=== PATIENT | male | born 1980 | race Caucasian/White ===

== ENCOUNTER → 2017-07-19 14:29 | Outpatient (POV) | payer BC, SELFPAY ==
[2017-07-19 15:43] LABS: Basophils # 0.1 K/mm3 (0-0.2); Basophils % 0.5 % (0.1-2.0); Eosinophils # 0.2 K/mm3 (0.0-0.4); Eosinophils % 1.7 % (0.1-12.0); Hematocrit 44.1 % (42.0-52.0); Lymphocytes # 2.8 K/mm3 (0.7-4.5); Lymphocytes % 25.6 K/mm3 (10-50); Mean Corpuscular Hemoglobin 28.8 pg (27.0-31.2); Mean Corpuscular Volume 84.7 fl (80-94); Mean Platelet Volume 7.7 fl (7.4-10.4); Monocytes # 0.6 K/mm3 (0.1-1.0); Monocytes % 5.1 % (1.7-9.3); Neutrophils # 7.4 K/mm3 (1.8-7.8); Platelet Count 301 K/mm3 (142-424); Red Blood Count 5.21 M/mm3 (4.60-6.20); Red Cell Distribution Width 13.1 % (11.5-17.5)
[2017-07-19 16:40] LABS: Alanine Aminotransferase 45 U/L (12-78); Albumin Level 4.2 gm/dL (3.4-5.0); Albumin/Globulin Ratio 1.2 (1.1-1.8); Alkaline Phosphatase 76 U/L (46-116); Amylase 44 U/L (25-125); Anion Gap 15.4 mEq/L (5-15); Bilirubin,Total 0.4 mg/dL (0.2-1.0); Blood Urea Nitrogen 11 mg/dL (7-18); Calcium 9.2 mg/dL (8.5-10.1); Carbon Dioxide 24 mmol/L (21.0-32.0); Chloride 96 mmol/L (98-107); Creatinine,Serum 1.06 mg/dL (0.70-1.30); Estimated Glomerular Filt Rate 78 ml/min (>60); GFR (African American) 95 ML/MIN (>60); Globulin 3.4 gm/dl (1.3-3.2); Glucose 380 mg/dL (74-106); Lipase 180 u/L (73-393); Sodium 131 mmol/L (136-145); Total Protein,Serum 7.6 gm/dL (6.4-8.2)
[2017-07-19 16:43] LABS: Aspartate Amino Transferase 21 U/L (15-37)
[2017-07-19 16:44] LABS: Potassium 4.4 mmoL/L (3.5-5.1)
== END ==
PROVIDERS: Family Provider Physician Assistant; Visit Provider Nurse Practitioner Acute Care
DX: K85.90 Acute pancreatitis without necrosis or infection, unspecified (principal)
CPT/HCPCS: 36415; 80053; 82150; 83690; 85025

== ENCOUNTER → 2017-07-29 09:49 | Outpatient (CLI) | payer BC, SELFPAY ==
--- NOTE | 2017-07-29 10:04 | NVE_ITS ---
Venous Exam Indications: 729.5 Pain in limb. 729.81 Swelling of limb. 451.82 Phlebitis and thrombophlebotis of superficial veins of upper extremities. IMPRESSIONS 1. No evidence of deep vein thrombosis ofthe veins of the left upper extremity 2. Superficial vein thrombosis involving the left basilic vein from the mid upper arm to the wrist. Left upper extremity venous duplex. Doppler flow study including spectral analysis, color and saenz scale imaging. Location: Vascular laboratory. Patient status: Outpatient. CRITICAL FINDINGS - Reported to: Dr. Berger - Read back and verified. - 07/29/17 - 10:45 AM - Yes Tables: Venous flow and imaging: + + + Location Flow properties + + + Left internal jugular Normal phasicity; spontaneous; compressible + + + Left subclavian Normal phasicity; spontaneous; normal augmentation; compressible + + + Left axillary Normal phasicity; spontaneous; normal augmentation; compressible + + + Left brachial Normal phasicity; spontaneous; normal augmentation; compressible + + + Left cephalic Normal phasicity; spontaneous; normal augmentation; compressible + + + Left basilic Diminished phasicity ; not spontaneous; no augmentation; noncompressible + + + Left radial Compressible + + + Left ulnar Compressible + + + Right subclavian Normal phasicity; spontaneous; normal augmentation; compressible + + + (Report amended ) Electronically signed by: Dony Peña [id number]
== END ==
PROVIDERS: Family Provider Physician Assistant; PCP Physician Assistant; Visit Provider Physician Assistant
DX: I80.8 Phlebitis and thrombophlebitis of other sites (principal)
CPT/HCPCS: 93971

== ENCOUNTER 2017-09-06 10:01 | Inpatient (IN) | payer BC, SELFPAY ==
[2017-09-06 10:02] VITALS: BP 124/80; PULSE 89; RESP 20; TEMP 37.4; O2SAT 98; BMI 33.9
[2017-09-06 10:23] LABS: Microscopic, Urine URINE MICROSCOPIC (MICROSCOPIC)
[2017-09-06 10:34] LABS: Basophils # 0.1 K/mm3 (0-0.2); Basophils % 0.3 % (0.1-2.0); Eosinophils # 0.3 K/mm3 (0.0-0.4); Eosinophils % 1.6 % (0.1-12.0); Lymphocytes # 1.5 K/mm3 (0.7-4.5); Lymphocytes % 8.2 K/mm3 (10-50); Mean Corpuscular HGB Conc 38.2 g/dL (31.8-35.4); Mean Corpuscular Volume 83.9 fl (80-94); Mean Platelet Volume 7.7 fl (7.4-10.4); Monocytes # 0.6 K/mm3 (0.1-1.0); Monocytes % 3.2 % (1.7-9.3); Neutrophils # 16.1 K/mm3 (1.8-7.8); Neutrophils % 86.7 % (37.0-80.0); Platelet Count 279 K/mm3 (142-424); Red Cell Distribution Width 13.5 % (11.5-17.5); White Blood Count 18.5 K/mm3 (4.8-10.8)
[2017-09-06 10:36] LABS: Appearance,Urine CLEAR (Clear); Bilirubin,Urine Negative (Negative); Blood, Urine TRACE-L (Negative); Color,Urine YELLOW (Yellow); Glucose,Urine (UA) 3+ (Negative); Ketones,Urine 2+ (Negative); Leukocyte Esterase,Urine Negative (Negative); Nitrate,Urine Negative (Negative); Protein,Urine Negative (Negative); Urobilinogen,Urine 0.2 EU/dl (0.2)
[2017-09-06 10:37] LABS: MANUAL DIFFERENTIAL MANUAL DIFFERENTIAL (MANUAL DIFF)
--- NOTE | 2017-09-06 10:52 | CT_ITS ---
CT abdomen pelvis wo con Ordering Physician: Jonathan Johnson MD Patient Age: 37 years: Male HISTORY: ITS.REASON: RT SIDE PAIN. Upper abdominal pain TECHNIQUE: Helical CT scanning abdomen pelvis with sagittal and coronal and axial reformatting on CT workstation. No oral nor IV contrast utilized COMPARISON : 03/08/2017: 01/17/2017 FINDINGS: Lung bases show no acute finding. Nonspecific less than 4 mm nodular opacity is present within the lingula.Overlying left cardiac apex. Axial image 6. Stable. Heart normal size. Only scant pericardial fluid WNL & less than previous CT study . LIVER. Hepatic steatosis. The mildly enlarged right lobe liver measures up to 24 cm height. Spleen . Upper normal size measures 12 cm actually appears intimately smaller than 2017 Adrenals unremarkable. Kidneys with no obstruction or calculi. Gallbladder. Layering appearance within GB may reflect layering bile or sludge Acute pancreatitis evident. There is prominent stranding and hazy fat about the pancreas particularly anterior to the body and head of pancreas. There is minimal fluid tracking from the tail outlining the throat is rasher on left extending towards the left gutter. There is also stranding on the right with some wispy fluid extending towards the right gutter. Edema and stranding is seen extending to the root of the mesentery and fat behind the stomach. Thin collection of fluid is seen just posterior to the head and by the pancreas and duodenum. I see no abscess collection. No calculi or biliary duct oral or pancreatic ductal dilatation. Diffuse thickening of the second and third portion of duodenum secondary to the pancreatitis noted. In 2017 appendicitis is most pronounced about the tail the pancreas. Today it seems to be most evident about the head and body. Stranding & inflammation into the mesentery beneath the stomach is also a feature seen today was not evident previously. Pelvis. Minimal fluid at the pelvis basin secondary to the pancreatitis. Pelvis Urinary bladder appears satisfactory. Modest size prostate Appendix normal.. . Moderate stool is seen the left large bowel. There is slight increased fluid throughout the small bowel which may reflect a mild ileus but no small bowel dilatation. No free air abdomen or pelvis. A question some mild sclerotic changes along the iliac margin of SI joints. Nonspecific but noted. Also incidental note is made of bilateral pars defects at L5 with no listhesis as of yet. No acute bony anomalies. IMPRESSION:------ 1. Acute pancreatitis.: Diffuse peripancreatic inflammatory change. Slightly more evident about the body and head pancreas today versus previous. Stranding inflammation extending towards into the mesentery into the right on today's study. No discrete absces nor pseudocyst . No hemorrhage. No complicating features 2. Diffuse Hepatic steatosis. No ductal dilatation evident 3. Other minor acute observations in text.
[2017-09-06 10:56] LABS: RBC,Urine Occasional #/hpf (0-3); Squamous Epithelial Cell,Urine Occasional #/hpf (0-5)
[2017-09-06 11:01] LABS: Lymphocytes % 8 % (10-50); Monocytes % 4 % (2-9); Neutrophils % 87 % (42-76); Platelet Estimate Normal; RBC Morphology Normal; Total Cells Counted 100
[2017-09-06 11:23] LABS: Albumin/Globulin Ratio 0.8 (1.1-1.8); Amylase 194 U/L (25-125); Blood Urea Nitrogen 8 mg/dL (7-18); Calcium 7.1 mg/dL (8.5-10.1); Chloride 93 mmol/L (98-107); Globulin 3.8 gm/dl (1.3-3.2); Glucose 396 mg/dL (74-106); Lipase 1866 u/L (73-393); Sodium 126 mmol/L (136-145); Total Protein,Serum 6.8 gm/dL (6.4-8.2)
--- NOTE | 2017-09-06 11:44 | HMH.EDNVD ---
ED Disposition Clinical Impression: Acute pancreatitis Qualifiers: Pancreatitis type: unspecified pancreatitis type Acute pancreatitis complication: unspecified Qualified Code(s): K85.90 - Acute pancreatitis without necrosis or infection, unspecified DKA (diabetic ketoacidoses) Qualifiers: Diabetes mellitus type: type 2 Diabetes mellitus complication detail: without coma Qualified Code(s): E11.10 - Type 2 diabetes mellitus with ketoacidosis without coma Disposition: Admitted As Inpatient Condition on Discharge: Serious Time of Disposition: 12:05 - Critical Care Critical Care Time: Yes Attestation: On 09/06/17, the high probability of a clinically significant, sudden or life threatening deterioration of the following system(s) required my full and direct attention, intervention and personal management. The time I documented below is in addition to time spent performing reported procedures but includes the following listed in this critical care notation. Total Critical Care Time: 45 Vital system(s) involved:: Metabolic Failure My critical care processes included: Assessment & monitoring of V/S, Initial and Re-exams, Data Review/Interpretation, Coordinating Care, Medication Orders and management, Documentation Medical Decision Making - Medical Records Medical records reviewed: Yes: I reviewed the patient's medical records. Vital Signs: 09/06/17 10:02 09/06/17 13:32 09/06/17 14:00 Temperature 99.4 F 99.0 F Temperature Source Oral Oral Pulse Rate Pulse Rate [Right Brachial] 89 88 Respiratory Rate 20 18 Blood Pressure Blood Pressure [Right Arm] 124/80 129/70 Blood Pressure Mean [Right Arm] 94 89 Blood Pressure Source [Right Arm] Automatic Cuff Automatic Cuff Blood Pressure Position [Right Arm] Sitting Sitting 02 Sat by Pulse Oximetry 98 99 Oxygen Delivery Method Room Air Room Air Room Air 09/06/17 14:24 Temperature 99.0 F Temperature Source Pulse Rate 88 Pulse Rate [Right Brachial] Respiratory Rate 18 Blood Pressure 129/70 Blood Pressure [Right Arm] Blood Pressure Mean [Right Arm] Blood Pressure Source [Right Arm] Blood Pressure Position [Right Arm] 02 Sat by Pulse Oximetry Oxygen Delivery Method Room Air - Lab Data Lab results reviewed: Yes: I reviewed the patient's lab results. Lab Results 09/06/17 10:18: Urine Color Yellow, Urine Appearance Clear, Urine pH 6.0, Ur Specific [place] 1.010, Urine Protein Negative, Urine Glucose (UA) 3+, Urine Ketones 2+, Urine Blood Trace-l, Urine Nitrate Negative, Urine Bilirubin Negative, Urine Urobilinogen 0.2, Ur Leukocyte Esterase Negative, Urine RBC Occasional, Urine WBC None, Ur Squamous Epith Cells Occasional, Urine Bacteria None 09/06/17 10:20: WBC 18.5 H, RBC 5.00, Hgb 16.0, Hct 42.0, MCV 83.9, MCH 32.0 H, MCHC 38.2 H, RDW 13.5, Plt Count 279, MPV 7.7, Neut % (Auto) 86.7 H, Lymph % (Auto) 8.2 L, [place] % (Auto) 3.2, Eos % (Auto) 1.6, Baso % (Auto) 0.3, Neut # (Auto) 16.1 H, Lymph # (Auto) 1.5, [place] # (Auto) 0.6, Eos # (Auto) 0.3, Baso # (Auto) 0.1, Total Counted 100, Neutrophils % (Manual) 87 H, Band Neutrophils % 1.0, Lymphocytes % (Manual) 8 L, Monocytes % (Manual) 4, Platelet Estimate Normal, RBC Morphology Normal 09/06/17 10:20: Sodium 126 L, Potassium 4.1, Chloride 93 L, Carbon Dioxide 7 L*, Anion Gap 30.1 H, BUN 8, Creatinine 0.82, Estimated Creat Clear 196, Estimated GFR 105, Est GFR ( Amer) 127, Glucose 396 H, Calcium 7.1 L, Total Bilirubin 2.0 H, AST 28, ALT 31.2, Alkaline Phosphatase 66, Total Protein 6.8, Albumin 3.0 L, Globulin 3.8 H, Albumin/Globulin Ratio 0.8 L, Amylase 194 H, Lipase 1866 H 09/06/17 10:20: Plasma/Serum Alcohol 0 09/06/17 10:20: Acetone Level None detected 09/06/17 12:06: Lactic Acid 0.3 L 09/06/17 12:45: Specimen Source R. radial, O2 % Room air, ABG pH 7.38, ABG pCO2 31.6 L, ABG pO2 73.4 L, ABG HCO3 18.2 L, ABG Total CO2 19.2 L, ABG O2 Saturation 95, ABG Base Excess -6.9 L, Dony Test Acceptable Result diagrams: 0
--- NOTE | 2017-09-06 11:55 | US_ITS ---
US gallbladder Ordering Physician: Yo Sr MD Patient Age: 37 years: Male HISTORY: ITS.REASON: RUQ abdomen vomiting right upper quadrant pain TECHNIQUE: Ultrasound right upper quadrant COMPARISON :CT abdomen pelvis from earlier today FINDINGS Pancreas. Difficult of the visualized evaluate this area of inflammation. Likely edematous pancreas with some inflammatory fluid noted adjacent head of the body of pancreas. Liver. Hepatic steatosis Diffuse fatty changes difficult to penetrate liver. No biliary ductal dilatation. No focal lesions identified. Gallbladder. Slightly difficult to visualize but no definite gallstones. No evident shadowing gallstones. There is some sludge and debris within the gallbladder. The gallbladder wall appears upper normal thickness. Common duct appears normal diameter Right kidney generous thickness cortex.. Generous size of kidneys right kidney measuring 13.5 cm in length. Left kidney not imaged by ultrasound it was noted on today's CT 2 also measured nearly 12.5 cm in length IMPRESSION: . Difficult scan.. 1. Gallbladder. No discrete gallstones evident. Only scant debris and sludge. 2. Common duct normal diameter. 3. Hepatic steatosis difficult to penetrate liver. 4. Suggestion of edematous pancreas with vague adjacent inflammatory fluid. Findings Reflect known pancreatitis which was better demonstrated on today's CT
[2017-09-06 12:16] LABS: Alanine Aminotransferase 31.2 U/L (12-78); Potassium 4.1 mmoL/L (3.5-5.1)
[2017-09-06 12:21] LABS: Aspartate Amino Transferase 28 U/L (15-37); Creatinine Clearance Estimated 196 mL/min (0-300); Creatinine,Serum 0.82 mg/dL (0.70-1.30); Estimated Glomerular Filt Rate 105 ml/min (>60); GFR (African American) 127 ML/MIN (>60)
[2017-09-06 12:32] LABS: Alkaline Phosphatase 66 U/L (46-116)
--- NOTE | 2017-09-06 12:43 | PC.NURSE ---
YOGESH ESTRADA spoke with at this time
--- NOTE | 2017-09-06 12:48 | PC.NURSE ---
YOGESH ESTRADA speaking with DR. Sr.
[2017-09-06 13:02] LABS: ABG Base Excess -6.9 mmol/L (-2.4-2.3); ABG HCO3 18.2 mmhg (22.0-26.0); ABG Oxygen Saturation 95 % (90-100); ABG PCO2 31.6 mmhg (35.0-45.0); ABG PH 7.38 mmol/L (7.35-7.45); ABG PO2 73.4 mmhg (80-100); ABG TCO2 19.2 mmhg (23-27)
[2017-09-06 13:03] LABS: Oxygen ROOM AIR %
[2017-09-06 13:04] LABS: Allen's Test ACCEPTABLE; Source R. RADIAL
[2017-09-06 13:23] LABS: Acetone, Serum (Rapid) None Detected (None Detect)
[2017-09-06 13:32] VITALS: BP 129/70; PULSE 88; RESP 18; TEMP 37.2; O2SAT 99
[2017-09-06 13:38] LABS: Anion Gap 30.1 mEq/L (5-15)
[2017-09-06 13:40] LABS: Carbon Dioxide 7 mmol/L (21.0-32.0)
[2017-09-06 13:43] LABS: Ethyl Alcohol 0 mg/dL (0-99)
--- NOTE | 2017-09-06 13:55 | PC.NURSE ---
ADVISED DR GUERRERO THAT WE ARE OUT OF DILUADID IN THE BUILDING. ORDERS 8MG OF MORPHINE INSTEAD.
--- NOTE | 2017-09-06 14:15 | PC.NURSE ---
REPORT CALLED TO SIA PALOMINO
[2017-09-06 14:24] VITALS: BP 129/70; PULSE 88; RESP 18; TEMP 37.2; O2SAT 99
[2017-09-06 14:30] VITALS: BP 119/70; PULSE 88; RESP 18; TEMP 37.2; O2SAT 92; BMI 35.4
[2017-09-06 15:45] LABS: ABG Base Excess -7.8 mmol/L (-2.4-2.3); ABG HCO3 17.6 mmhg (22.0-26.0); ABG Oxygen Saturation 94 % (90-100); ABG PCO2 31.3 mmhg (35.0-45.0); ABG PH 7.37 mmol/L (7.35-7.45); ABG TCO2 18.5 mmhg (23-27)
[2017-09-06 15:46] LABS: Allen's Test Acceptable; Source Right Radial
[2017-09-06 15:59] LABS: Lactic Acid 0.3 mmol/L (0.4-2.0)
--- NOTE | 2017-09-06 17:24 | PC.NURSE ---
SPOKE WITH ER NURSE ARACELI RN, CONFIRM AWARE OF CONSULT.
[2017-09-06 20:00] VITALS: BP 131/69; PULSE 95; RESP 18; TEMP 37.1; O2SAT 92
--- NOTE | 2017-09-07 02:57 | PC.NURSE ---
AT 0130 PATIENT WAS STANDING AT BED SIDE WHEN ENTERED ROOM. STATED WAS HAVING PAIN IN RIGHT SIDE DESPITE HAVING PAIN MEDICATION LESS THAN 2 HOURS PRIOR. PAIN 01/18. NOTIFIED DR CALI, OXYACETYLENE WELDER. ONE TIME DOSE OF MORPHINE 2MG IV ORDERED. LUNGS ARE CLEAR, RESP EVEN AND NONLABORED. HAS BEEN UP TO RESTROOM INDEPENDENTLY. HAS BEEN NPO SINCE MIDNIGHT. FOR SAHA CONSULT. PAIN MEDICATION GIVEN, WAS EFFECTIVE AGAINST PAIN. HAS NO NEEDS AT THIS TIME. IV IS PATENT, BED LOCKED IN LOW POSITION, SIDE RAILS UP X 2. WILL CONTINUE TO MONITOR. ENCOURAGED TO NOTIFY RN OF PAIN OR NEEDS.
[2017-09-07 04:00] VITALS: BP 141/83; PULSE 100; RESP 20; TEMP 36.9; O2SAT 94
--- NOTE | 2017-09-07 07:33 | PC.NURSE ---
REPORT GIVEN TO Rebecca REYES W/C
--- NOTE | 2017-09-07 07:45 | HMH.PHAVTE ---
[facility] Pharmacy VTE Monitoring - Patient Demographics Admission date: 09/06/17 Report Date: 09/07/17 Time: 07:45 Allergies/Adverse Reactions: Patient Allergies Penicillins [PENICILLINS] Allergy (Unknown, Verified 09/06/17 10:20) Height: 1.83 m Weight: 118.558 kg Patient Problems: Current Active Problems Acute pancreatitis (Acute) DKA (diabetic ketoacidoses) (Acute) - VTE Risk Labs: VTE Related Lab Results Hgb 16.0 g/dL (14.1-18.0) 09/06/17 10:20 Hct 42.0 % (42.0-52.0) 09/06/17 10:20 Plt Count 279 K/mm3 (142-424) 09/06/17 10:20 BUN 8 mg/dL (7-18) 09/06/17 10:20 Creatinine 0.82 mg/dL (0.70-1.30) 09/06/17 10:20 Estimated Creat Clear 196 mL/min (0-300) 09/06/17 10:20 Was VTE Risk Assessment Performed: Yes VTE Score: 1 VTE Risk Level: Very Low Risk Clinical Trial Participant: No - Prophylaxis VTE Prophylaxis Ordered?: Yes Types of VTE Prophylaxis: TEDS Knee High, Pharmacological Pharmacologic Type: Other (XARELTO)
[2017-09-07 08:00] VITALS: BP 129/73; PULSE 91; RESP 18; TEMP 36.9; O2SAT 94
[2017-09-07 08:24] LABS: Basophils # 0.1 K/mm3 (0-0.2); Basophils % 0.3 % (0.1-2.0); Eosinophils # 0.3 K/mm3 (0.0-0.4); Eosinophils % 1.9 % (0.1-12.0); Hematocrit 38.7 % (42.0-52.0); Lymphocytes # 1.5 K/mm3 (0.7-4.5); Lymphocytes % 9.6 K/mm3 (10-50); Mean Corpuscular HGB Conc 34.3 g/dL (31.8-35.4); Mean Corpuscular Hemoglobin 29.1 pg (27.0-31.2); Mean Corpuscular Volume 84.9 fl (80-94); Mean Platelet Volume 7.4 fl (7.4-10.4); Monocytes # 0.5 K/mm3 (0.1-1.0); Monocytes % 3.4 % (1.7-9.3); Neutrophils # 12.9 K/mm3 (1.8-7.8); Neutrophils % 84.8 % (37.0-80.0); Red Blood Count 4.56 M/mm3 (4.60-6.20); Red Cell Distribution Width 13.5 % (11.5-17.5); White Blood Count 15.2 K/mm3 (4.8-10.8)
[2017-09-07 08:32] LABS: Blood Urea Nitrogen 6 mg/dL (7-18); Carbon Dioxide 23 mmol/L (21.0-32.0); Chloride 100 mmol/L (98-107); Creatinine Clearance Estimated 177 mL/min (0-300); Creatinine,Serum 0.95 mg/dL (0.70-1.30); Estimated Glomerular Filt Rate 89 ml/min (>60); GFR (African American) 107 ML/MIN (>60); Sodium 133 mmol/L (136-145)
[2017-09-07 08:36] LABS: Glucose 236 mg/dL (74-106)
[2017-09-07 08:43] LABS: Lipase 772 u/L (73-393)
[2017-09-07 08:56] LABS: Acetone, Serum (Rapid) None Detected (None Detect)
[2017-09-07 09:03] LABS: Hemoglobin 13.5 g/dL (14.1-18.0); Platelet Count 201 K/mm3 (142-424)
[2017-09-07 09:04] LABS: MANUAL DIFFERENTIAL MANUAL DIFFERENTIAL (MANUAL DIFF)
[2017-09-07 12:48] LABS: Eosinophils % 3 % (0-3); Lymphocytes % 8 % (10-50); Monocytes % 2 % (2-9); Neutrophils % 87 % (42-76); Platelet Estimate Normal; RBC Morphology Normal; Total Cells Counted 100
--- NOTE | 2017-09-07 12:56 | HMH.HP ---
*Admission Date: 09/06/17 *Chief complaint: abd pain *History of present illness: this wm presented to ed with abd pain with vomiting over the last few days- he has sphinter of abdulkadir issues in past and is diabetic and unable to keep fluids down- pt was seen in the ed-s is a 37-year-old male patient presenting to the emergency room with gradual onset of upper abdominal pain wrapping around his flanks to the upper back, since yesterday, around 1 PM. Patient has had multiple episodes of nausea and vomiting, unable to hold on any solid food or liquids. He has a history of sphincter of Oddi stenosis, for which he has seen Dr. Roman Erickson, at [facility], and also underwent an ERCP, with dilatation and stenting of the Oddi sphincter (Feb 2017). Today patient describes chills, subjective fever, but denies any recent travel or exposure to sick contacts. He has a history of diabetes, being poorly compliant on diet and medications as well. Despite the GI specialist's advised the patient is continued to drink alcohol once in a while. [facility] History I have reviewed the patient's past medical history: Yes Medical History: Denies:: Cancer, Diabetes Mellitus Type 1, Diabetes Mellitus Type 2, MRSA Laterality Cases: Right: Arthroscopy Knee Other Surgeries: Yes: Colostomy Amputation: No Fractures: No - *Social History Educational Level: Attended College Smoking Status: Never smoker Alcohol Intake: current (occasionally) Occupational Status: employed Housing: house Household Members: spouse, children - Psychiatric History Expresses thoughts of harming self/others: None Suicide Plan Description: No Plan *Family Hx:: Coronary Artery Disease, Diabetes, Heart Attack, Hyperlipidemia, Hypertension, Kidney Disease, Stroke Review of Systems - Review of Systems Review of systems:: pertinent systems reviewed and negative unless documented below - Constitutional Reports malaise, Denies fever(s) - Eyes Denies change in vision - ENT Denies change in voice - *Cardiovascular Denies chest pain at rest - *Respiratory Denies cough - *Gastrointestinal Reports abdominal pain, Reports nausea, Reports vomiting - *Genitourinary Denies blood in urine - *Musculoskeletal Denies joint pain, Denies joint swelling - Integumentary/Breasts Denies rash - *Neurologic Denies dizziness - Psychiatric Denies depression Meds Home Medications Medication Instructions Recorded Confirmed Type Atorvastatin Calcium [Atorvastatin 20 mg PO DAILY 09/06/17 09/06/17 History 20mg Tab] Fenofibrate Nanocrystallized 145 mg PO DAILY 09/06/17 09/06/17 History [Tricor] Insulin Aspart [Novolog Flexpen] 15 unit SQ TID 09/06/17 09/06/17 History Insulin Glargine,Hum.rec.anlog 80 unit SQ HS 09/06/17 09/07/17 History [Basaglar Kwikpen U-100] Lisinopril [Lisinopril 40mg Tablet] 40 mg PO DAILY 09/06/17 09/06/17 History Metformin HCl [Metformin 500mg 1,000 mg PO BID 09/06/17 09/06/17 History Tablet] [place]-3 Acid Ethyl Esters [Lovaza] 2 gm PO BID 09/06/17 09/06/17 History Rivaroxaban [Xarelto 15mg tablet] 20 mg PO DAILY 09/06/17 09/06/17 History Allergies Allergy/AdvReac Type Severity Reaction Status Date / Time Penicillins [PENICILLINS] Allergy Unknown Verified 09/06/17 10:20 Exam Vital signs and Labs for Last 24 Hours: Temp Pulse Resp BP Pulse Ox 98.4 F 91 H 18 129/73 94 L 09/07/17 08:00 09/07/17 08:00 09/07/17 08:00 09/07/17 08:00 09/07/17 08:00 Laboratory Results - last 24 hr 09/06/17 13:12: Specimen Source Right radial, O2 % 21%ra, ABG pH 7.37, ABG pCO2 31.3 L, ABG pO2 68.0 L, ABG HCO3 17.6 L, ABG Total CO2 18.5 L, ABG O2 Saturation 94, ABG Base Excess -7.8 L, Dony Test Acceptable 09/07/17 08:15: WBC 15.2 H, RBC 4.56 L, Hgb 13.5 L D, Hct 38.7 L, MCV 84.9, MCH 29.1, MCHC 34.3, RDW 13.5, Plt Count 201 D, MPV 7.4, Neut % (Auto) 84.8 H, Lymph % (Auto) 9.6 L, [place] % (Auto) 3.4, Eos % (Auto) 1.9, Baso % (Auto) 0.3, Neut # (Au
--- NOTE | 2017-09-07 13:04 | P.HP_ITS ---
*Admission Date: 09/06/17 *Chief complaint: abd pain *History of present illness: this wm presented to ed with abd pain with vomiting over the last few days- he has sphinter of abdulkadir issues in past and is diabetic and unable to keep fluids down- pt was seen in the ed-s is a 37-year-old male patient presenting to the emergency room with gradual onset of upper abdominal pain wrapping around his flanks to the upper back, since yesterday, around 1 PM. Patient has had multiple episodes of nausea and vomiting, unable to hold on any solid food or liquids. He has a history of sphincter of Oddi stenosis, for which he has seen Dr. Roman Erickson, at [facility], and also underwent an ERCP, with dilatation and stenting of the Oddi sphincter (Feb 2017). Today patient describes chills, subjective fever, but denies any recent travel or exposure to sick contacts. He has a history of diabetes, being poorly compliant on diet and medications as well. Despite the GI specialist's advised the patient is continued to drink alcohol once in a while. [facility] History I have reviewed the patient's past medical history: Yes Medical History: Denies:: Cancer, Diabetes Mellitus Type 1, Diabetes Mellitus Type 2, MRSA Laterality Cases: Right: Arthroscopy Knee Other Surgeries: Yes: Colostomy Amputation: No Fractures: No - *Social History Educational Level: Attended College Smoking Status: Never smoker Alcohol Intake: current (occasionally) Occupational Status: employed Housing: house Household Members: spouse, children - Psychiatric History Expresses thoughts of harming self/others: None Suicide Plan Description: No Plan *Family Hx:: Coronary Artery Disease, Diabetes, Heart Attack, Hyperlipidemia, Hypertension, Kidney Disease, Stroke Review of Systems - Review of Systems Review of systems:: pertinent systems reviewed and negative unless documented below - Constitutional Reports malaise, Denies fever(s) - Eyes Denies change in vision - ENT Denies change in voice - *Cardiovascular Denies chest pain at rest - *Respiratory Denies cough - *Gastrointestinal Reports abdominal pain, Reports nausea, Reports vomiting - *Genitourinary Denies blood in urine - *Musculoskeletal Denies joint pain, Denies joint swelling - Integumentary/Breasts Denies rash - *Neurologic Denies dizziness - Psychiatric Denies depression Meds Home Medications Medication Instructions Recorded Confirmed Type Atorvastatin Calcium [Atorvastatin 20 mg PO DAILY 09/06/17 09/06/17 History 20mg Tab] Fenofibrate Nanocrystallized 145 mg PO DAILY 09/06/17 09/06/17 History [Tricor] Insulin Aspart [Novolog Flexpen] 15 unit SQ TID 09/06/17 09/06/17 History Insulin Glargine,Hum.rec.anlog 80 unit SQ HS 09/06/17 09/07/17 History [Basaglar Kwikpen U-100] Lisinopril [Lisinopril 40mg Tablet] 40 mg PO DAILY 09/06/17 09/06/17 History Metformin HCl [Metformin 500mg 1,000 mg PO BID 09/06/17 09/06/17 History Tablet] [place]-3 Acid Ethyl Esters [Lovaza] 2 gm PO BID 09/06/17 09/06/17 History Rivaroxaban [Xarelto 15mg tablet] 20 mg PO DAILY 09/06/17 09/06/17 History Allergies Allergy/AdvReac Type Severity Reaction Status Date / Time Penicillins [PENICILLINS] Allergy Unknown Verified 09/06/17 10:20 Exam Vital signs and Labs for Last 24 Hours: Temp Pulse Resp BP Pulse Ox 98.4 F 91 H 18
--- NOTE | 2017-09-07 15:48 | PC.NURSE ---
PT STABLE. REPORTED PAIN AND BRIEF EPISODE OF NAUSEA ONCE THIS MORNING. SLEEPING IN BED SINCE THEN. ABD STILL MODERATELY DISTENDED AND TENDER TO THE TOUCH. PT REPORTS WANTING TO DRINK FLUIDS AGAIN. SWABS AT BEDSIDE FOR ORAL CARE.
[2017-09-07 16:00] VITALS: BP 132/68; PULSE 98; RESP 18; TEMP 38.4; O2SAT 95
[2017-09-07 19:58] VITALS: BP 138/79; PULSE 91; RESP 18; TEMP 37.2; O2SAT 95
--- NOTE | 2017-09-07 21:32 | PC.NURSE ---
Late entry : @ 2024 Dr Sr visited. New orders received.
[2017-09-08 04:00] VITALS: BP 112/57; PULSE 73; RESP 17; TEMP 36.7; O2SAT 97
--- NOTE | 2017-09-08 06:18 | XR_ITS ---
XR chest portable HISTORY: ITS.REASON: cough ORDERING PHYSICIAN: Yo Sr MD PATIENT AGE: 37 years COMPARISON: None available FINDINGS: The cardiomediastinal silhouette and pulmonary vascularity are within normal limits. There are low lung volumes with slightly elevated right hemidiaphragm. There are increased markings in the right lung base medially which may be due to atelectasis or infiltrate versus vascular crowding. The remaining lungs are clear. IMPRESSION: Elevated right hemidiaphragm with right basilar atelectasis or infiltrate
--- NOTE | 2017-09-08 07:23 | PC.NURSE ---
REPORT GIVEN TO Jesus DONATO W/C
[2017-09-08 07:45] VITALS: BP 133/76; PULSE 89; RESP 18; TEMP 36.5; O2SAT 95
[2017-09-08 09:00] VITALS: O2SAT 96
--- NOTE | 2017-09-08 12:15 | P.PN_ITS ---
Internal Medicine - PN: Subj *Date: 09/08/17 *Time: 12:13 Interval history: pt with fever and cough and rt sided abd pain Exam Vital signs and Labs for Last 24 Hours: Temp Pulse Resp BP Pulse Ox 97.7 F 89 18 133/76 96 09/08/17 07:45 09/08/17 07:45 09/08/17 07:45 09/08/17 07:45 09/08/17 09:00 Laboratory Results - last 24 hr 09/07/17 08:15: Total Counted 100, Neutrophils % (Manual) 87 H, Lymphocytes % ( Manual) 8 L, Monocytes % (Manual) 2, Eosinophils % (Manual) 3, Platelet Estimate Normal, RBC Morphology Normal I & O for Last 24 hours: Intake & Output 09/06/17 09/07/17 09/08/17 09/09/17 11:59 11:59 11:59 11:59 Intake Total 383 / 383 7075 / 7075 Balance 383 / 383 7075 / 7075 Weight 261 lb 6 oz - Constitutional no acute distress - *Routine HEENT Exam Head: Present: normocephalic Eye: Present: EOMI, PERRL ENT: Present: mucous membranes dry - *Routine Neck Exam Present: full ROM - *Routine Respiratory Exam Present: decreased breath sounds. Absent: respiratory distress - *Routine Cardiovascular Exam Present: RRR. Absent: murmur - *Routine Abdominal Exam Present: soft. 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
[2017-09-08 15:32] VITALS: BP 138/83; PULSE 86; RESP 18; TEMP 36.7; O2SAT 96
[2017-09-08 20:00] VITALS: BP 135/71; PULSE 83; RESP 18; TEMP 37.3; O2SAT 96
[2017-09-08 20:20] VITALS: O2SAT 96
--- NOTE | 2017-09-08 21:15 | PC.NURSE ---
PT C/O HEARTBURN. NOTIFIED AT 2114, RESPONDED AT 2116. TO/RB PEPCID 20MG PO BID AND MAALOX 30ML Q4HR PO PRN HEART BURN.
[2017-09-09 04:00] VITALS: BP 112/67; PULSE 77; RESP 18; TEMP 36.3; O2SAT 97
--- NOTE | 2017-09-09 04:08 | PC.NURSE ---
PT HAS RESTED WELL THIS SHIFT. NO C/O PAIN. PT C/O HEART BURN, NOTIFIED 2114 AND PEPCID 20MG PO BID AND MAALOX 30ML Q4HR PO PRN ORDERED. PT Q4HR FSBS, NO INSULIN ADMIN; NPO STATUS. LUNG SOUNDS CLEAR ON AUSCULTATION. MEDS ADMIN PER SEP. VSS. NO OTHER CONCERNS AT THIS TIME. WILL CONT. TO MONITOR.
--- NOTE | 2017-09-09 07:27 | PC.NURSE ---
REPORT GIVEN TO Kim QUIROZ RN
[2017-09-09 07:36] VITALS: BP 125/67; PULSE 74; RESP 18; TEMP 36.9; O2SAT 97
[2017-09-09 07:39] LABS: Basophils % 0.2 % (0.1-2.0); Eosinophils # 0.6 K/mm3 (0.0-0.4); Eosinophils % 5.9 % (0.1-12.0); Hemoglobin 11.6 g/dL (14.1-18.0); Lymphocytes # 1.2 K/mm3 (0.7-4.5); Lymphocytes % 11.6 K/mm3 (10-50); Mean Corpuscular Volume 85.5 fl (80-94); Mean Platelet Volume 7.3 fl (7.4-10.4); Monocytes # 0.6 K/mm3 (0.1-1.0); Monocytes % 5.5 % (1.7-9.3); Neutrophils # 8.1 K/mm3 (1.8-7.8); Neutrophils % 76.9 % (37.0-80.0); Platelet Count 250 K/mm3 (142-424); Red Blood Count 3.98 M/mm3 (4.60-6.20); Red Cell Distribution Width 13.5 % (11.5-17.5); White Blood Count 10.6 K/mm3 (4.8-10.8)
[2017-09-09 07:53] LABS: Alanine Aminotransferase 17 U/L (12-78); Albumin Level 2.1 gm/dL (3.4-5.0); Albumin/Globulin Ratio 0.5 (1.1-1.8); Alkaline Phosphatase 72 U/L (46-116); Anion Gap 15.4 mEq/L (5-15); Aspartate Amino Transferase 11 U/L (15-37); Bilirubin,Total 0.7 mg/dL (0.2-1.0); Blood Urea Nitrogen 5 mg/dL (7-18); Carbon Dioxide 20 mmol/L (21.0-32.0); Chloride 100 mmol/L (98-107); Creatinine Clearance Estimated 240 mL/min (0-300); Estimated Glomerular Filt Rate 126 ml/min (>60); GFR (African American) 153 ML/MIN (>60); Globulin 4.3 gm/dl (1.3-3.2); Glucose 191 mg/dL (74-106); Lipase 267 u/L (73-393); Potassium 3.4 mmoL/L (3.5-5.1); Sodium 132 mmol/L (136-145); Total Protein,Serum 6.4 gm/dL (6.4-8.2)
[2017-09-09 09:00] VITALS: O2SAT 96
--- NOTE | 2017-09-09 12:34 | HMH.DCSUM ---
General - General Admission date: 09/06/17 Discharge date: 09/09/17 HPI HPI: this wm presented to ed with abd pain with vomiting over the last few days- he has sphinter of abdulkadir issues in past and is diabetic and unable to keep fluids down- pt was seen in the ed-s is a 37-year-old male patient presenting to the emergency room with gradual onset of upper abdominal pain wrapping around his flanks to the upper back, since yesterday, around 1 PM. Patient has had multiple episodes of nausea and vomiting, unable to hold on any solid food or liquids. He has a history of sphincter of Oddi stenosis, for which he has seen Dr. Roman Erickson, at [facility], and also underwent an ERCP, with dilatation and stenting of the Oddi sphincter (Feb 2017). Today patient describes chills, subjective fever, but denies any recent travel or exposure to sick contacts. He has a history of diabetes, being poorly compliant on diet and medications as well. Despite the GI specialist's advised the patient is continued to drink alcohol once in a while. Hospital Course Hospital Course: ct scan abd pelvis:IMPRESSION:------ 1. Acute pancreatitis.: Diffuse peripancreatic inflammatory change. Slightly more evident about the body and head pancreas today versus previous. Stranding inflammation extending towards into the mesentery into the right on today's study. No discrete absces nor pseudocyst . No hemorrhage. No complicating features 2. Diffuse Hepatic steatosis. No ductal dilatation evident 3. Other minor acute observations in text. ultra sound IMPRESSION: . Difficult scan.. 1. Gallbladder. No discrete gallstones evident. Only scant debris and sludge. 2. Common duct normal diameter. 3. Hepatic steatosis difficult to penetrate liver. 4. Suggestion of edematous pancreas with vague adjacent inflammatory fluid. Findings Reflect known pancreatitis which was better demonstrated on today's CT pt has breakfast and tolerated well. will dc home to follow up with rosanne ulloa. Objective Vital signs: Temp Pulse Resp BP Pulse Ox 98.4 F 74 18 125/67 96 09/09/17 07:36 09/09/17 07:36 09/09/17 07:36 09/09/17 07:36 09/09/17 09:00 no acute distress - *Routine HEENT Exam Head: Present: normocephalic Eye: Present: PERRL ENT: Present: mucous membranes moist - *Routine Neck Exam Present: supple, full ROM - *Routine Respiratory Exam Present: CTA bilaterally - *Routine Cardiovascular Exam Present: RRR - *Routine Abdominal Exam Present: soft, normoactive bowel sounds - *Routine Extremities Exam Present: full ROM - Routine Back/Spine/Pelvis Exam Back/Spine: Present: full ROM - *Routine Neurological Exam Present: alert, oriented X3, CN II-XII intact - Routine Psychiatric Exam Present: normal affect, normal thought process Results Labs on day of discharge: Labs from last 24 hours 09/09/17 09/09/17 07:30 07:30 WBC 10.6 D RBC 3.98 L Hgb 11.6 L Hct 34.0 L MCV 85.5 MCH 29.0 MCHC 34.0 RDW 13.5 Plt Count 250 MPV 7.3 L Neut % (Auto) 76.9 Lymph % (Auto) 11.6 Gates % (Auto) 5.5 Eos % (Auto) 5.9 Baso % (Auto) 0.2 Neut # (Auto) 8.1 H Lymph # (Auto) 1.2 Gates # (Auto) 0.6 Eos # (Auto) 0.6 H Baso # (Auto) 0.0 Sodium 132 L Potassium 3.4 L Chloride 100 Carbon Dioxide 20 L Anion Gap 15.4 H BUN 5 L Creatinine 0.70 D Estimated Creat Clear 240 Estimated GFR 126 Est GFR ( Amer) 153 D Glucose 191 H Calcium 8.0 L D Total Bilirubin 0.7 AST 11 L D ALT 17 D Alkaline Phosphatase 72 Total Protein 6.4 Albumin 2.1 L Globulin 4.3 H Albumin/Globulin Ratio 0.5 L Lipase 267 Discharge Plan - Patient Discharge Instructions ACTIVITY: Continue current activity DIET: continue same diet Patient Instructions: Acute Pancreatitis, DI for Pancreatitis - Follow up Plan Follow up with: Roman Erickson MD [Staff P
[2017-09-09 15:07] LABS: POC Glucose,Bedside 261 mg/dL (70-110)
[2017-09-09 15:08] LABS: POC Glucose,Bedside 245 mg/dL (70-110)
[2017-09-09 15:08] LABS: POC Glucose,Bedside 210 mg/dL (70-110)
[2017-09-09 15:10] LABS: POC Glucose,Bedside 220 mg/dL (70-110)
[2017-09-09 15:10] LABS: POC Glucose,Bedside 213 mg/dL (70-110)
[2017-09-09 15:11] LABS: POC Glucose,Bedside 177 mg/dL (70-110)
[2017-09-09 15:11] LABS: POC Glucose,Bedside 185 mg/dL (70-110)
[2017-09-09 15:12] LABS: POC Glucose,Bedside 185 mg/dL (70-110)
[2017-09-09 15:12] LABS: POC Glucose,Bedside 202 mg/dL (70-110)
[2017-09-09 15:12] LABS: POC Glucose,Bedside 181 mg/dL (70-110)
[2017-09-09 15:13] LABS: POC Glucose,Bedside 170 mg/dL (70-110)
[2017-09-09 15:13] LABS: POC Glucose,Bedside 151 mg/dL (70-110)
[2017-09-09 15:14] LABS: POC Glucose,Bedside 176 mg/dL (70-110)
[2017-09-09 15:14] LABS: POC Glucose,Bedside 189 mg/dL (70-110)
== END 2017-09-09 13:32 | disposition home or self-care (01) | DRG 637 ==
LOC: ER 12:05 → 2ND 13:10
PROVIDERS: Admitting Provider Emergency Medicine; Emergency Provider Emergency Medicine; Family Provider Physician Assistant; PCP Physician Assistant; Visit Provider Emergency Medicine
DX: E11.10 Type 2 diabetes mellitus with ketoacidosis without coma (principal); K85.90 Acute pancreatitis without necrosis or infection, unspecified
CPT/HCPCS: 36415; 71045; 74176; 76705; 80048; 80053; 81001; 82009; 82150; 82803; 82962; 83605; 83690; 85007; 85025; 87040; 96365; 96366; 96374; 96375; 96376; 99284; J0456; J2270; J2405

== ENCOUNTER → 2017-09-20 15:15 | Outpatient (POV) | payer BC, SELFPAY ==
[2017-09-20 16:04] LABS: Basophils # 0.1 K/mm3 (0-0.2); Basophils % 0.7 % (0.1-2.0); Eosinophils # 0.3 K/mm3 (0.0-0.4); Eosinophils % 2.8 % (0.1-12.0); Lymphocytes # 2.8 K/mm3 (0.7-4.5); Lymphocytes % 27.6 K/mm3 (10-50); Mean Corpuscular HGB Conc 33.4 g/dL (31.8-35.4); Mean Corpuscular Hemoglobin 29.1 pg (27.0-31.2); Mean Corpuscular Volume 87.3 fl (80-94); Mean Platelet Volume 7.7 fl (7.4-10.4); Monocytes # 0.4 K/mm3 (0.1-1.0); Neutrophils # 6.5 K/mm3 (1.8-7.8); Platelet Count 399 K/mm3 (142-424); Red Blood Count 4.81 M/mm3 (4.60-6.20)
[2017-09-20 16:49] LABS: Alanine Aminotransferase 43 U/L (12-78); Albumin Level 3.5 gm/dL (3.4-5.0); Albumin/Globulin Ratio 0.9 (1.1-1.8); Alkaline Phosphatase 79 U/L (46-116); Amylase 88 U/L (25-125); Anion Gap 14.1 mEq/L (5-15); Aspartate Amino Transferase 13 U/L (15-37); Bilirubin,Total 0.2 mg/dL (0.2-1.0); Blood Urea Nitrogen 11 mg/dL (7-18); Calcium 9.1 mg/dL (8.5-10.1); Carbon Dioxide 27 mmol/L (21.0-32.0); Chloride 100 mmol/L (98-107); Creatinine,Serum 0.96 mg/dL (0.70-1.30); Estimated Glomerular Filt Rate 88 ml/min (>60); GFR (African American) 106 ML/MIN (>60); Globulin 4.1 gm/dl (1.3-3.2); Glucose 362 mg/dL (74-106); Potassium 4.1 mmoL/L (3.5-5.1); Sodium 137 mmol/L (136-145); Total Protein,Serum 7.6 gm/dL (6.4-8.2)
[2017-09-20 17:47] LABS: Lipase 724 u/L (73-393)
--- NOTE | 2017-09-20 18:24 | PC.NURSE ---
LAB UNABLE TO GET IN CONTACT WITH DR. SAHA. SHELBY, LAB, CALLED RESULTS TO VETERINARY SURGEON IN ED. ED CONTACTED ME TO RELAY THE MESSAGE. I CALLED THE [facility] AND SPOKE WITH CAMRON WHO SAID NEERAJ WAS ALREADY GONE FOR THE DAY. HE GAVE ME DR. AVENDAÑO'S [place] OFFICE NUMBER. I CALLED AND LEFT A MESSAGE ON THEIR MESSAGING SERVICE REGARDING THE NOTIFICATION RESULT OF LIPASE: 724. SHELBY ATTEMPTED TO CALL [phone] AND UNABLE TO GET THROUGH.
== END ==
PROVIDERS: Visit Provider Nurse Practitioner Acute Care
DX: K85.90 Acute pancreatitis without necrosis or infection, unspecified (principal)
CPT/HCPCS: 36415; 80053; 82150; 83690; 85025

== ENCOUNTER → 2017-09-22 07:52 | Outpatient (CLI) | payer BC, SELFPAY ==
[2017-09-22 09:38] LABS: Cholesterol 115 mg/dL (140-200); HDL Cholesterol 29 mg/dL (27-67)
[2017-09-22 09:44] LABS: Triglycerides 453 mg/dL (30-200)
[2017-09-24 14:16] LABS: IgG, Subclass 1 502 mg/dL (248-810); IgG, Subclass 2 283 mg/dL (130-555); IgG, Subclass 3 52 mg/dL (15-102); Immunoglobulin G, Qn 839 mg/dL (700-1600)
[2017-09-24 15:15] LABS: Calcium, Ionized 5.3 mg/dL (4.5-5.6)
[2017-09-24 15:33] LABS: IgG, Subclass 4 46 mg/dL (2-96)
== END ==
PROVIDERS: Visit Provider Internal Medicine Gastroenterology
DX: K85.00 Idiopathic acute pancreatitis without necrosis or infection (principal)
CPT/HCPCS: 36415; 80061; 82330; 82784; 82787

== ENCOUNTER → 2018-02-21 13:07 | Outpatient (POV) | payer BC, SELFPAY | PROVIDERS: Family Provider Physician Assistant; Visit Provider Nurse Practitioner Acute Care | DX: Z00.00 Encounter for general adult medical examination without abnormal findings (principal) ==

== ENCOUNTER 2019-06-12 15:30 | Outpatient (RCR) | payer BC, SELFPAY | END 2019-07-03 11:07 | disposition home or self-care (01) | LOC: PT.CARL 15:30 | PROVIDERS: PCP Physician Assistant; Visit Provider Orthopaedic Surgery | DX: M54.5 Low back pain (principal); R60.0 Localized edema | CPT/HCPCS: 97010; 97012; 97014; 97110; 97140; 97163; G0283 ==

== ENCOUNTER 2021-12-08 11:45 | Inpatient (IN) | payer BC, OTHER, SELFPAY ==
[2021-12-08] VITALS (12 sets, daily range): BP systolic 103–141; BP diastolic 49–79; PULSE 100–118; RESP 21–40; TEMP 36.6–36.8; O2SAT 92–98; BMI 35.9; BMI 33.6
--- NOTE | 2021-12-08 12:06 | XR_ITS ---
PROCEDURE INFORMATION: Exam: XR Chest Exam date and time: 12/08/2021 12:10 PM Age: 41 years old Clinical indication: Pain; Angina pectoris; Additional info: Pain- chest pain TECHNIQUE: Imaging protocol: XR of the chest. Views: 1 view. COMPARISON: CR [id number] XR chest portable 09/08/2017 6:38 AM FINDINGS: Lungs: Hypoinflation, without significant airspace disease. Pleural spaces: Mild blunting of the left costophrenic angle. Heart/Mediastinum: Cardiac silhouette accentuated by epicardial fat and portable positioning. Bones/joints: Mild degenerative change. IMPRESSION: Hypoinflation, without significant airspace disease.
[2021-12-08 12:11] LABS: POC Glucose,Bedside 432 (70-110)
[2021-12-08 12:15] LABS: Chloride 98 mmol/L (98-107)
[2021-12-08 12:16] LABS: Potassium 5.3 mmoL/L (3.5-5.1)
[2021-12-08 12:18] LABS: Albumin Level 3.7 g/dl (3.5-5.0); Alkaline Phosphatase 112 U/L (38-126)
[2021-12-08 12:27] LABS: Hematocrit 51.1 % (42.0-52.0); Mean Corpuscular Volume 89.5 fl (80-94); Red Blood Count 5.71 M/mm3 (4.60-6.20); White Blood Count 26.6 K/mm3 (4.8-10.8)
[2021-12-08 12:28] LABS: Acetone, Serum (Rapid) Moderate (None Detect); Basophils # 0.1 K/mm3 (0-0.2); Basophils % 0.5 % (0.1-2.0); Eosinophils # 0.1 K/mm3 (0.0-0.4); Eosinophils % 0.3 % (0.1-12.0); Lymphocytes % 3.9 % (10-50); Mean Corpuscular HGB Conc 38.3 g/dL (31.8-35.4); Mean Corpuscular Hemoglobin 34.3 pg (27.0-31.2); Monocytes # 1.2 K/mm3 (0.1-1.0); Monocytes % 4.3 % (1.7-9.3); Neutrophils % 90.3 % (37.0-80.0); Platelet Count 464 K/mm3 (142-424); Red Cell Distribution Width 14.9 % (11.5-17.5)
--- NOTE | 2021-12-08 12:32 | PC.NURSE ---
per clifton in lab, pt blood specimens are extremely lipemic , reports they are trying to dilute specimens and rerurn them, states results will be delayed. Notified YOGESH ESTRADA
[2021-12-08 12:33] LABS: MANUAL DIFFERENTIAL MANUAL DIFFERENTIAL (MANUAL DIFF)
--- NOTE | 2021-12-08 12:34 | HMH.EDGENADL ---
ED Disposition Clinical Impression: Pancreatitis Qualifiers: Chronicity: acute Pancreatitis type: unspecified pancreatitis type Acute pancreatitis complication: unspecified Qualified Code(s): K85.90 - Acute pancreatitis without necrosis or infection, unspecified DKA (diabetic ketoacidosis) Qualifiers: Diabetes mellitus type: type 2 Diabetes mellitus complication detail: without coma Qualified Code(s): E11.10 - Type 2 diabetes mellitus with ketoacidosis without coma Disposition: Admitted As Inpatient Condition on Discharge: Undetermined Referrals: Hallie Watts [Primary Care Provider] - - Critical Care Critical Care Time: No Attestation: On 12/08/21, the high probability of a clinically significant, sudden or life threatening deterioration of the following system(s) required my full and direct attention, intervention and personal management. The time I documented below is in addition to time spent performing reported procedures but includes the following listed in this critical care notation. Medical Decision Making - Medical Records Medical records reviewed: Yes: I reviewed the patient's medical records. - Juanito Inquiry Pt receiving controlled substance: No Vital Signs: 12/08/21 12:05 12/08/21 13:38 12/08/21 14:00 Temperature 98.2 F Temperature Source Oral Pulse Rate 102 H 100 H Pulse Rate [Radial] 103 H Respiratory Rate 40 H 25 H 25 H Blood Pressure 141/79 H 123/66 Blood Pressure [Right Arm] 136/66 Blood Pressure Mean 92 85 Blood Pressure Mean [Right Arm] 89 Blood Pressure Position [Right Arm] Sitting 02 Sat by Pulse Oximetry 98 97 96 Oxygen Delivery Method Room Air 12/08/21 14:32 Temperature Temperature Source Pulse Rate 109 H Pulse Rate [Radial] Respiratory Rate 24 Blood Pressure 103/49 L Blood Pressure [Right Arm] Blood Pressure Mean Blood Pressure Mean [Right Arm] Blood Pressure Position [Right Arm] 02 Sat by Pulse Oximetry 96 Oxygen Delivery Method - Lab Data Lab results reviewed: Yes: I reviewed the patient's lab results. Lab Results 12/08/21 12:00: POC Glucose 432 H* 12/08/21 12:02: WBC 26.6 H*, RBC 5.71, Hgb 19.5 H, Hct 51.1, MCV 89.5, MCH 34.3 H, MCHC 38.3 H, RDW 14.9, Plt Count 464 H, MPV 9.0, Neut % (Auto) 90.3 H, Lymph % (Auto) 3.9 L, [place] % (Auto) 4.3, Eos % (Auto) 0.3, Baso % (Auto) 0.5, Neut # (Auto) 24.0 H, Lymph # (Auto) 1.0, [place] # (Auto) 1.2 H, Eos # (Auto) 0.1, Baso # (Auto) 0.1, Total Counted 100, Neutrophils % (Manual) 82 H, Band Neutrophils % 7.0, Lymphocytes % (Manual) 8 L, Monocytes % (Manual) 3, Platelet Estimate Slight increase, RBC Morphology Normal 12/08/21 12:02: Sodium 128 L, Potassium 5.3 H, Chloride 98, Anion Gap 30.3 H, BUN 7 L, Creatinine 0.80, Estimated Creat Clear 205, Estimated GFR 106, Est GFR ( Amer) 128, Glucose 444 H*, Calcium 6.9 L, Total Bilirubin 0.6, AST 31, ALT 24, Alkaline Phosphatase 112, Total Protein 8.1, Albumin 3.7, Globulin 4.4 H, Albumin/Globulin Ratio 0.8 L, Lipase 5030 H 12/08/21 12:02: Lactate 1.5 12/08/21 12:02: Acetone Level Moderate 12/08/21 12:05: VBG pH 7.10 L, VBG pCO2 27.8 L, VBG pO2 64.2 H, VBG HCO3 8.4 L, VBG Total CO2 9.3 L, VBG O2 Saturation 88.9 H, VBG Base Excess -21.2 L 12/08/21 13:15: Urine Color Yellow, Urine Appearance Clear, Urine pH 5.5, Ur Specific [place] >= 1.030, Urine Protein 1+, Urine Glucose (UA) 3+, Urine Ketones 3+, Urine Blood 2+, Urine Nitrate Negative, Urine Bilirubin 2+ A, Urine Urobilinogen 0.2, Ur Leukocyte Esterase Negative, Urine RBC Occasional, Urine WBC None, Ur Squamous Epith Cells Occasional, Urine Bacteria Trace 12/08/21 13:44: SARS-CoV-2 (PCR) Not detected, Influenza A Untype (PCR) Not detected, Influenza Type B (PCR) Not detected Result diagrams: 12/08/21 12:02 12/08/21 12:02 Orders (Tests/Meds): ED MEDICATIONS Generic Name Dose Route Start Last Admin Trade Name Freq PRN Reason Stop Dose Admin Dextrose 50 ml 12/08/21 14:29 Dextrose 50% 50ml 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
[2021-12-08 12:39] LABS: Lactic Acid 1.5 mmol/L (0.7-2.1)
[2021-12-08 12:41] LABS: Lymphocytes % 8 % (10-50); Monocytes % 3 % (2-9); Neutrophils % 82 % (42-76); Platelet Estimate Slight Increase; RBC Morphology Normal; Total Cells Counted 100
--- NOTE | 2021-12-08 12:57 | ECG_ITS ---
APPROVED REPORT Exam: Resting ECG HR:105 bpm ECG Measurements Heart Rate 105 AXES VA 136 P 31 QRSd 101 QRS -48 QT 318 T 55 QTc 379 Conclusion SINUS TACHYCARDIA LEFT ANTERIOR FASCICULAR BLOCK [QRS AXIS <= -45, QR IN I, RS IN II] POSSIBLE ANTERIOR MYOCARDIAL INFARCTION , OF INDETERMINATE AGE [30 ms Q WAVE IN V3/V4, OR R < 0.2 mV IN V4] ABNORMAL ECG UNCONFIRMED REPORT Electronically signed by : Vaibhav Quigley MD 12/08/2021 21:31:54
--- NOTE | 2021-12-08 13:11 | CT_ITS ---
PROCEDURE INFORMATION: Exam: CT Abdomen And Pelvis Without Contrast Exam date and time: 12/08/2021 1:18 PM Age: 41 years old Clinical indication: Abdominal pain; Epigastric; Additional info: Severe epigastric pain, L flank pain TECHNIQUE: Imaging protocol: Computed tomography of the abdomen and pelvis without contrast. Radiation optimization: All CT scans at this facility use at least one of these dose optimization techniques: automated exposure control; mA and/or kV adjustment per patient size (includes targeted exams where dose is matched to clinical indication); or iterative reconstruction. COMPARISON: [facility] CT abdomen pelvis wo con 09/06/2017 10:49 AM FINDINGS: Detailed evaluation of the abdominal and pelvic viscera is somewhat limited in the absence of intravenous contrast. Lungs: Interstitial prominence with lingular airspace disease. Liver: Fatty infiltration of the liver. Gallbladder and bile ducts: High attenuation bile in the gallbladder. Pancreas: Extensive peripancreatic inflammation and fluid, consistent with acute pancreatitis. Gastric wall thickening with infiltration of perigastric fat and fluid in the lesser sac, in association with pancreatitis. Spleen: Splenic granuloma. Adrenal glands: Unremarkable adrenals. Kidneys and ureters: Normal renal morphology. No hydronephrosis. Stomach and bowel: Colonic dilatation and prominent stool. Appendix: Hyperdense appendix, without acute appendicitis. Intraperitoneal space: No dependent free fluid in the pelvis. Vasculature: Normal caliber of the abdominal aorta. Lymph nodes: Subcentimeter lymph nodes. Urinary bladder: Mild anterior bladder wall thickening. Reproductive: Unremarkable as visualized. Bones/joints: L5 spondylolysis. Chronic compression deformities in the thoracic spine, along with Schmorl's nodes and degenerative change. Soft tissues: Unremarkable. IMPRESSION: 1. Extensive peripancreatic inflammation and fluid, consistent with acute pancreatitis. 2. Gastric wall thickening with infiltration of perigastric fat and fluid in the lesser sac, in association with pancreatitis. 3. Additional findings as described above.
[2021-12-08 13:23] LABS: Albumin/Globulin Ratio 0.8 (1.1-1.8); Creatinine Clearance Estimated 205 mL/min (50-200); Estimated Glomerular Filt Rate 106 ml/min (>60); GFR (African American) 128 ML/MIN (>60); Globulin 4.4 g/dL (1.3-3.2)
[2021-12-08 13:24] LABS: Microscopic, Urine URINE MICROSCOPIC (MICROSCOPIC)
[2021-12-08 13:27] LABS: Appearance,Urine CLEAR (Clear); Blood, Urine 2+ (Negative); Color,Urine YELLOW (Yellow); Glucose,Urine (UA) 3+ (Negative); Ketones,Urine 3+ (Negative); Leukocyte Esterase,Urine Negative (Negative); Nitrate,Urine Negative (Negative); PH,Urine 5.5 (5.0-8.5); Protein,Urine 1+ (Negative); Specific Gravity, Urine >= 1.030 (1.005-1.030); Urobilinogen,Urine 0.2 EU/dl (0.2)
[2021-12-08 13:28] LABS: Blood Urea Nitrogen 7 mg/dl (9-20); Glucose 444 mg/dl (74-100); Sodium 128 mmol/L (136-145)
[2021-12-08 13:29] LABS: Alanine Aminotransferase 24 U/L (12-78); Aspartate Amino Transferase 31 U/L (17-59); Bilirubin,Total 0.6 mg/dl (0.2-1.3); Calcium 6.9 mg/dl (8.4-10.2); Total Protein,Serum 8.1 g/dl (6.3-8.2)
--- NOTE | 2021-12-08 13:31 | PC.NURSE ---
clifton in lab called stating she is still working on pt labs results, statesi specifically still working CO2 and lipase
--- NOTE | 2021-12-08 13:38 | PC.NURSE ---
RT advised they could not get vbg until lab released green tube, lab is having to take a little longer due to blood drawn being lipemic.
[2021-12-08 13:46] LABS: Bacteria,Urine Trace /lpf; Bilirubin,Urine 2+ (Negative); RBC,Urine Occasional #/hpf (0-3); Squamous Epithelial Cell,Urine Occasional #/hpf (0-5)
[2021-12-08 13:49] LABS: Coronavirus 19, PCR Not Detected (NotDetected); Influenza A, PCR Not Detected (NotDetected); Influenza B, PCR Not Detected (NotDetected)
--- NOTE | 2021-12-08 13:50 | PC.NURSE ---
additional green tube obtained from pt for vbg, notified royer in RT. additional blood drawn r/t lab is unable to release blood at this time r/t they are still using it. notified ER of delay in results.
[2021-12-08 13:54] LABS: Hemoglobin 19.5 g/dL (14.1-18.0)
[2021-12-08 13:57] LABS: VBG Base Excess -21.2 mmol/L (-2.4-2.3); VBG HCO3 8.4 mmol/L (23-30); VBG Oxygen Saturation 88.9 % (50-70); VBG PCO2 27.8 mmol/L (35-51); VBG PO2 64.2 mmol/L (28-40); VBG Total CO2 9.3 mmol/L (23-27)
--- NOTE | 2021-12-08 14:01 | PC.NURSE ---
RT called with critical pH and base excess results from vbg, relayed results to YOGESH ESTRADA
[2021-12-08 14:03] LABS: Lipase 5030 U/L (23-300)
--- NOTE | 2021-12-08 14:34 | PC.NURSE ---
clifton in lab called, states still working on pt specimens, states should have a CO2 result soon, states is unsure if she will be able to get a troponin result. I suggested a capillary stick for troponin if the specimen that we have does not work, states that may be possible states she will let us know if we need to try that route. notified YOGESH ESTRADA of the above
--- NOTE | 2021-12-08 14:36 | PC.NURSE ---
controls operator molded goods paging service MD aoc operations intelligence chief per ER request
[2021-12-08 14:44] LABS: Anion Gap 30.3 mEq/L (5-15); Carbon Dioxide < 5 mmol/L (22.0-30.0)
--- NOTE | 2021-12-08 15:26 | PC.NURSE ---
REPORT CALLED TO DEBI STOVALL
[2021-12-08 15:43] LABS: Chloride 100 mmol/L (98-107); Potassium 5.6 mmoL/L (3.5-5.1); Sodium 127 mmol/L (136-145)
[2021-12-08 15:46] LABS: Blood Urea Nitrogen 10 mg/dl (9-20); Creatinine Clearance Estimated 182 mL/min (50-200); Estimated Glomerular Filt Rate 93 ml/min (>60); GFR (African American) 112 ML/MIN (>60)
[2021-12-08 15:59] LABS: Anion Gap 27.6 mEq/L (5-15)
[2021-12-08 16:00] LABS: Carbon Dioxide < 5 mmol/L (22.0-30.0); Glucose 419 mg/dl (74-100)
[2021-12-08 16:08] LABS: POC Glucose,Bedside 358 (70-110)
--- NOTE | 2021-12-08 16:15 | PC.NURSE ---
FSBS 358 in ED at 1600. Insulin gtt was currently @ 12units/hr and was not increased per protocol. Upon arrival to room 218 @ 1615, insulin gtt increased to 18units/hr per insulin gtt protocol.
[2021-12-08 16:30] LABS: Troponin I < 0.01 ng/ml (0.00-0.034)
--- NOTE | 2021-12-08 17:00 | PC.NURSE ---
FSBS 342. Insulin gtt increased to 25units/hr based on insulin gtt protocol
[2021-12-08 19:07] LABS: Troponin I < 0.01 ng/ml (0.00-0.034)
[2021-12-08 20:20] LABS: Chloride 104 mmol/L (98-107); Potassium 4.3 mmoL/L (3.5-5.1); Sodium 132 mmol/L (136-145)
[2021-12-08 20:23] LABS: Anion Gap 23.3 mEq/L (5-15); Blood Urea Nitrogen 11 mg/dl (9-20); Calcium 7.2 mg/dl (8.4-10.2); Creatinine Clearance Estimated 170 mL/min (50-200); Estimated Glomerular Filt Rate 93 ml/min (>60); GFR (African American) 112 ML/MIN (>60); Glucose 265 mg/dl (74-100)
[2021-12-08 20:26] LABS: Acetone, Serum (Rapid) Large (None Detect)
[2021-12-08 20:32] LABS: Carbon Dioxide 9 mmol/L (22.0-30.0)
--- NOTE | 2021-12-08 22:15 | PC.NURSE ---
fsbs 199, decreased insulin drip to 20units/hr (from 25 units/hr)
[2021-12-09] VITALS (13 sets, daily range): BP systolic 117–142; BP diastolic 68–84; PULSE 100–124; RESP 17–32; TEMP 36.6–37.6; O2SAT 90–94; BMI 33.5
[2021-12-09 00:39] LABS: Chloride 102 mmol/L (98-107); Sodium 132 mmol/L (136-145)
[2021-12-09 00:40] LABS: Potassium 4.4 mmoL/L (3.5-5.1)
[2021-12-09 00:42] LABS: Blood Urea Nitrogen 14 mg/dl (9-20); Creatinine Clearance Estimated 153 mL/min (50-200); Estimated Glomerular Filt Rate 82 ml/min (>60); GFR (African American) 99 ML/MIN (>60)
[2021-12-09 00:43] LABS: Anion Gap 16.4 mEq/L (5-15); Calcium 7.2 mg/dl (8.4-10.2); Carbon Dioxide 18 mmol/L (22.0-30.0); Glucose 182 mg/dl (74-100)
--- NOTE | 2021-12-09 01:52 | PC.NURSE ---
fsbs 144, decreased insulin drip to 10units/hr (from 20units/hr)
--- NOTE | 2021-12-09 04:58 | PC.NURSE ---
04-fsbs 213, increased insulin drip to 15 units/hr
[2021-12-09 06:51] LABS: Basophils # 0.1 K/mm3 (0-0.2); Basophils % 0.6 % (0.1-2.0); Eosinophils % 0.1 % (0.1-12.0); Hematocrit 43.6 % (42.0-52.0); Lymphocytes % 5.3 % (10-50); Mean Corpuscular HGB Conc 36.7 g/dL (31.8-35.4); Mean Corpuscular Hemoglobin 31.8 pg (27.0-31.2); Mean Corpuscular Volume 86.7 fl (80-94); Mean Platelet Volume 8.8 fl (7.4-10.4); Monocytes # 0.8 K/mm3 (0.1-1.0); Monocytes % 4.6 % (1.7-9.3); Neutrophils # 16.3 K/mm3 (1.8-7.8); Neutrophils % 89.4 % (37.0-80.0); Platelet Count 394 K/mm3 (142-424); Red Blood Count 5.03 M/mm3 (4.60-6.20); Red Cell Distribution Width 15.4 % (11.5-17.5); White Blood Count 18.2 K/mm3 (4.8-10.8)
[2021-12-09 06:55] LABS: MANUAL DIFFERENTIAL MANUAL DIFFERENTIAL (MANUAL DIFF)
[2021-12-09 06:56] LABS: Anion Gap 18.4 mEq/L (5-15); Blood Urea Nitrogen 16 mg/dl (9-20); Calcium 7.1 mg/dl (8.4-10.2); Carbon Dioxide 15 mmol/L (22.0-30.0); Chloride 103 mmol/L (98-107); Creatinine Clearance Estimated 153 mL/min (50-200); Estimated Glomerular Filt Rate 82 ml/min (>60); GFR (African American) 99 ML/MIN (>60); Glucose 170 mg/dl (74-100); Potassium 4.4 mmoL/L (3.5-5.1); Sodium 132 mmol/L (136-145)
[2021-12-09 07:22] LABS: Lymphocytes % 4 % (10-50); Monocytes % 3 % (2-9); Neutrophils % 84 % (42-76); Total Cells Counted 100
[2021-12-09 07:23] LABS: Anisocytosis 1+; Platelet Estimate Slight Increase; Poikilocytosis 1+
--- NOTE | 2021-12-09 07:25 | HMH.PHAVTE ---
[facility] Pharmacy VTE Monitoring - Patient Demographics Admission date: 12/09/21 Report Date: 12/09/21 Time: 07:25 Allergies/Adverse Reactions: Patient Allergies Penicillins [PENICILLINS] Allergy (Unknown, Verified 09/06/17 10:20) Height: 1.83 m Weight: 112.49 kg Patient Problems: Current Active Problems DKA (diabetic ketoacidoses) (Acute) Pancreatitis (Acute) - VTE Risk Labs: VTE Related Lab Results Hgb 16.0 g/dL (14.1-18.0) D 12/09/21 05:34 Hct 43.6 % (42.0-52.0) 12/09/21 05:34 Plt Count 394 K/mm3 (142-424) 12/09/21 05:34 BUN 16 mg/dl (9-20) 12/09/21 05:34 Creatinine 1.00 mg/dl (0.66-1.25) 12/09/21 05:34 Estimated Creat Clear 153 mL/min (50-200) 12/09/21 05:34 Was VTE Risk Assessment Performed: Yes VTE Score: 4 VTE Risk Level: Low Risk Clinical Trial Participant: No - Prophylaxis VTE Prophylaxis Ordered?: Yes Types of VTE Prophylaxis: TEDS Knee High
--- NOTE | 2021-12-09 07:28 | HMH.PHAINT ---
HOME MEDICATION LIST VERIFIED USING LIST FROM [facility]
[2021-12-09 07:38] LABS: Acetone, Serum (Rapid) Small (None Detect)
--- NOTE | 2021-12-09 08:49 | HMH.HP ---
*Admission Date: 12/09/21 *Chief complaint: Abdominal pain *History of present illness: 41-year-old male patient presented to the [facility] emergency department with reports of epigastric pain radiating to back starting 1 day prior. He reports he been feeling ill and nauseated for 3 days also states he is noncompliant diabetic and he was unable to tolerate p.o. intake at home. He denies fever/chills/body aches, has been nauseated with no vomiting/diarrhea. She denies any chest pain/shortness of breath or cough. She does report having pancreatitis in the past and stated he was told it was sphincter of Oddi, he still has his gallbladder intact. Lipase over 5000 and DKA with blood glucose 358, lactate 7.2, and large amount of acetone. In the emergency department he did receive IV fluids, Zofran, and Dilaudid Abdominal CT reveals IMPRESSION: 1. Extensive peripancreatic inflammation and fluid, consistent with acute pancreatitis. 2. Gastric wall thickening with infiltration of perigastric fat and fluid in the lesser sac, in association with pancreatitis. [facility] History I have reviewed the patient's past medical history: Yes Medical History: Reports:: Diabetes Mellitus Type 2, Hypertension Denies:: Cancer, Diabetes Mellitus Type 1, MRSA *Have you ever received a pneumonia vaccine?: No *Have you received a flu vaccine this season?: No Laterality Cases: Right: Arthroscopy Knee Other Surgeries: Yes: Colonoscopy, Colostomy Amputation: No Fractures: No - *Social History Smoking Status: Never smoker Alcohol Intake: never *Occupational Status:: employed Housing: house Household Members: spouse, children *Travel in the last 8 weeks: None Family Hx:: Coronary Artery Disease, Diabetes, Heart Attack, Hyperlipidemia, Hypertension, Kidney Disease, Stroke Review of Systems - Review of Systems Review of systems:: pertinent systems reviewed and negative unless documented below - Constitutional Reports fatigue, Reports lack of energy - Eyes Denies blurry vision, Denies double vision - ENT Denies difficulty swallowing, Denies dizziness - *Cardiovascular Denies chest pain, Denies chest pain at rest - *Respiratory Denies chest congestion, Denies cough - *Gastrointestinal Reports abdominal pain, Reports belching - Integumentary/Breasts Denies new lesions, Denies skin ulcer - *Neurologic Denies confusion, Denies localized weakness, Denies headache(s), Denies tingling/numbness/burning sensations, Denies fainting - Psychiatric Reports change in appetite, Denies confusion - Endocrine Denies cold intolerance, Denies excessive sweating - Hematologic/Lymphatic Denies easy bleeding, Denies easy bruising - Allergic/Immunologic Denies GI upset with certain foods, Denies itchy eyes Meds Home Medications Medication Instructions Recorded Confirmed Type Atorvastatin Calcium [Lipitor 20mg 20 mg PO DAILY 09/06/17 12/08/21 History Tab] Fenofibrate Nanocrystallized 145 mg PO DAILY 09/06/17 12/08/21 History [Tricor] Insulin Aspart [Novolog Flexpen] 20 - 30 unit SQ TID 09/06/17 12/09/21 History Metformin HCl [Glucophage 500mg 1,000 mg PO BID 09/06/17 12/08/21 History Tablet] [place]-3 Acid Ethyl Esters [Lovaza] 2 gm PO BID 09/06/17 12/08/21 History lisinopriL [Lisinopril 40mg Tablet] 40 mg PO DAILY 09/06/17 12/08/21 History Aspirin [Aspirin 81mg EC Tab] 81 mg PO DAILY 12/09/21 12/09/21 History Insulin Degludec [Tresiba 120 units SQ DAILY 12/09/21 12/09/21 History Flextouch U-200] Allergies Allergy/AdvReac Type Severity Reaction Status Date / Time Penicillins [PENICILLINS] Allergy Unknown Verified 09/06/17 10:20 Exam Vital signs and Labs for Last 24 Hours: Temp Pulse Resp BP Pulse Ox 98.0 F 113 H 26 H 128/78 94 L 12/08/21 20:00 12/09/21 06:00 12/09/21 06:00 12/09/21 06:00 12/09/21 06:00 Laboratory Results - last 24 hr 12/08/21 12:00: POC Glucose
[2021-12-09 12:46] LABS: Chloride 104 mmol/L (98-107); Potassium 3.6 mmoL/L (3.5-5.1); Sodium 132 mmol/L (136-145)
[2021-12-09 12:49] LABS: Anion Gap 13.6 mEq/L (5-15); Blood Urea Nitrogen 15 mg/dl (9-20); Carbon Dioxide 18 mmol/L (22.0-30.0); Creatinine Clearance Estimated 170 mL/min (50-200); Estimated Glomerular Filt Rate 93 ml/min (>60); GFR (African American) 112 ML/MIN (>60)
[2021-12-09 12:50] LABS: Glucose 155 mg/dl (74-100)
[2021-12-09 16:45] LABS: Chloride 103 mmol/L (98-107); Potassium 3.7 mmoL/L (3.5-5.1); Sodium 133 mmol/L (136-145)
[2021-12-09 16:48] LABS: Anion Gap 11.7 mEq/L (5-15); Blood Urea Nitrogen 14 mg/dl (9-20); Calcium 7.2 mg/dl (8.4-10.2); Carbon Dioxide 22 mmol/L (22.0-30.0); Creatinine Clearance Estimated 170 mL/min (50-200); Estimated Glomerular Filt Rate 93 ml/min (>60); GFR (African American) 112 ML/MIN (>60); Glucose 154 mg/dl (74-100)
[2021-12-09 16:55] LABS: POC Glucose,Bedside 144 (70-110)
[2021-12-09 16:55] LABS: POC Glucose,Bedside 134 (70-110)
[2021-12-09 16:55] LABS: POC Glucose,Bedside 149 (70-110)
[2021-12-09 16:55] LABS: POC Glucose,Bedside 138 (70-110)
[2021-12-09 16:55] LABS: POC Glucose,Bedside 157 (70-110)
[2021-12-09 16:55] LABS: POC Glucose,Bedside 138 (70-110)
[2021-12-09 16:55] LABS: POC Glucose,Bedside 137 (70-110)
[2021-12-09 16:59] LABS: Acetone, Serum (Rapid) None Detected (None Detect)
--- NOTE | 2021-12-09 17:12 | PC.NURSE ---
Pt is not out of DKA. Calculated gap is 8 and no acetone is dectected. Insulin gtt currently @ 10 units/hr. Contacted Dr. Sr to transition to subq phase.
--- NOTE | 2021-12-09 17:13 | PC.NURSE ---
Dr. Sr ordered to transition to subq insulin phase. Pt has received 65units total for the last 6hrs. He ordered to give Lantus 10 units NOW.
--- NOTE | 2021-12-09 18:19 | PC.NURSE ---
insulin gtt turned OFF
[2021-12-09 18:28] LABS: POC Glucose,Bedside 128 (70-110)
[2021-12-09 19:58] LABS: POC Glucose,Bedside 169 (70-110)
[2021-12-09 20:19] LABS: POC Glucose,Bedside 144 (70-110)
[2021-12-09 20:19] LABS: POC Glucose,Bedside 167 (70-110)
[2021-12-09 20:19] LABS: POC Glucose,Bedside 243 (70-110)
[2021-12-09 20:19] LABS: POC Glucose,Bedside 275 (70-110)
[2021-12-09 20:19] LABS: POC Glucose,Bedside 170 (70-110)
[2021-12-09 20:19] LABS: POC Glucose,Bedside 167 (70-110)
[2021-12-09 20:19] LABS: POC Glucose,Bedside 213 (70-110)
[2021-12-09 20:19] LABS: POC Glucose,Bedside 176 (70-110)
[2021-12-09 20:19] LABS: POC Glucose,Bedside 342 (70-110)
[2021-12-09 20:19] LABS: POC Glucose,Bedside 180 (70-110)
[2021-12-09 20:19] LABS: POC Glucose,Bedside 326 (70-110)
[2021-12-09 20:19] LABS: POC Glucose,Bedside 187 (70-110)
[2021-12-09 20:19] LABS: POC Glucose,Bedside 199 (70-110)
[2021-12-09 20:19] LABS: POC Glucose,Bedside 172 (70-110)
[2021-12-10] VITALS (9 sets, daily range): BP systolic 128–149; BP diastolic 77–86; PULSE 68–111; RESP 16–24; TEMP 36.4–37.1; O2SAT 90–98; BMI 34.9
[2021-12-10 05:29] LABS: POC Glucose,Bedside 240 (70-110)
--- NOTE | 2021-12-10 05:34 | PC.NURSE ---
fsbs 240, no sliding scale insulin ordered, left message with ER staff to notify MD Remberto manzo to order sliding scale insulin
[2021-12-10 06:21] LABS: Basophils # 0.1 K/mm3 (0-0.2); Basophils % 0.4 % (0.1-2.0); Eosinophils # 0.1 K/mm3 (0.0-0.4); Eosinophils % 1.1 % (0.1-12.0); Hematocrit 35.7 % (42.0-52.0); Lymphocytes % 7.8 % (10-50); Mean Corpuscular HGB Conc 33.1 g/dL (31.8-35.4); Mean Corpuscular Hemoglobin 29.5 pg (27.0-31.2); Mean Corpuscular Volume 89.2 fl (80-94); Mean Platelet Volume 8.2 fl (7.4-10.4); Monocytes # 0.5 K/mm3 (0.1-1.0); Monocytes % 3.6 % (1.7-9.3); Neutrophils # 11.2 K/mm3 (1.8-7.8); Neutrophils % 87.1 % (37.0-80.0); Platelet Count 253 K/mm3 (142-424); Red Blood Count 4.01 M/mm3 (4.60-6.20); Red Cell Distribution Width 15.8 % (11.5-17.5); White Blood Count 12.8 K/mm3 (4.8-10.8)
[2021-12-10 06:24] LABS: Chloride 103 mmol/L (98-107); Potassium 3.8 mmoL/L (3.5-5.1); Sodium 129 mmol/L (136-145)
[2021-12-10 06:27] LABS: Anion Gap 12.8 mEq/L (5-15); Blood Urea Nitrogen 10 mg/dl (9-20); Calcium 7.3 mg/dl (8.4-10.2); Carbon Dioxide 17 mmol/L (22.0-30.0); Creatinine Clearance Estimated 228 mL/min (50-200); Estimated Glomerular Filt Rate 124 ml/min (>60); GFR (African American) 150 ML/MIN (>60); Glucose 249 mg/dl (74-100)
[2021-12-10 06:33] LABS: Hemoglobin 11.9 g/dL (14.1-18.0); MANUAL DIFFERENTIAL MANUAL DIFFERENTIAL (MANUAL DIFF)
[2021-12-10 07:10] LABS: Acetone, Serum (Rapid) Small (None Detect)
[2021-12-10 07:17] LABS: Eosinophils % 2 % (0-3); Lymphocytes % 5 % (10-50); Monocytes % 1 % (2-9); Neutrophils % 92 % (42-76); Platelet Estimate Normal; Total Cells Counted 100
[2021-12-10 07:18] LABS: Anisocytosis 1+; Poikilocytosis 1+
--- NOTE | 2021-12-10 09:32 | US_ITS ---
FINAL REPORT CLINICAL HISTORY: abd pain FINDINGS: Sonographic images of the right upper quadrant were obtained. The pancreas is partially obscured. There is peripancreatic fluid consistent with pancreatitis. The liver is fatty infiltrated. The portal vein is dilated at 1.5 cm. There is nonspecific gallbladder wall thickening at 6 mm. There is sludge in the gallbladder. There is no evidence of biliary ductal dilatation.The common duct measures 3 mm. Limited images of the right kidney are unremarkable. IMPRESSION: Pancreatitis. Fatty liver with a dilated portal vein. Sludge in a wall thickened gallbladder. Reviewed, Interpreted and Dictated by Rico García III, MD Transcribed by Jorge Milian Authenticated and [facility]
--- NOTE | 2021-12-10 09:37 | HMH.ACPN2 ---
Internal Medicine - PN: Subj *Date: 12/10/21 *Time: 08:40 Interval history: pt laying in bed states upper abd pain and nausea. Exam Vital signs and Labs for Last 24 Hours: Temp Pulse Resp BP Pulse Ox 98.7 F 98 H 18 136/84 98 12/10/21 07:42 12/10/21 08:00 12/10/21 08:00 12/10/21 08:00 12/10/21 08:00 Laboratory Results - last 24 hr 12/08/21 17:14: POC Glucose 342 H* 12/08/21 18:27: POC Glucose 326 H* 12/08/21 20:17: POC Glucose 275 H 12/08/21 21:02: POC Glucose 243 H 12/08/21 22:24: POC Glucose 199 H 12/08/21 23:07: POC Glucose 180 H 12/08/21 23:47: POC Glucose 170 H 12/09/21 01:16: POC Glucose 167 H 12/09/21 01:48: POC Glucose 144 H 12/09/21 02:51: POC Glucose 187 H 12/09/21 04:26: POC Glucose 213 H 12/09/21 05:14: POC Glucose 172 H 12/09/21 05:57: POC Glucose 176 H 12/09/21 06:43: POC Glucose 167 H 12/09/21 09:03: POC Glucose 157 H 12/09/21 10:09: POC Glucose 149 H 12/09/21 11:17: POC Glucose 144 H 12/09/21 12:03: POC Glucose 137 H 12/09/21 12:23: Sodium 132 L, Potassium 3.6, Chloride 104, Carbon Dioxide 18 L, Anion Gap 13.6, BUN 15, Creatinine 0.90, Estimated Creat Clear 170, Estimated GFR 93, Est GFR ( Amer) 112, Glucose 155 H, Calcium 7.0 L 12/09/21 13:21: POC Glucose 138 H 12/09/21 14:08: POC Glucose 138 H 12/09/21 15:04: POC Glucose 134 H 12/09/21 16:30: Sodium 133 L, Potassium 3.7, Chloride 103, Carbon Dioxide 22, Anion Gap 11.7, BUN 14, Creatinine 0.90, Estimated Creat Clear 170, Estimated GFR 93, Est GFR ( Amer) 112, Glucose 154 H, Calcium 7.2 L, Acetone Level None detected 12/09/21 18:21: POC Glucose 128 H 12/09/21 19:51: POC Glucose 169 H 12/10/21 05:20: POC Glucose 240 H 12/10/21 05:30: WBC 12.8 H D, RBC 4.01 L, Hgb 11.9 L D, Hct 35.7 L, MCV 89.2, MCH 29.5, MCHC 33.1, RDW 15.8, Plt Count 253 D, MPV 8.2, Neut % (Auto) 87.1 H, Lymph % (Auto) 7.8 L, [place] % (Auto) 3.6, Eos % (Auto) 1.1, Baso % (Auto) 0.4, Neut # (Auto) 11.2 H, Lymph # (Auto) 1.0, [place] # (Auto) 0.5, Eos # (Auto) 0.1, Baso # (Auto) 0.1, Total Counted 100, Neutrophils % (Manual) 92 H, Lymphocytes % (Manual) 5 L, Monocytes % (Manual) 1 L, Eosinophils % (Manual) 2, Platelet Estimate Normal, RBC Morphology Not Reportable, Poikilocytosis 1+, Anisocytosis 1+ 12/10/21 05:30: Sodium 129 L, Potassium 3.8, Chloride 103, Carbon Dioxide 17 L, Anion Gap 12.8, BUN 10 D, Creatinine 0.70 D, Estimated Creat Clear 228, Estimated GFR 124, Est GFR ( Amer) 150 D, Glucose 249 H D, Calcium 7.3 L, Acetone Level Small I & O for Last 24 hours: Intake & Output 12/07/21 12/08/21 12/09/21 12/10/21 11:59 11:59 11:59 11:59 Intake Total 2464 / 2464 3688 / 3688 Balance 2464 / 2464 3688 / 3688 Weight 265 lb 247 lb 15.968 oz 258 lb - Constitutional no acute distress - *Routine HEENT Exam Head: Present: normocephalic Eye: Present: PERRL ENT: Present: mucous membranes moist - *Routine Neck Exam Present: supple. Absent: lymphadenopathy - *Routine Respiratory Exam Present: CTA bilaterally - *Routine Cardiovascular Exam Present: RRR - *Routine Abdominal Exam Present: soft, normoactive bowel sounds, tenderness - *Routine Extremities Exam Absent: cyanosis, clubbing, edema - *Routine Skin Exam Present: warm. Absent: rash - *Routine Neurological Exam Present: alert, oriented X3 Assessment and Plan (1) Acute pancreatitis Status: Acute Qualifiers: Pancreatitis type: unspecified pancreatitis type Acute pancreatitis complication: unspecified Qualified Code(s): K85.90 - Acute pancreatitis without necrosis or infection, unspecified Category: Medical Code(s): K85.90 - Acute pancreatitis without necrosis or infection, unspecified (2) DKA (diabetic ketoacidoses) Status: Acute Qualifiers: Diabetes mellitus type: type 2 Diabetes mellitus complication detail: without coma Qualified Code(s): E11.10 - Type 2 diabetes mellitus with ketoacidosis without coma Category: Medical Code(s): E13.10 - Oth
[2021-12-10 11:18] LABS: POC Glucose,Bedside 223 (70-110)
--- NOTE | 2021-12-10 12:30 | HMH.GSCON ---
*Admission Date: 12/09/21 *Reason for consult:: Pancreatitis; history of gallbladder sludge *History of present illness: This is a 41-year-old gentleman seen in consultation from Dr. Fischer for evaluation regarding pancreatitis. He presented to emergency department with increasing epigastric pain with radiation to the back. Evaluation included a CT scan showing changes consistent with acute pancreatitis. Lipase 5030. He has a history of complex/recurrent pancreatitis and has undergone ERCP by Dr. Kirk Erickson quite a few years ago . 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 Prior ultrasound (August 2017) has revealed scant debris and sludge. No discrete stones noted. Review of Systems - Constitutional Denies chills - ENT Denies difficulty swallowing - *Cardiovascular Denies chest pain - *Gastrointestinal Reports abdominal pain, Reports nausea - *Neurologic Denies confusion, Denies localized weakness, Denies headache(s), Denies tingling/numbness/burning sensations, Denies fainting, Denies dizziness [facility] History Medical History: Reports:: Diabetes Mellitus Type 2, Hypertension Denies:: Cancer, Diabetes Mellitus Type 1, MRSA *Have you ever received a pneumonia vaccine?: No *Have you received a flu vaccine this season?: No Laterality Cases: Right: Arthroscopy Knee Other Surgeries: Yes: Colonoscopy, Colostomy Amputation: No Fractures: No - *Social History Smoking Status: Never smoker Alcohol Intake: never *Occupational Status:: employed Housing: house Household Members: spouse, children *Travel in the last 8 weeks: None Family Hx:: Coronary Artery Disease, Diabetes, Heart Attack, Hyperlipidemia, Hypertension, Kidney Disease, Stroke Meds Home Medications Medication Instructions Recorded Confirmed Type Atorvastatin Calcium [Lipitor 20mg 20 mg PO DAILY 09/06/17 12/08/21 History Tab] Fenofibrate Nanocrystallized 145 mg PO DAILY 09/06/17 12/08/21 History [Tricor] Insulin Aspart [Novolog Flexpen] 20 - 30 unit SQ TID 09/06/17 12/09/21 History Metformin HCl [Glucophage 500mg 1,000 mg PO BID 09/06/17 12/08/21 History Tablet] [place]-3 Acid Ethyl Esters [Lovaza] 2 gm PO BID 09/06/17 12/08/21 History lisinopriL [Lisinopril 40mg Tablet] 40 mg PO DAILY 09/06/17 12/08/21 History Aspirin [Aspirin 81mg EC Tab] 81 mg PO DAILY 12/09/21 12/09/21 History Insulin Degludec [Tresiba 120 units SQ DAILY 12/09/21 12/09/21 History Flextouch U-200] Allergies Allergy/AdvReac Type Severity Reaction Status Date / Time Penicillins [PENICILLINS] Allergy Unknown Verified 09/06/17 10:20 Exam Vital signs and Labs for Last 24 Hours: Temp Pulse Resp BP Pulse Ox 98.7 F 98 H 18 136/84 98 12/10/21 07:42 12/10/21 08:00 12/10/21 08:00 12/10/21 08:00 12/10/21 08:00 Laboratory Results - last 24 hr 12/08/21 17:14: POC Glucose 342 H* 12/08/21 18:27: POC Glucose 326 H* 12/08/21 20:17: POC Glucose 275 H 12/08/21 21:02: POC Glucose 243 H 12/08/21 22:24: POC Glucose 199 H 12/08/21 23:07: POC Glucose 180 H 12/08/21 23:47: POC Glucose 170 H 12/09/21 01:16: POC Glucose 167 H 12/09/21 01:48: POC Glucose 144 H 12/09/21 02:51: POC Glucose 187 H 12/09/21 04:26: POC Glucose 213 H 12/09/21 05:14: POC Glucose 172 H 12/09/21 05:57: POC Glucose 176 H 12/09/21 06:43: POC Glucose 167 H 12/09/21 09:03: POC Glucose 157 H 12/09/21 10:09: POC Glucose 149 H 12/09/21 11:17: POC Glucose 144 H 12/09/21 12:03: POC Glucose 137 H 12/09/21 12:23: Sodium 132 L, Potassium 3.6, Chloride 104, Carbon Dioxide 18 L, Anion Gap 13.6, BUN 15, Creatinine 0.90, Estimated Creat Clear 170, Estimated GFR 93, Est GFR ( Amer) 112, Glucose 155 H, Calcium 7.0 L 12/09/21 13:21: POC Glucose 138 H 12/09/21 14:08: POC Glucose 138 H 12/09/21 15:04: POC Glucose 134 H 12/09/21 16:30: Sodium 133 L, Potassium 3.7, Chloride 103, Carbon Dioxide 22, Anion Gap 11.7, BUN 14, Creatinine 0.90, Estimate
[2021-12-10 16:45] LABS: POC Glucose,Bedside 198 (70-110)
--- NOTE | 2021-12-10 18:14 | PC.NURSE ---
No acute changes noted this shift, pt has c/o abdominal pain, treated with pain meds per emar with good results, US galbladder and surgical consult completed this shift, pt is alert and oriented x4, ambulatory, remains on RA, vss, no s/s of distress noted.
[2021-12-10 20:37] LABS: POC Glucose,Bedside 203 (70-110)
[2021-12-11 04:00] VITALS: BP 112/62; PULSE 84; RESP 18; TEMP 36.8; O2SAT 94
--- NOTE | 2021-12-11 04:28 | PC.NURSE ---
Pt has c/o abdominal discomfort this shift. Medicated per mar. He has not slept well tonight. VSS. Pt remains on RA. Lungs are CTA. BS active. Pt has ambulated to BR without difficulty. No other concerns.
[2021-12-11 05:00] VITALS: BMI 34.9
[2021-12-11 05:45] LABS: POC Glucose,Bedside 181 (70-110)
[2021-12-11 06:13] LABS: Basophils # 0.1 K/mm3 (0-0.2); Basophils % 0.7 % (0.1-2.0); Eosinophils # 0.2 K/mm3 (0.0-0.4); Eosinophils % 1.6 % (0.1-12.0); Hematocrit 38.7 % (42.0-52.0); Hemoglobin 12.3 g/dL (14.1-18.0); Lymphocytes % 8.8 % (10-50); Mean Corpuscular HGB Conc 31.7 g/dL (31.8-35.4); Mean Corpuscular Hemoglobin 29.2 pg (27.0-31.2); Mean Corpuscular Volume 92.1 fl (80-94); Mean Platelet Volume 8.3 fl (7.4-10.4); Monocytes # 0.5 K/mm3 (0.1-1.0); Monocytes % 4.6 % (1.7-9.3); Neutrophils # 9.9 K/mm3 (1.8-7.8); Neutrophils % 84.3 % (37.0-80.0); Platelet Count 296 K/mm3 (142-424); Red Cell Distribution Width 15.8 % (11.5-17.5); White Blood Count 11.8 K/mm3 (4.8-10.8)
[2021-12-11 06:19] LABS: Chloride 103 mmol/L (98-107)
[2021-12-11 06:20] LABS: Potassium 3.5 mmoL/L (3.5-5.1); Sodium 134 mmol/L (136-145)
[2021-12-11 06:22] LABS: Blood Urea Nitrogen 7 mg/dl (9-20); Creatinine Clearance Estimated 266 mL/min (50-200); Estimated Glomerular Filt Rate 148 ml/min (>60); GFR (African American) 179 ML/MIN (>60)
[2021-12-11 06:23] LABS: Anion Gap 12.5 mEq/L (5-15); Calcium 8.4 mg/dl (8.4-10.2); Carbon Dioxide 22 mmol/L (22.0-30.0); Glucose 213 mg/dl (74-100)
[2021-12-11 06:34] LABS: Acetone, Serum (Rapid) Small (None Detect)
--- NOTE | 2021-12-11 06:55 | HMH.GSPN ---
Subjective Narrative: The patient is currently resting. Per nursing, he had a rough night with pain . Progress Note: A&P (1) Acute pancreatitis Status: Acute Assessment and plan: Acute pancreatitis as confirmed biochemically and radiographically. Fluid in the peripancreatic region once again noted per yesterday's ultrasound. The patient does have some biliary sludge but no discrete stones and no biliary dilatation. He does have a complicated history of recurrent pancreatitis and has undergone ERCP historically. Although biliary pancreatitis remains a possibility, this is seemingly less likely (given lack of elevated bilirubin, biliary dilatation, or discrete stone). The nonspecific 6 mm wall thickening of the gallbladder noted on ultrasound may represent secondary effect of local inflammatory changes from his pancreatitis. No convincing evidence of acute cholecystitis (remains unlikely); however this cannot be definitively ruled out . No convincing evidence that this represents biliary pancreatitis; however, conversation with regard to elective cholecystectomy once recovered from pancreatitis will be ongoing. Gastroenterology evaluation with regard to history of recurrent pancreatitis of equivocal etiology (in addition to possible ERCP versus MRCP) reasonable. (2) DKA (diabetic ketoacidoses) Status: Acute (3) IDDM (insulin dependent diabetes mellitus) Status: Acute Exam Vital signs and Labs for Last 24 Hours: Temp Pulse Resp BP Pulse Ox 98.2 F 84 18 112/62 94 L 12/11/21 04:00 12/11/21 04:00 12/11/21 04:00 12/11/21 04:00 12/11/21 04:00 Laboratory Results - last 24 hr 12/10/21 05:30: Total Counted 100, Neutrophils % (Manual) 92 H, Lymphocytes % (Manual) 5 L, Monocytes % (Manual) 1 L, Eosinophils % (Manual) 2, Platelet Estimate Normal, RBC Morphology Not Reportable, Poikilocytosis 1+, Anisocytosis 1+ 12/10/21 05:30: Acetone Level Small 12/10/21 11:06: POC Glucose 223 H 12/10/21 16:37: POC Glucose 198 H 12/10/21 20:04: POC Glucose 203 H 12/11/21 05:24: WBC 11.8 H, RBC 4.20 L, Hgb 12.3 L, Hct 38.7 L, MCV 92.1, MCH 29.2, MCHC 31.7 L, RDW 15.8, Plt Count 296, MPV 8.3, Neut % (Auto) 84.3 H, Lymph % (Auto) 8.8 L, [place] % (Auto) 4.6, Eos % (Auto) 1.6, Baso % (Auto) 0.7, Neut # (Auto) 9.9 H, Lymph # (Auto) 1.0, [place] # (Auto) 0.5, Eos # (Auto) 0.2, Baso # (Auto) 0.1 12/11/21 05:24: Sodium 134 L, Potassium 3.5, Chloride 103, Carbon Dioxide 22, Anion Gap 12.5, BUN 7 L D, Creatinine 0.60 L, Estimated Creat Clear 266, Estimated GFR 148, Est GFR ( Amer) 179, Glucose 213 H, Calcium 8.4 12/11/21 05:24: Acetone Level Small 12/11/21 05:29: POC Glucose 181 H I & O for Last 24 hours: Intake & Output 12/08/21 12/09/21 12/10/21 12/11/21 11:59 11:59 11:59 11:59 Intake Total 2464 / 2464 3688 / 3688 3489 / 3489 Balance 2464 / 2464 3688 / 3688 3489 / 3489 Weight 265 lb 247 lb 15.968 oz 258 lb 258 lb 1 oz Microbiology Reports for the Last 24 Hours: Microbiology 12/08/21 12:40 Blood Blood Culture - Preliminary NO GROWTH AFTER 48 HOURS 12/08/21 12:40 Blood Blood Culture - Preliminary NO GROWTH AFTER 48 HOURS Radiology Reports for the Last 24 Hours: Ultrasound reveals no discrete stones. No biliary dilatation. He does have some sludge within the gallbladder and a 6 mm wall. - Constitutional no acute distress Comments: Currently sleeping - *Routine Respiratory Exam Absent: respiratory distress - *Routine Cardiovascular Exam Absent: tachycardia
[2021-12-11 07:25] LABS: Alanine Aminotransferase 16 U/L (12-78); Alkaline Phosphatase 89 U/L (38-126); Aspartate Amino Transferase 22 U/L (17-59); Bilirubin,Direct 0.4 mg/dl (0.0-0.4); Bilirubin,Indirect 0.7 mg/dL (0.0-0.9); Bilirubin,Total 1.1 mg/dl (0.2-1.3); Bilirubin,Unconjugated 0.7 mg/dL (0.0-1.1)
[2021-12-11 07:26] LABS: Albumin Level 3.1 g/dl (3.5-5.0); Amylase 44 U/L (30-110); Lipase 129 U/L (23-300); Total Protein,Serum 6.3 g/dl (6.3-8.2)
[2021-12-11 08:00] VITALS: BP 140/77; PULSE 99; RESP 16; TEMP 37.5; O2SAT 94
--- NOTE | 2021-12-11 10:03 | HMH.ACPN2 ---
Internal Medicine - PN: Subj *Date: 12/11/21 *Time: 12:35 Interval history: -year-old male patient sitting up in bed resting quietly with eyes open, he reports his pain is under control this morning. White blood cell count down to 11.8 and lipase is decreased to 129. He still has some generalized abdominal tenderness but reports pain is better. General surgery has seen and evaluated and their input is much appreciated. Exam Vital signs and Labs for Last 24 Hours: Temp Pulse Resp BP Pulse Ox 99.5 F 99 H 16 140/77 94 L 12/11/21 08:00 12/11/21 08:00 12/11/21 08:00 12/11/21 08:00 12/11/21 08:00 Laboratory Results - last 24 hr 12/10/21 11:06: POC Glucose 223 H 12/10/21 16:37: POC Glucose 198 H 12/10/21 20:04: POC Glucose 203 H 12/11/21 05:24: WBC 11.8 H, RBC 4.20 L, Hgb 12.3 L, Hct 38.7 L, MCV 92.1, MCH 29.2, MCHC 31.7 L, RDW 15.8, Plt Count 296, MPV 8.3, Neut % (Auto) 84.3 H, Lymph % (Auto) 8.8 L, [place] % (Auto) 4.6, Eos % (Auto) 1.6, Baso % (Auto) 0.7, Neut # (Auto) 9.9 H, Lymph # (Auto) 1.0, [place] # (Auto) 0.5, Eos # (Auto) 0.2, Baso # (Auto) 0.1 12/11/21 05:24: Sodium 134 L, Potassium 3.5, Chloride 103, Carbon Dioxide 22, Anion Gap 12.5, BUN 7 L D, Creatinine 0.60 L, Estimated Creat Clear 266, Estimated GFR 148, Est GFR ( Amer) 179, Glucose 213 H, Calcium 8.4 12/11/21 05:24: Acetone Level Small 12/11/21 05:24: Amylase 44, Lipase 129 12/11/21 05:24: Total Bilirubin 1.1, Direct Bilirubin 0.4, Conjugated Bilirubin 0.0, Indirect Bilirubin 0.7, Unconjugated Bilirubin 0.7, AST 22 D, ALT 16 D, Alkaline Phosphatase 89, Total Protein 6.3, Albumin 3.1 L 12/11/21 05:29: POC Glucose 181 H I & O for Last 24 hours: Intake & Output 12/08/21 12/09/21 12/10/21 12/11/21 23:59 23:59 23:59 23:59 Intake Total 2344 / 2344 3808 / 3808 3489 / 3489 Balance 2344 / 2344 3808 / 3808 3489 / 3489 Weight 248 lb 247 lb 15.968 oz 258 lb 258 lb 1 oz Microbiology Reports for the Last 24 Hours: Microbiology 12/08/21 12:40 Blood Blood Culture - Preliminary NO GROWTH AFTER 48 HOURS 12/08/21 12:40 Blood Blood Culture - Preliminary NO GROWTH AFTER 48 HOURS - Constitutional no acute distress - *Routine HEENT Exam Head: Present: normocephalic Eye: Present: EOMI ENT: Present: mucous membranes moist - *Routine Neck Exam Present: trachea midline. Absent: tracheal deviation - *Routine Respiratory Exam Present: CTA bilaterally. Absent: accessory muscle use - *Routine Cardiovascular Exam Present: RRR - *Routine Abdominal Exam Present: soft, normoactive bowel sounds, tenderness. Absent: firm - *Routine Extremities Exam Present: full ROM, pulses intact. Absent: cyanosis, clubbing - *Routine Skin Exam Present: intact, dry. Absent: erythema - *Routine Neurological Exam Present: alert, oriented X3. Absent: motor deficit - Routine Psychiatric Exam Present: normal affect, normal thought process. Absent: visual hallucinations Assessment and Plan (1) Acute pancreatitis Status: Acute Qualifiers: Pancreatitis type: unspecified pancreatitis type Acute pancreatitis complication: unspecified Qualified Code(s): K85.90 - Acute pancreatitis without necrosis or infection, unspecified Category: Medical Code(s): K85.90 - Acute pancreatitis without necrosis or infection, unspecified (2) DKA (diabetic ketoacidoses) Status: Acute Qualifiers: Diabetes mellitus type: type 2 Diabetes mellitus complication detail: without coma Qualified Code(s): E11.10 - Type 2 diabetes mellitus with ketoacidosis without coma Category: Medical Code(s): E13.10 - Other specified diabetes mellitus with ketoacidosis without coma (3) IDDM (insulin dependent diabetes mellitus) Status: Acute Category: Medical Code(s): E11.9 - Type 2 diabetes mellitus without complications; Z79.4 - assisted (current) use of insulin - Assessment and plan all Dx
[2021-12-11 10:05] LABS: Cholesterol 220 mg/dl (140-200); Triglycerides 314 mg/dl (30-150); VLDL Cholesterol 63 mg/dL (0-40)
[2021-12-11 10:06] LABS: Chol/HDL Ratio 8.5 (1-3.5); HDL Cholesterol 26 mg/dl (40-60)
[2021-12-11 10:16] LABS: Direct LDL Cholesterol 94.61 mg/dL (100-129)
--- NOTE | 2021-12-11 10:17 | PC.NURSE ---
All care provided to this patient by Samanta LEE during this shift, was done so under my direct supervision. Jade Baird RN
--- NOTE | 2021-12-11 11:30 | DIET.NUTRFU ---
clear liquids was started today, gallbladder looked at yesterday with just some sludge noted. When patient saw today he still c/o some abdominal pain. Tested lipids elevated but not enough to cause pancreatsis, he is normally on lipitor at home. Reviewed oral diet yesterday with family present and insulin regimen. They declined any further education on diabetic diet. Will monitor diet tolerance
[2021-12-11 11:42] LABS: POC Glucose,Bedside 280 (70-110)
[2021-12-11 16:00] VITALS: BP 131/70; PULSE 101; RESP 16; TEMP 36.6; O2SAT 92
--- NOTE | 2021-12-11 19:42 | PC.NURSE ---
pt has rested in room this shift. he was able to take a shower, but did endorse increased abdominal pain following eating lunch and dinner. pt appeared reluctant to take any pain meds. when offered PO he stated that he would rather tiffany IV pain meds as they relieve the pain quicker. nad noted. pt states that he has not had a bm since wednesday. pt did drink 2 cups of black coffee this shift to attempt to have a BM. lungs are clear, bowel sounds are hypo.
[2021-12-11 20:00] VITALS: BP 140/68; PULSE 68; RESP 16; TEMP 36.6
[2021-12-11 21:46] LABS: POC Glucose,Bedside 201 (70-110)
[2021-12-12] VITALS (13 sets, daily range): BP systolic 107–165; BP diastolic 59–99; PULSE 84–104; RESP 16–23; TEMP 36.6–37.6; O2SAT 90–92; BMI 34.9
--- NOTE | 2021-12-12 04:27 | PC.NURSE ---
Pt has slept well with little discomfort early in shift. Has c/o pain this AM. Medicated per sep. BS hyperactive. Pt on clear diet. Has only had water this shift. Has ambulated to BR with no difficulty. No BM this shift. VSS. No other concerns.
[2021-12-12 06:26] LABS: POC Glucose,Bedside 179 (70-110)
[2021-12-12 06:34] LABS: Basophils # 0.1 K/mm3 (0-0.2); Basophils % 0.6 % (0.1-2.0); Eosinophils # 0.2 K/mm3 (0.0-0.4); Hematocrit 36.6 % (42.0-52.0); Hemoglobin 11.8 g/dL (14.1-18.0); Lymphocytes # 1.2 K/mm3 (0.7-4.5); Lymphocytes % 7.4 % (10-50); Mean Corpuscular HGB Conc 32.4 g/dL (31.8-35.4); Mean Corpuscular Hemoglobin 29.6 pg (27.0-31.2); Mean Corpuscular Volume 91.2 fl (80-94); Mean Platelet Volume 8.6 fl (7.4-10.4); Monocytes # 0.9 K/mm3 (0.1-1.0); Monocytes % 5.9 % (1.7-9.3); Neutrophils # 13.5 K/mm3 (1.8-7.8); Neutrophils % 85.2 % (37.0-80.0); Platelet Count 318 K/mm3 (142-424); Red Blood Count 4.01 M/mm3 (4.60-6.20); Red Cell Distribution Width 15.8 % (11.5-17.5); White Blood Count 15.8 K/mm3 (4.8-10.8)
[2021-12-12 06:38] LABS: MANUAL DIFFERENTIAL MANUAL DIFFERENTIAL (MANUAL DIFF)
[2021-12-12 06:40] LABS: Chloride 102 mmol/L (98-107); Potassium 3.6 mmoL/L (3.5-5.1); Sodium 133 mmol/L (136-145)
[2021-12-12 06:43] LABS: Blood Urea Nitrogen 4 mg/dl (9-20); Creatinine Clearance Estimated 266 mL/min (50-200); Estimated Glomerular Filt Rate 148 ml/min (>60); GFR (African American) 179 ML/MIN (>60)
[2021-12-12 06:44] LABS: Anion Gap 10.6 mEq/L (5-15); Calcium 8.5 mg/dl (8.4-10.2); Carbon Dioxide 24 mmol/L (22.0-30.0); Glucose 207 mg/dl (74-100)
[2021-12-12 06:49] LABS: Acetone, Serum (Rapid) Small (None Detect)
[2021-12-12 07:05] LABS: Eosinophils % 4 % (0-3); Lymphocytes % 11 % (10-50); Monocytes % 7 % (2-9); Neutrophils % 75 % (42-76); Platelet Estimate Normal; RBC Morphology Normal; Total Cells Counted 100
--- NOTE | 2021-12-12 09:06 | HMH.GSPN ---
Subjective Narrative: Continues to slowly improve in terms of abdominal pain. Progress Note: A&P (1) Acute pancreatitis Status: Acute Assessment and plan: Overall clinical picture not consistent with definitive biliary etiology. However, some abnormal wall thickening and biliary sludge confirmed radiographically. Discussion with regard to outpatient laparoscopic cholecystectomy will be ongoing. (2) DKA (diabetic ketoacidoses) Status: Acute (3) IDDM (insulin dependent diabetes mellitus) Status: Acute Exam Vital signs and Labs for Last 24 Hours: Temp Pulse Resp BP Pulse Ox 99.0 F 96 H 20 137/84 90 L 12/12/21 08:00 12/12/21 08:00 12/12/21 08:00 12/12/21 08:00 12/12/21 08:00 Laboratory Results - last 24 hr 12/11/21 09:22: Triglycerides 314 H, Cholesterol 220 H, LDL Cholesterol Direct 94.61 L, VLDL Cholesterol 63 H, HDL Cholesterol 26 L, Cholesterol/HDL Ratio 8.5 H 12/11/21 11:34: POC Glucose 280 H 12/11/21 21:01: POC Glucose 201 H 12/12/21 05:29: WBC 15.8 H D, RBC 4.01 L, Hgb 11.8 L, Hct 36.6 L, MCV 91.2, MCH 29.6, MCHC 32.4, RDW 15.8, Plt Count 318, MPV 8.6, Neut % (Auto) 85.2 H, Lymph % (Auto) 7.4 L, [place] % (Auto) 5.9, Eos % (Auto) 1.0, Baso % (Auto) 0.6, Neut # (Auto) 13.5 H, Lymph # (Auto) 1.2, [place] # (Auto) 0.9, Eos # (Auto) 0.2, Baso # (Auto) 0.1, Total Counted 100, Neutrophils % (Manual) 75, Band Neutrophils % 3.0, Lymphocytes % (Manual) 11, Monocytes % (Manual) 7, Eosinophils % (Manual) 4 H, Platelet Estimate Normal, RBC Morphology Normal 12/12/21 05:29: Sodium 133 L, Potassium 3.6, Chloride 102, Carbon Dioxide 24, Anion Gap 10.6, BUN 4 L D, Creatinine 0.60 L, Estimated Creat Clear 266, Estimated GFR 148, Est GFR ( Amer) 179, Glucose 207 H, Calcium 8.5 12/12/21 05:29: Acetone Level Small 12/12/21 05:55: POC Glucose 179 H I & O for Last 24 hours: Intake & Output 12/09/21 12/10/21 12/11/21 12/12/21 11:59 11:59 11:59 11:59 Intake Total 2464 / 2464 3688 / 3688 3489 / 3489 4700 / 4700 Balance 2464 / 2464 3688 / 3688 3489 / 3489 4700 / 4700 Weight 247 lb 15.968 oz 258 lb 258 lb 1 oz 258 lb - Constitutional no acute distress - *Routine Respiratory Exam Absent: respiratory distress - *Routine Cardiovascular Exam Absent: tachycardia
--- NOTE | 2021-12-12 09:15 | HMH.ACPN2 ---
Internal Medicine - PN: Subj *Date: 12/12/21 *Time: 08:30 Interval history: pt states he is feeling better, hungry Exam Vital signs and Labs for Last 24 Hours: Temp Pulse Resp BP Pulse Ox 99.0 F 96 H 20 137/84 90 L 12/12/21 08:00 12/12/21 08:00 12/12/21 08:00 12/12/21 08:00 12/12/21 08:00 Laboratory Results - last 24 hr 12/11/21 09:22: Triglycerides 314 H, Cholesterol 220 H, LDL Cholesterol Direct 94.61 L, VLDL Cholesterol 63 H, HDL Cholesterol 26 L, Cholesterol/HDL Ratio 8.5 H 12/11/21 11:34: POC Glucose 280 H 12/11/21 21:01: POC Glucose 201 H 12/12/21 05:29: WBC 15.8 H D, RBC 4.01 L, Hgb 11.8 L, Hct 36.6 L, MCV 91.2, MCH 29.6, MCHC 32.4, RDW 15.8, Plt Count 318, MPV 8.6, Neut % (Auto) 85.2 H, Lymph % (Auto) 7.4 L, [place] % (Auto) 5.9, Eos % (Auto) 1.0, Baso % (Auto) 0.6, Neut # (Auto) 13.5 H, Lymph # (Auto) 1.2, [place] # (Auto) 0.9, Eos # (Auto) 0.2, Baso # (Auto) 0.1, Total Counted 100, Neutrophils % (Manual) 75, Band Neutrophils % 3.0, Lymphocytes % (Manual) 11, Monocytes % (Manual) 7, Eosinophils % (Manual) 4 H, Platelet Estimate Normal, RBC Morphology Normal 12/12/21 05:29: Sodium 133 L, Potassium 3.6, Chloride 102, Carbon Dioxide 24, Anion Gap 10.6, BUN 4 L D, Creatinine 0.60 L, Estimated Creat Clear 266, Estimated GFR 148, Est GFR ( Amer) 179, Glucose 207 H, Calcium 8.5 12/12/21 05:29: Acetone Level Small 12/12/21 05:55: POC Glucose 179 H I & O for Last 24 hours: Intake & Output 12/09/21 12/10/21 12/11/21 12/12/21 11:59 11:59 11:59 11:59 Intake Total 2464 / 2464 3688 / 3688 3489 / 3489 4700 / 4700 Balance 2464 / 2464 3688 / 3688 3489 / 3489 4700 / 4700 Weight 247 lb 15.968 oz 258 lb 258 lb 1 oz 258 lb - Constitutional no acute distress - *Routine HEENT Exam Head: Present: normocephalic Eye: Present: PERRL ENT: Present: mucous membranes moist - *Routine Neck Exam Present: supple. Absent: lymphadenopathy - *Routine Respiratory Exam Present: CTA bilaterally - *Routine Cardiovascular Exam Present: RRR - *Routine Abdominal Exam Present: soft, normoactive bowel sounds, tenderness - *Routine Extremities Exam Absent: cyanosis, clubbing, edema - *Routine Skin Exam Present: warm. Absent: rash - *Routine Neurological Exam Present: alert, oriented X3 Assessment and Plan (1) Acute pancreatitis Status: Acute Qualifiers: Pancreatitis type: unspecified pancreatitis type Acute pancreatitis complication: unspecified Qualified Code(s): K85.90 - Acute pancreatitis without necrosis or infection, unspecified Category: Medical Code(s): K85.90 - Acute pancreatitis without necrosis or infection, unspecified (2) DKA (diabetic ketoacidoses) Status: Acute Qualifiers: Diabetes mellitus type: type 2 Diabetes mellitus complication detail: without coma Qualified Code(s): E11.10 - Type 2 diabetes mellitus with ketoacidosis without coma Category: Medical Code(s): E13.10 - Other specified diabetes mellitus with ketoacidosis without coma (3) IDDM (insulin dependent diabetes mellitus) Status: Acute Category: Medical Code(s): E11.9 - Type 2 diabetes mellitus without complications; Z79.4 - terminal superintendent (current) use of insulin - Assessment and plan all Dx Assessment and Plan for all problems:: Rounded with dr bhatt all orders per dr bhatt stop metformin restart insulin drip- due to serum acetone small low fat diet poss dc in am
--- NOTE | 2021-12-12 10:33 | PC.NURSE ---
offered bath to patient. he is being start on insulin drip at this time. stated he did take one last night but would like to have one later today dependent on how long he has to remain on drip. did offer bath basin and he stated he would wait to see if family brought him some of his own clothes.
[2021-12-12 11:21] LABS: Chloride 101 mmol/L (98-107); Sodium 133 mmol/L (136-145)
[2021-12-12 11:24] LABS: Anion Gap 8.9 mEq/L (5-15); Blood Urea Nitrogen 4 mg/dl (9-20); Carbon Dioxide 26 mmol/L (22.0-30.0); Creatinine Clearance Estimated 319 mL/min (50-200); Estimated Glomerular Filt Rate 182 ml/min (>60); GFR (African American) 221 ML/MIN (>60)
[2021-12-12 11:25] LABS: Calcium 8.7 mg/dl (8.4-10.2); Glucose 194 mg/dl (74-100)
[2021-12-12 11:28] LABS: Potassium 2.9 mmoL/L (3.5-5.1)
--- NOTE | 2021-12-12 11:32 | PC.NURSE ---
Called and spoke with Zulma Paulson APRN to make her aware pt's K was 2.9, will start NS w/ K per protocol.
[2021-12-12 13:22] LABS: POC Glucose,Bedside 207 (70-110)
--- NOTE | 2021-12-12 14:07 | DIET.NUTRFU ---
Patient tolerated low fat diet today with fair meal intake. This RD provided and reviewed handout of low fat diet to continue upon discharge. Also included a diabetic handout, even though patient feels he watches his diabetes closely.
[2021-12-12 16:01] LABS: Anion Gap 12.9 mEq/L (5-15); Blood Urea Nitrogen 4 mg/dl (9-20); Calcium 8.6 mg/dl (8.4-10.2); Carbon Dioxide 18 mmol/L (22.0-30.0); Chloride 107 mmol/L (98-107); Creatinine Clearance Estimated 319 mL/min (50-200); Estimated Glomerular Filt Rate 182 ml/min (>60); GFR (African American) 221 ML/MIN (>60); Glucose 145 mg/dl (74-100); Potassium 3.9 mmoL/L (3.5-5.1); Sodium 134 mmol/L (136-145)
--- NOTE | 2021-12-12 17:53 | PC.NURSE ---
Have checked pt's blood glucose since insulin gtt started per sep @ 09. 1400 gtt titrated to 5.9 ml, 1500 2.95 ml/hr, 1555 1.4 ml/hr, 1651, 1 ml/hr. Pt's last check @ this time was 200, insulin gtt currently infusing @ 1 ml/hr. Pt has had episode of nausea and temp of 99.6. Prn zofran and tylenol were given as well as pain med and pt has responded those well. CB in reach and currently @ bedside. VSS.
--- NOTE | 2021-12-12 19:03 | PC.NURSE ---
Blood glucose 198 at this time. Insulin gtt currently @ 1 ML/HR.
[2021-12-12 19:28] LABS: Acetone, Serum (Rapid) Small (None Detect)
[2021-12-12 19:30] LABS: Chloride 100 mmol/L (98-107)
[2021-12-12 19:31] LABS: Potassium 3.3 mmoL/L (3.5-5.1); Sodium 133 mmol/L (136-145)
[2021-12-12 19:34] LABS: Anion Gap 13.3 mEq/L (5-15); Blood Urea Nitrogen 3 mg/dl (9-20); Calcium 8.6 mg/dl (8.4-10.2); Carbon Dioxide 23 mmol/L (22.0-30.0); Creatinine Clearance Estimated 265 mL/min (50-200); Estimated Glomerular Filt Rate 148 ml/min (>60); GFR (African American) 179 ML/MIN (>60); Glucose 217 mg/dl (74-100)
--- NOTE | 2021-12-12 20:04 | PC.NURSE ---
fsbs 262, increased insulin drip to 2units/hr (from 1 unit/hr) and changed ivf to ns +40mEq K+ @125mL/hr (from D5NS+40K+ @75mL/hr) per protocol
--- NOTE | 2021-12-12 22:19 | PC.NURSE ---
2100-fsbs 257, increased insulin drip to 4units/hr per protocol 2200-fsbs 227, continued insulin drip at 4units/hr per protocol
--- NOTE | 2021-12-12 22:45 | PC.NURSE ---
Na 133-Cl 101-CO2 25=7= gap closed as of 2244 but small acetone still present at 1911, next acetone check is with labs and will see if acetone still present
[2021-12-12 23:01] LABS: Chloride 101 mmol/L (98-107)
[2021-12-12 23:02] LABS: Potassium 3.4 mmoL/L (3.5-5.1); Sodium 133 mmol/L (136-145)
[2021-12-12 23:04] LABS: Blood Urea Nitrogen 3 mg/dl (9-20); Creatinine Clearance Estimated 265 mL/min (50-200); Estimated Glomerular Filt Rate 148 ml/min (>60); GFR (African American) 179 ML/MIN (>60)
[2021-12-12 23:05] LABS: Anion Gap 10.4 mEq/L (5-15); Calcium 8.7 mg/dl (8.4-10.2); Carbon Dioxide 25 mmol/L (22.0-30.0); Glucose 250 mg/dl (74-100)
[2021-12-13] VITALS (15 sets, daily range): BP systolic 117–168; BP diastolic 54–108; PULSE 75–109; RESP 15–23; TEMP 36.5–37.7; O2SAT 91–96; BMI 35.0
--- NOTE | 2021-12-13 06:33 | PC.NURSE ---
pt rested fairly well overnight, pt requested pain medicine intermittently and zofran once, VSS except has tachycardia intermittently, last fsbs at 0600-156 insulin drip continued at 4units/hr, awaiting lab to draw am labs to see if acetone still present and if need to replace potassium, will continue to monitor
[2021-12-13 07:25] LABS: Basophils # 0.2 K/mm3 (0-0.2); Basophils % 0.9 % (0.1-2.0); Eosinophils # 0.3 K/mm3 (0.0-0.4); Eosinophils % 1.8 % (0.1-12.0); Hematocrit 38.7 % (42.0-52.0); Hemoglobin 12.9 g/dL (14.1-18.0); Lymphocytes # 1.8 K/mm3 (0.7-4.5); Lymphocytes % 10.8 % (10-50); Mean Corpuscular HGB Conc 33.4 g/dL (31.8-35.4); Mean Corpuscular Hemoglobin 29.7 pg (27.0-31.2); Mean Platelet Volume 9.6 fl (7.4-10.4); Monocytes # 1.3 K/mm3 (0.1-1.0); Monocytes % 7.4 % (1.7-9.3); Neutrophils # 13.5 K/mm3 (1.8-7.8); Neutrophils % 79.1 % (37.0-80.0); Platelet Count 389 K/mm3 (142-424); Red Blood Count 4.35 M/mm3 (4.60-6.20); Red Cell Distribution Width 15.7 % (11.5-17.5)
[2021-12-13 07:33] LABS: MANUAL DIFFERENTIAL MANUAL DIFFERENTIAL (MANUAL DIFF)
[2021-12-13 07:46] LABS: Acetone, Serum (Rapid) None Detected (None Detect)
--- NOTE | 2021-12-13 08:35 | PC.NURSE ---
pt out of DKA. Dr. Sr rounding and ordered to transition to subq phase. Lantus 24units subq given @ 0835. Will turn Insulin gtt off @ 0935 per insulin gtt protocol.
--- NOTE | 2021-12-13 09:25 | HMH.ACPN2 ---
Internal Medicine - PN: Subj *Date: 12/13/21 *Time: 19:42 Interval history: improved this am - oob and still with dec po and labs improved Exam Vital signs and Labs for Last 24 Hours: Temp Pulse Resp BP Pulse Ox 99.8 F H 98 H 18 132/82 94 L 12/13/21 08:00 12/13/21 08:00 12/13/21 08:00 12/13/21 08:00 12/13/21 08:00 Laboratory Results - last 24 hr 12/11/21 16:36: POC Glucose 207 H 12/12/21 11:05: Sodium 133 L, Potassium 2.9 L*, Chloride 101, Carbon Dioxide 26, Anion Gap 8.9, BUN 4 L, Creatinine 0.50 L, Estimated Creat Clear 319 H, Estimated GFR 182, Est GFR ( Amer) 221 D, Glucose 194 H, Calcium 8.7 12/12/21 14:45: Sodium 134 L, Potassium 3.9 D, Chloride 107, Carbon Dioxide 18 L, Anion Gap 12.9, BUN 4 L, Creatinine 0.50 L, Estimated Creat Clear 319 H, Estimated GFR 182, Est GFR ( Amer) 221, Glucose 145 H D, Calcium 8.6 12/12/21 19:12: Sodium 133 L, Potassium 3.3 L, Chloride 100, Carbon Dioxide 23, Anion Gap 13.3, BUN 3 L, Creatinine 0.60 L, Estimated Creat Clear 265, Estimated GFR 148, Est GFR ( Amer) 179, Glucose 217 H D, Calcium 8.6 12/12/21 19:12: Acetone Level Small 12/12/21 22:45: Sodium 133 L, Potassium 3.4 L, Chloride 101, Carbon Dioxide 25, Anion Gap 10.4, BUN 3 L, Creatinine 0.60 L, Estimated Creat Clear 265, Estimated GFR 148, Est GFR ( Amer) 179, Glucose 250 H, Calcium 8.7 12/13/21 06:42: WBC 17.0 H, RBC 4.35 L, Hgb 12.9 L, Hct 38.7 L, MCV 89.0, MCH 29.7, MCHC 33.4, RDW 15.7, Plt Count 389, MPV 9.6, Neut % (Auto) 79.1, Lymph % (Auto) 10.8, [place] % (Auto) 7.4, Eos % (Auto) 1.8, Baso % (Auto) 0.9, Neut # (Auto) 13.5 H, Lymph # (Auto) 1.8, [place] # (Auto) 1.3 H, Eos # (Auto) 0.3, Baso # (Auto) 0.2 12/13/21 06:42: Sodium 135 L, Potassium 3.3 L, Chloride 102, Carbon Dioxide 25, Anion Gap 11.3, BUN 3 L, Creatinine 0.60 L, Estimated Creat Clear 266, Estimated GFR 148, Est GFR ( Amer) 179, Glucose 158 H D, Calcium 9.1 12/13/21 06:42: Acetone Level None detected I & O for Last 24 hours: Intake & Output 12/10/21 12/11/21 12/12/21 12/13/21 11:59 11:59 11:59 11:59 Intake Total 3688 / 3688 3489 / 3489 4700 / 4700 720 / 720 Balance 3688 / 3688 3489 / 3489 4700 / 4700 720 / 720 Weight 258 lb 258 lb 1 oz 258 lb 258 lb 9.6 oz - Constitutional no acute distress, obese - *Routine HEENT Exam Head: Present: normocephalic Eye: Present: EOMI, PERRL ENT: Present: mucous membranes dry - *Routine Neck Exam Absent: JVD - *Routine Respiratory Exam Present: CTA bilaterally - *Routine Cardiovascular Exam Present: RRR - *Routine Abdominal Exam Present: soft - *Routine Extremities Exam Absent: calf tenderness - *Routine Skin Exam Present: intact - *Routine Neurological Exam Present: alert, CN II-XII intact - Routine Psychiatric Exam Present: normal affect Assessment and Plan (1) Acute pancreatitis Status: Acute Qualifiers: Pancreatitis type: unspecified pancreatitis type Acute pancreatitis complication: unspecified Qualified Code(s): K85.90 - Acute pancreatitis without necrosis or infection, unspecified Category: Medical Code(s): K85.90 - Acute pancreatitis without necrosis or infection, unspecified (2) DKA (diabetic ketoacidoses) Status: Acute Qualifiers: Diabetes mellitus type: type 2 Diabetes mellitus complication detail: without coma Qualified Code(s): E11.10 - Type 2 diabetes mellitus with ketoacidosis without coma Category: Medical Code(s): E13.10 - Other specified diabetes mellitus with ketoacidosis without coma (3) IDDM (insulin dependent diabetes mellitus) Status: Acute Category: Medical Code(s): E11.9 - Type 2 diabetes mellitus without complications; Z79.4 - USP (current) use of insulin (4) Obesity (BMI 30-39.9) Status: Acute Category: Medical Code(s): E66.9 - Obesity, unspecified (5) Gallbladder disease Status: Acute Category: Medical Code(s): K82.9 - Disease of gallbladder, unspecified
--- NOTE | 2021-12-13 09:35 | PC.NURSE ---
insulin gtt turned OFF
--- NOTE | 2021-12-13 09:57 | P.PN_ITS ---
Subjective Narrative: Patient states that his abdominal pain is improving. He tolerated diet of eggs, toast, and banana this morning. He still does have some minor discomfort. Progress Note: A&P (1) Acute pancreatitis Status: Acute (2) DKA (diabetic ketoacidoses) Status: Acute (3) IDDM (insulin dependent diabetes mellitus) Status: Acute Assessment and Plan for All Diagnoses:: Continue progressive medical management for apparent not biliary pancreatitis. He has shown some increase in white blood cell count. Etiology unclear. May need cholecystectomy as outpatient although this seems to be nonbiliary etiology for his pancreatitis. Exam Vital signs and Labs for Last 24 Hours: Temp Pulse Resp BP Pulse Ox 99.8 F H 98 H 18 132/82 94 L 12/13/21 08:00 12/13/21 08:00 12/13/21 08:00 12/13/21 08:00 12/13/21 08:00 Laboratory Results - last 24 hr 12/11/21 16:36: POC Glucose 207 H 12/12/21 11:05: Sodium 133 L, Potassium 2.9 L*, Chloride 101, Carbon Dioxide 26, Anion Gap 8.9, BUN 4 L, Creatinine 0.50 L, Estimated Creat Clear 319 H, Estimated GFR 182, Est GFR ( Amer) 221 D, Glucose 194 H, Calcium 8.7 12/12/21 14:45: Sodium 134 L, Potassium 3.9 D, Chloride 107, Carbon Dioxide 18 L, Anion Gap 12.9, BUN 4 L, Creatinine 0.50 L, Estimated Creat Clear 319 H, Estimated GFR 182, Est GFR ( Amer) 221, Glucose 145 H D, Calcium 8.6 12/12/21 19:12: Sodium 133 L, Potassium 3.3 L, Chloride 100, Carbon Dioxide 23, Anion Gap 13.3, BUN 3 L, Creatinine 0.60 L, Estimated Creat Clear 265, Estimated GFR 148, Est GFR ( Amer) 179, Glucose 217 H D, Calcium 8.6 12/12/21 19:12: Acetone Level Small 12/12/21 22:45: Sodium 133 L, Potassium 3.4 L, Chloride 101, Carbon Dioxide 25, Anion Gap 10.4, BUN 3 L, Creatinine 0.60 L, Estimated Creat Clear 265, Estimated GFR 148, Est GFR ( Amer) 179, Glucose 250 H, Calcium 8.7 12/13/21 06:42: WBC 17.0 H, RBC 4.35 L, Hgb 12.9 L, Hct 38.7 L, MCV 89.0, MCH 29.7, MCHC 33.4, RDW 15.7, Plt Count 389, MPV 9.6, Neut % (Auto) 79.1, Lymph % (Auto) 10.8, [place] % (Auto) 7.4, Eos % (Auto) 1.8, Baso % (Auto) 0.9, Neut # (Auto) 13.5 H, Lymph # (Auto) 1.8, [place] # (Auto) 1.3 H, Eos # (Auto) 0.3, Baso # (Auto) 0.2 12/13/21 06:42: Sodium 135 L, Potassium 3.3 L, Chloride 102, Carbon Dioxide 25, Anion Gap 11.3, BUN 3 L, Creatinine 0.60 L, Estimated Creat Clear 266, Estimated GFR 148, Est GFR ( Amer) 179, Glucose 158 H D, Calcium 9.1 12/13/21 06:42: Acetone Level None detected I & O for Last 24 hours: Intake & Output 12/10/21 12/11/21 12/12/21 12/13/21 11:59 11:59 11:59 11:59 Intake Total 3688 / 3688 3489 / 3489 4700 / 4700 720 / 720 Balance 3688 / 3688 3489 / 3489 4700 / 4700 720 / 720 Weight 258 lb 258 lb 1 oz 258 lb 258 lb 9.6 oz - *Routine Abdominal Exam Comments: Abdomen is slightly distended. No appreciable tenderness.
[2021-12-13 10:09] LABS: POC Glucose,Bedside 136 (70-110)
[2021-12-13 10:09] LABS: POC Glucose,Bedside 262 (70-110)
[2021-12-13 10:09] LABS: POC Glucose,Bedside 213 (70-110)
[2021-12-13 10:09] LABS: POC Glucose,Bedside 139 (70-110)
[2021-12-13 10:09] LABS: POC Glucose,Bedside 179 (70-110)
[2021-12-13 10:09] LABS: POC Glucose,Bedside 171 (70-110)
[2021-12-13 10:09] LABS: POC Glucose,Bedside 196 (70-110)
[2021-12-13 10:09] LABS: POC Glucose,Bedside 220 (70-110)
[2021-12-13 10:09] LABS: POC Glucose,Bedside 201 (70-110)
[2021-12-13 10:09] LABS: POC Glucose,Bedside 198 (70-110)
[2021-12-13 10:09] LABS: POC Glucose,Bedside 152 (70-110)
[2021-12-13 10:09] LABS: POC Glucose,Bedside 200 (70-110)
[2021-12-13 10:09] LABS: POC Glucose,Bedside 227 (70-110)
[2021-12-13 10:09] LABS: POC Glucose,Bedside 186 (70-110)
[2021-12-13 10:09] LABS: POC Glucose,Bedside 257 (70-110)
[2021-12-13 10:09] LABS: POC Glucose,Bedside 146 (70-110)
[2021-12-13 10:09] LABS: POC Glucose,Bedside 156 (70-110)
[2021-12-13 10:09] LABS: POC Glucose,Bedside 163 (70-110)
[2021-12-13 10:09] LABS: POC Glucose,Bedside 125 (70-110)
[2021-12-13 10:56] LABS: Lymphocytes % 29 % (10-50); Monocytes % 3 % (2-9); Neutrophils % 66 % (42-76); Total Cells Counted 100
[2021-12-13 11:01] LABS: Platelet Estimate Normal
[2021-12-13 11:02] LABS: RBC Morphology Normal
[2021-12-13 11:41] LABS: POC Glucose,Bedside 196 (70-110)
[2021-12-13 13:49] LABS: Chloride 101 mmol/L (98-107); Potassium 3.6 mmoL/L (3.5-5.1); Sodium 134 mmol/L (136-145)
[2021-12-13 13:52] LABS: Anion Gap 13.6 mEq/L (5-15); Blood Urea Nitrogen 4 mg/dl (9-20); Carbon Dioxide 23 mmol/L (22.0-30.0); Creatinine Clearance Estimated 266 mL/min (50-200); Estimated Glomerular Filt Rate 148 ml/min (>60); GFR (African American) 179 ML/MIN (>60)
[2021-12-13 13:53] LABS: Calcium 8.8 mg/dl (8.4-10.2); Glucose 302 mg/dl (74-100)
[2021-12-13 14:16] LABS: Acetone, Serum (Rapid) None Detected (None Detect)
[2021-12-13 16:53] LABS: POC Glucose,Bedside 227 (70-110)
[2021-12-14] VITALS (7 sets, daily range): BP systolic 137–185; BP diastolic 82–110; PULSE 75–100; RESP 14–21; TEMP 36.9–37.4; O2SAT 91–97; BMI 35.9
[2021-12-14 07:41] LABS: Basophils # 0.1 K/mm3 (0-0.2); Eosinophils # 0.3 K/mm3 (0.0-0.4); Eosinophils % 2.2 % (0.1-12.0); Hematocrit 37.8 % (42.0-52.0); Hemoglobin 12.3 g/dL (14.1-18.0); Lymphocytes # 1.2 K/mm3 (0.7-4.5); Lymphocytes % 10.1 % (10-50); Mean Corpuscular HGB Conc 32.6 g/dL (31.8-35.4); Mean Corpuscular Hemoglobin 29.2 pg (27.0-31.2); Mean Corpuscular Volume 89.6 fl (80-94); Mean Platelet Volume 8.9 fl (7.4-10.4); Monocytes # 0.8 K/mm3 (0.1-1.0); Monocytes % 6.7 % (1.7-9.3); Neutrophils # 9.3 K/mm3 (1.8-7.8); Platelet Count 358 K/mm3 (142-424); Red Blood Count 4.22 M/mm3 (4.60-6.20); Red Cell Distribution Width 15.8 % (11.5-17.5); White Blood Count 11.6 K/mm3 (4.8-10.8)
[2021-12-14 08:23] LABS: Acetone, Serum (Rapid) None Detected (None Detect)
[2021-12-14 08:30] LABS: Chloride 103 mmol/L (98-107); Potassium 3.9 mmoL/L (3.5-5.1); Sodium 134 mmol/L (136-145)
[2021-12-14 08:33] LABS: Anion Gap 10.9 mEq/L (5-15); Blood Urea Nitrogen 3 mg/dl (9-20); Calcium 9.1 mg/dl (8.4-10.2); Carbon Dioxide 24 mmol/L (22.0-30.0); Creatinine Clearance Estimated 273 mL/min (50-200); Estimated Glomerular Filt Rate 148 ml/min (>60); GFR (African American) 179 ML/MIN (>60); Glucose 215 mg/dl (74-100)
--- NOTE | 2021-12-14 09:39 | PC.NURSE ---
Pt out of step down 3590.
--- NOTE | 2021-12-14 09:40 | HMH.GSPN ---
Subjective Narrative: Patient states that he is doing well. He did tolerate diet. Progress Note: A&P (1) Acute pancreatitis Status: Acute (2) DKA (diabetic ketoacidoses) Status: Acute (3) IDDM (insulin dependent diabetes mellitus) Status: Acute (4) Obesity (BMI 30-39.9) Status: Acute (5) Gallbladder disease Status: Acute Assessment and Plan for All Diagnoses:: Patient being discharged today. Outpatient follow-up with gastroenterology and surgery. Exam Vital signs and Labs for Last 24 Hours: Temp Pulse Resp BP Pulse Ox 98.4 F 90 18 137/82 95 12/14/21 08:00 12/14/21 08:00 12/14/21 08:00 12/14/21 08:00 12/14/21 08:00 Laboratory Results - last 24 hr 12/12/21 09:43: POC Glucose 220 H 12/12/21 11:01: POC Glucose 186 H 12/12/21 12:02: POC Glucose 163 H 12/12/21 12:47: POC Glucose 179 H 12/12/21 13:51: POC Glucose 139 H 12/12/21 14:59: POC Glucose 125 H 12/12/21 15:50: POC Glucose 136 H 12/12/21 16:43: POC Glucose 146 H 12/12/21 17:53: POC Glucose 200 H 12/12/21 18:56: POC Glucose 198 H 12/12/21 19:58: POC Glucose 262 H 12/12/21 21:14: POC Glucose 257 H 12/12/21 22:09: POC Glucose 227 H 12/12/21 23:24: POC Glucose 201 H 12/13/21 00:00: POC Glucose 196 H 12/13/21 02:18: POC Glucose 171 H 12/13/21 04:00: POC Glucose 152 H 12/13/21 06:21: POC Glucose 156 H 12/13/21 06:42: Total Counted 100, Neutrophils % (Manual) 66, Band Neutrophils % 2.0, Lymphocytes % (Manual) 29, Monocytes % (Manual) 3, Platelet Estimate Normal, RBC Morphology Normal 12/13/21 06:42: Sodium Cancelled, Potassium Cancelled, Chloride Cancelled, Carbon Dioxide Cancelled, Anion Gap Cancelled, BUN Cancelled, Creatinine Cancelled, Estimated Creat Clear Cancelled, Estimated GFR Cancelled, Est GFR ( Amer) Cancelled, Glucose Cancelled, Calcium Cancelled 12/13/21 10:02: POC Glucose 213 H 12/13/21 11:30: POC Glucose 196 H 12/13/21 13:15: Sodium 134 L, Potassium 3.6, Chloride 101, Carbon Dioxide 23, Anion Gap 13.6, BUN 4 L D, Creatinine 0.60 L, Estimated Creat Clear 266, Estimated GFR 148, Est GFR ( Amer) 179, Glucose 302 H D, Calcium 8.8, Acetone Level None detected 12/13/21 16:46: POC Glucose 227 H 12/14/21 07:11: WBC 11.6 H D, RBC 4.22 L, Hgb 12.3 L, Hct 37.8 L, MCV 89.6, MCH 29.2, MCHC 32.6, RDW 15.8, Plt Count 358, MPV 8.9, Neut % (Auto) 80.0, Lymph % (Auto) 10.1, [place] % (Auto) 6.7, Eos % (Auto) 2.2, Baso % (Auto) 1.0, Neut # (Auto) 9.3 H, Lymph # (Auto) 1.2, [place] # (Auto) 0.8, Eos # (Auto) 0.3, Baso # (Auto) 0.1 12/14/21 07:11: Sodium 134 L, Potassium 3.9, Chloride 103, Carbon Dioxide 24, Anion Gap 10.9, BUN 3 L, Creatinine 0.60 L, Estimated Creat Clear 273, Estimated GFR 148, Est GFR ( Amer) 179, Glucose 215 H D, Calcium 9.1 12/14/21 07:11: Acetone Level None detected I & O for Last 24 hours: Intake & Output 12/11/21 12/12/21 12/13/21 12/14/21 11:59 11:59 11:59 11:59 Intake Total 3489 / 3489 4700 / 4700 720 / 720 6620 / 6620 Balance 3489 / 3489 4700 / 4700 720 / 720 6620 / 6620 Weight 258 lb 1 oz 258 lb 258 lb 9.6 oz 265 lb 11.2 oz Microbiology Reports for the Last 24 Hours: Microbiology 12/08/21 12:40 Blood Blood Culture - Final NO GROWTH AFTER 5 DAYS 12/08/21 12:40 Blood Blood Culture - Final NO GROWTH AFTER 5 DAYS - Constitutional no acute distress - *Routine Abdominal Exam Present: soft
--- NOTE | 2021-12-14 12:13 | HMH.DCSUM ---
General - General Admission date:: 12/08/21 Discharge date: 12/14/21 HPI HPI: 41-year-old male patient presented to the [facility] emergency department with reports of epigastric pain radiating to back starting 1 day prior. He reports he been feeling ill and nauseated for 3 days also states he is noncompliant diabetic and he was unable to tolerate p.o. intake at home. He denies fever/chills/body aches, has been nauseated with no vomiting/diarrhea. She denies any chest pain/shortness of breath or cough. She does report having pancreatitis in the past and stated he was told it was sphincter of Oddi, he still has his gallbladder intact. Lipase over 5000 and DKA with blood glucose 358, lactate 7.2, and large amount of acetone. In the emergency department he did receive IV fluids, Zofran, and Dilaudid Abdominal CT reveals IMPRESSION: 1. Extensive peripancreatic inflammation and fluid, consistent with acute pancreatitis. 2. Gastric wall thickening with infiltration of perigastric fat and fluid in the lesser sac, in association with pancreatitis. Hospital Course Hospital Course: pt was admitted with dka and pancreatitis and placed on ivf/insulin -with dka protocol - pt with slow improvement and had progressive abd pain with vomiting -pt had gb u/s which was abn and was seen by surg - a 41-year-old gentleman seen in consultation from Dr. Fischer for evaluation regarding pancreatitis. He presented to emergency department with increasing epigastric pain with radiation to the back. Evaluation included a CT scan showing changes consistent with acute pancreatitis. Lipase 5030. He has a history of complex/recurrent pancreatitis and has undergone ERCP by Dr. Kirk Erickson quite a few years ago . 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 Prior ultrasound (August 2017) has revealed scant debris and sludge. No discrete stones noted. Pancreatitis type: unspecified pancreatitis type Acute pancreatitis complication: unspecified Qualified Code(s): K85.90 - Acute pancreatitis without necrosis or infection, unspecified Category: Medical Code(s): K85.90 - Acute pancreatitis without necrosis or infection, unspecified Complex history of recurrent pancreatitis. 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 Although biliary pancreatitis (gallstone pancreatitis) remains a possibility, the patient has never been diagnosed with discrete stones. In addition, no obvious biliary dilatation noted radiographically. Further suggesting alternative etiology is the fact that his bilirubin, transaminases, and alk phos have all been normal. Follow-up pending ultrasound May benefit from repeat ERCP MRCP may also be beneficial; however, will defer to gastroenterology If discrete stones are seen on ultrasound, the patient may benefit from elective cholecystectomy once pancreatitis has resolved (despite limited evidence that the stones would be the true causative factor) pt continued to have diff with diabetes and dka and abd pain with dec po intake - per nursing, he had a rough night with pain . Progress Note: A&P (1) Acute pancreatitis Status: Acute Assessment and plan: Acute pancreatitis as confirmed biochemically and radiographically. Fluid in the peripancreatic region once again noted per yesterday's ultrasound. The patient does have some biliary sludge but no discrete stones and no biliary dilatation. He does have a complicated history of recurrent pancreatitis and has undergone ERCP historically. Although biliary pancreatitis remains a possibility, this is seemingly less likely (given lack of elevated bilirubin, biliary dilatation, or discrete stone). The nonspecific 6 mm wall thickening of the gallbladder noted on ultrasound may represent secondary effect of local inflammatory changes from his pancreatitis. No convinc
[2021-12-15 00:34] LABS: POC Glucose,Bedside 231 (70-110)
[2021-12-15 00:34] LABS: POC Glucose,Bedside 194 (70-110)
[2021-12-15 00:34] LABS: POC Glucose,Bedside 184 (70-110)
--- NOTE | 2021-12-15 15:19 | CARE MANAGER ---
Spoke with patient regarding post-discharge phone interview, Mr. Kelly states that he is doing ok and has no needs at this time.
== END 2021-12-14 13:30 | disposition home or self-care (01) | DRG 438 ==
LOC: ER 14:48 → 2ND 19:22
PROVIDERS: Emergency Medicine; Nurse Practitioner Family; Surgery; Admitting Provider Family Medicine; Emergency Provider Emergency Medicine; PCP Nurse Practitioner Family; Visit Provider Family Medicine
DX: K85.90 Acute pancreatitis without necrosis or infection, unspecified (principal); E11.10 Type 2 diabetes mellitus with ketoacidosis without coma; Z79.4 Long term (current) use of insulin; I10 Essential (primary) hypertension; E66.9 Obesity, unspecified; Z68.36 Body mass index [BMI] 36.0-36.9, adult
CPT/HCPCS: 36415; 71045; 74176; 76705; 80048; 80053; 80061; 80076; 81001; 82009; 82150; 82803; 82962; 83605; 83690; 84484; 85007; 85025; 87040; 93005; 96375; 96376; 99285; C9803; J2405; U0003; U0005

== ENCOUNTER → 2022-02-12 15:19 | Outpatient (CLI) | payer BC, SELFPAY | PROVIDERS: PCP Nurse Practitioner Family; Visit Provider Nurse Practitioner Family | DX: K85.90 Acute pancreatitis without necrosis or infection, unspecified (principal) | CPT/HCPCS: 36415 ==

== ENCOUNTER → 2022-02-24 09:07 | Outpatient (CLI) | payer BC, SELFPAY ==
[2022-02-24 09:58] LABS: Basophils # 0.1 K/mm3 (0-0.2); Basophils % 1.1 % (0.1-2.0); Eosinophils # 0.3 K/mm3 (0.0-0.4); Eosinophils % 2.8 % (0.1-12.0); Hematocrit 48.9 % (42.0-52.0); Hemoglobin 15.1 g/dL (14.1-18.0); Lymphocytes # 2.6 K/mm3 (0.7-4.5); Lymphocytes % 27.8 % (10-50); Mean Corpuscular HGB Conc 30.9 g/dL (31.8-35.4); Mean Corpuscular Hemoglobin 28.6 pg (27.0-31.2); Mean Corpuscular Volume 92.6 fl (80-94); Mean Platelet Volume 7.8 fl (7.4-10.4); Monocytes # 0.5 K/mm3 (0.1-1.0); Monocytes % 5.7 % (1.7-9.3); Neutrophils # 5.8 K/mm3 (1.8-7.8); Neutrophils % 62.5 % (37.0-80.0); Platelet Count 313 K/mm3 (142-424); Red Blood Count 5.29 M/mm3 (4.60-6.20); Red Cell Distribution Width 14.8 % (11.5-17.5); White Blood Count 9.2 K/mm3 (4.8-10.8)
[2022-02-24 10:15] LABS: Chloride 103 mmol/L (98-107); Sodium 137 mmol/L (136-145)
[2022-02-24 10:16] LABS: Potassium 4.2 mmoL/L (3.5-5.1)
[2022-02-24 10:18] LABS: Alanine Aminotransferase 36 U/L (12-78); Albumin Level 4.3 g/dl (3.5-5.0); Alkaline Phosphatase 78 U/L (38-126); Aspartate Amino Transferase 39 U/L (17-59); Bilirubin,Total 0.5 mg/dl (0.2-1.3); Blood Urea Nitrogen 16 mg/dl (9-20); Estimated Glomerular Filt Rate 106 ml/min (>60); GFR (African American) 128 ML/MIN (>60)
[2022-02-24 10:19] LABS: Albumin/Globulin Ratio 1.7 (1.1-1.8); Anion Gap 13.2 mEq/L (5-15); Calcium 9.6 mg/dl (8.4-10.2); Carbon Dioxide 25 mmol/L (22.0-30.0); Globulin 2.5 g/dL (1.3-3.2); Glucose 163 mg/dl (74-100); Total Protein,Serum 6.8 g/dl (6.3-8.2)
== END ==
PROVIDERS: PCP Nurse Practitioner Family; Visit Provider Surgery
DX: Z01.812 Encounter for preprocedural laboratory examination (principal); Z20.822 Contact with and (suspected) exposure to COVID-19; K82.9 Disease of gallbladder, unspecified
CPT/HCPCS: 36415; 80053; 85025; C9803; U0003; U0005

== ENCOUNTER 2022-02-26 07:28 | Day surgery (SDC) | payer BC, SELFPAY ==
[2022-02-23 10:29] VITALS: BMI 35.5
[2022-02-26] VITALS (14 sets, daily range): BP systolic 100–130; BP diastolic 60–76; PULSE 61–80; RESP 16–22; TEMP 36.2–43; O2SAT 94–98
[2022-02-26 07:59] LABS: POC Glucose,Bedside 159 (70-110)
--- NOTE | 2022-02-26 08:52 | HMH.ANESCL ---
[facility] Anesthesia Checklist - Patient Identification Patient Identification: Arm Band - Structural Data Admitted From: Home Planned Operative Procedure/s: Laparoscopic Cholecystectomy Consent for Planned Operative Procedure(s) Verified: Yes Verified Documents: Surgical Consent, History and Physical - NPO Status Verified Time NPO: 00:00 - Additional verifications Anesthesia Reactions: No Hx Blood Transfusions: No Blood Transfusion Reaction: No - Airway Assessment C-Spine Mobility Assessed: Yes (mp3) TMJ Mobility Assessed: Yes Dentition: Good Dentition - Neurological Assessment Level of Consciousness: Awake, Alert - Anesthesia Plan Anesthesia Risk discussed: Yes Anesthesia Plan: Verified ASA Class: III Anesthesia Type: General [facility] History I have reviewed the patient's past medical history: Yes Medical History: Reports:: Diabetes Mellitus Type 2, Hyperlipidemia, Hypertension, Lung Disease (JENNIFER) Denies:: Cancer, Diabetes Mellitus Type 1, Internal Pacemaker, MRSA, Seizures *Have you ever received a pneumonia vaccine?: No *Have you received a flu vaccine this season?: No Other Medical History: Denies: Blood Transfusion Reaction Anesthesia experience/problems:: nac Laterality Cases: Right: Arthroscopy Knee Other Surgeries: Yes: Colonoscopy, Colostomy. No: Pacemaker Amputation: No Fractures: No - *Social History Last grade of school completed: Advanced degree Smoking Status: Never smoker Alcohol Intake: never Substance Use Type: denies use *Occupational Status:: employed Housing: house Household Members: spouse, children *Travel in the last 8 weeks: None Family Hx:: Coronary Artery Disease, Diabetes, Heart Attack, Hyperlipidemia, Hypertension, Kidney Disease, Stroke
--- NOTE | 2022-02-26 10:20 | HMH.ANESI ---
[facility] Anesthesia Record Part I Intake, IV Amount: 1,600 Estimated blood loss (mL): 5 Urine output (mL): 0 Blood Products used (#): none Blood Pressure: 107/67 SaO2: 94 Pulse Rate: 75 Respiratory Rate: 18 Temperature: 97.1 F Patient is:: Drowsy
--- NOTE | 2022-02-26 10:30 | HMH.OPNOTE ---
Date of procedure: 02/26/22 Pre-op Diagnosis:: Biliary sludge Right upper quadrant pain Post-op Diagnosis:: Same as preoperative diagnoses with the addition of the following: Chronic cholecystitis Procedure performed:: Laparoscopic cholecystectomy Surgeon:: Lux Bruner MD Anesthesia: GETNadia Estimated blood loss (mL): 15 Operative findings:: Fairly severe infundibular thickening Dome down approach utilized secondary to above findings Operative note:: After informed consent was obtained, the patient was taken to the operating room and placed in the supine position. General anesthesia was induced and the abdomen was prepped and draped in a sterile fashion. After infiltration with local anesthetic an infraumbilical incision was made. A Veress needle was placed in position. The abdomen was insufflated. A 5 mm optical trocar was placed in position. Under direct visualization, a 12 mm trocar was placed in the subxiphoid position and 2 additional 5 mm trocars were placed in the right upper quadrant. The gallbladder was elevated up and over the liver margin. The tissue around the cystic duct was carefully dissected. The entire infundibular region was very thickened and identification of the cystic duct at the level of dissection was very difficult. The decision was made to proceed with a dome down approach with Endoloops utilized to control the infundibulum. Harmonic tony were then utilized to dissect the gallbladder away from the liver margin. As stated above, Endoloops (x2) were then used to control the thickened infundibulum. Transection above the site was then completed with harmonic tony. The gallbladder was placed in a retrieval bag and removed through the subxiphoid trocar site. The right upper quadrant was thoroughly irrigated. No active bleeding or bile leak was noted. Fascia at the subxiphoid trocar site was reapproximated utilizing the NeoClose device. The remaining trocars were removed. All wounds were irrigated and skin was closed with 4-0 Monocryl in a subcuticular fashion. Steri-Strips were applied. The patient's anesthetic agents were reversed and extubation was completed prior to transfer to recovery in stable condition. Condition: stable Disposition: PACU Specimens:: Gallbladder and contents Complications:: No immediate
[2022-02-26 10:52] LABS: POC Glucose,Bedside 156 (70-110)
--- NOTE | 2022-02-26 11:18 | SUR.PHASEI ---
[id number] detailed report to Margaux Avila RN post op
--- NOTE | 2022-02-26 11:19 | SUR.PHASEI ---
1046-FSBS checked 156 notified [employer] no further orders
--- NOTE | 2022-02-26 16:39 | HMH.ANESII ---
[facility] Anesthesia Record Part II Discharge Time: 11:05 Destination: Surgical Day Care (OP Surgery) PACU nurse assessment reviewed?: Yes Patient Condition:: Good Anesthesia Complications:: None Swallowing reflex intact?: Yes Cyanosis?: No Blood Pressure: 112/60 Pulse Rate: 80 Temperature: 97.1 F Mental Status: Alert & Oriented Pain level:: 0 Nausea and/or vomitting:: None Intake, IV Amount: 0
== END 2022-02-26 12:05 | disposition home or self-care (01) ==
LOC: OR 07:29
PROVIDERS: PCP Nurse Practitioner Family; Visit Provider Surgery
PROC: 0FT44ZZ Resection of Gallbladder, Percutaneous Endoscopic Approach (ICD-10-PCS; CPT 47562; principal; 2022-02-26 09:00)
DX: K81.1 Chronic cholecystitis (principal); E11.9 Type 2 diabetes mellitus without complications; I10 Essential (primary) hypertension; E78.5 Hyperlipidemia, unspecified; Z79.4 Long term (current) use of insulin; Z79.899 Other long term (current) drug therapy
CPT/HCPCS: 47562; 82962; 96374; J2405

== ENCOUNTER → 2022-03-24 10:27 | Outpatient (CLI) | payer BC, SELFPAY ==
[2022-03-27 13:10] LABS: Pancreatic Elastase, Fecal 161 (>200)
== END ==
PROVIDERS: Nurse Practitioner Family; PCP Nurse Practitioner Family; Visit Provider Internal Medicine Gastroenterology
DX: K85.90 Acute pancreatitis without necrosis or infection, unspecified (principal)
CPT/HCPCS: 82656

== ENCOUNTER 2022-04-30 16:24 | Inpatient (IN) | payer BC, SELFPAY ==
[2022-04-30 16:25] VITALS: BP 123/68; PULSE 82; RESP 22; TEMP 36.7; O2SAT 97; BMI 35.2
[2022-04-30 17:00] VITALS: BMI 35.2
--- NOTE | 2022-04-30 17:01 | PC.NURSE ---
fsbs 208
--- NOTE | 2022-04-30 17:01 | PC.NURSE ---
pt attempting to use urinal
--- NOTE | 2022-04-30 17:02 | CT_ITS ---
PROCEDURE INFORMATION: Exam: CT Abdomen And Pelvis With Contrast Exam date and time: 04/30/2022 5:13 PM Age: 41 years old Clinical indication: Abdominal pain; Additional info: Umbilical area pain, vomiting TECHNIQUE: Imaging protocol: Computed tomography of the abdomen and pelvis with contrast. Radiation optimization: All CT scans at this facility use at least one of these dose optimization techniques: automated exposure control; mA and/or kV adjustment per patient size (includes targeted exams where dose is matched to clinical indication); or iterative reconstruction. Contrast material: ISOVUE; Contrast volume: 75 ml; Contrast route: IV; COMPARISON: CT ABDOMEN PELVIS WO CON 12/08/2021 1:18 PM FINDINGS: Liver: Hepatic steatosis. Gallbladder and bile ducts: Contracted gallbladder. Pancreas: Peripancreatic edema most likely represents acute pancreatitis. Spleen: Normal. No splenomegaly. Adrenal glands: Normal. No mass. Kidneys and ureters: Normal. No hydronephrosis. Stomach and bowel: Unremarkable. No obstruction. No mucosal thickening. Appendix: The appendix measures 12 mm in diameter near its base. The tip of the appendix is unremarkable. This appearance of the appendix is similar to prior studies and likely represents baseline appearance for this patient. There is no periappendiceal inflammation. Intraperitoneal space: Unremarkable. No free air. No significant fluid collection. Vasculature: Unremarkable. No abdominal aortic aneurysm. Lymph nodes: Unremarkable. No enlarged lymph nodes. Urinary bladder: Unremarkable as visualized. Reproductive: Unremarkable as visualized. Bones/joints: Chronic pars defects of L5. Soft tissues: Tiny fat containing umbilical hernia. Other findings: Stigmata of old granulomatous disease. IMPRESSION: 1. Peripancreatic edema most likely represents acute pancreatitis. There is no peripancreatic fluid collection. The portal vein is patent. The splenic vein appears diminished posterior to the body and tail of the pancreas suggesting possible partial thrombosis or extrinsic compression. 2. Hepatic steatosis.
[2022-04-30 17:05] LABS: POC Glucose,Bedside 208 (70-110)
--- NOTE | 2022-04-30 17:10 | PC.NURSE ---
notified rad of CT order
--- NOTE | 2022-04-30 17:21 | PC.NURSE ---
pt in CT
[2022-04-30 17:31] LABS: Chloride 101 mmol/L (98-107); Potassium 4.4 mmoL/L (3.5-5.1); Sodium 132 mmol/L (136-145)
[2022-04-30 17:33] LABS: Blood Urea Nitrogen 11 mg/dl (9-20); Creatinine Clearance Estimated 229 mL/min (50-200); Estimated Glomerular Filt Rate 124 ml/min (>60); GFR (African American) 150 ML/MIN (>60)
[2022-04-30 17:34] LABS: Alanine Aminotransferase 41 U/L (12-78); Albumin Level 3.4 g/dl (3.5-5.0); Albumin/Globulin Ratio 0.8 (1.1-1.8); Alkaline Phosphatase 133 U/L (38-126); Anion Gap 23.4 mEq/L (5-15); Aspartate Amino Transferase 35 U/L (17-59); Bilirubin,Total 1.1 mg/dl (0.2-1.3); Calcium 7.9 mg/dl (8.4-10.2); Carbon Dioxide 12 mmol/L (22.0-30.0); Globulin 4.2 g/dL (1.3-3.2); Glucose 202 mg/dl (74-100); Lipase 1032 U/L (23-300); Total Protein,Serum 7.6 g/dl (6.3-8.2)
--- NOTE | 2022-04-30 18:11 | PC.NURSE ---
lab called down reporting pt had several abnormal results on pts CBC, states she has ran is several times and QC'd her machine and still results are very abnormal. Notified Samantha I would pull a fresh purple top and send it to her to run another CBC. blood sent to lab at this time.
[2022-04-30 18:17] LABS: Basophils # 0.1 K/mm3 (0-0.2); Basophils % 0.8 % (0.1-2.0); Eosinophils # 0.1 K/mm3 (0.0-0.4); Eosinophils % 0.7 % (0.1-12.0); Hematocrit 44.6 % (42.0-52.0); Lymphocytes # 1.4 K/mm3 (0.7-4.5); Lymphocytes % 8.4 % (10-50); Mean Platelet Volume 7.3 fl (7.4-10.4); Monocytes # 0.4 K/mm3 (0.1-1.0); Monocytes % 2.7 % (1.7-9.3); Neutrophils # 14.1 K/mm3 (1.8-7.8); Neutrophils % 87.4 % (37.0-80.0); Platelet Count 340 K/mm3 (142-424); Red Blood Count 5.19 M/mm3 (4.60-6.20); Red Cell Distribution Width 13.9 % (11.5-17.5); White Blood Count 16.1 K/mm3 (4.8-10.8)
[2022-04-30 18:18] LABS: Mean Corpuscular HGB Conc 47.2 g/dL (31.8-35.4); Mean Corpuscular Hemoglobin 40.6 pg (27.0-31.2)
[2022-04-30 18:22] VITALS: BP 128/73; PULSE 82; RESP 20; TEMP 37.4; O2SAT 94
--- NOTE | 2022-04-30 18:22 | PC.NURSE ---
LAB CALLED WITH CRITICALS HGB 21.0 AWARE
[2022-04-30 18:23] LABS: MANUAL DIFFERENTIAL MANUAL DIFFERENTIAL (MANUAL DIFF)
[2022-04-30 18:24] LABS: Hemoglobin 21.1 g/dL (14.1-18.0)
--- NOTE | 2022-04-30 18:31 | PC.NURSE ---
report given to kvng velez at this time
--- NOTE | 2022-04-30 18:43 | XR_ITS ---
PROCEDURE INFORMATION: Exam: XR Chest Exam date and time: 04/30/2022 7:09 PM Age: 41 years old Clinical indication: Chest wall pain; Additional info: Abdo pain TECHNIQUE: Imaging protocol: Radiologic exam of the chest. Views: 1 view. COMPARISON: CR XR CHEST PORTABLE 12/08/2021 12:10 PM FINDINGS: Lungs: Low lung volumes with associated vascular crowding and bibasilar atelectasis. Pleural spaces: Unremarkable. No pleural effusion. No pneumothorax. Heart/Mediastinum: Unremarkable. No cardiomegaly. Bones/joints: Unremarkable. IMPRESSION: Low lung volumes with associated vascular crowding and bibasilar atelectasis.
--- NOTE | 2022-04-30 18:49 | HMH.EDGENADL ---
Discharge Plan Disposition Patient Disposition: Admitted As Inpatient Condition: Fair Clinical Impressions Clinical Impression: Acute pancreatitis Discharge ED Provider: Enrique Walker General Adult HPI General Chief complaint: Abdominal Pain Stated complaint: adm pain Time Seen by Provider: 04/30/22 18:38 Mode of Arrival: Ambulatory Source of Information: Patient Limitations: No Limitations Description of Symptoms (Recalled from ER Triage Doc. by RN): Pt reports umbilical area abd pain down to around waist line and vomiting. Pt reports has been having pain since early this morning, has vomited multiple times. Pt states temp 100.0 earlier today. Pt reports is an insulin dependent diabetic, reports fsbs was high earlier today, he took insulin but reports has not eaten today. Pt pale in color, mouth dry. History of Present Illness HPI narrative: Patient states that he has abdominal pain that began at 9 AM today. He locates the pain is being in the periumbilical area and lower abdomen radiating into his left flank and back. Multiple episodes of vomiting. He had a low-grade temperature the evening prior to the pain starting. The pain is worsened by movement and coughing. Improved by laying in certain directions. He has a prior history of pancreatitis but says this feels different in location than his usual pancreatitis. He has had prior cholecystectomy earlier this year in February. He has had a previous stent placed in his sphincter of Oddi. He is a nondrinker. Related Data Home Medications Medication Instructions Recorded Confirmed insulin aspart U-100 100 unit/mL 20 - 30 unit SQ AC Diabetes 09/06/17 03/06/22 (3 mL) subcutaneous pen lisinopril 40 mg tablet 40 mg PO DAILY High blood pressure 09/06/17 03/06/22 omega-3 acid ethyl esters 1 gram 2 gm PO BID Cholesterol 09/06/17 03/06/22 capsule aspirin 81 mg tablet,delayed 81 mg PO DAILY HISTORY OF DVT 12/09/21 03/06/22 release insulin degludec 200 unit/mL (3 120 units SQ HS Diabetes 12/09/21 03/06/22 mL) subcutaneous pen atorvastatin 20 mg tablet 20 mg PO HS Cholesterol 12/14/21 03/06/22 fenofibrate nanocrystallized 145 145 mg PO HS Cholesterol 12/14/21 03/06/22 mg tablet Previous Rx's Medication Instructions Recorded hydrocodone 5 mg-acetaminophen 325 1 - 2 tab PO Q6HP PRN post-op pain 02/26/22 mg tablet #17 tabs Allergies Allergy/AdvReac Type Severity Reaction Status Date / Time Penicillins [PENICILLINS] Allergy Unknown Verified 03/06/22 09:31 [facility] Medical History (Updated 04/30/22 @ 18:55 by Enrique Walker MD) Diabetes Gallbladder disease Surgical History (Updated 03/06/22 @ 09:32 by CATALINA Alaniz) Hx laparoscopic cholecystectomy Social History (Updated 03/06/22 @ 09:32 by CATALINA Alaniz) Smoking Status: Never smoker second hand exposure: No alcohol intake: never substance use type: denies use current occupational status: employed Travel in the last 8 weeks: None household members: spouse and children housing: house current occupation: [employer] FOR [employer] current occupational exposures/hazards: No caffeine: Yes ROS Obtained: Yes Systems reviewed as appropriate & no additional complaints except as documented Constitutional Constitutional: Reports fever(s), Denies headache(s) and Denies weakness ENT Ears, Nose, Mouth, and Throat: Denies headache(s), Denies nasal discharge and Denies sore throat Cardiovascular Cardiovascular: Denies chest pain Respiratory Respiratory: Denies shortness of breath Gastrointestinal Gastrointestingal: Reports abdominal pain, nausea and vomiting Genitourinary Male Genitourinary: Denies difficulty urinating and Denies flank pain Musculoskeletal Musculoskeletal: Denies numbness Neurologic Neurologic: Denies headache(s), Denies numbness and Denies weakness Physical Exam General General appearance: alert and other (In
[2022-04-30 18:51] LABS: Acetone, Serum (Rapid) None Detected (None Detect)
[2022-04-30 18:57] LABS: Coronavirus 19, PCR Not Detected (NotDetected); Influenza A, PCR Not Detected (NotDetected); Influenza B, PCR Not Detected (NotDetected)
[2022-04-30 18:57] LABS: Ethyl Alcohol < 10 mg/dl (0-10)
--- NOTE | 2022-04-30 19:18 | PC.NURSE ---
SR WILLS SPEAKING TO HOSPITALIST
[2022-04-30 19:19] LABS: Lymphocytes % 13 % (10-50); Monocytes % 1 % (2-9); Neutrophils % 86 % (42-76); Platelet Estimate Normal; RBC Morphology Normal; Total Cells Counted 100
[2022-04-30 19:59] VITALS: BMI 36.1
[2022-04-30 20:06] LABS: VBG Base Excess -8.5 mmol/L (-2.4-2.3); VBG HCO3 16.9 mmol/L (23-30); VBG Oxygen Saturation 97.6 % (50-70); VBG PCO2 30.3 mmol/L (35-51); VBG PH 7.36 mmol/L (7.31-7.41); VBG PO2 98.1 mmol/L (28-40); VBG Total CO2 17.8 mmol/L (23-27)
[2022-04-30 20:47] LABS: Lactic Acid 0.8 mmol/L (0.7-2.1)
--- NOTE | 2022-04-30 20:50 | EXP.HP ---
History of Present Illness *Admission Date: 04/30/22 *Reason for visit:: Abdominal Pain, Nausea, Vomiting, Fevers and Chills *History of present illness: Mr. David Kelly is a 41-year-old male with a past medical history of Diabetes Mellitus and history of chronic pancreatitis s/p spincter of steffanie stent placement and recent cholecystectomy. He presents to [facility] due to acute onset of abdominal pain associated with nausea, vomiting and fevers that he reports started today. The patient was seen in the ER on admission. He reports that the pain is in the periumbilical region and radiates out. He reports he follows with [employer] Dr. Erickson and he is unsure why he continues to have chronic pancreatitis. He denies a history of alcohol use. In the ER, the patient underwent a CT of the abdomen and pelvis that showed peripancreatic edema without fluid collection. Lipase was elevated at 1032. The patient is also noted to be very dehydrated with hemoglobin of 21.1 and glucose is 202 with anion gap of 23.4 with ketones in the urine. The patient will be admitted with initial impression: Pancreatitis and DKA. The patient have cultures drawn, made NPO, given fluids via iv and pain control. He will have follow-up arranged with his [facility] [employer]ator at discharge. The plan of care was discussed with the patient at bedside. The patient verbalized understanding and agreement with the plan of care. 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 [employer] current occupational exposures/hazards: No caffeine: Yes Review of Systems Review of Systems Review of systems:: pertinent systems reviewed and negative unless documented below Constitutional Constitutional: Reports body ache(s), Reports chills and Reports fever(s) Eyes Eyes: Reports system reviewed and no additional complaints, except as documented ENT Ears, Nose, Mouth, and Throat: Reports system reviewed and no additional complaints, except as documented *Cardiovascular Cardiovascular: Reports system reviewed and no additional complaints, except as documented *Respiratory Respiratory: Reports system reviewed and no additional complaints, except as documented *Gastrointestinal Gastrointestinal: Reports abdominal pain, Reports nausea and Reports vomiting *Genitourinary Genitourinary: Reports system reviewed and no additional complaints, except as documented *Musculoskeletal Musculoskeletal: Reports system reviewed and no additional complaints, except as documented and Denies numbness Integumentary/Breasts Skin/Breast: Reports system reviewed and no additional complaints, except as documented *Neurologic Neurologic: Reports system reviewed and no additional complaints, except as documented and Denies numbness Psychiatric Psychiatric: Reports system reviewed and no additional complaints, except as documented Endocrine Endocrine: Reports polydipsia Hematologic/Lymphatic Hematologic/Lymphatic: Reports system reviewed and no additional complaints, except as documented Allergic/Immunologic Allergic/Immunologic: Reports system reviewed and no additional complaints, except as documented Meds Home Medications and Allergies Home Medications Medication Instructions Recorded Confirmed Type insulin aspart U-100 100 unit/mL 20 - 30 unit SQ AC Diabetes 09/06/17 05/01/22 History (3 mL) subcutaneous pen lisinopril 40 mg tablet 40 mg PO DAILY Hy
[2022-04-30 21:09] VITALS: BP 106/56; PULSE 90; RESP 16; TEMP 36.7; O2SAT 93
[2022-04-30 21:21] VITALS: BP 117/54; PULSE 89; RESP 22; TEMP 36.9; O2SAT 92
[2022-04-30 22:30] VITALS: O2SAT 94
[2022-04-30 22:50] LABS: Microscopic, Urine URINE MICROSCOPIC (MICROSCOPIC)
[2022-04-30 23:16] LABS: Appearance,Urine CLEAR (Clear); Blood, Urine Negative (Negative); Color,Urine YELLOW (Yellow); Glucose,Urine (UA) 1+ (Negative); Ketones,Urine TRACE (Negative); Leukocyte Esterase,Urine Negative (Negative); Nitrate,Urine Negative (Negative); PH,Urine 5.5 (5.0-8.5); Protein,Urine 1+ (Negative); Urobilinogen,Urine 0.2 EU/dl (0.2)
[2022-04-30 23:19] LABS: Bilirubin,Urine Negative (Negative)
[2022-04-30 23:30] LABS: Bacteria,Urine Trace /lpf
[2022-05-01] VITALS (8 sets, daily range): BP systolic 125–154; BP diastolic 64–86; PULSE 92–119; RESP 18–29; TEMP 36.4–37.6; O2SAT 90–95; BMI 36.1
[2022-05-01 01:24] LABS: POC Glucose,Bedside 290 (70-110)
[2022-05-01 03:43] LABS: POC Glucose,Bedside 359 (70-110)
--- NOTE | 2022-05-01 04:25 | PC.NURSE ---
pt has rested in intervals throughout shift. pt has received pain and nausea meds prn SEP. pt has ambulated to bathroom independently. VSS call light within reach.
--- NOTE | 2022-05-01 05:52 | PC.NURSE ---
0600 Courtesy Round Trash emptied
[2022-05-01 06:52] LABS: Chloride 104 mmol/L (98-107); Potassium 5.6 mmoL/L (3.5-5.1); Sodium 133 mmol/L (136-145)
[2022-05-01 06:55] LABS: Alanine Aminotransferase 31 U/L (12-78); Albumin Level 3.3 g/dl (3.5-5.0); Albumin/Globulin Ratio 0.8 (1.1-1.8); Alkaline Phosphatase 64 U/L (38-126); Anion Gap 21.6 mEq/L (5-15); Aspartate Amino Transferase 46 U/L (17-59); Bilirubin,Total 1.6 mg/dl (0.2-1.3); Blood Urea Nitrogen 19 mg/dl (9-20); Calcium 6.8 mg/dl (8.4-10.2); Carbon Dioxide 13 mmol/L (22.0-30.0); Creatinine Clearance Estimated 137 mL/min (50-200); Estimated Glomerular Filt Rate 66 ml/min (>60); GFR (African American) 80 ML/MIN (>60); Glucose 329 mg/dl (74-100); Total Protein,Serum 7.3 g/dl (6.3-8.2)
[2022-05-01 07:15] LABS: Basophils # 0.1 K/mm3 (0-0.2); Basophils % 0.5 % (0.1-2.0); Eosinophils # 0.1 K/mm3 (0.0-0.4); Eosinophils % 0.3 % (0.1-12.0); Hematocrit 44.6 % (42.0-52.0); Lymphocytes # 1.5 K/mm3 (0.7-4.5); Lymphocytes % 9.3 % (10-50); Mean Corpuscular HGB Conc 39.9 g/dL (31.8-35.4); Mean Corpuscular Hemoglobin 34.5 pg (27.0-31.2); Mean Corpuscular Volume 86.5 fl (80-94); Mean Platelet Volume 8.9 fl (7.4-10.4); Monocytes # 0.8 K/mm3 (0.1-1.0); Neutrophils # 13.8 K/mm3 (1.8-7.8); Neutrophils % 84.9 % (37.0-80.0); Platelet Count 327 K/mm3 (142-424); Red Blood Count 5.16 M/mm3 (4.60-6.20); Red Cell Distribution Width 14.2 % (11.5-17.5); White Blood Count 16.2 K/mm3 (4.8-10.8)
[2022-05-01 07:20] LABS: MANUAL DIFFERENTIAL MANUAL DIFFERENTIAL (MANUAL DIFF)
[2022-05-01 07:48] LABS: HDL Cholesterol 18 mg/dl (40-60)
[2022-05-01 07:53] LABS: Lymphocytes % 17 % (10-50); Monocytes % 5 % (2-9); Neutrophils % 78 % (42-76); Total Cells Counted 100
[2022-05-01 07:54] LABS: Platelet Estimate Normal; RBC Morphology Normal
[2022-05-01 08:03] LABS: Chol/HDL Ratio 32.7 (1-3.5); Cholesterol 589 mg/dl (140-200)
[2022-05-01 08:09] LABS: Hemoglobin 17.7 g/dL (14.1-18.0)
[2022-05-01 09:19] LABS: Lipase 472 U/L (23-300)
[2022-05-01 09:30] LABS: Direct LDL Cholesterol 135.16 mg/dL (100-129)
[2022-05-01 11:01] LABS: Triglycerides 7021 mg/dl (30-150)
[2022-05-01 12:11] LABS: POC Glucose,Bedside 356 (70-110)
--- NOTE | 2022-05-01 13:01 | HMH.PHAINT1 ---
Pharmacy Intervention Comments: MEDICATION RECONCILIATION COMPLETED ON PATIENT USING EXTERNAL FILL HISTORY FROM PHARMACY. -FELIPE GRIMES, MIRID
--- NOTE | 2022-05-01 15:19 | EXP.ACUTE.PN ---
Subjective *Date: 05/01/22 *Time: 15:19 Interval history: Patient in moderate distress on exam this morning. Continuing to complain of abdominal pain. Stable on room air. Has left upper quadrant pain however denies vomiting and is tolerating a full liquid diet at this time. Repeat labs this morning show worsening hyperglycemia. Triglycerides obtained showing severe hypertriglyceridemia with triglycerides in the 7000 range. Patient denies any diarrhea, chest pain, confusion. Not wanting to move very much due to discomfort in his abdomen. Medical Exam Vital signs and Labs for Last 24 Hours: Vital Signs Temp Pulse Pulse Resp BP BP Pulse Ox 05/01/22 08:00 97.8 F 93 H 18 133/68 95 05/01/22 04:00 99.2 F 92 H 22 129/66 93 L 04/30/22 22:30 94 L 04/30/22 21:21 98.4 F 89 22 117/54 L 92 L 04/30/22 21:09 98.1 F 90 16 106/56 L 04/30/22 18:22 99.3 F 82 20 128/73 94 L 04/30/22 16:25 98.0 F 82 22 123/68 97 Intake and Output 04/30/22 05/01/22 05/01/22 23:59 07:59 15:59 Output Total 200 / 200 Balance -200 / -200 Output: Output, Urine Amount 200 / 200 Other: Weight 121 kg 121 kg Patient Weight 05/01/22 23:59 Weight 121 kg Laboratory Results - last 24 hr 04/30/22 16:55: POC Glucose 208 H 04/30/22 16:57: Sodium 132 L, Potassium 4.4, Chloride 101, Carbon Dioxide 12 L, Anion Gap 23.4 H, BUN 11, Creatinine 0.70, Estimated Creat Clear 229, Estimated GFR 124, Est GFR ( Amer) 150, Glucose 202 H, Calcium 7.9 L, Total Bilirubin 1.1, AST 35, ALT 41, Alkaline Phosphatase 133 H, Total Protein 7.6, Albumin 3.4 L, Globulin 4.2 H, Albumin/Globulin Ratio 0.8 L, Lipase 1032 H 04/30/22 16:57: Acetone Level None detected 04/30/22 16:57: Plasma/Serum Alcohol < 10 04/30/22 18:10: WBC 16.1 H, RBC 5.19, Hgb 21.1 H, Hct 44.6, MCV 86.0, MCH 40.6 H*, MCHC 47.2 H*, RDW 13.9, Plt Count 340, MPV 7.3 L, Neut % (Auto) 87.4 H, Lymph % (Auto) 8.4 L, [place] % (Auto) 2.7, Eos % (Auto) 0.7, Baso % (Auto) 0.8, Neut # (Auto) 14.1 H, Lymph # (Auto) 1.4, [place] # (Auto) 0.4, Eos # (Auto) 0.1, Baso # (Auto) 0.1, Total Counted 100, Neutrophils % (Manual) 86 H, Lymphocytes % (Manual) 13, Monocytes % (Manual) 1 L, Platelet Estimate Normal, RBC Morphology Normal 04/30/22 18:41: VBG pH 7.36, VBG pCO2 30.3 L, VBG pO2 98.1 H, VBG HCO3 16.9 L, VBG Total CO2 17.8 L, VBG O2 Saturation 97.6 H, VBG Base Excess -8.5 L 04/30/22 18:45: SARS-CoV-2 (PCR) Not detected, Influenza A Untype (PCR) Not detected, Influenza Type B (PCR) Not detected 04/30/22 20:04: Lactate 0.8 04/30/22 22:29: POC Glucose 290 H 04/30/22 22:46: Urine Color Yellow, Urine Appearance Clear, Urine pH 5.5, Ur Specific [place] 1.010, Urine Protein 1+, Urine Glucose (UA) 1+, Urine Ketones Trace, Urine Blood Negative, Urine Nitrate Negative, Urine Bilirubin Negative, Urine Urobilinogen 0.2, Ur Leukocyte Esterase Negative, Urine Bacteria Trace 05/01/22 03:29: POC Glucose 359 H* 05/01/22 06:14: Lipase 472 H 05/01/22 06:19: WBC 16.2 H, RBC 5.16, Hgb 17.7 D, Hct 44.6, MCV 86.5, MCH 34.5 H, MCHC 39.9 H, RDW 14.2, Plt Count 327, MPV 8.9, Neut % (Auto) 84.9 H, Lymph % (Auto) 9.3 L, [place] % (Auto) 5.0, Eos % (Auto) 0.3, Baso % (Auto) 0.5, Neut # (Auto) 13.8 H, Lymph # (Auto) 1.5, [place] # (Auto) 0.8, Eos # (Auto) 0.1, Baso # (Auto) 0.1, Total Counted 100, Neutrophils % (Manual) 78 H, Lymphocytes % (Manual) 17, Monocytes % (Manual) 5, Platelet Estimate Normal, RBC Morphology Normal 05/01/22 06:19: Sodium 133 L, Potassium 5.6 H D, Chloride 104, Carbon Dioxide 13 L, Anion Gap 21.6 H, BUN 19 D, Creatinine 1.20 D, Estimated Creat Clear 137, Estimated GFR 66, Est GFR ( Amer) 80 D, Glucose 329 H D, Calcium 6.8 L, Total Bilirubin 1.6 H, AST 46 D, ALT 31, Alkaline Phosphatase 64, Total Protein 7.3, Albumin 3.3 L, Globulin 4.0 H, Albumin/Globulin Ratio 0.8 L 05/01/22 06:19: Triglycerides 7021 H, Cholesterol 589 H, LDL Cholesterol Direct 135.16 H, VLDL Cholesterol Not Reportable, HDL Ch
[2022-05-01 15:46] LABS: Chloride 99 mmol/L (98-107); Potassium 4.5 mmoL/L (3.5-5.1); Sodium 128 mmol/L (136-145)
[2022-05-01 15:49] LABS: Anion Gap 16.5 mEq/L (5-15); Blood Urea Nitrogen 16 mg/dl (9-20); Carbon Dioxide 17 mmol/L (22.0-30.0); Creatinine Clearance Estimated 183 mL/min (50-200); Estimated Glomerular Filt Rate 93 ml/min (>60); GFR (African American) 112 ML/MIN (>60); Glucose 352 mg/dl (74-100)
[2022-05-01 16:22] LABS: Hemoglobin A1C 9.7 % (4.0-6.0)
[2022-05-01 16:30] LABS: POC Glucose,Bedside 362 (70-110)
[2022-05-01 16:30] LABS: POC Glucose,Bedside 391 (70-110)
[2022-05-01 16:30] LABS: POC Glucose,Bedside 347 (70-110)
[2022-05-01 19:58] LABS: Chloride 99 mmol/L (98-107); Potassium 4.4 mmoL/L (3.5-5.1); Sodium 129 mmol/L (136-145)
[2022-05-01 20:01] LABS: Anion Gap 16.4 mEq/L (5-15); Blood Urea Nitrogen 13 mg/dl (9-20); Calcium 7.2 mg/dl (8.4-10.2); Carbon Dioxide 18 mmol/L (22.0-30.0); Creatinine Clearance Estimated 206 mL/min (50-200); Estimated Glomerular Filt Rate 106 ml/min (>60); GFR (African American) 128 ML/MIN (>60); Glucose 233 mg/dl (74-100)
--- NOTE | 2022-05-01 20:05 | PC.NURSE ---
Pt is A/O x4. He has slept most of the day. He has a few episodes of pain and nausea. This was addresses with medication per mar. He has tolerated ice water well during this shift. He has not wanted to eat much. He was moved from room 208 to 219 due to insulin drip order. He handled that well. He has ambulated to the bathroom independently well.
[2022-05-02] VITALS (14 sets, daily range): BP systolic 127–152; BP diastolic 73–84; PULSE 91–119; RESP 16–31; TEMP 36.3–37.6; O2SAT 90–95; BMI 38.1
[2022-05-02 02:26] LABS: POC Glucose,Bedside 163 (70-110)
[2022-05-02 02:26] LABS: POC Glucose,Bedside 258 (70-110)
[2022-05-02 02:26] LABS: POC Glucose,Bedside 157 (70-110)
[2022-05-02 02:26] LABS: POC Glucose,Bedside 319 (70-110)
[2022-05-02 02:26] LABS: POC Glucose,Bedside 192 (70-110)
[2022-05-02 02:26] LABS: POC Glucose,Bedside 206 (70-110)
[2022-05-02 02:26] LABS: POC Glucose,Bedside 168 (70-110)
[2022-05-02 02:26] LABS: POC Glucose,Bedside 239 (70-110)
--- NOTE | 2022-05-02 03:52 | PC.NURSE ---
fsbs 133, decreased insulin drip to 4.5units/hr per protocol
[2022-05-02 07:04] LABS: Chloride 101 mmol/L (98-107); Sodium 129 mmol/L (136-145)
[2022-05-02 07:07] LABS: Blood Urea Nitrogen 10 mg/dl (9-20); Calcium 7.3 mg/dl (8.4-10.2); Carbon Dioxide 19 mmol/L (22.0-30.0); Creatinine Clearance Estimated 217 mL/min (50-200); Estimated Glomerular Filt Rate 106 ml/min (>60); GFR (African American) 128 ML/MIN (>60); Glucose 158 mg/dl (74-100)
[2022-05-02 08:05] LABS: Triglycerides 1743 mg/dl (30-150)
[2022-05-02 08:12] LABS: POC Glucose,Bedside 154 (70-110)
[2022-05-02 08:12] LABS: POC Glucose,Bedside 146 (70-110)
[2022-05-02 08:12] LABS: POC Glucose,Bedside 133 (70-110)
[2022-05-02 08:12] LABS: POC Glucose,Bedside 169 (70-110)
[2022-05-02 08:12] LABS: POC Glucose,Bedside 146 (70-110)
[2022-05-02 08:49] LABS: Basophils # 0.1 K/mm3 (0-0.2); Basophils % 0.4 % (0.1-2.0); Eosinophils # 0.2 K/mm3 (0.0-0.4); Eosinophils % 1.3 % (0.1-12.0); Hematocrit 39.2 % (42.0-52.0); Lymphocytes # 1.5 K/mm3 (0.7-4.5); Lymphocytes % 8.3 % (10-50); Mean Corpuscular HGB Conc 35.7 g/dL (31.8-35.4); Mean Corpuscular Hemoglobin 31.2 pg (27.0-31.2); Mean Corpuscular Volume 87.4 fl (80-94); Mean Platelet Volume 9.8 fl (7.4-10.4); Monocytes # 0.6 K/mm3 (0.1-1.0); Monocytes % 3.2 % (1.7-9.3); Neutrophils # 15.8 K/mm3 (1.8-7.8); Neutrophils % 86.7 % (37.0-80.0); Platelet Count 217 K/mm3 (142-424); Red Blood Count 4.48 M/mm3 (4.60-6.20); White Blood Count 18.2 K/mm3 (4.8-10.8)
[2022-05-02 08:58] LABS: MANUAL DIFFERENTIAL MANUAL DIFFERENTIAL (MANUAL DIFF)
[2022-05-02 09:20] LABS: POC Glucose,Bedside 219 (70-110)
[2022-05-02 09:20] LABS: POC Glucose,Bedside 223 (70-110)
[2022-05-02 10:03] LABS: Lymphocytes % 7 % (10-50); Neutrophils % 87 % (42-76); Platelet Estimate Normal; RBC Morphology Normal; Total Cells Counted 100
[2022-05-02 10:31] LABS: POC Glucose,Bedside 190 (70-110)
--- NOTE | 2022-05-02 11:15 | EXP.ACUTE.PN ---
Subjective *Date: 05/02/22 *Time: 15:54 Interval history: Continues to complain of abdominal pain and epigastric/chest pain. No shortness of breath. Stable on room air. Remains afebrile. Labs show persistent leukocytosis. Repeat triglycerides this morning show significant improvement, down to approximately 1700 on morning labs. Tolerating insulin drip with 6 units of insulin every hour. Still feels quite fatigued, diffuse abdominal pain. Responding to morphine. Complaining of nausea, no ene emesis. Having diarrhea. No constipation. No confusion or neurologic symptoms. Medical Exam Vital signs and Labs for Last 24 Hours: Vital Signs Temp Pulse Pulse Resp BP Pulse Ox 05/02/22 08:00 110 H 20 140/75 91 L 05/02/22 08:00 97.8 F 05/02/22 06:00 102 H 27 H 127/79 91 L 05/02/22 04:32 107 H 05/02/22 04:00 107 H 25 H 128/73 90 L 05/02/22 04:00 97.4 F L 05/02/22 02:00 109 H 31 H 127/74 90 L 05/02/22 00:00 119 H 05/01/22 23:42 98.4 F 05/01/22 20:00 113 H 05/01/22 22:00 119 H 25 H 150/84 H 90 L 05/01/22 20:00 112 H 26 H 144/77 H 91 L 05/01/22 19:40 97.6 F 05/01/22 18:00 98.7 F 107 H 20 154/86 H 90 L 05/01/22 16:00 97 H 05/01/22 16:00 107 H 29 H 125/64 92 L 05/01/22 16:00 99.6 F Intake and Output 05/01/22 05/02/22 05/02/22 23:59 07:59 15:59 Intake Total 4093 / 4333 1424 / 1544 120 / 1544 Output Total 0 / 0 0 / 0 0 / 0 Balance 4093 / 4333 1424 / 1544 120 / 1544 Intake: Intake, Oral Amount 1320 / 1560 120 / 120 Intake, Other Amount 2773 / 2773 Intake, Total IV Amount 1424 / 1424 0.9 % Sodium Chloride 1,000 ml 876 / 876 @ 150 mls/hr IV .Q6H40M [facility] Rx# :[id number] Calcium Gluconate 2,000 mg In 0 120 / 120 .9 % Sodium Chloride 100 ml @ 60 mls/hr IV ONCE ONE Rx#: [id number] Insulin Regular, Human 100 unit 78 / 78 In 0.9 % Sodium Chloride 100 ml @ 2 UNITS/HR 2.02 mls/hr IV .Q25H [facility] Rx#:[id number] Levofloxacin/D5w 500 mg In 100 150 / 150 ml @ 100 mls/hr IV Q24H [facility] Rx# :[id number] Metronidaz/Sod Chl 500 mg In 200 / 200 100 ml @ 100 mls/hr IV Q6H [facility] Rx#:[id number] Output: Output, Urine Amount 0 / 0 0 / 0 0 / 0 Other: Number of Voids 1 Number of Unmeasured Voids 1 1 1 Number of Bowel Movements 1 Weight 127.8 kg Patient Weight 05/02/22 23:59 Weight 127.8 kg Laboratory Results - last 24 hr 05/01/22 06:19: Hemoglobin A1c 9.7 H 05/01/22 09:26: POC Glucose 356 H* 05/01/22 12:23: POC Glucose 391 H* 05/01/22 15:25: Sodium 128 L, Potassium 4.5, Chloride 99, Carbon Dioxide 17 L, Anion Gap 16.5 H, BUN 16, Creatinine 0.90 D, Estimated Creat Clear 183, Estimated GFR 93, Est GFR ( Amer) 112 D, Glucose 352 H, Calcium 7.0 L 05/01/22 15:33: POC Glucose 362 H* 05/01/22 16:03: POC Glucose 347 H* 05/01/22 17:01: POC Glucose 319 H* 05/01/22 18:01: POC Glucose 258 H 05/01/22 19:00: POC Glucose 239 H 05/01/22 19:43: Sodium 129 L, Potassium 4.4, Chloride 99, Carbon Dioxide 18 L, Anion Gap 16.4 H, BUN 13, Creatinine 0.80, Estimated Creat Clear 206, Estimated GFR 106, Est GFR ( Amer) 128, Glucose 233 H D, Calcium 7.2 L 05/01/22 20:47: POC Glucose 206 H 05/01/22 21:54: POC Glucose 192 H 05/01/22 23:04: POC Glucose 168 H 05/01/22 23:56: POC Glucose 157 H 05/02/22 00:53: POC Glucose 163 H 05/02/22 02:21: POC Glucose 169 H 05/02/22 03:45: POC Glucose 133 H 05/02/22 05:03: POC Glucose 146 H 05/02/22 05:53: POC Glucose 146 H 05/02/22 06:28: Sodium 129 L, Potassium 5.0, Chloride 101, Carbon Dioxide 19 L, Anion Gap 14.0, BUN 10, Creatinine 0.80, Estimated Creat Clear 217, Estimated GFR 106, Est GFR ( Amer) 128, Glucose 158 H D, Calcium 7.3 L, Triglycerides 1743 H 05/02/22 06:28: WBC 18.2 H, RBC 4.48 L, Hgb 14.0 L, Hct 39.2 L, MCV 87.4, MCH 31.2, MCHC 35.7 H, RDW 14.0, Plt Count 2
[2022-05-02 11:54] LABS: POC Glucose,Bedside 175 (70-110)
--- NOTE | 2022-05-02 12:25 | ECG_ITS ---
APPROVED REPORT Exam: Resting ECG HR:100 bpm ECG Measurements Heart Rate 100 AXES HI 166 P 47 QRSd 97 QRS -31 QT 323 T 60 QTc 380 Conclusion SINUS TACHYCARDIA LEFT AXIS DEVIATION [QRS AXIS < -30] Late r wave progression ABNORMAL ECG UNCONFIRMED REPORT Electronically signed by : Vaibhav Quigley MD 05/03/2022 15:17:30
[2022-05-02 14:15] LABS: POC Glucose,Bedside 164 (70-110)
[2022-05-02 15:42] LABS: Triglycerides 1904 mg/dl (30-150)
[2022-05-02 16:15] LABS: POC Glucose,Bedside 172 (70-110)
[2022-05-02 17:50] LABS: Troponin I < 0.01 ng/ml (0.00-0.034)
[2022-05-02 18:01] LABS: POC Glucose,Bedside 253 (70-110)
--- NOTE | 2022-05-02 20:40 | PC.NURSE ---
fsbs 153, decreased insulin drip to 4units/hr, clarified lantus order with glen rutledge aprn instructed this rn to give full ordered lantus dose and if fsbs drops next hour will start fluids with D5, lantus given per order
[2022-05-02 21:43] LABS: POC Glucose,Bedside 124 (70-110)
[2022-05-03] VITALS (18 sets, daily range): BP systolic 121–168; BP diastolic 60–101; PULSE 90–110; RESP 16–26; TEMP 36.6–36.9; O2SAT 91–97; BMI 37.9
--- NOTE | 2022-05-03 02:10 | PC.NURSE ---
fsbs 106, notified TSERING Quintana, stated to keep insulin at 4units/hr for increased triglycerides and will place order for IVF with dextrose @125mL/hr
[2022-05-03 05:01] LABS: POC Glucose,Bedside 200 (70-110)
[2022-05-03 05:01] LABS: POC Glucose,Bedside 153 (70-110)
[2022-05-03 06:47] LABS: Chloride 103 mmol/L (98-107); Sodium 132 mmol/L (136-145)
[2022-05-03 06:48] LABS: Potassium 3.7 mmoL/L (3.5-5.1)
[2022-05-03 06:50] LABS: Alanine Aminotransferase 18 U/L (12-78); Albumin/Globulin Ratio 0.9 (1.1-1.8); Alkaline Phosphatase 66 U/L (38-126); Anion Gap 10.7 mEq/L (5-15); Aspartate Amino Transferase 30 U/L (17-59); Bilirubin,Total 0.8 mg/dl (0.2-1.3); Blood Urea Nitrogen 6 mg/dl (9-20); Calcium 7.7 mg/dl (8.4-10.2); Carbon Dioxide 22 mmol/L (22.0-30.0); Creatinine Clearance Estimated 288 mL/min (50-200); Estimated Glomerular Filt Rate 148 ml/min (>60); GFR (African American) 179 ML/MIN (>60); Globulin 3.3 g/dL (1.3-3.2); Glucose 144 mg/dl (74-100); Total Protein,Serum 6.3 g/dl (6.3-8.2)
[2022-05-03 06:51] LABS: Magnesium 1.7 mg/dl (1.6-2.3)
[2022-05-03 07:16] LABS: Triglycerides 726 mg/dl (30-150)
[2022-05-03 07:20] LABS: Basophils # 0.1 K/mm3 (0-0.2); Basophils % 0.4 % (0.1-2.0); Eosinophils # 0.3 K/mm3 (0.0-0.4); Eosinophils % 2.5 % (0.1-12.0); Hematocrit 39.5 % (42.0-52.0); Hemoglobin 12.9 g/dL (14.1-18.0); Lymphocytes # 1.5 K/mm3 (0.7-4.5); Lymphocytes % 10.8 % (10-50); Mean Corpuscular HGB Conc 32.5 g/dL (31.8-35.4); Mean Corpuscular Hemoglobin 28.8 pg (27.0-31.2); Mean Corpuscular Volume 88.6 fl (80-94); Mean Platelet Volume 8.9 fl (7.4-10.4); Monocytes # 0.5 K/mm3 (0.1-1.0); Neutrophils # 11.1 K/mm3 (1.8-7.8); Neutrophils % 82.4 % (37.0-80.0); Platelet Count 216 K/mm3 (142-424); Red Blood Count 4.46 M/mm3 (4.60-6.20); Red Cell Distribution Width 14.2 % (11.5-17.5); White Blood Count 13.5 K/mm3 (4.8-10.8)
[2022-05-03 08:14] LABS: POC Glucose,Bedside 126 (70-110)
[2022-05-03 08:14] LABS: POC Glucose,Bedside 221 (70-110)
[2022-05-03 08:14] LABS: POC Glucose,Bedside 122 (70-110)
[2022-05-03 08:14] LABS: POC Glucose,Bedside 122 (70-110)
[2022-05-03 08:14] LABS: POC Glucose,Bedside 123 (70-110)
[2022-05-03 08:14] LABS: POC Glucose,Bedside 113 (70-110)
[2022-05-03 08:14] LABS: POC Glucose,Bedside 106 (70-110)
--- NOTE | 2022-05-03 08:31 | PC.NURSE ---
insulin gtt stopped per Dr. Jiménez
--- NOTE | 2022-05-03 11:06 | EXP.ACUTE.PN ---
Subjective *Date: 05/03/22 *Time: 11:08 Interval history: Pain somewhat better with oxycodone overnight. Patient able to rest. Continues to complain of nausea and diffuse abdominal pain. Responded well to insulin drip overnight with resumption of basal insulin. Triglycerides this morning are 700. Patient having adequate urine output. Multiple loose stools over the past 24 hours. Remains afebrile. Stable on room air. Denies shortness of breath. No significant chest pain this morning. Remainder 14 point review of systems negative. Medical Exam Vital signs and Labs for Last 24 Hours: Vital Signs Temp Pulse Pulse Resp BP Pulse Ox 05/03/22 07:00 92 H 24 136/77 92 L 05/03/22 09:00 95 H 16 124/80 94 L 05/03/22 10:00 93 H 20 126/80 93 L 05/03/22 08:00 101 H 19 137/80 94 L 05/03/22 07:59 90 05/03/22 07:43 98.2 F 05/03/22 06:00 97 H 24 168/101 H 93 L 05/03/22 04:00 91 H 05/03/22 04:00 98.1 F 05/03/22 04:00 93 H 22 128/76 93 L 05/03/22 00:00 96 H 05/03/22 02:00 91 H 22 123/72 92 L 05/03/22 00:00 95 H 20 125/73 91 L 05/02/22 23:53 98.2 F 05/02/22 20:00 91 H 05/02/22 22:00 92 H 24 131/80 95 05/02/22 20:00 95 H 22 143/84 H 93 L 05/02/22 20:00 98.5 F 05/02/22 16:00 100 H 05/02/22 18:00 99.7 F H 106 H 26 H 147/81 H 91 L 05/02/22 12:00 100 H 05/02/22 16:00 99 H 25 H 152/80 H 94 L 05/02/22 16:00 98.2 F 05/02/22 14:00 102 H 16 136/79 91 L 05/02/22 12:00 98 H 24 136/81 92 L 05/02/22 12:00 98.5 F Intake and Output 05/02/22 05/03/22 05/03/22 23:59 07:59 15:59 Intake Total 2006 120 / 2254 2134 / 225 Output Total 0 / 0 Balance 2006 120 / 2254 2133 Intake: Intake, Oral Amount 560 / 1040 120 / 600 480 / 600 Intake, Total IV Amount 1447 / 2871 1654 / 1654 0.9 % Sodium Chloride 1,000 ml 1375 / 2251 1587 / 1587 @ 100 mls/hr IV .Q10H [facility] Rx#: [id number] Insulin Regular, Human 100 unit 72 / 150 67 / 67 In 0.9 % Sodium Chloride 100 ml @ 2 UNITS/HR 2.02 mls/hr IV .Q25H [facility] Rx#:[id number] Output: Output, Urine Amount 0 / 0 Other: Number of Unmeasured Voids 1 Weight 127.1 kg Patient Weight 05/03/22 23:59 Weight 127.1 kg Laboratory Results - last 24 hr 05/02/22 06:28: Triglycerides 1904 H 05/02/22 11:44: POC Glucose 175 H 05/02/22 14:08: POC Glucose 164 H 05/02/22 16:09: POC Glucose 172 H 05/02/22 17:15: Troponin I < 0.01 05/02/22 17:50: POC Glucose 253 H 05/02/22 19:13: POC Glucose 200 H 05/02/22 20:28: POC Glucose 153 H 05/02/22 21:34: POC Glucose 124 H 05/02/22 23:01: POC Glucose 122 H 05/02/22 23:53: POC Glucose 122 H 05/03/22 01:18: POC Glucose 113 H 05/03/22 02:07: POC Glucose 106 05/03/22 04:20: POC Glucose 123 H 05/03/22 06:15: POC Glucose 126 H 05/03/22 06:21: WBC 13.5 H D, RBC 4.46 L, Hgb 12.9 L, Hct 39.5 L, MCV 88.6, MCH 28.8, MCHC 32.5, RDW 14.2, Plt Count 216, MPV 8.9, Neut % (Auto) 82.4 H, Lymph % (Auto) 10.8, [place] % (Auto) 4.0, Eos % (Auto) 2.5, Baso % (Auto) 0.4, Neut # (Auto) 11.1 H, Lymph # (Auto) 1.5, [place] # (Auto) 0.5, Eos # (Auto) 0.3, Baso # (Auto) 0.1 05/03/22 06:21: Sodium 132 L, Potassium 3.7 D, Chloride 103, Carbon Dioxide 22, Anion Gap 10.7, BUN 6 L D, Creatinine 0.60 L D, Estimated Creat Clear 288, Estimated GFR 148, Est GFR ( Amer) 179 D, Glucose 144 H, Calcium 7.7 L, Magnesium 1.7, Total Bilirubin 0.8, AST 30 D, ALT 18 D, Alkaline Phosphatase 66, Total Protein 6.3, Albumin 3.0 L, Globulin 3.3 H, Albumin/Globulin Ratio 0.9 L, Triglycerides 726 H 05/03/22 08:06: POC Glucose 221 H I & O for Labs for Last 24 Hours: Intake & Output 04/30/22 05/01/22 05/02/22 05/03/22 23:59 23:59 23:59 23:59 Intake Total 4333 / 4333 3791 / 3911 2254 / 2254 Output Total 200 / 200 0 / 0 0 / 0 0 / 0 Balance -200 / -200 4333 / 4333 3791 / 3911 22
[2022-05-03 11:30] LABS: POC Glucose,Bedside 208 (70-110)
--- NOTE | 2022-05-03 11:31 | PC.NURSE ---
patient had 1 unmeasure
[2022-05-03 16:20] LABS: POC Glucose,Bedside 184 (70-110)
--- NOTE | 2022-05-03 18:43 | PC.NURSE ---
pt had 1 unmeasured void
[2022-05-04] VITALS: PULSE 91
[2022-05-04 03:50] VITALS: BP 144/89; PULSE 95; RESP 18; TEMP 37.1; O2SAT 94; BMI 37.1
[2022-05-04 04:00] VITALS: PULSE 87
[2022-05-04 06:06] LABS: POC Glucose,Bedside 149 (70-110)
[2022-05-04 06:07] LABS: Basophils # 0.1 K/mm3 (0-0.2); Basophils % 0.5 % (0.1-2.0); Eosinophils # 0.3 K/mm3 (0.0-0.4); Eosinophils % 2.5 % (0.1-12.0); Hematocrit 38.9 % (42.0-52.0); Hemoglobin 12.4 g/dL (14.1-18.0); Lymphocytes # 2.1 K/mm3 (0.7-4.5); Mean Corpuscular HGB Conc 31.9 g/dL (31.8-35.4); Mean Corpuscular Hemoglobin 28.9 pg (27.0-31.2); Mean Corpuscular Volume 90.7 fl (80-94); Mean Platelet Volume 8.2 fl (7.4-10.4); Monocytes # 0.7 K/mm3 (0.1-1.0); Monocytes % 5.4 % (1.7-9.3); Neutrophils # 10.1 K/mm3 (1.8-7.8); Neutrophils % 75.6 % (37.0-80.0); Platelet Count 258 K/mm3 (142-424); Red Blood Count 4.29 M/mm3 (4.60-6.20); Red Cell Distribution Width 14.1 % (11.5-17.5); White Blood Count 13.4 K/mm3 (4.8-10.8)
[2022-05-04 06:12] LABS: Potassium 3.9 mmoL/L (3.5-5.1)
[2022-05-04 06:13] LABS: Chloride 100 mmol/L (98-107); Sodium 134 mmol/L (136-145)
[2022-05-04 06:14] LABS: Alanine Aminotransferase 19 U/L (12-78); Alkaline Phosphatase 73 U/L (38-126); Aspartate Amino Transferase 27 U/L (17-59); Bilirubin,Total 0.7 mg/dl (0.2-1.3); Blood Urea Nitrogen 5 mg/dl (9-20); Creatinine Clearance Estimated 242 mL/min (50-200); Estimated Glomerular Filt Rate 124 ml/min (>60); GFR (African American) 150 ML/MIN (>60)
[2022-05-04 06:15] LABS: Anion Gap 10.9 mEq/L (5-15); Calcium 8.3 mg/dl (8.4-10.2); Carbon Dioxide 27 mmol/L (22.0-30.0); Glucose 147 mg/dl (74-100)
[2022-05-04 06:16] LABS: Albumin Level 3.2 g/dl (3.5-5.0); Globulin 3.1 g/dL (1.3-3.2); Magnesium 1.6 mg/dl (1.6-2.3); Total Protein,Serum 6.3 g/dl (6.3-8.2)
[2022-05-04 06:24] LABS: Triglycerides 548 mg/dl (30-150)
[2022-05-04 07:03] LABS: POC Glucose,Bedside 181 (70-110)
--- NOTE | 2022-05-04 07:50 | EXP.DC.SUM ---
General Admission date:: 04/30/22 HPI HPI HPI: Mr. David Kelly is a 41-year-old male with a past medical history of Diabetes Mellitus and history of chronic pancreatitis s/p spincter of steffanie stent placement and recent cholecystectomy. He presents to [facility] due to acute onset of abdominal pain associated with nausea, vomiting and fevers that he reports started today. The patient was seen in the ER on admission. He reports that the pain is in the periumbilical region and radiates out. He reports he follows with Maintenance Aide Dr. Erickson and he is unsure why he continues to have chronic pancreatitis. He denies a history of alcohol use. In the ER, the patient underwent a CT of the abdomen and pelvis that showed peripancreatic edema without fluid collection. Lipase was elevated at 1032. The patient is also noted to be very dehydrated with hemoglobin of 21.1 and glucose is 202 with anion gap of 23.4 with ketones in the urine. The patient will be admitted with initial impression: Pancreatitis and DKA. The patient have cultures drawn, made NPO, given fluids via iv and pain control. He will have follow-up arranged with his Maintenance Aide at discharge. The plan of care was discussed with the patient at bedside. The patient verbalized understanding and agreement with the plan of care. Hospital Course Hospital Course Hospital Course: 41-year-old male with history of Chronic Pancreatitis and Diabetes Mellitus presented with acute abdominal pain, nausea, vomiting, chills and subjective fevers.? Currently with acute pancreatitis.? DKA has resolved.? Labs obtained showing severely elevated hypertriglyceridemia. Initiated insulin drip because of triglyceridemia. Had gradual improvement in his triglycerides going from approximately 7000 to 500 on day of discharge. Patient tolerating his basal bolus regimen. Tolerating full liquid diet. Pain managed with oxycodone, nausea responds to Zofran. Clinically stable and meeting discharge criteria. Discharged home with instructions to follow-up with his air pollution inspector and his color sprayer. Has remained stable on room air and afebrile since admission. Problems addressed as follows: Acute Pancreatitis (POA) Hypertriglyceridemia Type 2 diabetes with hyperglycemia -Found to have severely elevated triglycerides. Initiated on insulin drip. Responded appropriately with gradual decrease from 7000 down to 500 on day of discharge. Transitioned to basal bolus regimen approximately 36 hours before discharge. Tolerated well with continued improvement in triglycerides. Will discharge home on mealtime insulin and 80 units of his basal insulin degludec. Pain improving but still requiring opiates twice daily. Will send home with a short course of oxycodone for pain control. Zofran for nausea. Needs close follow-up with endocrine and GI. We will resume his statin, Vascepa, and initiate fenofibrate to address lipidemia additionally counseled on need to control diabetes for improved . Triglyceride control. Hypertension. Reduced regimen during admission. Will discharge on half his lisinopril dose. Further evaluation in the outpatient setting. Patient overall did well and responded as expected. At this point he has had his gallbladder removed, work-up for genetic mutations that is reportedly negative per family, and I suspect this episode is related to his triglycerides. Exam Data for Last 24 hours Vital signs and Labs for Last 24 Hours: Temp Pulse Resp BP Pulse Ox 98.8 F 87 18 144/89 H 94 L 05/04/22 03:50 05/04/22 04:00 05/04/22 03:50 05/04/22 03:50 05/04/22 03:50 Laboratory Results - last 24 hr 05/02/22 23:01: POC Glucose 122 H 05/02/22 23:53: POC Glucose 122 H 05/03/22 01:18: POC Glucose 113 H 05/03/22 02:07: POC Glucose 106 05/03/22 04:20: POC Glucose 123 H 05/03/22 06:15: POC Glucose 126 H 05/03/22 08:06: POC Glucose 221 H 05/03/22 11:20: POC
[2022-05-04 08:00] VITALS: BP 127/76; PULSE 90; PULSE 97; RESP 24; TEMP 36.8; O2SAT 94; O2SAT 98
--- NOTE | 2022-05-04 11:15 | PC.NURSE ---
Patient reports he wont have a ride home until after 1729 when his gets off work, awaiting her arrival for discharge
[2022-05-04 12:14] LABS: POC Glucose,Bedside 231 (70-110)
--- NOTE | 2022-05-04 12:45 | DIET.NUTRFU ---
RD provided and reviewed diet information for DM, pancreatitis. Low fat and low carb. He tolerated full liquids for lunch today, reviewed diet advancement and half-way diet and contact information for any follow-up questions.
--- NOTE | 2022-05-05 12:45 | CARE MANAGER ---
Left message for post-discharge follow phone interview.
== END 2022-05-04 12:44 | disposition home or self-care (01) | DRG 438 ==
LOC: ER 18:55 → 2ND 20:19
PROVIDERS: Nurse Practitioner Family; Admitting Provider Internal Medicine Adolescent Medicine; Emergency Provider Emergency Medicine; Visit Provider Internal Medicine Adolescent Medicine
DX: K85.90 Acute pancreatitis without necrosis or infection, unspecified (principal); E11.10 Type 2 diabetes mellitus with ketoacidosis without coma; E78.1 Pure hyperglyceridemia; I10 Essential (primary) hypertension; E78.5 Hyperlipidemia, unspecified; E66.9 Obesity, unspecified; Z68.37 Body mass index [BMI] 37.0-37.9, adult; E86.0 Dehydration; K86.1 Other chronic pancreatitis
CPT/HCPCS: 36415; 71045; 74177; 80048; 80053; 80061; 81001; 82009; 82803; 82962; 83036; 83605; 83690; 83735; 84478; 84484; 85007; 85025; 87040; 93005; 99285; C9803; J1956; J2405; Q9967; U0003; U0005

== ENCOUNTER 2023-05-04 08:00 | Outpatient (RCR) | payer BC, SELFPAY | END 2023-05-10 10:14 | disposition home or self-care (01) | LOC: PT 08:00 | PROVIDERS: Visit Provider Physician Assistant | DX: M46.98 Unspecified inflammatory spondylopathy, sacral and sacrococcygeal region (principal) | CPT/HCPCS: 97010; 97012; 97014; 97110; 97140; 97163; G0283 ==

== ENCOUNTER 2025-06-10 15:21 | Emergency (ER) | payer BC, SELFPAY ==
--- OUTSIDE RECORDS SUMMARY | 2025-05-10 08:00 | XMS_ITS | Encounter Summary ---
Author Organization [facility] Address [address] [place] [address] Care Team Providers Care Nurse Practitioner Name Role Phone Zhane Douglas Primary Care Provider + [phone] Reason for Visit * Reason Comments Diabetes Encounter Details Date Type Department Care Team (Late st Contact Info) Description 05/10/2025 9:00 AM EDT Office Visit [facility] [address] [place] [id number] Aj Breaux MD [address] [place] [address] Type 2 diabetes mellitus with hyperglycemia, with long-term current use of insulin (Primary Dx); Primary hypertension; Mixed hyperlipidemia Social History Tobacco Use Types Packs/Day Years Used Date Smoking Tobacco: Never Passive Smoke Exposure: Never Smokeless Tobacco: Current Chew Alcohol Use Standard Drinks/Week Comments Not Currently 0 (1 standard drink = 0.6 oz pur e alcohol) PHQ-2 Answer Date Recorded Retired PHQ-9: Brief Depression Severity Measure Score 1 11/23/2022 PHQ-2 Answer Date Recorded Retired PHQ-9: Brief Depression Severity Measure Score 1 11/23/2022 Sex and Gender Information Value Date Recorded Sex Assigned at Male 01/12/2025 11:37 AM EDT Legal Sex Male 11:41 AM EST Gender Identity Not on file Sexual Orientation Straight 01/12/2025 11 :37 AM EDT documented as of this encounter Last Filed Vital Signs Vital Sign Reading Time Taken Comments Blood Pressure 122/70 05/10/2025 8:37 AM EDT Pulse 82 05/10/2025 8:37 AM EDT Temperature - - Respiratory Rate - - Oxygen Saturation 97% 05/10/2025 8:37 AM EDT Inhaled Oxygen Concentration - - Weight 124 kg (272 lb 6.4 oz) 05/10/2025 8:37 AM EDT Height 177.8 cm (5' 10 ) 05/10/2025 8:37 AM EDT Body Mass Index 39.09 05/10/2025 8:37 AM EDT documented in this encounter Progress Notes * Aj Breaux MD - 05/10/2025 9:21 AM EDTAssociated Problem(s): Primary hypertension -Controlled, continue lisinopril 40 mg daily * Aj Breaux MD - 05/10/2025 9:21 AM EDTAssociated Problem(s): Mixed hyperlipidemia -Continue atorvastatin 40 mg daily, fenofibrate 145 mg daily and Vascepa 2 g twice daily -Repeat FLP at follow-up * Aj Breaux MD - 05/10/2025 9:20 AM EDTAssociated Problem(s): Type 2 diabetes mellitus with hyperglycemia, with long-term current use of insulin -Diabetes is uncontrolled due to hyperglycemia -He is too young and otherwise too healthy to be having this poorly controlled diabetes -Will screen for Conway syndrome at next visit if he continues to have hyperglycemia and weight gain -Complications include diabetic retinopathy -Patient continues to take Mounjaro, no episodes of pancreatitis with it, he is well aware of the risk he is at for recurrent pancreatitis as we have discussed it at every visit and he continues to want to continue taking it -Recommend substantial dietary changes -Consider tandem t:slim -Continue Tresiba 80 units once daily -Continue NovoLog 20 units with large meals/10 units with small meals, okay to skip NovoLog if he is eating primarily protein or small snack -Continue metformin 1000 mg twice daily with meals -Continue Dexcom CGM -Continue lisinopril; blood pressure today 122/70 DM Health Maintenance: Ophtho: done 08/2023, prior history of retinopathy that was stable Monofilament / Foot exam: Completed today Lipids/Statin: taking a statin with last FLP showing LDL 89 and 08/03/2024 ISABEL: Negative done 08/03/2024 TSH: 1.380 done 08/03/2024 aspirin: taking * Aj Breaux MD - 05/10/2025 9:00 AM EDT Chief complaint/Reason for consult: T2DM HPI: Mr. Kelly is a 44-year-old man with T2DM, hypertension and hyperlipidemia who comes for follow-up. He was last seen 12/07/2024 and reports since that time being busier and eating more fast food. # [id number], uncontrolled due to hyperglycemia with complications # Diabetic retinopathy - Diagnosed: 2008 - Patient has a history of DKA x 2 and multiple episodes of pancreatitis due to gallstones now s/p ccy; has history of markedly elevated triglycerides which are now improved - Labs 04/15/2023 showed serum glucose 78, C-peptide 0.5, negative Insulin Ab, ZnT8, Mihir-65, IA-2 and islet cell ab - Takes pancreatic enzymes rarely, denies any changes in stool - Mounjaro initially prescribed by weight loss clinic, he understands the risk of pancreatitis withthis medication and his history of pancreatitis; prior history of pancreatitis may be due to gallbladder dysfunction and he is now status post cholecystectomy - Current regimen includes: Metformin 1000 mg twice daily, Mounjaro 15mg weekly, Tresiba 80u daily and Novolog 20u with large meals and typically nothing for small meals and low carb meals/snacks - Compliance with medications is fair, late for meal bolus sometimes and missed a few weeks of Mounjaro - HbA1c: 7.1% today, in office glucose 144 mg/dL - Using Dexcom CGM CGM Download -Dates reviewed: 04/27/2025-05/10/2025 -Data: 83% wear time, average glucose 197 mg/dL, GMI 8.0%, coefficient of variation 33.6%, 23% veryhigh, 32% high, 45% time in range, 0% low and 0% very low -Interpretation: Persistent hyperglycemia worse after meals - Patient has symptoms with lows - 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, follows with Orthopedics - Patient denies gastroparesis - Patient reports rotating injection sites - Patient without known ASCVD - taking ACEi/ARB; blood pressure today 122/70 DM Health Maintenance: Ophtho: done 08/2023, prior history of retinopathy that was stable Monofilament / Foot exam: Completed 04/13/2024 Lipids/Statin: taking a statin with last FLP showing LDL 89 and 08/03/2024 ISABEL: Negative done 08/03/2024 TSH: 1.380 done 08/03/2024 aspirin: taking # Mixed hyperlipidemia - Most recent lipid panel 08/03/2024 with total cholesterol 154, HDL 33, LDL 89 and triglycerides 186 - He reports good compliance with atorvastatin, fenofibrate, and vascepa and denies any side effects at this time # Essential hypertension - BP today 122/70 - Reports good compliance with lisinopril 40 mg daily - Denies chest pain or shortness of breath Past medical history, past surgical history, family history and social [facility] Review of Systems Constitutional: Positive for activity change. Negative for unexpected weight change. HENT: Negative for trouble swallowing. Eyes: Negative for visual disturbance. Respiratory: Negative for shortness of breath. Cardiovascular: Negative for chest pain. Gastrointestinal: Negative for abdominal pain. Endocrine: Negative for cold intolerance and heat intolerance. Musculoskeletal: Negative for gait problem. Neurological: Positive for numbness. Psychiatric/Behavioral: Negative for agitation. BP 122/70 (BP Location: Right arm, Patient Position: Sitting, Cuff Size: Adult) Pulse 82 Ht 177.8 cm (70 ) Wt 124 kg (272 lb 6.4 oz) SpO2 97% BMI 39.09 kg/m?? Physical Exam Vitals reviewed. Constitutional: General: He is not in acute distress. Appearance: He is obese. HENT: Head: Normocephalic. Nose: Nose normal. Eyes: Conjunctiva/sclera: Conjunctivae normal. Cardiovascular: Rate and Rhythm: Normal rate. Pulses: Normal pulses. Dorsalis pedis pulses are 2+ on the right side and 2+ on the left side. Pulmonary: Effort: Pulmonary effort is normal. Abdominal: Tenderness: There is no guarding. Musculoskeletal: Right foot: No deformity or bunion. Left foot: Deformity present. No bunion. Feet: Right foot: Protective Sensation: 8 sites tested. 8 sites sensed. Skin integrity: Callus and dry skin present. Toenail Condition: Right toenails are normal. Left foot: Protective Sensation: 8 sites tested. 8 sites sensed. Skin integrity: Callus and dry skin present. Toenail Condition: Left toenails are normal. Comments: Hammertoe and left foot and bilateral callus with normal sensation to monofilament and vibration bilaterally Skin: General: Skin is warm and dry. Neurological: Mental Status: He is alert and oriented to person, place, and time. Psychiatric: Mood and Affect: Mood normal. Labs and images reviewed as noted in the HPI Assessment and plan: Diagnoses and all orders for this visit: 1. Type 2 diabetes mellitus with hyperglycemia, with long-term current use of insulin (Primary) Assessment & Plan: -Diabetes is uncontrolled due to hyperglycemia -He is too young and otherwise too healthy to be having this poorly controlled diabetes -Will screen for Charley syndrome at next visit if he continues to have hyperglycemia and weight gain -Complications include diabetic retinopathy -Patient continues to take Mounjaro, no episodes of pancreatitis with it, he is well aware of the risk he is at for recurrent pancreatitis as we have discussed it at every visit and he continues to want to continue taking it -Recommend substantial dietary changes -Consider tandem t:slim -Continue Tresiba 80 units once daily -Continue NovoLog 20 units with large meals/10 units with small meals, okay to skip NovoLog if he is eating primarily protein or small snack -Continue metformin 1000 mg twice daily with meals -Continue Dexcom CGM -Continue lisinopril; blood pressure today 122/70 DM Health Maintenance: Ophtho: done 08/2023, prior history of retinopathy that was stable Monofilament / Foot exam: Completed today Lipids/Statin: taking a statin with last FLP showing LDL 89 and 08/03/2024 ISABEL: Negative done 08/03/2024 TSH: 1.380 done 08/03/2024 aspirin: taking Orders: - POC Glycosylated Hemoglobin (Hb A1C) - POC Glucose, Blood 2. Primary hypertension Assessment & Plan: -Controlled, continue lisinopril 40 mg daily 3. Mixed hyperlipidemia Assessment & Plan: -Continue atorvastatin 40 mg daily, fenofibrate 145 mg daily and Vascepa 2 g twice daily -Repeat FLP at follow-up Return in about 4 months (around 09/08/2025) for T2DM. Please note that portions of this note may have been completed with a voice recognition program. Efforts were made to edit the dictations, but occasionally words are mistranscribed. documented in this encounter Plan of Treatment Upcoming Encounters Date Type Department Care Team (Late st Contact Info) Description 07/26/2025 9:00 AM EST Office Visit [facility] [address] [phone] Dunia Rojas, NEUROLOGY PHYSICIAN [address] [place] [address] [place] [address] 09/21/2025 10:30 AM EDT Office Visit [facility] [address] [place] [address] Aj Breaux MD [address] [place] [address] documented as of this encounter Procedures Procedure Name Priority Date/Time Associated Diagnosis Comments POCT GLYCOSYLATED HEMOGLOBIN (HGB A1C) Routine 05/10/2025 8:52 AM EDT Type 2 diabetes mellitus with hyperglycemia, with long-term current use of insulin POCT GLUCOSE, BLD (NON STRIP) Routine 05/10/2025 8:51 AM EDT Type 2 diabetes mellitus with hyperglycemia, with long-term current use of insulin documented in this encounter Results * (ABNORMAL) POC Glycosylated Hemoglobin (Hb A1C) (05/10/2025 8:52 AM EDT) Hemoglobin A1C 7.1(A) 4.5 - 5.7 % [facility] Lot Number [id number] [facility] Expiration Date 12/08/26 MERGED WITH [facility] Blood 05/10/2025 8:52 AM EDT us Aj Breaux MD POINT OF CARE TEST ORDERABL ES Final Result [facility]
[address] [place] [address], [place] [phone] * (ABNORMAL) POC Glucose, Blood (05/10/2025 8:51 AM EDT) Glucose 144(A) 70 - 130 mg/dL Lot Number [id number] Expiration Date 09/29/25 Blood 05/10/2025 8:51 AM EDT us Aj Breaux MD POINT OF CARE TEST ORDERABL ES Final Result documented in this encounter Visit Diagnoses Diagnosis Type 2 diabetes mellitus with hyperglycemia, with long-term current use of insulin- Primary Primary hypertension Unspecified essential hypertension Mixed hyperlipidemia documented in this encounter Additional Health Concerns Assessment Noted Time PHQ-2 Depression Total Score: 1 11/24/19 23 9:00 AM EDT documented as of this encounter Care Teams Nurse Practitioner Relationship Specialty Start Date End Date Zhane Douglas [address] [place] [address] PCP - General Nurse Practitioner 04/13/24 documented as of this encounter
[2025-06-10] VITALS (14 sets, daily range): BP systolic 114–151; BP diastolic 48–86; PULSE 52–80; RESP 15–20; TEMP 36.8–37; O2SAT 96–100; BMI 35.2
[2025-06-10 15:41] LABS: Microscopic, Urine URINE MICROSCOPIC (MICROSCOPIC)
--- OUTSIDE RECORDS SUMMARY | 2025-06-10 15:41 | XMS_ITS | Continuity of Care Document ---
Author Organization [facility] Address [address] [place] [phone] Assessment No assessment recorded. Plan of Treatment Reminders Order Date Submit Date Provider Last Modified By Organization Details Last Modified Time Details Appointments None recorded. Lab urinalysis, dipstick 2024 025 [email or web address] [facility], [address] [place] [address], [phone], 16:19:50 Referral None recorded. Procedures None recorded. Surgeries None recorded. Imaging None recorded. Medication Orders ketorolac 60 mg/2 mL intramuscul ar solution 2024 025 [email or web address] Not available 15:35:19 diclofenac sodium 50 mg tablet,kae yed release [address] [facility] [place], [place], [address] [place] [address], [id number], 05:01:01 cyclobenzap rine 10 mg tablet [address] [facility] [place], [place], [address] [place] [address], [id number], 17:34:50 Patient TargetsNo targets recorded. Patient InstructionsNo instructions recorded. Reason for Referral None Reported. Results Created Date Observation Date Name Description Value Unit Range Abnormal Flag Note LastModifiedBy Organization Detail LastModifiedTime 04/06/2004/06/2025 urina lysis , dipst ick Leukocytes Negati ve Not Available [address], [address], 04/06/2025 16:04:45 04/06/2004/06/2025 urina lysis , dipst ick Nitrite negati ve Not Available [address], [address], 04/06/2025 16:04:45 04/06/2004/06/2025 urina lysis , dipst ick Urobilinogen .2 Not Available [address], [address], 04/06/2025 16:04:45 04/06/2004/06/2025 urina lysis , dipst ick Protein Negati ve Not Available [address], [address], 04/06/2025 16:04:45 04/06/2004/06/2025 urina lysis , dipst ick pH 6.0 Not Available [address], [address], 04/06/2025 16:04:45 04/06/2004/06/2025 urina lysis , dipst ick Blood Negati ve Not Available [address], [address], 04/06/2025 16:04:45 04/06/2004/06/2025 urina lysis , dipst ick Specific [place] 1.010 Not Available [address], [address], 04/06/2025 16:04:45 04/06/2004/06/2025 urina lysis , dipst ick Ketone Negati ve Not Available [address], [address], 04/06/2025 16:04:45 04/06/2004/06/2025 urina lysis , dipst ick Bilirubin Negati ve Not Available [address], [address], 04/06/2025 16:04:45 04/06/2004/06/2025 urina lysis , dipst ick Glucose 1000 Not Available [address], [address], 04/06/2025 16:04:45 04/06/2004/06/2025 urina lysis , dipst ick Appearance Clear Not Available [address], [address], 04/06/2025 16:04:45 04/06/2004/06/2025 urina lysis , dipst ick Color Yellow Not Available [address], [address], 04/06/2025 16:04:45 Result Notes None recorded. Problems Name Problem SNOMED Code Status Onset Date Resolution Date Notes Provider Name and Address Organization Details Recorded Time Type 2 diabetes mellitus without complicatio n 133886431 Active 2021 RANDY ford [place] [employer]. 10:33:28 Hyperlipide sherlyn 11502016 Active 2021 RANDY ford [facility] [employer] 10:33:34 Hyperglycem ia due to type 2 diabetes mellitus 1119684920775 09 Active 2024 Venita ford [place] [employer]. 5 15:39:59 Acute low back pain 054535580 Active 2024 Hallie Watts, SENIOR MECHANICAL ENGINEER [address] [place], [address], [employer] 5 16:04:38 Pruritic rash 98354480 Active 2024 Venita ford, [employer] 5 17:08:19 Diabetes mellitus 62118616 Active 2024 Venita ford, [employer]. 5 11:44:58 Problem Notes None recorded. Procedures Surgical History Date Name Laterality Status Provider Name and Address Organization Details Recorded Time amputation of toe completed Venita Johnston [employer]. 07/16/2023 14:24:58 Imaging Results None recorded. Procedure Notes None recorded. Medical Equipment None Reported. Allergies Allergen ID Allergen Name Allergen Category Reaction Reaction Severity Criticality Documentation Date Start Date Code Code System Note Provider Name and Address Organization Details Recorded Time 33390 Product containin g penicilli n (product) medicatio n rash Not available Not available 04/13/2023 06999 8001 SNOMED Zhane Misael, SENIOR MECHANICAL ENGINEER [address] [place], [address], [employer] 3 17:15:32 Medications Name Sig Start Date Stop Date Status Note LastModified by Organization Details LastModified Time glmp (rr) cream active Not Available Not Available Not Available cyclobenz aprine 10 mg tablet TAKE 1 TABLET BY MOUTH EVERY DAY AT BEDTIME as needed FOR muscle SPASMS active Not Available Not Available No t Available atorvasta tin 40 mg tablet TAKE 1 TABLET BY MOUTH EVERY DAY active Not Available Not Available No t Available doxycycli ne hyclate 100 mg capsule TAKE 1 CAPSULE BY MOUTH TWICE DAILY active Not Available Not Available No t Available clindamyc in HCl 300 mg capsule TAKE 1 CAPSULE BY MOUTH 3 TIMES DAILY FOR 14 DAYS 05/18 completed Not Available Not Available Not Available azithromy ezequiel 250 mg tablet TAKE 2 TABLETS BY MOUTH ON DAY 1, AND THEN TAKE 1 TABLET BY MOUTH ONCE A DAY ON DAY 2 THROUGH DAY 5 11/05 completed Not Available Not Available Not Available fluconazo le 150 mg tablet TAKE 1 TABLET BY MOUTH today THEN 1 tablet in 3 DAYS active Not Available Not Available No t Available benzonata te 200 mg capsule TAKE 1 CAPSULE BY MOUTH THREE TIMES DAILY NEEDED 11/05 completed Not Available Not Available Not Available hydrocodo ne 5 mg-acetam inophen 325 mg tablet TAKE 1 TABLET BY MOUTH EVERY 6 HOURS NEEDED FOR PAIN FOR 7 DAYS 07/16 completed Not Available Not Available Not Available lisinopri l 20 mg tablet TAKE 1 TABLET BY MOUTH EVERY DAY active Not Available Not Available No t Available methylpre dnisolone 4 mg tablet TAKE 8 TABLETS BY MOUTH 12 HOURS AND 2 HOURS PRIOR TO RECEIVIN G CONTRAST 04/20 completed Not Available Not Available Not Available Lantus U-100 Insulin 100 unit/mL subcutane ous solution INJECT 50 UNITS UNDER THE SKIN EVERY MORNING & 50 UNITS UNDER THE SKIN EVERY EVENING active Not Available Not Available No t Available sulfameth oxazole 800 mg-trimet hoprim 160 mg tablet TAKE 1 TABLET BY MOUTH EVERY 12 HOURS 04/13 completed Not Available Not Available Not Available omeprazol e 40 mg capsule,d elayed release TAKE 1 CAPSULE BY MOUTH EVERY DAY BEFORE MEAL active Not Available Not Available No t Available lidocaine -prilocai ne 2.5 %-2.5 % topical cream active Not Available Not Available Not Available ceftriaxo ne 1 gram solution for injection Take 1 g by injectio n route. 07/16 completed Not Available Not Available Not Available cephalexi n 500 mg capsule 09/22 completed Not Available Not Available Not Available lisinopri l 10 mg tablet TAKE 1 TABLET BY MOUTH ONCE DAILY 09/10 completed Not Available Not Available Not Available betametha sone, augmented 0.05 % topical ointment APPLY TO THE AFFECTED AREA(S) BY TOPICAL ROUTE ONCE DAILY; DO NOT EXCEED 45 GRAMS PER WEEK. 05/18 completed Not Available Not Available Not Available omeprazol e 20 mg capsule,d elayed release Take 1 capsule every day by oral route. 08/22 completed Not Available Not Available Not Available diclofena c sodium 50 mg tablet,de layed release Take 1 tablet twice a day by oral route with meal(s) for 7 days, for back pain. 04/20 completed Not Available Not Available Not Available ibuprofen 600 mg tablet TAKE 1 TABLET BY MOUTH THREE TIMES DAILY NEEDED FOR PAIN 02/02 completed Not Available Not Available Not Available levofloxa ezequiel 750 mg tablet TAKE 1 TABLET BY MOUTH EVERY DAY 05/01 completed Not Available Not Available Not Available ketorolac 60 mg/2 mL intramusc ular solution Inject 2 mL every day by intramus cular route. 05/01 completed Not Available Not Available Not Available ondansetr on 4 mg disintegr ating tablet Place 2 tablets twice a day by translin gual route as needed. 05/09 completed Not Available Not Available Not Available metformin ER 500 mg tablet,ex tended release 24 hr TAKE 2 TABLETS BY MOUTH TWICE DAILY active Not Available Not Available No t Available Novolog Mix 70-30 FlexPen U-100 Insulin 100 unit/mL subcutane ous pen inject 70 units under the skin in am before breakfas t, then 80 units before evening meal 06/17 completed Not Available Not Available Not Available tadalafil 5 mg tablet active Not Available Not Available Not Available BD Ultra-Fin e Mini Pen Needle 31 gauge x 3/16 USE TWICE DAILY DIRECTED . APPOINTM ENT REQUIRED FOR FUTURE REFILLS active Not Available Not Available No t Available Acidophil us active Not Available Not Available Not Available fenofibra te nanocryst allized 145 mg tablet Take 1 tablet every day by oral route. 04/13 completed Not Available Not Available Not Available Lantus Solostar U-100 Insulin 100 unit/mL (3 mL) subcutane ous pen inject 50 units SQ in am and 50 units SQ in PM 2024 active changed to vial due to cost Not Available Not Available Not Available icosapent ethyl 1 gram capsule Take 1 capsule every day by oral route for 90 days. 2024 active Not Available Not Available Not Avai lable BD Insulin Syringe Ultra-Fin e 1 mL 31 gauge x 5/16 Use as directed twice daily with lantus active Not Available Not Available No t Available Jardiance 25 mg tablet TAKE 1 TABLET BY MOUTH EVERY DAY active Not Available Not Available No t Available Ozempic 0.25 mg or 0.5 mg (2 mg/1.5 mL) subcutane ous pen injector 0.25 mg SC q wk x4 wk, then 0.5 mg SC q wk 04/13 completed Not Available Not Available Not Available Dexcom G6 Icicle Machine Operator Use as directed . active Not Available Not Available No t Available Dexcom G6 Transmitt er device Use as directed and change every 90 days active Not Available Not Available No t Available FreeStyle Stuart 2 Sensor kit USE DIRECTED active Not Available Not Available No t Available FreeStyle Stuart 2 Cooter USE DIRECTED active Not Available Not Available No t Available Ozempic 1 mg/dose (4 mg/3 mL) subcutane ous pen injector Inject 1 mg every week by subcutan eous route for 30 days. 2024 active Not Available Not Available Not Avai lable Ozempic 0.25 mg or 0.5 mg (2 mg/3 mL) subcutane ous pen injector inject 0.25 MG UNDER THE SKIN ONCE WEEKLY FOR FOUR WEEKS THEN increase TO 0.5 MG ONCE WEEKLY 11/17 completed Not Available Not Available Not Available FreeStyle Stuart 3 Plus Sensor device use as directed for checking glucose and change every 14 days active Not Available Not Available No t Available Toña 2nd Gen Pen Needle 32 gauge x Use as directed twice daliy with lantus active Not Available Not Available No t Available Vitals Date Recorded Body height Body mass index (BMI) Body weight Oxygen saturation Heart rate Body temperature Systolic And Diastolic Systolic And Diastolic Provider Name and Address Organization Details Last Updated DateTime 5 167.64 cm 34.9 kg/m2 48949.9 5 g 98 % 92 /min 97.8 [degF] 143/78 mm[Hg] 130/75 mm[Hg] Venita Johnston [employer] 5 15:51:07 Social History Question Answer Notes LastModified by Organizat ion Details LastModified Time Tobacco Smoking Status Never Smoker Jerica ford [employer] 04/20/2022 13:25:37 Do You Have An Advance Directive? No [email or web address] Information n ot available 05/09/2022 Is Your Home Air Conditioned? Yes Information not available 11/05/2022 Do You Wear A Helmet When Biking? No Information not available 11/05/2022 Are You Blind Or Do You Have Difficulty Seeing? No [email or web address] Information n ot available 05/09/2022 What Is Your Level Of Caffeine Consumption? Occasional Information not available 11/05/2022 Are You A Caregiver? No Information not available 11/05/2022 In The 14 Days Before Symptom Onset, Have You Had Close Contact With A Laboratory-confirm ed COVID-19 While That Case Was Ill? No [email or web address] Information n ot available 05/09/2022 In The 14 Days Before Symptom Onset, Have You Had Close Contact With A Person Who Is Under Investigation For COVID-19 While That Person Was Ill? No [email or web address] Information not available 05/09/2022 Have You Been To An Area Known To Be High Risk For COVID-19? No [email or web address] Information not available 05/09/2022 Are You Deaf Or Do You Have Serious Difficulty Hearing? No [email or web address] Information not available 05/09/2022 What Type Of Diet Are You Following? DIABETIC [email or web address] Information n ot available 05/09/2022 Have There Been Any Changes To Your Family Or Social Situation? No Information no t available 11/05/2022 Are There Any Guns Present In Your Home? No Information not available 11/05/2022 Which Of Your Hands Is Dominant? Right Information n ot available 11/05/2022 Do You Have A Medical Power Of Bench Repair Technician? No [email or web address] Information not available 05/09/2022 What Was The Date Of Your Most Recent Tobacco Screening? 05/18/2025 [email or web address] Information not available 05/18/2025 Do You Have Any Pets? No Information not available 11/05/2022 What Is Your Relationship Status? [email or web address] Information not available 05/09/2022 Do You Use Your Seat Belt Or Car Seat Routinely? Yes Information not available 11/05/2022 Do You Have Smoke And Carbon Monoxide Detectors In Your Home? Yes Information not available 11/05/2022 Are You Passively Exposed To Smoke? No Information no t available 11/05/2022 Are There Any Smokers In Your House? No Information not available 11/05/2022 Do You Participate In Social Media? Yes Information not available 11/05/2022 Do You Use Sunscreen Routinely? No Information not available 11/05/2022 Has Tobacco Cessation Counseling Been Provided? No Information not available 11/05/2022 Have You Recently Traveled Abroad? No [email or web address] Information not available 05/09/2022 Do You Have Difficulty Walking Or Climbing Stairs? No [email or web address] Information not available 05/09/2022 Are You Currently In School? No [email or web address] Information not available 05/09/2022 Do You Have Any Dietary Restrictions? No Information not available 11/05/2022 Sex: Unknown Functional Status Question Answer Note LastModified by [email or web address] ion Details LastModified Time Do you use any illicit or recreational drugs? No Information not available 11/05/2022 Do you or have you ever used any other forms of tobacco or nicotine? No Information not available 11/05/2022 What is your level of alcohol consumption? None [email or web address] Information not available 04/20/2022 Are you currently employed? Yes [email or web address] Information not available 05/09/2022 Do you have transportation difficulties? No [email or web address] Information not available 05/09/2022 Are you able to walk independently without assistance or assistive devices? YESWOREST [email or web address] Information not available 05/09/2022 Do you have difficulty doing errands alone? No [email or web address] Information not available 05/09/2022 Are you able to care for yourself independently? Yes [email or web address] Information not available 05/09/2022 Do you have difficulty dressing, bathing, grooming, or toileting? No Information not available 05/09/2022 Mental Status Question Answer Note LastModified by [employer] ion Details LastModified Time Do you feel stressed (tense, restless, nervous, or anxious, or unable to sleep at night)? [id number] Information not available 11/05/2022 Do you have difficulty concentrating, remembering or making decisions? No Information no t available 05/09/2022 Family History Relationship Description Onset Age of this Age Resolved Age Notes LastModified by Organization Details LastModified Time Father Diabetes mellitus [email or web address] Not available 05/09 10:33:56 Medical History Condition Response Emergency room visit since last appointm ent. N High Cholesterol Y Hospitalizations N ADD/ADHD N Diabetes Y Hypertension Y Immunizations Vaccine Type Date Status Note Provider Nam e and Address Organization Details Recorded Time Tdap 01/02/2016 completed NILTON ford, [employer] 12/31/2022 09:31:35 Hep B, adult 01/02/2016 completed NILTONRENE ford, [employer] 12/31/2022 09:31:35 Hep B, adult 02/17/2016 completed NILTONRENE ford, [employer] 12/31/2022 09:31:35 Hep B, adult 05/04/2019 completed NILTONRENE ford, [employer] 12/31/2022 09:31:35 Hep A-Hep B 01/19/2019 completed NILTONRENE ford, [employer] 12/31/2022 09:31:35 Tdap 12/25/2022 completed Not Available [facility] 05/18/2025 11:24:10 Tdap 04/09/2025 completed Not Available [facility] 05/18/2025 11:24:10 Past Encounters Encounter ID Performer Location Encounter Start Date Encounter Closed Date Diagnosis/Indication Diagnosis SNOMED-CT Code Diagnosis ICD10 Code Diagnosis IMO Codes Diagnosis Note [id number] Hallie Watts SENIOR MECHANICAL ENGINEER [address] [address] 04/06/2025 15:43:29 04/09/2025 10:43:03 Acute low back pain 944039367 M54.50 [id number] Augusto Kelly presents with severe lower back pain, primarily on the right side, that started about a week ago and has worsened over the last 3 days, affecting his ability to bend, squat, or put on boots.Acut e lower back painPlan:- Obtain urinalysis to rule out kidney-rel ated issues- If urinalysis is normal, proceed with treatment for musculoske letal spasm/stra in- Patient education on proper body mechanics and the importance of rest periods during prolonged work hours Health Concerns Section Related Observation LastModified by Organization Detai ls LastModified Time None Recorded Concern Status LastModified by Organization Details LastModified Time None Recorded Payers Encounter Date Sequence Insurance Name Policy Number Policy Aguilar Covered Member ID Aguilar Member ID Guarantor Name 04/06/2025 1 [employer] [id number] 1 Augusto Kelly [id number] Augusto Kelly Notes Date Note Type Note Provider Name and Address Organization Details Recorded Time 04/06/2025 text/html ROS as noted in the HPI Chief ComplaintLower back pain, more so on right side, for about a week with worsening over the last 3 days, can't squat down, bend down, put on my boots or nothing, pain radiating to hip areaHistory of Present IllnessAugusto Kelly presents with lower back pain, more prominent on the right side, that started about a week ago and has worsened significantly over the last 3 days.The pain began as soreness about a week ago, coinciding with a weekend of extensive work hours. The pain has progressively worsened over the last 3 days to the point where he describes being locked up and unable to perform basic activities such as squatting down, bending down, or putting on his boots. The pain is severe enough to take his breath away and cause him to yell out.The patient describes pain radiating down into his right hip area, which he has experienced before. He denies numbness, tingling, or loss of sensation in his right leg or buttock. He denies loss of bowel or bladder control, though notes the pain is sometimes so severe he feels like he might lose control. He reports no problems with urination, including no pain or blood.He has had back soreness in the past but states this episode is unlike anything he has experienced before. He has not tried any treatments for this current episode, including no ibuprofen, Tylenol, ice, or heat applications.Regardi ng his diabetes management, he reports he has been taking his medication and his blood sugars have been running low. He acknowledges being a little off his medication regimen during the busy work weekend but returned to proper adherence immediately afterward. Hallie Watts, SENIOR MECHANICAL ENGINEER [address] [place], [address], [facility] [employer] 04/08/2025 17:56:27
--- OUTSIDE RECORDS SUMMARY | 2025-06-10 15:41 | XMS_ITS | Clinical Summary ---
Author Organization [facility] , [facility] Address [address] [place] [address] Phone Care Team Providers Care Instructor [employer] Name Role Phone Lei ESTRADA, Brown Unavailable [phone] JOSE ESTRADA (E), NEGRITO Fernandez Unavailable [phone] Reason for Visit and Chief Complaint facet Problems Includes: Problems addressed during this encounter and other active Problems All Visits Onset Date Resolved Date Provider Condition S tatus Joint Pain Shoulder Right 12/28/2022 Marciano Bai PA-C Active Last Documented On 3 1:24PM ; [facility] Lower Back Pain 05/08/2019 Brown Zuniga ctive Last Documented On 9 12:51PM ; [facility] Soft Tissue Pain Foot Left 08/16/2015 Javier ellis DPM Active Last Documented On 6 11:35AM ; [facility] Plan of Treatment LUMBAR TWO LEVEL FACET BLOCK Diagnosis-facet joint arthropathy Procedure- RIGHT lumbar L4-5, L5-S1 facet joint injection under fluoroscopy Details of the procedure were explained to the patient. The patient was taken to procedure room and placed in the prone position on fluoroscopy table. The area over the lumbar spine was cleansed using chlorhexidine as a cleansing solution. Using fluoroscopy guidance markers were placed at the RIGHT L4-5 and L5-S1 facet joints. The skin and subcutaneous tissue was anesthetized using 1% lidocaine and a 25- gauge needle. Using fluoroscopy guidance a 22-gauge 3 inch spinal needle was used to access the RIGHT L4-5 and L5-S1 facet joint. At this time 1 cc of 1% lidocaine containing 40 mg of KENALOG was injected. Shingleton were removed. Band-Aid applied. Patient tolerated the procedure without difficulty. There were no complications. Patient was reevaluated 10 minutes postprocedure. Patient reports improvement in terms of their lumbar back pain in flexion, extension, left and right rotation. - Last Documented On 11/03/2024 8:35AM ; [facility], [facility] Assessments Includes: Assessments from this encounter No Assessments Recorded Medical Equipment - Implanted Devices Includes: Current Devices No Medical Equipment Recorded Medications Includes: Medications discussed during this encounter and other current Medications Current Medications (continue as prescribed) NovoLOG FlexPen 100 UNIT/ML Subcutaneous Solutio n Pen-injector 12/19/2022 Provider: Diagnosis: Last Documented On 3 1:25PM By Jose Carlos Melendez ; [facility] BD Pen Needle Toña 2nd Gen 32G X 4 MM cellaneous Provider: Diagnosis: Last Documented On 3 1:25PM By Jose Carlos Espinosa [facility] Ondansetron HCl 8 MG Oral Tablet 12/08/2022 Provider : Diagnosis: Last Documented On 3 1:25PM By Jose Carlos Espinosa [facility] Vitamin D (Ergocalciferol) 1.25 MG (79953 UT) Oral Cap lady 11/29/2022 Provider: Diagnosis: Last Documented On 3 1:25PM By Jose Carlos Melendez ; [facility] Dexcom G6 Transmitter Miscellaneous 11/05/2022 Provi eunice: Diagnosis: Last Documented On 3 1:25PM By Jose Carlos Espinosa [facility] ZyrTEC Allergy 10 MG Oral Tablet 10/24/2020 Provider : Diagnosis: Last Documented On 1 8:48AM By Fabi Espinosa [facility] Tricor 145 MG Oral Tablet 10/24/2020 Provider: Diagnosis: Last Documented On 1 8:44AM By Fabi Espinosa [facility] Medications Administered Includes: Administered Medications from this encounter No Administered Medications Recorded Results Includes: Results discussed during this encounter No Results Recorded For Specified Dates History of Present Illness Includes: History of Present Illness from this encounter No History of Present Illness Recorded Social History No Social History Recorded - Smoking Status Unknown Procedures and Surgical History Includes: Procedures from this encounter Procedures Code Diagnosis Performing Provider Service Location Service Date Injection, paravertebral facet, lumbar / sacral (RIGHT) 61551 Spondylosis w/o myelopathy or radiculopathy, lumbar region Osmani Miranda [employer] 11/01/2024 Last Documented On 5 3:49PM ; [facility] Injection, paravertebral facet, lumb/sacr second level (RIGHT) 39423 Spondyls w/o myelopathy or radiculopathy, lumbosacr region Osmani Miranda [facility] [facility] 11/01/2024 Last Documented On 5 3:49PM ; [facility] Triamcinolone/Kenalog, 10mg per cc 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, lumbar region Osmani Miranda [facility] [employer] 11/01/2024 Last Documented On 5 3:49PM ; [facility] Medical History Includes: Medical History addressed during this encounter No Medical History Recorded Family History Includes: Family History addressed during this encounter No Family History Recorded Review of Systems Includes: Review of Systems from this encounter No Review of Systems Recorded Mental Status Includes: Mental Status from this encounter No Mental Status Recorded Functional Status Includes: Functional Status from this encounter No Functional Status Recorded Physical Exam Includes: Physical Exam from this encounter No Physical Exam Recorded Allergies Includes: Active Allergies Substance Type Reaction Onset Date Resolved Date Statu s Penicillins Allergy Skin Rashes / Er uption of skin, Hives / Urticaria 08/16/2015 Active Last Documented On 5 10:53AM ; [facility] Encounters Encounter Provider Location Date Check-In Time Check- Out Time Diagnosis facet Osmani Miranda [facility] 5 10:33AM 11:02AM Insurance Includes: Active Insurance Policies Plan Name Member ID Group # Subscriber Relationship Effect janneth Dates 1 - [facility] [id number] David Kelly Self 07/12/2018 - Unknown Clinical Notes Includes: Clinical Notes from this encounter * Progress note Date Encounter Last Documented by 11/01/2024 facet Last documented on 11/03/2024; 8:35 AM, Osmani Miranda CRNA; [facility] Plan LUMBAR TWO LEVEL FACET BLOCK Diagnosis-facet joint arthropathy Procedure- RIGHT lumbar L4-5, L5-S1 facet joint injection under fluoroscopy Details of the procedure were explained to the patient. The patient was taken to procedure room and placed in the prone position on fluoroscopy table. The area over the lumbar spine was cleansed using chlorhexidine as a cleansing solution. Using fluoroscopy guidance markers were placed at the RIGHT L4-5 and L5-S1 facet joints. The skin and subcutaneous tissue was anesthetized using 1% lidocaine and a 25- gauge needle. Using fluoroscopy guidance a 22-gauge 3 inch spinal needle was used to access the RIGHT L4-5 and L5-S1 facet joint. At this time 1 cc of 1% lidocaine containing 40 mg of KENALOG was injected. Shingleton were removed. Band-Aid applied. Patient tolerated the procedure without difficulty. There were no complications. Patient was reevaluated 10 minutes postprocedure. Patient reports improvement in terms of their lumbar back pain in flexion, extension, left and right rotation. Notes This dictation was done with voice recognition software and may contain errors and omissions.
--- OUTSIDE RECORDS SUMMARY | 2025-06-10 15:41 | XMS_ITS | Clinical Summary ---
Author Organization [facility] , [facility] Address [address] [place] [address] Phone Care Team Providers Care Coal Unloader Name Role Phone Lei ESTRADA, Brown Unavailable [phone] JOSE ESTRADA (E), NEGRITO Fernandez Unavailable [phone] Reason for Visit and Chief Complaint The Chief Complaint is: left shoulder pain Problems Includes: Problems addressed during this encounter and other active Problems Current Visit Onset Date Resolved Date Provider Conditio n Status Lower Back Pain 05/08/2019 Brown Odom MD A ctive Last Documented On 9 12:51PM ; [facility] Past Visits Onset Date Resolved Date Provider Condition Status Joint Pain Shoulder Right 12/28/2022 Marciano Bai PA-C Active Last Documented On 3 1:24PM ; [facility], [facility] Soft Tissue Pain Foot Left 08/16/2015 Javier ellis DPM Active Last Documented On 6 11:35AM ; [facility], [facility] Plan of Treatment I will have him participate with some physical therapy for a few weeks. Anti-inflammatories as needed. We will see him back in 6 weeks if needed for follow-up assessment. - Last Documented On 02/05/2023 10:34AM ; [facility], [facility] Instructions to patient Lose weight Last Documented On 3 10:09AM ; [facility], [facility] Assessments Includes: Assessments from this encounter Findings Patient may have developed some stenosis in the cervical spine referring symptoms into her shoulder. With the shoulder injection and time symptoms have improved but still having residual symptoms. - Last Documented On 02/05/2023 10:34AM ; [facility], [facility] Instructions Includes: Instructions from this encounter Instructions to patient Lose weight Last Documented On 3 10:09AM ; [facility], [facility] Medical Equipment - Implanted Devices Includes: Current Devices No Medical Equipment Recorded Medications Includes: Medications discussed during this encounter and other current Medications Current Medications (continue as prescribed) NovoLOG FlexPen 100 UNIT/ML Subcutaneous Solutio n Pen-injector 12/19/2022 Provider: Diagnosis: Last Documented On 3 1:25PM By Jose Carlos Melendez ; [facility], [facility] BD Pen Needle Toña 2nd Gen 32G X 4 MM Miscellaneous Provider: Diagnosis: Last Documented On 3 1:25PM By Jose Carlos Melendez ; [facility], [facility] Ondansetron HCl 8 MG Oral Tablet 12/08/2022 Provider : Diagnosis: Last Documented On 3 1:25PM By Jose Carlos Melendez ; [facility], [facility] Vitamin D (Ergocalciferol) 1.25 MG (53856 UT) Oral Cap lady 11/29/2022 Provider: Diagnosis: Last Documented On 3 1:25PM By Jose Carlos Melendez ; [facility], [facility] Dexcom G6 Transmitter Miscellaneous 11/05/2022 Provi eunice: Diagnosis: Last Documented On 3 1:25PM By Jose Carlos Melendez ; [facility], [facility] ZyrTEC Allergy 10 MG Oral Tablet 10/24/2020 Provider : Diagnosis: Last Documented On 1 8:48AM By Fabi Morelos ; [facility], [facility] Tricor 145 MG Oral Tablet 10/24/2020 Provider: Diagnosis: Last Documented On 1 8:44AM By Fabi Morelos ; [facility], [facility] Past Medications on file Atorvastatin Calcium 20 MG O ral Tablet 10/24/2020 - 01/22/2021 Provider: VICTORIANO HERNÁNDEZ MD Diagnosis: Last Documented On 1 8:49AM By Fabi Morelos ; [facility], [facility] Lisinopril 40 MG Oral Tablet 10/24/2020 - 01/22/2021 P yanethder: VICTORIANO HERNÁNDEZ MD Diagnosis: Last Documented On 1 8:49AM By Fabi Morelos ; [facility], [facility] metFORMIN HCl ER (OSM) 1000 MG Oral Tablet Extended Release 24 Hour 10/24/2020 - 01/22/2021 Provider: VICTORIANO HERNÁNDEZ MD Diagnosis: Last Documented On 1 8:49AM By Fabi Morelos ; [facility], [facility] Tresiba 100 UNIT/ML Subcutan eous Solution 10/24/2020 - 01/22/2021 Provider: VICTORIANO HERNÁNDEZ MD Diagnosis: Last Documented On 1 8:49AM By Fabi Morelos ; [facility], [facility] Vascepa 1 GM Oral Capsule 10/24/2020 - 01/22/2021 Prov ider: Diagnosis: Last Documented On 8:50AM By Fabi Morelos ; [facility], [facility] NovoLOG 100 UNIT/ML Subcutan eous Solution 10/24/2020 - 01/22/2021 Provider: VICTORIANO HERNÁNDEZ MD Diagnosis: Last Documented On 1 8:48AM By Fabi Morelos ; [facility], [facility] Cyclobenzaprine HCl 10 MG Or al Tablet 05/08/2019 - 05/23/2019 Provider: Brown Odom MD Diagnosis: twice a day-one po bid prn Last Documented On 9 1:39PM By Carolina Smith ; [facility], [facility] Neurontin 300 MG Capsule 08/16/2015 - 09/15/2015 Provi eunice: Javier Giron DPM Diagnosis: 1 every bedtime be Last Documented On 6 12:39PM By Laura lAves ; [facility], [facility] Medications Administered Includes: Administered Medications from this encounter No Administered Medications Recorded Results Includes: Results discussed during this encounter No Results Recorded For Specified Dates History of Present Illness Includes: History of Present Illness from this encounter HPI David Kelly is a 42 year old male. - Allergy list reviewed - Problem list reviewed - Medication list reviewed - Previous history of new onset pain Injury is not work related or an automotive accident - Patient pain level from 1-10: 5 - No previous treatment. Patient presents today upon in-house referral regarding mainly left shoulder pain and weakness. Patient does not recall an injury or event causing his symptoms. But few weeks ago he had considerable pain and discomfort affecting the left shoulder with a lot of weakness. Patient was recently seen in our other office where he was evaluated. He did get an injection into his shoulder but there is no immediate benefit with this. But within a few days he started noticing better improvement. At the present time he is feeling much better. Still having some residual symptoms mainly in the shoulder area with some referred pain down the back of the left upper arm. But he has regained his function. At the present time he is feeling quite a bit better. But still with some residual symptoms. Right arm does not bother him. He does not have any myelopathic symptoms or complaints. Social History Description Last Updated Not a current smoker. 10/23/2024 Last Documented On 3 10:09AM ; [facility], [facility] Caffeine use 1x a day ~ 03/26/2023 Last Documented On 3 10:09AM ; [facility] Tobacco non-user 12/28/2022 Last Documented On 3 10:09AM ; [facility] No recent change in diet 12/28/2022 Last Documented On 3 10:09AM ; [facility], [facility] Not using alcohol 12/28/2022 Last Documented On 3 10:09AM ; [facility], [facility] Not using drugs 12/28/2022 Last Documented On 3 10:09AM ; [facility], [facility] No recent change in diet low carb ~ 11/09 Last Documented On 3 10:09AM ; [facility], [facility] Non-smoker 11/25/2020 Last Documented On 3 10:09AM ; [facility], [facility] Not a current smoker. 11/25/2020 Last Documented On 3 10:09AM ; [facility], [facility] Tobacco use 05/08/2019 Last Documented On 3 10:09AM ; [facility], [facility] Smoking status : Current everyday smoker smokeless/dip 05/08/2019 Last Documented On 3 10:09AM ; [facility], [facility] Current smoker dip ~ 05/08/2019 Last Documented On 3 10:09AM ; [facility], [facility] Not exercising regularly 08/16/2015 Last Documented On 3 10:09AM ; [facility], [facility] Procedures and Surgical History Includes: Procedures from this encounter Procedures Code Diagnosis Performing Provider Service L ocation Service Date use of tobacco assessment performed 1000F Last Documented On 3 10:09AM ; [facility], [facility] Surgical History Last Updated History of total knee arthroplasty 2 kne e sx ~ 03/26/2023 Last Documented On 3 10:09AM ; [facility], [facility] Medical History Includes: Medical History addressed during this encounter Description Last Updated History of Heartburn / Acid Reflux 12/28 Last Documented On 3 10:09AM ; [facility], [facility] History of History of Blood Clots 2022 Last Documented On 3 10:09AM ; [facility], [facility] History of Hypertension 12/28/2022 Last Documented On 3 10:09AM ; [facility], [facility] History of Sleep Apnea 12/28/2022 Last Documented On 3 10:09AM ; [facility], [facility] Use of CPAP 12/28/2022 Last Documented On 3 10:09AM ; [facility], [facility] No recent immunization for flu Last Documented On 3 10:09AM ; [facility], [facility] No recent immunization for pneumococcal pneumonia 11/25/2020 Last Documented On 3 10:09AM ; [facility], [facility] Use of CPAP 11/25/2020 Last Documented On 3 10:09AM ; [facility], [facility] acid reflux ~ 05/08/2019 Last Documented On 3 10:09AM ; [facility], [facility] History of diabetes mellitus 05/08/2019 Last Documented On 3 10:09AM ; [facility], [facility] A recent injection 05/08/2019 Last Documented On 3 10:09AM ; [facility], [facility] Family History Includes: Family History addressed during this encounter Description Last Updated Family history of diabetes mellitus fath er ~grand parents ~ 03/26/2023 Last Documented On 3 10:09AM ; [facility] Family history of heart disease father ~ 03/26/2023 Last Documented On 3 10:09AM ; [facility] Paternal history of diabetes mellitus Last Documented On 3 10:09AM ; [facility] Paternal history of family history of he art disease 12/28/2022 Last Documented On 3 10:09AM ; [facility], [facility] Paternal history of thromboembolic disea se 12/28/2022 Last Documented On 3 10:09AM ; [facility] stroke/seizures -grandparents ~ ~ 2018 Last Documented On 3 10:09AM ; [facility] Family history of hypertension 9 Last Documented On 3 10:09AM ; [facility] Family history of thromboembolic disease 05/08/2019 Last Documented On 3 10:09AM ; [facility], [facility] Review of Systems Includes: Review of Systems from this encounter Systemic: No symptoms, not feeling tired, no recent weight loss, and no recent weight gain. Head: No headache and no sinus pain. Eyes: No vision problems, no Cataracts, no Glasses/Contacts, and no Glaucoma. Otolaryngeal: No hearing loss and no tinnitus. Cardiovascular: No chest pain or discomfort, no palpitations, no Hypertension, and no High Cholesterol. Pulmonary: No daytime asthma symptoms and no chronic cough. No wheezing. Gastrointestinal: Gastrointestinal symptoms Pancreatitis. No heartburn and no abdominal pain. No Indigestion, no Acid Reflux, no Peptic Ulcer, no GI Stomach Bleed, and no Ulcers. Endocrine: No hot flashes and no muscle weakness. Diabetes. No Hypothyroid and no Hyperthyroid. Hematologic: Easy bleeding. No tendency for easy bruising and no Anemia. Musculoskeletal: No Arthritis and no lower back pain. No soft tissue swelling and no localized joint pain. Neurological: No dizziness, no convulsions, and no numbness. Psychological: No anxiety, no emotional lability, no depression, and no insomnia. Not crying for no reason. Skin: No dry skin. No Ulcers, no Scars, and no rash. Allergic and Immunologic: No complaint of seasonal allergic reaction. Mental Status Includes: Mental Status from this encounter Description No anxiety Functional Status Includes: Functional Status from this encounter No Functional Status Recorded Physical Exam Includes: Physical Exam from this encounter Allergies Includes: Active Allergies Substance Type Reaction Onset Date Resolved Date Statu s Penicillins Allergy Skin Rashes / Er uption of skin, Hives / Urticaria 08/16/2015 Active Last Documented On 5 10:53AM ; [facility], [facility] Encounters Encounter Provider Location Date Check-In Time Check- Out Time Diagnosis Follow Up KAMRON CHIN PA-C [facility] 3 10:04AM 10:33AM Insurance Includes: Active Insurance Policies Plan Name Member ID Group # Subscriber Relationship Effect janneth Dates 1 - [facility] [id number] David Kelly Self 07/12/2018 - Unknown Clinical Notes Includes: Clinical Notes from this encounter * Progress note Date Encounter Last Documented by 02/05/2023 Follow Up Last documented on 02/05/2023; 10:34 AM, KAMRON Fernandez; [facility] Active Problems & Conditions - Joint Pain, Localized in the Right Shoulder - Lower Back Pain - Pain in the Left Foot Chief Complaint The Chief Complaint is: Left shoulder pain. Referred Here Referred by. History of Present Illness David Kelly is a 42 year old male. - Allergy list reviewed - Problem list reviewed - Medication list reviewed - Previous history of new onset pain Injury is not work related or an automotive accident - Patient pain level from 1-10: 5 - No previous treatment. Patient presents today upon in-house referral regarding mainly left shoulder pain and weakness. Patient does not recall an injury or event causing his symptoms. But few weeks ago he had considerable pain and discomfort affecting the left shoulder with a lot of weakness. Patient was recently seen in our other office where he was evaluated. He did get an injection into his shoulder but there is no immediate benefit with this. But within a few days he started noticing better improvement. At the present time he is feeling much better. Still having some residual symptoms mainly in the shoulder area with some referred pain down the back of the left upper arm. But he has regained his function. At the present time he is feeling quite a bit better. But still with some residual symptoms. Right arm does not bother him. He does not have any myelopathic symptoms or complaints. Current Medication - BD Pen Needle Toña 2nd Gen 32G X 4 MM Miscellaneous 32G X 4 MM 75 days, 0 refills - Dexcom G6 Transmitter Miscellaneous 90 days, 0 refills - NovoLOG FlexPen 100 UNIT/ML Subcutaneous Solution Pen-injector 83 days, 0 refills - Ondansetron HCl 8 MG Oral Tablet 30 days, 0 refills - Tricor 145 MG Oral Tablet 1 po q 4h 0 days, 0 refills - Vitamin D (Ergocalciferol) 1.25 MG (19527 UT) Oral Capsule 56 days, 0 refills - ZyrTEC Allergy 10 MG Oral Tablet take as directed 0 days, 0 refills Past Medical/Surgical History Reported: Use of CPAP. Use of CPAP. Medications: A recent injection. Immunization History: No recent immunization for flu and not for pneumococcal pneumonia. Diagnoses: History of Blood Clots Sleep Apnea Heartburn / Acid Reflux Hypertension. Diabetes mellitus Acid reflux . Surgical: - Total knee arthroplasty 2 knee sx Social History Not a current smoker. Not a current smoker. Current diet: No recent change in diet low carb . No recent change in diet. Caffeine use: Caffeine use 1x a day . Tobacco use: Current smoker dip , tobacco non-user, non-smoker, and smoking status: Current everyday smoker smokeless/dip. Alcohol: Not using alcohol. Drug Use: Not using drugs. Habits: Not exercising regularly. Allergies - Penicillins Reaction: Hives / Urticaria, Skin Rashes / Eruption of skin Family History Heart disease father Stroke/seizures -grandparents Systemic hypertension Thromboembolic disease Diabetes mellitus father grand parents Paternal: Heart disease Thromboembolic disease Diabetes mellitus Review Of Systems Systemic: No symptoms, not feeling tired, no recent weight loss, and no recent weight gain. Head: No headache and no sinus pain. Eyes: No vision problems, no Cataracts, no Glasses/Contacts, and no Glaucoma. Otolaryngeal: No hearing loss and no tinnitus. Cardiovascular: No chest pain or discomfort, no palpitations, no Hypertension, and no High Cholesterol. Pulmonary: No daytime asthma symptoms and no chronic cough. No wheezing. Gastrointestinal: Gastrointestinal symptoms Pancreatitis. No heartburn and no abdominal pain. No Indigestion, no Acid Reflux, no Peptic Ulcer, no GI Stomach Bleed, and no Ulcers. Endocrine: No hot flashes and no muscle weakness. Diabetes. No Hypothyroid and no Hyperthyroid. Hematologic: Easy bleeding. No tendency for easy bruising and no Anemia. Musculoskeletal: No Arthritis and no lower back pain. No soft tissue swelling and no localized joint pain. Neurological: No dizziness, no convulsions, and no numbness. Psychological: No anxiety, no emotional lability, no depression, and no insomnia. Not crying for no reason. Skin: No dry skin. No Ulcers, no Scars, and no rash. Allergic and Immunologic: No complaint of seasonal allergic reaction. Physical Findings Standard Measurements: - Patient was overweight. Skin is unremarkable. No spasm or scoliosis. Patient has palpable tenderness over the cervical facet joints. Extension rotation and lateral bending with increased pain in the neck and shoulder area of the. Shoulder Elbow and wrist motion are normal. Normal range of motion no spasticity no clonus or hyperreflexia findings. Negative Hoffmans. Tests X-rays demonstrate some nonspecific disc degeneration facet arthropathy. No alignment issues. No fractures. Assessment Patient may have developed some stenosis in the cervical spine referring symptoms into her shoulder. With the shoulder injection and time symptoms have improved but still having residual symptoms. Counseling/Education - Lose weight Plan I will have him participate with some physical therapy for a few weeks. Anti-inflammatories as needed. We will see him back in 6 weeks if needed for follow-up assessment. Practice Management Use of tobacco assessment performed. Care Team - NEGRITO GARCIA MD (E) Health Reminders - Assess Tobacco Use satisfied 05/08/2019.
--- OUTSIDE RECORDS SUMMARY | 2025-06-10 15:41 | XMS_ITS ---
Care Plan - [facility], [facility] Created on: June 10, 2025 David Kelly : 1980 Sex: Male Author Organization [facility] Address [address] [place] [address] Phone Care Team Providers Care Behavioral Sciences Instructor Name Role Phone Lei ESTRADA, Brown Unavailable Unavailable JOSE ESTRADA (E), NEGRITO Fernandez Unavailable [phone]
--- OUTSIDE RECORDS SUMMARY | 2025-06-10 15:41 | XMS_ITS | Encounter Summary ---
Author Organization [facility] Address [address] [place] [address] Care Team Providers Care Pickle Sorter Name Role Phone Zhane Douglas Primary Care Provider [phone] Encounter Details Date Type Department Care Team (Latest Contact Info) Description 05/10/2025 Travel Social History Tobacco Use Types Packs/Day Years [...] AM EDT documented as of this encounter Plan of Treatment Upcoming Encounters Date Type Department Care Team (Late st Contact Info) Description 07/26/2025 9:00 AM EST Office Visit [facility] [address] [place] [address] Dunia Rojas, TSERING [address] [place] [address] [place] [address] 09/21/2025 10:30 AM EDT Office Visit [facility] [address] [facility] [address] [place] [address] Aj Breaux MD [address] [facility] [address] [place], [place] [id number] documented as of this encounter Visit Diagnoses Not on filedocumented in this encounter Additional Health Concerns Assessment Noted Time PHQ-2 Depression Total Score: 1 11/24/19 23 9:00 AM EDT documented as of this encounter Care Teams Pickle Sorter Relationship Specialty Start Date End Date Zhane Douglas [address] [place] [address] PCP - General Nurse Practitioner 04/13/24 documented as of this encounter
--- OUTSIDE RECORDS SUMMARY | 2025-06-10 15:41 | XMS_ITS ---
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 Name Role Phone Lei ESTRADA, Brown Unavailable [phone] JOSE ESTRADA (E), NEGRITO Fernandez Unavailable [phone] Reason for Referral Date Encounter Description Provider Reason for Referral 11/25/20 Follow Up Brown Odom MD Referral To Physician - SEE PCP FOR BP 10/24/20 Follow Up Brown Odom MD Referral To Physician - SEE PCP FOR BP Problems Includes: Active, inactive, and resolved Problems All Visits Onset Date Resolved Date Provider Condition S tatus Joint Pain Shoulder Right 12/28/2022 Marciano Bai PA-C Active Last Documented On 3 1:24PM ; [facility], [facility] Lower Back Pain 05/08/2019 Brown Odom MD A ctive Last Documented On 9 12:51PM ; [facility] Soft Tissue Pain Foot Left 08/16/2015 Javier ellis DPM Active Last Documented On 6 11:35AM ; [facility] Soft Tissue Pain Foot Bilateral 08/16/2015 Unknown Rudy Giron DPM Resolved Last Documented On 6 11:34AM ; [facility] Plan of Treatment Pending Tests Order Diagnosis Results Due Ordering P rovider Procedure/Tests EMG 08/30/15 Javier rodriguezod DPM Last Documented On 6 10:11AM ; [facility] Instructions to patient Lose weight Last Documented On 5 10:53AM ; [facility] Lose weight Last Documented On 3 8:56AM ; [facility] Lose weight Last Documented On 3 10:09AM ; [facility] Lose weight Last Documented On 3 2:20PM ; [facility] Lose weight Last Documented On 1 9:08AM ; [facility] Instructions for patient see pcp about weight management and high bp Last Documented On 1 8:25AM ; [facility] Lose weight Last Documented On 1 8:25AM ; [facility] Instructions for patient see pcp about weight management and high bp Last Documented On 9 1:38PM ; [facility] Intervention and counseling on cessation of tobacco use Last Documented On 9 1:38PM ; [facility] Lose weight Last Documented On 9 1:38PM ; [facility] Instructions for patient see pcp about weight management and high bp Last Documented On 9 1:12PM ; [facility] Intervention and counseling on cessation of tobacco use Last Documented On 9 1:12PM ; [facility] Lose weight Last Documented On 9 1:12PM ; [facility] Instructions for patient see pcp about weight management and high bp Last Documented On 9 12:52PM ; [facility] Intervention and counseling on cessation of tobacco use Last Documented On 9 1:28PM ; [facility] Lose weight Last Documented On 9 12:52PM ; [facility] Instructions for patient see pcp about weight management and high bp Last Documented On 6 9:12AM ; [facility] Lose weight Last Documented On 6 9:12AM ; [facility] Instructions for patient see pcp about weight management and high bp Last Documented On 6 8:30AM ; [facility] Lose weight Last Documented On 6 8:24AM ; [facility] Instructions for patient see pcp about weight management Last Documented On 6 11:32AM ; [facility] Lose weight Last Documented On 6 11:32AM ; [facility] Education and Decision Aids were provided during visit for: Health seminar on smoking ce ssation Last Documented On 1 8:25AM ; [facility] Health seminar on smoking ce ssation Last Documented On 9 1:38PM ; [facility] Health seminar on smoking ce ssation Last Documented On 9 1:12PM ; [facility] Health seminar on smoking ce ssation Last Documented On 9 1:28PM ; [facility] Assessments Includes: Assessments for all patient encounters Findings Encounter Date Overweight Follow Up with KAMRON Gaffney 10/23/2024 Last Documented On 5 11:29AM ; [facility] Overweight Follow Up with KAMRON Gaffney 03/26/2023 Last Documented On 3 11:02AM ; [facility] Instructions Includes: Instructions for all patient encounters Instructions to patient Lose weight Last Documented On 5 10:53AM ; [facility] Lose weight Last Documented On 3 8:56AM ; [facility] Lose weight Last Documented On 3 10:09AM ; [facility] Lose weight Last Documented On 3 2:20PM ; [facility] Lose weight Last Documented On 1 9:08AM ; [facility] Instructions for patient see pcp about weight management and high bp Last Documented On 1 8:25AM ; [facility] Lose weight Last Documented On 1 8:25AM ; [facility] Instructions for patient see pcp about weight management and high bp Last Documented On 9 1:38PM ; [facility] Intervention and counseling on cessation of tobacco use Last Documented On 9 1:38PM ; [facility] Lose weight Last Documented On 9 1:38PM ; [facility] Instructions for patient see pcp about weight management and high bp Last Documented On 9 1:12PM ; [facility] Intervention and counseling on cessation of tobacco use Last Documented On 9 1:12PM ; [facility] Lose weight Last Documented On 9 1:12PM ; [facility] Instructions for patient see pcp about weight management and high bp Last Documented On 9 12:52PM ; [facility] Intervention and counseling on cessation of tobacco use Last Documented On 9 1:28PM ; [facility] Lose weight Last Documented On 9 12:52PM ; [facility] Instructions for patient see pcp about weight management and high bp Last Documented On 6 9:12AM ; [facility] Lose weight Last Documented On 6 9:12AM ; [facility] Instructions for patient see pcp about weight management and high bp Last Documented On 6 8:30AM ; [facility] Lose weight Last Documented On 6 8:24AM ; [facility] Instructions for patient see pcp about weight management Last Documented On 6 11:32AM ; [facility] Lose weight Last Documented On 6 11:32AM ; [facility] Education and Decision Aids were provided during visit for: Health seminar on smoking ce ssation Last Documented On 1 8:25AM ; [facility] Health seminar on smoking ce ssation Last Documented On 9 1:38PM ; [facility] Health seminar on smoking ce ssation Last Documented On 9 1:12PM ; [facility] Health seminar on smoking ce ssation Last Documented On 9 1:28PM ; [facility] Medical Equipment - Implanted Devices Includes: Current and historical Devices No Medical Equipment Recorded Medications Includes: Current and historical Medications Current Medications (continue as prescribed) NovoLOG FlexPen 100 UNIT/ML Subcutaneous Solutio n Pen-injector 12/19/2022 Provider: Diagnosis: Last Documented On 3 1:25PM By Jose Carlos Melendez ; [facility] BD Pen Needle Toña 2nd Gen 32G X 4 MM Miscellaneous Provider: Diagnosis: Last Documented On 3 1:25PM By Jose Carlos Melendez ; [facility] Ondansetron HCl 8 MG Oral Tablet 12/08/2022 Provider : Diagnosis: Last Documented On 3 1:25PM By Jose Carlos Melendez ; [facility], [facility] Vitamin D (Ergocalciferol) 1.25 MG (26804 UT) Oral Cap lady 11/29/2022 Provider: Diagnosis: Last Documented On 3 1:25PM By Jose Carlos Melendez ; [facility], [facility] Dexcom G6 Transmitter Miscellaneous 11/05/2022 Provi eunice: Diagnosis: Last Documented On 3 1:25PM By Jose Carlos Melendez ; [facility], [facility] ZyrTEC Allergy 10 MG Oral Tablet 10/24/2020 Provider : Diagnosis: Last Documented On 1 8:48AM By Fabi Morelos ; [facility], [facility] Tricor 145 MG Oral Tablet 10/24/2020 Provider: Diagnosis: Last Documented On 1 8:44AM By Fabi Morelos ; [facility], [facility] Past Medications on file Atorvastatin Calcium 20 MG O ral Tablet 10/24/2020 - 01/22/2021 Provider: VICTORIANO HERNÁNDEZ MD Diagnosis: Last Documented On 1 8:49AM By Fabi Morelos ; [facility], [facility] Lisinopril 40 MG Oral Tablet 10/24/2020 - 01/22/2021 Sanjana ricks: VICOTRIANO HERNÁNDEZ MD Diagnosis: Last Documented On 1 8:49AM By Fabi Morelos ; [facility], [facility] metFORMIN HCl ER (OSM) 1000 MG Oral Tablet Extended Release 24 Hour 10/24/2020 - 01/22/2021 Provider: VICTORIANO HERNÁNDEZ MD Diagnosis: Last Documented On 1 8:49AM By Fabi Morelos ; [facility] Tresiba 100 UNIT/ML Subcutan eous Solution 10/24/2020 - 01/22/2021 Provider: VICTORIANO HERNÁNDEZ MD Diagnosis: Last Documented On 1 8:49AM By Fabi Morelos ; [facility] Vascepa 1 GM Oral Capsule 10/24/2020 - 01/22/2021 Prov ider: Diagnosis: Last Documented On 1 8:50AM By Fabi Morelos ; [facility] NovoLOG 100 UNIT/ML Subcutan eous Solution 10/24/2020 - 01/22/2021 Provider: VICTORIANO HERNÁNDEZ MD Diagnosis: Last Documented On 8:48AM By Fabi Morelos ; [facility] ZyrTEC Allergy 10 MG Oral Tablet 05/08/2019 - 10/25/19 Provider: Diagnosis: Last Documented On 8:48AM By Fabi Morelos ; [facility] Cyclobenzaprine HCl 10 MG Or al Tablet 05/08/2019 - 05/23/2019 Provider: Brown Odom MD Diagnosis: twice a day-one po bid prn Last Documented On 9 1:39PM By Carolina Smith ; [facility] Lipitor 20 MG Oral Tablet 05/08/2019 - 10/24/2020 Prov ider: Diagnosis: Last Documented On 8:45AM By Fabi Morelos ; [facility] NovoLOG 100 UNIT/ML Subcutan eous Solution 05/03/2019 - 10/24/2020 Provider: VICTORIANO HERNÁNDEZ MD Diagnosis: Last Documented On 8:48AM By Fabi Morelos ; [facility] Atorvastatin Calcium 20 MG O ral Tablet 05/02/2019 - 10/24/2020 Provider: VICTORIANO HERNÁNDEZ MD Diagnosis: Last Documented On 1 8:49AM By Fabi Morelos ; [facility] Tresiba 100 UNIT/ML Subcutan eous Solution 05/02/2019 - 10/24/2020 Provider: VICTORIANO HERNÁNDEZ MD Diagnosis: Last Documented On 1 8:49AM By Fabi Morelos ; [facility] Lisinopril 40 MG Oral Tablet 05/02/2019 - 10/24/2020 Sanjana ricks: VICTORIANO HERNÁNDEZ MD Diagnosis: Last Documented On 1 8:49AM By Fabi Morelos ; [facility], [facility] Fenofibrate 145 MG Oral Tablet 05/02/2019 - 10/24/2020 Provider: VICTORIANO HERNÁNDEZ MD Diagnosis: Last Documented On 1 8:44AM By Fabi Morelos ; [facility] metFORMIN HCl ER (OSM) 1000 MG Oral Tablet Extended Release 24 Hour 05/02/2019 - 10/24/2020 Provider: VICTORIANO HERNÁNDEZ MD Diagnosis: Last Documented On 1 8:49AM By Fabi Morelos ; [facility], [facility] Tanzeum 30 MG Pen-injector 08/16/2015 - 05/08/2019 Pro vider: Diagnosis: Last Documented On 9 1:11PM By Carolina Smith ; [facility], [facility] GlipiZIDE 10 MG Tablet 08/16/2015 - 05/08/2019 Provide r: Diagnosis: Last Documented On 9 1:11PM By Carolina Smith ; [facility], [facility] ReliOn Insulin Syringe 31G X 5/16 0.5 ML Miscellaneous 08/16/2015 - 05/08/2019 Provider: Diagnosis: Last Documented On 9 1:11PM By Carolina Smith ; [facility] Atorvastatin Calcium 20 MG Tablet 08/16/2015 - 019 Provider: Diagnosis: Last Documented On 9 1:11PM By Carolina Smith ; [facility] Fenofibrate 120 MG Tablet 08/16/2015 - 05/08/2019 Prov ider: Diagnosis: Last Documented On 9 1:11PM By Carolina Smith ; [facility], [facility] Lovaza 1 GM Capsule 08/16/2015 - 05/08/2019 Provider: Diagnosis: Last Documented On 9 1:11PM By Carolina Smith ; [facility] Cetirizine HCl 10 MG Tablet Chewable 08/16/2015 - 04/12 Provider: Diagnosis: Last Documented On 9 1:11PM By Carolina Smith ; [facility] Flonase Allergy Relief 50 MCG/ACT Suspension 6 - 05/08/2019 Provider: Diagnosis: Last Documented On 9 1:11PM By Carolina Smith ; [facility] Lisinopril 10 MG Tablet 08/16/2015 - 05/08/2019 Provid er: Diagnosis: Last Documented On 9 1:11PM By Carolina Smith ; [facility] Coty Aspirin EC Low Dose 81 MG Tablet Delayed Release 08/16/2015 - 05/08/2019 Provider: Diagnosis: Last Documented On 9 1:11PM By Carolina Smith ; [facility] OneTouch Ultra Blue Strip 08/16/2015 - 05/08/2019 Prov ider: Diagnosis: Last Documented On 9 1:11PM By Carolina Smith ; [facility] MetFORMIN HCl 1000 MG Tablet 08/16/2015 - 05/08/2019 P yanethder: Diagnosis: Last Documented On 9 1:11PM By Carolina Smith ; [facility] Toujeo SoloStar 300 UNIT/ML Solution Pen-injecto r 08/16/2015 - 05/08/2019 Provider: Diagnosis: Last Documented On 9 1:11PM By Carolina Smith ; [facility] Neurontin 300 MG Capsule 08/16/2015 - 09/15/2015 Provi eunice: Javier Giron DPM Diagnosis: 1 every bedtime be Last Documented On 6 12:39PM By Laura Alves ; [facility] Medications Administered Includes: Administered Medications in patient's chart No Administered Medications Recorded Results Includes: Results from 06/10/2024 through 06/10/2025 No Results Recorded For Specified Dates History of Present Illness History of Present Illness not supported for this document type No History of Present Illness Recorded Social History Description Last Updated Yes, current smoker. 10/23/2024 Last Documented On 5 11:29AM ; [facility] Caffeine use 1x a day 03/26/2023 Last Documented On 3 11:02AM ; [facility] Tobacco non-user 12/28/2022 Last Documented On 3 9:57AM ; [facility] No recent change in diet 12/28/2022 Last Documented On 3 9:57AM ; [facility] Not using alcohol 12/28/2022 Last Documented On 3 9:57AM ; [facility] Not using drugs 12/28/2022 Last Documented On 3 9:57AM ; [facility] No recent change in diet low carb ~ 11/09 Last Documented On 1 2:49PM ; [facility] Non-smoker 11/25/2020 Last Documented On 1 2:49PM ; [facility], [facility] Not a current smoker. 11/25/2020 Last Documented On 1 2:49PM ; [facility], [facility] Tobacco use 05/08/2019 Last Documented On 9 9:38PM ; [facility] Smoking status : Current everyday smoker smokeless/dip 05/08/2019 Last Documented On 9 9:38PM ; [facility] Current smoker dip ~ 05/08/2019 Last Documented On 9 9:38PM ; [facility], [facility] Not exercising regularly 08/16/2015 Last Documented On 6 10:11AM ; [facility], [facility] Procedures and Surgical History Includes: Procedures from 06/10/2024 through 06/10/2025 Procedures Code Diagnosis Performing Provider Service Location Service Date Triamcinolone/Ke nalog, 10mg per cc 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, lumbar region Osmani Miranda [facility] [place] 11/01/2024 Last Documented On 5 3:49PM ; [facility], [facility] Injection, paravertebral facet, lumb/sacr second level (RIGHT) 82952 Spondyls w/o myelopathy or radiculopathy, lumbosacr region Osmani Miranda [facility] 11/01/2024 Last Documented On 5 3:49PM ; [facility] Injection, paravertebral facet, lumbar / sacral (RIGHT) 49829 Spondylosis w/o myelopathy or radiculopathy, lumbar region Osmani Miranda [facility] 11/01/2024 Last Documented On 5 3:49PM ; [facility] Surgical History Last Updated History of total knee arthroplasty 2 kne e sx 03/26/2023 Last Documented On 3 11:02AM ; [facility] Medical History Includes: Medical History in patient's chart Description Last Updated History of Heartburn / Acid Reflux 12/28 Last Documented On 3 9:57AM ; [facility] History of History of Blood Clots 2022 Last Documented On 3 9:57AM ; [facility] History of Hypertension 12/28/2022 Last Documented On 3 9:57AM ; [facility] History of Sleep Apnea 12/28/2022 Last Documented On 3 9:57AM ; [facility] Use of CPAP 12/28/2022 Last Documented On 3 9:57AM ; [facility] Heartburn / Acid Reflux 11/25/2020 Last Documented On 1 2:49PM ; [facility] History of Blood Clots 11/25/2020 Last Documented On 1 2:49PM ; [facility] Hypertension 11/25/2020 Last Documented On 1 2:49PM ; [facility] No recent immunization for flu 1 Last Documented On 1 2:49PM ; [facility] No recent immunization for pneumococcal pneumonia 11/25/2020 Last Documented On 1 2:49PM ; [facility] Sleep Apnea 11/25/2020 Last Documented On 1 2:49PM ; [facility] Use of CPAP 11/25/2020 Last Documented On 1 2:49PM ; [facility] acid reflux ~ 05/08/2019 Last Documented On 9 9:38PM ; [facility] History of diabetes mellitus 05/08/2019 Last Documented On 9 9:38PM ; [facility] A recent injection 05/08/2019 Last Documented On 9 9:38PM ; [facility] Family History Includes: Family History in patient's chart Description Last Updated Family history of diabetes mellitus fath er and grand parents 03/26/2023 Last Documented On 3 11:02AM ; [facility] Stroke / Seizures 03/26/2023 Last Documented On 3 11:02AM ; [facility] Family history of heart disease father 0 03/26/2023 Last Documented On 3 11:02AM ; [facility] Paternal history of diabetes mellitus Last Documented On 3 9:57AM ; [facility] Paternal history of family history of he art disease 12/28/2022 Last Documented On 3 9:57AM ; [facility] Paternal history of thromboembolic disea se 12/28/2022 Last Documented On 3 9:57AM ; [facility] stroke/seizures -grandparents ~ ~ 2018 Last Documented On 9 9:38PM ; [facility] Family history of hypertension 9 Last Documented On 9 9:38PM ; [facility] Family history of thromboembolic disease 05/08/2019 Last Documented On 9 9:38PM ; [facility] Review of Systems Review of Systems not supported for this document type No Review of Systems Recorded Mental Status No Mental Status Recorded Functional Status No Functional Status Recorded Physical Exam Physical Exam not supported for this document type No Physical Exam Recorded Immunizations Includes: Immunizations in patient's chart Vaccine Dose # Date Site Reaction(s) Status Source Influenza 1 10/24/2020 Complete (Refused - Patient objection) [facility], [facility] Last Documented On 1 8:52AM ; [facility] PCV (Pneumovax 23) 1 10/24/2020 Complete (Refused - Patient objection) [facility] Last Documented On 1 8:52AM ; [facility] Td 1 10/24/2020 Complete (Refused - Patient objection) [facility] Last Documented On 1 8:52AM ; [facility] Allergies Includes: Active, inactive, and resolved Allergies Substance Type Reaction Onset Date Resolved Date Statu s Penicillins Allergy Skin Rashes / Er uption of skin, Hives / Urticaria 08/16/2015 Active Last Documented On 5 10:53AM ; [facility] Encounters Includes: Encounters from 06/10/2024 through 06/10/2025 Encounter Provider Location Date Check-In Time Check-Out Time Diagnosis facet Osmani Miranda CRNA [facility] 5 10:33AM 11:02AM Follow Up KAMRON CHIN PA-C [facility] 5 10:50AM 11:21AM Overweight Insurance Includes: Active Insurance Policies Plan Name Member ID Group # Subscriber Relationship Effect janneth Dates 1 - [facility] [id number] David Kelly Self 07/12/2018 - Unknown Clinical Notes Includes: Signed Clinical Notes starting from 06/25/2022 * Progress note Date Encounter Last Documented by 11/01/2024 facet Last documented on 11/03/2024; 8:35 AM, Osmani Miranda [employer]; [facility] Plan LUMBAR TWO LEVEL FACET BLOCK [...] containing 40 mg of KENALOG was injected. [place] were removed. Band-Aid applied. Patient tolerated the procedure without difficulty. There were no complications. Patient was reevaluated 10 minutes postprocedure. Patient reports improvement in terms of their lumbar back pain in flexion, extension, left and right rotation. Notes This dictation was done with voice recognition software and may contain errors and omissions. * Progress note Date Encounter Last Documented by 10/23/2024 Follow Up Last documented on 10/23/2024; 11:29 AM, KAMRON Fernandez; [facility] Active Problems & Conditions - Joint Pain, Localized in the Right Shoulder - Lower Back Pain - Pain in the Left Foot Chief Complaint The Chief Complaint is: Left shoulder pain. Referred Here Referred by [facility]. History of Present Illness David Kelly is a 44 year old male. - Allergy list reviewed - Problem list reviewed - Medication list reviewed - Previous history of new onset pain Injury is not work related or an automotive accident - Patient pain level from 1-10: 5 - History of Home Exercise 2022-DAILY - No previous treatment. - - Review of medications documented Patient presents today with complaints of recent worsening lower back pain. Patient reports few weeks ago started having some increasing pain through his lower back especially on the right side. He has had issues with his back in the past with some problems out of the SI joints. But he has tried to maintain an exercise program as this has helped him in the past. 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 He had dropped an object and bent over to pick it up and on his way back had quite a bit of pain and discomfort developing in the right lower back and hip area. Patient reports that this was quite severe at the time. He ended up seeing his family physician. He received a steroid injection and likely a Toradol injection. In the heel was also starting on his spring break. It since then he is here on a lot of improvement. He still has some discomfort in the area but it is not as painful as it was previously. This is not associated with any radiculopathy. Its mostly mechanical back symptoms. He does report having x-rays made through his family physician. He was told he has some fractures in patient has come to see us for an evaluation on this in further treatment options. Current Medication - BD Pen Needle Toña [...] refills - Vitamin D (Ergocalciferol) 1.25 MG (80210 UT) Oral Capsule 56 days, 0 refills - ZyrTEC Allergy 10 MG Oral Tablet take as directed 0 days, 0 refills Past Medical/Surgical History Reported: Use of CPAP. Use of CPAP. Medications: A recent injection. Immunization History: No recent immunization for flu and not for pneumococcal pneumonia. Diagnoses: History of Blood Clots Sleep Apnea Heartburn / Acid Reflux. Hypertension. Diabetes mellitus Acid reflux . Surgical: - Total knee arthroplasty 2 knee sx Social History Not a current smoker. Yes, current smoker. Current diet: No recent change in diet low carb . No recent change in diet. Caffeine use: Caffeine use 1x a day. Tobacco use: Current smoker dip . Alcohol: Not using alcohol. Drug Use: Not using drugs. Habits: Not exercising regularly. Allergies - Penicillins Reaction: Hives / Urticaria, Skin Rashes / Eruption of skin Family History Heart disease father Stroke / Seizures Stroke/seizures -grandparents Systemic hypertension Thromboembolic disease Diabetes mellitus father and grand parents Paternal: Heart disease Thromboembolic disease [...] and no abdominal pain. No Indigestion, no Peptic Ulcer, no GI Stomach Bleed, no Ulcers, and no Acid Reflux. Endocrine: No hot flashes and no muscle [...] - Patient was overweight. Skin is unremarkable. Patient has a pain localized lumbosacral junction midline. Extension and lateral bending worsens her symptoms. Flexion improves. She is able to ambulate. She has normal gait. Hip knee and ankle motion are normal. Normal neurovascular findings. Straight leg raising negative for nerve root compression. Patient has pain directly over Arya's point on the right side. He has a discomfort with range of motion especially with flexion. His knee and ankle motion are normal.straight leg raising does not reproduce symptoms. He has a normal gait. Favors thigh thrust and Gaenslen's testing will reproduce pain on the right side. Normal neurovascular findings otherwise. Tests Review of the x-rays demonstrating good disc height but there is some degenerative changes noted. There is possible spondylolysis of L5 but without the spondylolisthesis. There some facet arthritis associated with this and some arthritic changes of the sacroiliac joints. No evidence of any acute fracture. Assessment - Overweight Patient has symptomatic lumbar facet arthropathy with possible spondylolysis of L5. Sacroiliitis right side. Previous Tests Imaging: X-Ray: X-ray 10/12/2024 [facility]. Counseling/Education - Tobacco non-user - Use of tobacco assessment performed - Lose weight Plan Patient has shown some good improvement over the past few weeks with some rest his stretches his exercises and the injections he received through his family physician. He still has some discomfort in the right lumbosacral area. And I have offered this some injections to try to manage this further. This would include facet medial branch blocks at the L4-5 and L5-S1 level on the right side. Patient would like to pursue this. If however he starts noticing further improvement of his symptoms then he is welcome to cancel the injection. There was no immediate need for any surgical treatment. Notes This dictation was done with voice recognition software and may contain errors and omissions. Practice Management Use of tobacco assessment performed Review of medications documented. Care Team - NEGRITO GARCIA MD (E) Health Reminders - Assess Tobacco Use satisfied 05/08/2019.
--- OUTSIDE RECORDS SUMMARY | 2025-06-10 15:41 | XMS_ITS | Clinical Summary ---
Author Organization [facility] Address [address] [place] [id number] Care Team Providers Care Veneer Trimmer Name Role Phone Hallie Watts Primary Care Provider [phone] Source Comments This information has been disclosed to you from confidential records protectedfrom disclosure by state law. You shall make no further disclosure of thisinformation without the specific, written, and informed release of theindividual to whom it pertains, or as otherwise permitted by law. A generalauthorization for the release of medical or other information is not sufficientfor the purposes of therelease of HIV test results or diagnoses. [id number] Allergies Active Allergy Reactions Criticality Noted Date Comments Penicillins Hives Medium 07/06/2016 Medications No known medications Active Problems No known active problems Social History Tobacco Use Types Packs/Day Years Used Date Smoking Tobacco: Never Assessed Alcohol Use Standard Drinks/Week Comments Never 0 (1 standard drink = 0.6 oz pur e alcohol) Sex and Gender Information Value Date Recorded Sex Assigned at Male 01/28/2022 2:33 PM EDT Legal Sex Male 12:23 PM EDT Gender Identity Male 01/28/2022 2:33 PM EDT Sexual Orientation Not on file Last Filed Vital Signs Vital Sign Reading Time Taken Comments Blood Pressure 122/73 01/28/2022 4:30 PM EDT Pulse 63 01/28/2022 3:48 PM EDT Temperature 36.6 C (97.8 F) 01/28/2022 3:48 PM EDT Respiratory Rate 16 01/28/2022 4:15 PM EDT Oxygen Saturation 99% 01/28/2022 4:30 PM EDT Inhaled Oxygen Concentration 99% 01/28/2022 4 :30 PM EDT Weight - - Height - - Body Mass Index - - Plan of Treatment Not on file Insurance [address] [place] [address] [employer]UE [employer]ESS Care Teams Veneer Trimmer Relationship Specialty Start Date End Date Hallie Watts [address] [address] PCP - General 01/28/22
--- OUTSIDE RECORDS SUMMARY | 2025-06-10 15:41 | XMS_ITS | Clinical Summary ---
Author Organization [facility] Address [address] [place] [address] Phone Care Team Providers Care Special Education Resource Room Teacher Name Role Phone Lei ESTRADA, Brown Unavailable [phone] JOSE ESTRADA (E), NEGRITO Fernandez Unavailable [phone] Reason for Visit and Chief Complaint The Chief Complaint is: left shoulder pain Problems Includes: Problems addressed during this encounter and other active Problems Current Visit Onset Date Resolved Date Provider Conditio n Status Lower Back Pain 05/08/2019 Brown Zuniga ctive Last Documented On 9 12:51PM ; [facility], [facility] Past Visits Onset Date Resolved Date Provider Condition Status Joint Pain Shoulder Right 12/28/2022 Marciano Bai PA-C Active Last Documented On 3 1:24PM ; [facility] Soft Tissue Pain Foot Left 08/16/2015 Javier ellis DPM Active Last Documented On 6 11:35AM ; [facility] Plan of Treatment Patient has shown some good improvement over [...] no immediate need for any surgical treatment. - Last Documented On 10/23/2024 11:29AM ; [facility] Instructions to patient Lose weight Last Documented On 5 10:53AM ; [facility] Assessments Includes: Assessments from this encounter Findings - Overweight - Last Documented On 10/23/2024 11:29AM ; [facility] Patient has symptomatic lumbar facet arthropathy with possible spondylolysis of L5. - Last Documented On 10/23/2024 11:29AM ; [facility] Sacroiliitis right side. - Last Documented On 10/23/2024 11:29AM ; [facility] Instructions Includes: Instructions from this encounter Instructions to patient Lose weight Last Documented On 5 10:53AM ; [facility] Medical Equipment - Implanted Devices Includes: Current Devices No Medical Equipment Recorded Medications Includes: Medications discussed during this encounter and other current Medications Current Medications (continue as prescribed) NovoLOG FlexPen 100 UNIT/ML Subcutaneous Solutio n Pen-injector 12/19/2022 Provider: Diagnosis: Last Documented On 3 1:25PM By Jose Carlos Melendez ; [facility] BD Pen Needle Toña 2nd Gen 32G X 4 MM Miscellaneous Provider: Diagnosis: Last Documented On 3 1:25PM By Jose Carlos Melendez ; [facility] Ondansetron HCl 8 MG Oral Tablet 12/08/2022 Provider : Diagnosis: Last Documented On 3 1:25PM By Jose Carlos Melendez ; [facility] Vitamin D (Ergocalciferol) 1.25 MG (73307 UT) Oral Cap lady 11/29/2022 Provider: Diagnosis: Last Documented On 3 1:25PM By Jose Carlos Melendez ; [facility] Dexcom G6 Transmitter Miscellaneous 11/05/2022 Provi eunice: Diagnosis: Last Documented On 3 1:25PM By Jose Carlos Melendez ; [facility] ZyrTEC Allergy 10 MG Oral Tablet 10/24/2020 Provider : Diagnosis: Last Documented On 1 8:48AM By Fabi Espinosa [facility] Tricor 145 MG Oral Tablet 10/24/2020 Provider: Diagnosis: Last Documented On 8:44AM By Fabi Morelos ; [facility], [facility] Past Medications on file Atorvastatin Calcium 20 MG O ral Tablet 10/24/2020 - 01/22/2021 Provider: VICTORIANO HERNÁNDEZ MD Diagnosis: Last Documented On 8:49AM By Fabi Morelos ; [facility], [facility] Lisinopril 40 MG Oral Tablet 10/24/2020 - 01/22/2021 P yanethder: VICTORIANO HERNÁNDEZ MD Diagnosis: Last Documented On 8:49AM By Fabi Morelos ; [facility] metFORMIN HCl ER (OSM) 1000 MG Oral Tablet Extended Release 24 Hour 10/24/2020 - 01/22/2021 Provider: VICTORIANO HERNÁNDEZ MD Diagnosis: Last Documented On 8:49AM By Fabi Morelos ; [facility] Tresiba 100 UNIT/ML Subcutan eous Solution 10/24/2020 - 01/22/2021 Provider: VICTORIANO HERNÁNDEZ MD Diagnosis: Last Documented On 8:49AM By Fabi Morelos ; [facility] Vascepa 1 GM Oral Capsule 10/24/2020 - 01/22/2021 Prov ider: Diagnosis: Last Documented On 8:50AM By Fabi Morelos ; [facility] NovoLOG 100 UNIT/ML Subcutan eous Solution 10/24/2020 - 01/22/2021 Provider: VICTORIANO HERNÁNDEZ MD Diagnosis: Last Documented On 8:48AM By Fabi Morelos ; [facility] Cyclobenzaprine HCl 10 MG Or al Tablet 05/08/2019 - 05/23/2019 Provider: Brown Odom MD Diagnosis: twice a day-one po bid prn Last Documented On 9 1:39PM By Carolina Smith ; [facility] Neurontin 300 MG Capsule 08/16/2015 - 09/15/2015 Provi eunice: Javier Giron DPM Diagnosis: 1 every bedtime be Last Documented On 6 12:39PM By Laura Alves ; [facility] Medications Administered Includes: Administered Medications from this encounter No Administered Medications Recorded Results Includes: Results discussed during this encounter No Results Recorded For Specified Dates History of Present Illness Includes: History of Present Illness from this encounter HPI David Kelly is a 44 year old [...] evaluation on this in further treatment options. Social History Description Last Updated Yes, current smoker. 10/23/2024 Last Documented On 5 11:29AM ; [facility] Caffeine use 1x a day 03/26/2023 Last Documented On 5 10:53AM ; [facility] No recent change in diet 12/28/2022 Last Documented On 5 10:53AM ; [facility] Not using alcohol 12/28/2022 Last Documented On 5 10:53AM ; [facility] Not using drugs 12/28/2022 Last Documented On 5 10:53AM ; [facility], [facility] No recent change in diet low carb ~ Last Documented On 5 10:53AM ; [facility] Not a current smoker. 11/25/2020 Last Documented On 5 10:53AM ; [facility] Tobacco use 05/08/2019 Last Documented On 5 10:53AM ; [facility] Current smoker dip ~ 05/08/2019 Last Documented On 5 10:53AM ; [facility] Not exercising regularly 08/16/2015 Last Documented On 5 10:53AM ; [facility] Smoking Status Unknown Procedures and Surgical History Includes: Procedures from this encounter Procedures Code Diagnosis Performing Provider Service L ocation Service Date use of tobacco assessment performed 1000F Last Documented On 5 10:53AM ; [facility], [facility] review of medications documented 1160F Last Documented On 5 10:53AM ; [facility] X-ray 10/12/2024 [facility] [address] Last Documented On 5 10:56AM ; [facility] Surgical History Last Updated History of total knee arthroplasty 2 kne e sx 03/26/2023 Last Documented On 5 10:53AM ; [facility], [facility] Medical History Includes: Medical History addressed during this encounter Description Last Updated History of Heartburn / Acid Reflux 12/28 Last Documented On 5 10:53AM ; [facility] History of History of Blood Clots 2022 Last Documented On 5 10:53AM ; [facility] History of Sleep Apnea 12/28/2022 Last Documented On 5 10:53AM ; [facility] Use of CPAP 12/28/2022 Last Documented On 5 10:53AM ; [facility] Hypertension 11/25/2020 Last Documented On 5 10:53AM ; [facility] No recent immunization for flu 1 Last Documented On 5 10:53AM ; [facility], [facility] No recent immunization for pneumococcal pneumonia 11/25/2020 Last Documented On 5 10:53AM ; [facility] Use of CPAP 11/25/2020 Last Documented On 5 10:53AM ; [facility], [facility] acid reflux ~ 05/08/2019 Last Documented On 5 10:53AM ; [facility], [facility] History of diabetes mellitus 05/08/2019 Last Documented On 5 10:53AM ; [facility] A recent injection 05/08/2019 Last Documented On 5 10:53AM ; [facility], [facility] Family History Includes: Family History addressed during this encounter Description Last Updated Family history of diabetes mellitus fath er and grand parents 03/26/2023 Last Documented On 5 10:53AM ; [facility], [facility] Stroke / Seizures 03/26/2023 Last Documented On 5 10:53AM ; [facility], [facility] Family history of heart disease father 0 03/26/2023 Last Documented On 5 10:53AM ; [facility], [facility] Paternal history of diabetes mellitus Last Documented On 5 10:53AM ; [facility], [facility] Paternal history of family history of he art disease 12/28/2022 Last Documented On 5 10:53AM ; [facility], [facility] Paternal history of thromboembolic disea se 12/28/2022 Last Documented On 5 10:53AM ; [facility], [facility] stroke/seizures -grandparents ~ ~ 2018 Last Documented On 5 10:53AM ; [facility], [facility] Family history of hypertension 9 Last Documented On 5 10:53AM ; [facility] Family history of thromboembolic disease 05/08/2019 Last Documented On 5 10:53AM ; [facility], [facility] Review of Systems Includes: Review of Systems [...] Active Last Documented On 5 10:53AM ; [facility], [facility] Encounters Encounter Provider Location Date Check-In Time Check-Out Time Diagnosis Follow Up KAMRON CHIN PA-C [facility] 5 10:50AM 11:21AM Overweight Insurance Includes: Active Insurance Policies Plan Name Member ID Group # Subscriber Relationship Effect janneth Dates 1 - [facility] [id number] David Kelly Self 07/12/2018 - Unknown Clinical Notes Includes: Clinical Notes from this encounter * Progress note Date Encounter Last Documented by 10/23/2024 Follow Up Last documented on 10/23/2024; 11:29 AM, KAMRON Fernandez; [facility] Active Problems & Conditions - Joint Pain, [...] refills - Vitamin D (Ergocalciferol) 1.25 MG (56532 UT) Oral Capsule 56 days, 0 refills [...] side. Previous Tests Imaging: X-Ray: X-ray 10/12/2024 [facility]. Counseling/Education - Tobacco non-user - Use [...]
--- OUTSIDE RECORDS SUMMARY | 2025-06-10 15:41 | XMS_ITS | Encounter Summary ---
Author Organization [facility] Address [address] [place] [address] Care Team Providers Care Supplier Quality Engineer Name Role Phone Zhane Douglas Primary Care Provider [phone] Encounter Details Date Type Department Care Team (Late st Contact Info) Description 05/10/2025 Documentation [facility] [address] [place] [id number] Aj Breaux MD [address] [place], [place] [id number] Social History Tobacco Use Types Packs/Day Years [...] AM EDT documented as of this encounter Progress Notes * Louann Chaidez - 05/10/2025 9:29 AM EDT Pt seen to review discuss pump options, he is interested in T-slim but would like to discuss with his before deciding. Pt will call back to office with final decision if he would like to order pump. documented in this encounter Plan of Treatment Upcoming Encounters Date Type Department Care Team (Late st Contact Info) Description 07/26/2025 9:00 AM EST Office Visit [facility] [address] [place] [phone] Dunia Rojas, INTERSTATE BUS DISPATCHER [address] [place] [address] 09/21/2025 10:30 AM EDT Office Visit [facility] [address] [place] [address] Aj Breaux MD [address] [place], [place] [id number] documented as of this encounter Visit Diagnoses Not on filedocumented in this encounter Additional Health Concerns Assessment Noted Time PHQ-2 Depression Total Score: 1 11/24/19 23 9:00 AM EDT documented as of this encounter Care Teams Supplier Quality Engineer Relationship Specialty Start Date End Date Zhane Douglas [address] [place] [address] PCP - General Nurse Practitioner 04/13/24 documented as of this encounter
--- OUTSIDE RECORDS SUMMARY | 2025-06-10 15:42 | XMS_ITS | Clinical Summary ---
Author Organization [facility] Address [address] [place] [address] Phone Care Team Providers Care Director And Professor Name Role Phone Lei ESTRADA, Brown Unavailable [phone] JOSE ESTRADA (E), NEGRITO Fernandez Unavailable [phone] Reason for Visit and Chief Complaint The Chief Complaint is: left shoulder pain Problems Includes: Problems addressed during this encounter and other active Problems Current Visit Onset Date Resolved Date Provider Conditio n Status Lower Back Pain 05/08/2019 Brown Odom MD A ctive Last Documented On 9 12:51PM ; [facility] Past Visits Onset Date Resolved Date Provider Condition Status Joint Pain Shoulder Right 12/28/2022 Marciano Bai PA-C Active Last Documented On 3 1:24PM ; [facility] Soft Tissue Pain Foot Left 08/16/2015 Javier ellis DPM Active Last Documented On 6 11:35AM ; [facility] Plan of Treatment I will have him participate with some physical therapy for the lower back. Continue with his ibuprofen use. We will see him back in a couple months for reassessment. If still symptomatic we may consider doing further imaging studies or some injections to help treat the symptoms. - Last Documented On 03/26/2023 11:02AM ; [facility] Instructions to patient Lose weight Last Documented On 3 8:56AM ; [facility], [facility] Assessments Includes: Assessments from this encounter Findings - Overweight - Last Documented On 03/26/2023 11:02AM ; [facility] Cervical disc degeneration with stenosis. Symptoms have resolved since his last visit. - Last Documented On 03/26/2023 11:02AM ; [facility] Sacroiliitis right and left sides-recurrent - Last Documented On 03/26/2023 11:02AM ; [facility] Lumbar disc degeneration with facet arthropathy and some stenosis symptoms. - Last Documented On 03/26/2023 11:02AM ; [facility] Instructions Includes: Instructions from this encounter Instructions to patient Lose weight Last Documented On 3 8:56AM ; [facility] Medical Equipment - Implanted Devices Includes: Current Devices No Medical Equipment Recorded Medications Includes: Medications discussed during this encounter and other current Medications Current Medications (continue as prescribed) NovoLOG FlexPen 100 UNIT/ML Subcutaneous Solutio n Pen-injector 12/19/2022 Provider: Diagnosis: Last Documented On 3 1:25PM By Jose Carlos Melendez ; [facility] BD Pen Needle Toña 2nd Gen 32G X 4 MM Miscellaneous Provider: Diagnosis: Last Documented On 3 1:25PM By Jose Carlos Melendez ; [facility], [facility] Ondansetron HCl 8 MG Oral Tablet 12/08/2022 Provider : Diagnosis: Last Documented On 3 1:25PM By Jose Carlos Melendez ; [facility] Vitamin D (Ergocalciferol) 1.25 MG (86534 UT) Oral Cap lady 11/29/2022 Provider: Diagnosis: Last Documented On 3 1:25PM By Jose Carlos Melendez ; [facility] Dexcom G6 Transmitter Miscellaneous 11/05/2022 Provi eunice: Diagnosis: Last Documented On 3 1:25PM By Jose Carlos Melendez ; [facility] ZyrTEC Allergy 10 MG Oral Tablet 10/24/2020 Provider : Diagnosis: Last Documented On 1 8:48AM By Fabi Morelos ; [facility] Tricor 145 MG Oral Tablet 10/24/2020 Provider: Diagnosis: Last Documented On 1 8:44AM By Fabi Morelos ; [facility] Past Medications on file Atorvastatin Calcium 20 MG O ral Tablet 10/24/2020 - 01/22/2021 Provider: VICTORIANO HERNÁNDEZ MD Diagnosis: Last Documented On 8:49AM By Fabi Morelos ; [facility] Lisinopril 40 MG Oral Tablet 10/24/2020 - 01/22/2021 P yanethder: VICTORIANO HERNÁNDEZ MD Diagnosis: Last Documented On 8:49AM By Fabi Morelos ; [facility] metFORMIN HCl ER (OSM) 1000 MG Oral Tablet Extended Release 24 Hour 10/24/2020 - 01/22/2021 Provider: VICTORIANO HERNÁNDEZ MD Diagnosis: Last Documented On 8:49AM By Fabi Morelos ; [facility] Tresiba 100 UNIT/ML Subcutan eous Solution 10/24/2020 - 01/22/2021 Provider: VICTORIANO HERNÁNDEZ MD Diagnosis: Last Documented On 8:49AM By Fabi Morelos ; [facility] Vascepa 1 GM Oral Capsule 10/24/2020 - 01/22/2021 Prov ider: Diagnosis: Last Documented On 8:50AM By Fabi Morelos ; [facility] NovoLOG 100 UNIT/ML Subcutan eous Solution 10/24/2020 - 01/22/2021 Provider: VICTORIANO HERNÁNDEZ MD Diagnosis: Last Documented On 8:48AM By Fabi Morelos ; [facility] Cyclobenzaprine HCl 10 MG Or al Tablet 05/08/2019 - 05/23/2019 Provider: Brown Odom MD Diagnosis: twice a day-one po bid prn Last Documented On 9 1:39PM By Carolina Smith ; [facility] Neurontin 300 MG Capsule 08/16/2015 - 09/15/2015 Provi eunice: Javier Giron DPM Diagnosis: 1 every bedtime be Last Documented On 6 12:39PM By Laura Alves ; [facility] Medications Administered Includes: Administered Medications from this encounter No Administered Medications Recorded Vital Signs Includes: Vital Signs from this encounter Vital Name 03/26/2023 09:06A Height (in) 71 Weight (lb) 248 Body Mass Index 34.6 Body Surface Area 2.3 Note: pw Last Documented: On 03/26/2023 9:07AM ; [facility] Results Includes: Results discussed during this encounter No Results Recorded For Specified Dates History of Present Illness Includes: History of Present Illness from this encounter SIRIA Kelly is a 42 year old male. - Allergy list reviewed - Problem list reviewed - Medication list reviewed - Previous history of new onset pain Injury is not work related or an automotive accident - Patient pain level from 1-10: 5 - No previous treatment. Patient returns to follow-up on his neck and shoulder pain however his neck and shoulder symptoms have improved considerably. Patient did not even get into physical therapy to start feeling better. He does however have recurrent pain across the lower back and into the hips. With some occasional right leg numbness and. He has had issues with his lower back in the past with some SI joint problems. Patient has returned back to see us to resume some treatment for the lower back. He has not had any specific treatment last couple years for the lower back. He has been taking some ibuprofen but nothing beyond that. Social History Description Last Updated Not a current smoker. 10/23/2024 Last Documented On 3 8:56AM ; [facility] Caffeine use 1x a day 03/26/2023 Last Documented On 3 11:02AM ; [facility] Tobacco non-user 12/28/2022 Last Documented On 3 8:56AM ; [facility] No recent change in diet 12/28/2022 Last Documented On 3 8:56AM ; [facility] Not using alcohol 12/28/2022 Last Documented On 3 8:56AM ; [facility] Not using drugs 12/28/2022 Last Documented On 3 8:56AM ; [facility] Not exercising regularly 08/16/2015 Last Documented On 3 8:56AM ; [facility] Smoking Status Unknown Procedures and Surgical History Includes: Procedures from this encounter Procedures Code Diagnosis Performing Provider Service L ocation Service Date use of tobacco assessment performed 1000F Last Documented On 3 8:56AM ; [facility], [facility] review of medications documented 1160F Last Documented On 3 8:58AM ; [facility] Surgical History Last Updated History of total knee arthroplasty 2 kne e sx 03/26/2023 Last Documented On 3 11:02AM ; [facility] Medical History Includes: Medical History addressed during this encounter Description Last Updated History of Heartburn / Acid Reflux 12/28 Last Documented On 3 8:56AM ; [facility] History of History of Blood Clots 2022 Last Documented On 3 8:56AM ; [facility] History of Hypertension 12/28/2022 Last Documented On 3 8:56AM ; [facility] History of Sleep Apnea 12/28/2022 Last Documented On 3 8:56AM ; [facility] Use of CPAP 12/28/2022 Last Documented On 3 8:56AM ; [facility] No recent immunization for flu 1 Last Documented On 3 8:56AM ; [facility] No recent immunization for pneumococcal pneumonia 11/25/2020 Last Documented On 3 8:56AM ; [facility] History of diabetes mellitus 05/08/2019 Last Documented On 3 8:56AM ; [facility] Family History Includes: Family History addressed during this encounter Description Last Updated Family history of diabetes mellitus fath er and grand parents 03/26/2023 Last Documented On 3 11:02AM ; [facility] Stroke / Seizures 03/26/2023 Last Documented On 3 11:02AM ; [facility] Family history of heart disease father 0 03/26/2023 Last Documented On 3 11:02AM ; [facility] Family history of hypertension 9 Last Documented On 3 8:56AM ; [facility] Family history of thromboembolic disease 05/08/2019 Last Documented On 3 8:56AM ; [facility] Review of Systems Includes: Review of [...] Active Last Documented On 5 10:53AM ; [facility] Encounters Encounter Provider Location Date Check-In Time Check-Out Time Diagnosis Follow Up KAMRON CHIN PA-C [facility] 3 8:48AM 9:30AM Overweight Insurance Includes: Active Insurance Policies Plan Name Member ID Group # Subscriber Relationship Effect janneth Dates 1 - [facility] [id number] David Sen 07/12/2018 - Unknown Clinical Notes Includes: Clinical Notes from this encounter * Progress note Date Encounter Last Documented by 03/26/2023 Follow Up Last documented on 03/26/2023; 11:02 AM, KAMRON Fernandez; [facility] Active Problems & Conditions - Joint [...] 1-10: 5 - No previous treatment. Patient returns to follow-up on his neck and shoulder pain however his neck and shoulder symptoms have improved considerably. Patient did not even get into physical therapy to start feeling better. He does however have recurrent pain across the lower back and into the hips. With some occasional right leg numbness and. He has had issues with his lower back in the past with some SI joint problems. Patient has returned back to see us to resume some treatment for the lower back. He has not had any specific treatment last couple years for the lower back. He has been taking some ibuprofen but nothing beyond that. Current Medication - BD Pen Needle Toña [...] refills - Vitamin D (Ergocalciferol) 1.25 MG (13094 UT) Oral Capsule 56 days, 0 refills - ZyrTEC Allergy 10 MG Oral Tablet take as directed 0 days, 0 refills Past Medical/Surgical History Reported: Use of CPAP. Immunization History: No recent immunization for flu and not for pneumococcal pneumonia. Diagnoses: History of Blood Clots Sleep Apnea Heartburn / Acid Reflux Hypertension. Diabetes mellitus Surgical: - Total knee arthroplasty 2 knee sx Social History Not a current smoker. Current diet: No recent change in diet. Caffeine use: Caffeine use 1x a day. Tobacco use: Tobacco non-user. Alcohol: Not using alcohol. Drug Use: Not using drugs. Habits: Not exercising regularly. Allergies - Penicillins Reaction: Hives / Urticaria, Skin Rashes / Eruption of skin Family History Heart disease father Stroke / Seizures Systemic hypertension Thromboembolic disease Diabetes mellitus father and grand parents Review Of Systems Systemic: No symptoms, not [...] complaint of seasonal allergic reaction. Physical Findings - Vitals taken 03/26/2023 09:06 am pw Height 71 in 60 - 80 Weight 248 lbs 125 - 225 Body Mass Index 34.6 kg/m2 Body Surface Area 2.3 m2 Standard Measurements: - Patient was overweight. Patient has pain over [place] point. Discomfort with forward flexion of the lumbar spine reproducing pain in the left SI region.. Fabers, thigh thrust and Gaenslen's testing will reproduce pain in the left lower back and buttock area.hip knee and ankle motion do not reproduce pain in these areas. Straight leg raising is negative for nerve root compression. He has normal neurovascular findings. Patient has pain directly over Arya's point on the right side. He has a discomfort with range of motion especially with flexion. His knee and ankle motion are normal.straight leg raising does not reproduce symptoms. He has a normal gait. Favors thigh thrust and Gaenslen's testing will reproduce pain on the right side. Normal neurovascular findings otherwise. Skin is unremarkable. Patient has a pain localized lumbosacral junction midline. Extension and lateral bending worsens her symptoms. Flexion improves. She is able to ambulate. She has normal gait. Hip knee and ankle motion are normal. Normal neurovascular findings. Straight leg raising negative for nerve root compression. Assessment - Overweight Cervical disc degeneration with stenosis. Symptoms have resolved since his last visit. Sacroiliitis right and left sides-recurrent Lumbar disc degeneration with facet arthropathy and some stenosis symptoms. Counseling/Education - Lose weight Plan I will have him participate with some physical therapy for the lower back. Continue with his ibuprofen use. We will see him back in a couple months for reassessment. If still symptomatic we may consider doing further imaging studies or some injections to help treat the symptoms. Notes This dictation was done with voice recognition software and may contain errors and omissions. Practice Management Use of tobacco assessment performed Review of medications documented. Care Team - NEGRITO GARCIA MD (E) Health Reminders - Assess BMI satisfied 03/26/2023. - Assess Tobacco Use satisfied 12/28/2022. - Follow Up Plan BMI Management satisfied 03/26/2023.
--- OUTSIDE RECORDS SUMMARY | 2025-06-10 15:42 | XMS_ITS | Clinical Summary ---
[facility] Address [address] [place] [address] Care Team Providers Care Radar Technician Name Role Phone Zhane Douglas Margaux Primary Care Provider + [phone] Allergies Active Allergy Reactions Criticality Noted Date Comments Penicillins Hives Medium 07/06/2016 Medications Cetirizine HCl (ZYRTEC ALLERGY PO) Take 10 mg by mouth Daily As Needed. Active aspirin 81 MG EC tablet Take 1 tablet by mouth Daily. Active Pancrelipase, Kjm-Asjc-Rvdx, (CREON) 78834-577693 units capsule delayed-release particles capsule Take 1 capsule by mouth 3 (Three) Times a Day With Meals. Active vitamin D (ERGOCALCIFEROL) 1.25 MG (80193 UT) capsule capsule Take 1 capsule by mouth 1 (One) Time Per Week. 8 capsule 11/30/19 23 Active traZODone (DESYREL) 50 MG tablet Take 1 tablet by mouth Daily. 07/21/19 25 Active Vascepa 1 g capsule capsuleIndications:M ixed hyperlipidemia Take 2 g by mouth 2 (Two) Times a Day. 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 MDD 100 units 90 mL 12/08/19 Active metFORMIN (GLUCOPHAGE) 1000 MG tabletIndications:Co ntrolled type 2 diabetes mellitus with mild nonproliferative retinopathy without macular edema, with long-term current use of insulin, unspecified laterality Take 1 tablet by mouth Daily With Breakfast & Dinner. 180 tablet 5 12/08/19 Active lisinopril (PRINIVIL,ZESTRIL) 40 MG tabletIndications:Pr imary hypertension Take 1 tablet by mouth Daily. 90 tablet 3 12/08/19 Active Insulin Pen Needle (BD Pen Needle Toña 2nd Gen) 32G X 4 MM miscIndications:Cont rolled type 2 diabetes mellitus with mild nonproliferative retinopathy without macular edema, with long-term current use of insulin, unspecified laterality Use as directed with insulin injections QID 400 each 12/08/19 25 Active fenofibrate (TRICOR) 145 MG tabletIndications:Mi xed hyperlipidemia Take 1 tablet by mouth Daily. 90 tablet 12/08/19 25 Active Continuous Glucose Transmitter (Dexcom G6 Transmitter) miscIndications:Cont rolled type 2 diabetes mellitus with mild nonproliferative retinopathy without macular edema, with long-term current use of insulin, unspecified laterality 1 Device by Other route Every 3 (Three) Months. 1 each 12/08/19 25 Active Continuous Glucose Sensor (Dexcom G6 Sensor)Indications:C ontrolled type 2 diabetes mellitus with mild nonproliferative retinopathy without macular edema, with long-term current use of insulin, unspecified laterality USE 1 SENSOR DIRECTED FOR 10 DAYS 9 each 1 12/08/19 25 Active atorvastatin (LIPITOR) 40 MG tabletIndications:Mi xed hyperlipidemia Take 1 tablet by mouth Daily. 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 6 mL 1 12/08/19 25 Active Active Problems Problem Noted Date Diagnosed Date Chest pain, atypical 04/14/2024 Assessment & Plan (11/24/2024 10:04 AM EDT): Patient reports that with everything going on at home he has not noticed any episodes of chest pain and reports that his shortness of breath has improved. Patient will need EKG at follow-up. Assessment & Plan (05/25/2024 11:53 AM EST): Stress echo 05/23/2024 has been discussed and reviewed with patient testing showed low risk treadmill stress. Patient reports that he continues to have shortness of breath with exertion. He states that he has been trying to climb his steep hill out on his property and has to stop 2-3 times before getting to the top. Patient declines chest x-ray or CT of the chest. Patient to report if symptoms change or worsen. Assessment & Plan (05/11/2024 9:43 AM EDT): Patient states he has not done his stress testing and that it was never scheduled. He has not had any other episodes of chest pain. ECHO preliminary report reviewed and discussed with patient in detail that showed normal heart function. Assessment & Plan (04/14/2024 12:50 PM EDT): Patient reports 1 episode of chest pain occurring about 4 AM waking him up from a sound sleep it was more of a pressure and pain that radiated into the left side of his back and down his left arm. He states he has not had another episode since but was advised to be checked out by cardiology by his PCP. Patient has coexisting diabetes mellitus type 2, hyperlipidemia, JENNIFER, and hypertension. Drug-induced constipation 03/11/2023 Light headed 02/08/2023 Vitamin D deficiency 11/29/2022 Pancreatitis 11/29/2022 Overview (11/29/2022): HOSPITALIZED 11/11/21 TO 12/14/21 AND 04/2022 JENNIFER (obstructive sleep apnea) 11/29/2022 Assessment & Plan (01/19/2025 8:40 AM EDT): Patient has a baseline AHI of 16. This is moderate sleep apnea. Download shows good compliance and control. His fit and airflow are comfortable. Patient reports that his sleep is well rested. He denies any daytime sleepiness or fatigue. Patient is receiving benefit from PAP therapy. Plan to continue current treatment. Follow-up in 6 months or sooner for any JENNIFER or PAP concerns. Assessment & Plan (11/24/2024 9:59 AM EDT): Patient has a baseline AHI of 16. This is moderate sleep apnea. Download shows good compliance and control. We have no recent download from his PAP device as his modem has stopped working. Patient reports that his device is greater than 5 years old and he would like to get a new one through his insurance. Patient is receiving benefit from PAP therapy. Plan to continue current treatment. Prescription sent to DME of patient choice for new ResMed auto CPAP 6-12 cm with Pap supplies. Follow-up in 8 weeks for insurance compliance visit. Assessment & Plan (05/25/2024 11:49 AM EST): Patient has a baseline AHI of 16. This is moderate sleep apnea. Download shows good compliance and control. Patient is receiving benefit from PAP therapy. Plan to continue current treatment. Patient to follow-up in 6 months or sooner if any JENNIFER or PAP concerns. Assessment & Plan (05/11/2024 9:40 AM EDT): Patient has a baseline AHI 16. This is moderate sleep apnea. Download shows good compliance and control. Patient is receiving benefit from pap therapy. Plan to continue current treatment. Assessment & Plan (04/14/2024 1:28 PM EDT): Patient has a baseline AHI of 16. This is moderate sleep apnea. Download shows good compliance and control. He states he is on the new machine from the recall DreamStation 2. I have advised patient of warning that the machine may potentially run hot causing a fire. Patient instructed to unplug device when not in use and review all of Feng safety precautions. Patient states that he does not feel like that his sleep is rested most nights. He states that the airflow and mask fit are comfortable. He states that he has been buying his supplies from [employer]. Patient is receiving benefit from PAP therapy. Plan to continue current treatment. Fatty liver 11/29/2022 GERD (gastroesophageal reflux disease) 9 Type 2 diabetes mellitus wit h hyperglycemia, with long-term current use of insulin Overview (05/08/2020): Diagnosed 2008 Assessment & Plan (05/10/2025 9:20 AM EDT): -Diabetes is uncontrolled due to hyperglycemia -He [...] 08/03/2024 TSH: 1.380 done 08/03/2024 aspirin: taking Assessment & Plan (11/25/2023 9:18 AM EDT): -Diabetes is currently reasonably well-controlled -Complications include diabetic retinopathy and elevated urine microalbumin -Continue good glycemic control to prevent progression of known complications and new complications from arising -Patient continues to take Mounjaro as prescribed by weight loss clinic, no episodes of pancreatitis with it -Recommend reducing Tresiba to 75 units once daily due to downtrending overnight glucoses and if this continues he may further reduce it to 70 units once daily -Continue NovoLog 15 units with large meals/10 units with small meals, okay to skip NovoLog if he is eating primarily protein or small snack -Continue metformin 1000 mg twice daily with meals -Continue Dexcom CGM -Continue lisinopril; blood pressure today 124/70 DM Health Maintenance: Ophtho: done 08/2023, prior history of retinopathy that was stable per his report Monofilament / Foot exam: Completed 04/15/2023, no new reported foot sores Lipids/Statin: taking a statin with last FLP showing LDL 84 done 09/02/2023 ISABEL:Cr 108.7 done 07/29/2023 TSH: 1.450 done 09/02/2023 aspirin: taking Assessment & Plan (11/09/2023 9:31 AM EDT): Diabetes stable. Dose adjustment as prescribe. Revisit in one month. Assessment & Plan (07/29/2023 8:19 AM EST): -Diabetes is currently well-controlled -Complications include known diabetic retinopathy -Suspect he has T2DM although cannot rule out pancreatic dysfunction from his prior history of multiple episodes of pancreatitis with possible borderline insulin insufficiency given his history of DKA and borderline low C-peptide although it was during an episode of normal glucose -Patient reports his pancreatitis was likely gallbladder related is now status post cholecystectomy -Patient being prescribed Mounjaro by weight loss clinic, he is aware of the increased risk of pancreatitis with this medication as well as increased risk of hypoglycemia with concomitant use of insulin therapy -Recommend reducing Tresiba to 75 units daily -Recommend consistently taking NovoLog and reducing the dose to 16 units with large meals and 8 units with small meals -Continue metformin 1000 mg twice daily -Continue Dexcom CGM -Continue lisinopril; blood pressure today 140/70; reports home readings are 120-130/60-70 DM Health Maintenance: Ophtho: due, prior history of retinopathy Monofilament / Foot exam: Completed 04/15/2023 Lipids/Statin: Continue statin with last FLP showing LDL 48 done 04/15/2023 ISABEL: negative 09/29/2022 TSH: 1.020 done 04/15/2023 aspirin: taking Assessment & Plan (04/15/2023 8:34 AM EDT): -Patient with excellent glycemic control at this time -Complications include known diabetic retinopathy -Recommend continued good glycemic control to prevent progression of complications and new complications from arising -Recommend additional screening to evaluate for autoimmune diabetes with antibody testing -Can check C-peptide although with normal glucose this morning it is unlikely to be significantly revealing -Counseled extensively on cautious use of Wegovy due to his history of pancreatitis; patient is aware of the risks and will consider continuation of this medication -Recommend reducing Tresiba to 90 units daily -Recommend reducing NovoLog to 20 units with large meals, 10 units with small meals and skipping his NovoLog dose with low carbohydrate meals -Continue Dexcom G6 CGM -Reduce lisinopril dose; blood pressure today 104/62 DM Health Maintenance: Ophtho: due, prior history of retinopathy, he will schedule this Monofilament / Foot exam: Completed today as noted above Lipids/Statin: Continue statin with last FLP showing LDL 46 ISABEL: negative 09/29/2022 TSH: 1.600 done 11/23/2022 Aspirin: taking Mixed hyperlipidemia Assessment & Plan (05/10/2025 9:21 AM EDT): -Continue atorvastatin 40 mg daily, fenofibrate 145 mg daily and Vascepa 2 g twice daily -Repeat FLP at follow-up Assessment & Plan (12/07/2024 2:17 PM EDT): -Continue atorvastatin 40 mg daily, fenofibrate 145 mg daily and Vascepa 2 g twice daily -Repeat FLP at follow-up Assessment & Plan (08/03/2024 1:28 PM EST): -Reasonably well-controlled, check lipid panel today -Continue atorvastatin 40 mg daily, fenofibrate 145 mg daily and Vascepa 2 g twice daily Assessment & Plan (05/25/2024 11:51 AM EST): Lipid abnormalities are stable Plan: Continue same medication/s without change. Discussed medication dosage, use, side effects, and goals of treatment in detail. Counseled patient on lifestyle modifications to help control hyperlipidemia. Patient Treatment Goals: LDL goal is less than 70 Followup in 6 months. Assessment & Plan (04/14/2024 12:51 PM EDT): Recent labs 03/25/2024 showed cholesterol 119, triglycerides 165, HDL 29, and LDL 62. Patient to continue atorvastatin, fenofibrate, and Vascepa. Assessment & Plan (04/13/2024 8:11 AM EDT): -LDL previously above goal while taking atorvastatin 20 mg daily, recommend continuing atorvastatin 40 mg daily -Reduce fat in diet -Continue fenofibrate 145 mg daily and Vascepa 2 g twice daily Assessment & Plan (11/25/2023 9:18 AM EDT): -LDL above goal, increase atorvastatin to 40 mg daily -Continue fenofibrate 145 mg daily and Vascepa 2 g twice daily Assessment & Plan (07/29/2023 8:19 AM EST): -Lipids well-controlled when last checked, continue atorvastatin 20 mg daily, fenofibrate 145 mg daily and Vascepa 2 g twice daily -Repeat fasting lipid panel in about 9 months Assessment & Plan (04/15/2023 8:35 AM EDT): -Check fasting lipid panel today -Continue atorvastatin 20 mg daily, fenofibrate 145 mg daily and Vascepa 2 g twice daily -Continue good glycemic control, avoid alcohol and recommend reduce saturated fat diet Primary hypertension Assessment & Plan (05/10/2025 9:21 AM EDT): -Controlled, continue lisinopril 40 mg daily Assessment & Plan (01/19/2025 8:40 AM EDT): Hypertension is stable and controlled Continue current treatment regimen. Blood pressure will be reassessed in 6 months. Patient to continue his lisinopril 40 mg daily. Assessment & Plan (12/07/2024 2:16 PM EDT): -Stable, continue lisinopril 40 mg daily Assessment & Plan (11/24/2024 10:00 AM EDT): Hypertension is stable and controlled Continue current treatment regimen. Blood pressure will be reassessed next scheduled follow-up . Patient to continue his prescribed lisinopril as well as his PAP therapy. Untreated sleep apnea may potentiate hypertension. Assessment & Plan (08/03/2024 1:28 PM EST): -At goal, continue lisinopril 40 mg daily Assessment & Plan (05/25/2024 11:51 AM EST): Patient reports that his blood pressure has been well-controlled. He continues to see the dietary counselor at [facility]. He reports that he has been trying to get back on his diet and exercise routine. He states that he feels like he is at a stalemate at this point. Patient to continue current blood pressure medication. Limit sodium intake Increase aerobic exercise as tolerated. Assessment & Plan (04/14/2024 12:52 PM EDT): Hypertension is stable and controlled Continue current treatment regimen. Blood pressure will be reassessed at next scheduled visit. Low-sodium diet Increase aerobic exercise as tolerated Assessment & Plan (04/13/2024 8:11 AM EDT): -Controlled, continue lisinopril 40 mg daily Assessment & Plan (11/25/2023 9:19 AM EDT): -Blood pressure at goal, continue lisinopril 40 mg daily -If he has symptomatic hypotension with increased physical activity and weight loss recommend reducing lisinopril to 20 mg daily Assessment & Plan (07/29/2023 8:20 AM EST): -Blood pressure today borderline although home readings are reportedly much better -Continue lisinopril 20 mg daily Assessment & Plan (04/15/2023 8:35 AM EDT): -Blood pressure borderline low and patient with symptoms of hypotension, recommend reducing lisinopril to 20 mg daily Obesity (BMI 30-39.9) Overview (06/14/2024): Start weight: (11/2022)278.2: 1st goal (10% weight loss):251.2 (reached 02/2023) at 250 around 1-2 years ago) 2nd goal:231 3rd goal (healthy fat range): 220 (been 20+ years since at this) Current medication prescribed by [facility]: Mounjaro Rx options: qsymia cleared by cardiology Rx Caution: GLP-1 (recurrent Pancreatitis- discussed risks with GLP-1 in detail) Comorbid conditions: JENNIFER (C-pap), HTN (meds), HLD (meds), GERD (no meds), T2DM (INSULIN), osteoarthritis, fatty liver, vit d deficiency Food: Long periods of time without eating, eating on the go, fast food post games, sweet cravings 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 Weight is improving with treatment. BMI is above average; BMI management plan is completed. We discussed low calorie, low carb based diet program, portion control, increasing exercise, pharmacologic options including mounjaro, and an blu-based approach such as MyTwenty Jeans Pal or Lose It. --This is a follow up and he is down around 1 lb --Continue Mounjaro 15mg, the comorbidity of type 2 diabetes --A1c due and ordered he plans to complete this at this office prior to next office visit. --Goal to continue to weigh himself. --In the past month he had a cardiac workup and was told everything was normal. He does plan to check with him to see if there are any contraindications for Qsymia. Assessment & Plan (04/25/2024 9:28 AM EDT): Patient's (Body mass index is 35.01 kg/m .) indicates that they are obese (BMI >30) with health conditions that include diabetes mellitus . Weight is improving with treatment. BMI is above average; BMI management plan is completed. We discussed low calorie, low carb based diet program, portion control, increasing exercise, pharmacologic options including mounjaro, and an blu-based approach such as RedCap Pal or Lose It. --This is a follow up visit and he is up around 2 lbs --Continue Mounjaro; he has a diagnosis of T2DM; A1C due at next visit --He is in the process of being worked up from cardiology. Discuss option of adding Qsymia. Will need cardiac clearance. --Restart weighing; weigh loss goal of 4lb this month Assessment & Plan (02/15/2024 11:38 AM EDT): Patient's (Body mass index is 34.69 kg/m .) indicates that they are obese (BMI >30) with health conditions that include diabetes mellitus . Weight is unchanged, improving overall BMI is above average; BMI management plan is completed. We discussed low calorie, low carb based diet program, portion control, increasing exercise, pharmacologic options including mounjaro, and an blu-based approach such as MyTwenty Jeans Pal or Lose It. --This is a follow up visit and he is around the same weight --Continue Mounjaro, he has T2DM on insulin. Also seeing Endocrinology --Continue to be mindful of carbs in diet --Goal of journaling all days this month. Goal if not perfection but simply adding it. Bring in to next office vist --A1C this visit. Assessment & Plan (12/28/2023 9:56 AM EDT): Patient's (Body mass index is 34.55 kg/m .) indicates that they are obese (BMI >30) with health conditions that include diabetes mellitus . Weight is improving with treatment. BMI is above average; BMI management plan is completed. We discussed low calorie, low carb based diet program, portion control, increasing exercise, pharmacologic options including Mounjaro, and an blu-based approach such as RedCap Pal or Lose It. -This is a follow up and he is up around 3 and a half pounds. He is down a total of 37lbs since starting the program -Most recent A1C is within normal -Currently not journaling, goal to journal all days all meals. Goal to plan healthy snack while traveling -Currently seeing Endocrinology and insulin doses have been adjusted. - Restart weighing daily -Goal of 4-6lb weight loss this this Assessment & Plan (11/09/2023 9:35 AM EDT): Patient's (Body mass index is 33.55 kg/m .) indicates that they are obese (BMI >30) with health conditions that include hypertension, diabetes mellitus, and dyslipidemias . Weight is improving with treatment. BMI is above average; BMI management plan is completed. We discussed low calorie, low carb based diet program, portion control, and increasing exercise. --This is a follow up visit. Up 1.2 pounds since last visit about a month ago --Continues to follow with endocrinology, Dr. Garrido for diabetes. Has decreased insulin doses. A1C improved, near normal. Endocrinology is pleased with patient progress --Currently taking Monjaro 10 mg -- unable to obtain 15 mg dosage. Increase to 12.5 mg. Patient to call if unable to get this dose - Goal:continue to titrate up, tolerated 15 mg previously --Goals to refocus on diet modifications, since baseball season over this should be easier to get back on track Assessment & Plan (09/28/2023 12:03 PM EDT): Patient's (Body mass index is 33.38 kg/m .) indicates that they are obese (BMI >30) with health conditions that include obstructive sleep apnea, hypertension, diabetes mellitus, dyslipidemias, GERD, and fatty liver, vitamin D deficiency . Weight is improving with treatment. BMI is above average; BMI management plan is completed. We discussed low calorie, low carb based diet program, portion control, increasing exercise, pharmacologic options including Mounjaro, and an blu-based approach such as RedCap Pal or Lose It. --This is a follow up visit and the patient is down around 3.3 lbs since last visit approximately 1 month ago --On Mounjaro 15 increased last visit, tolerating well without complaints. Continue current dose/plan --His A1C continues to improve, now near normal range, follows with endocrinology for insulin dosing parameter --Will be faced with challenges with upcoming baseball schedule/traveling. Advised to be proactive in planning surrounding this to help stay on track, packing snacks --Goal to reach 231 by October Assessment & Plan (09/02/2023 11:16 AM EST): Patient's (Body mass index is 33.84 kg/m .) indicates that they are obese (BMI >30) with health conditions that include obstructive sleep apnea, hypertension, diabetes mellitus, dyslipidemias, GERD, and osteoarthritis . Weight is improving with treatment. BMI is above average; BMI management plan is completed. We discussed low calorie, low carb based diet program, portion control, increasing exercise, pharmacologic options including mounjaro, and an blu-based approach such as MyFitness Pal or Lose It. --This is a follow up visit and he down around 1 1/2 lbs --Increase Mounjro from 12.5 to 15mg. Rx sent in --Fasting labs ordered. --Gaol to be 131 by October. --Baseball season is coming up. Be mindful of working on choices while at games or traveling. Assessment & Plan (08/30/2023 1:44 PM EST): Patient's (Body mass index is 34.03 kg/m .) indicates that they are obese (BMI >30) with health conditions that include obstructive sleep apnea, hypertension, diabetes mellitus, dyslipidemias, GERD, and osteoarthritis . Weight is improving with treatment. BMI is above average; BMI management plan is completed. We discussed low calorie, low carb based diet program, portion control, increasing exercise, pharmacologic options including Mounjaro, and an blu-based approach such as MyFitMydeo Pal or Lose It. --This is a follow up and he is down around 1.4lbs --Increase Mounjaro from 10 to 12.5 --He has restarted food journaling. This continues to be #1 gaol. Bring into next visit --A1C reviewed and continues to show improvement --Continue to work with endocrinology to find ways to slowly reduce insulin --Gaol to be at 2nd goal 231 by 10/2023 --Addendum 08/30/2023: A1c,Tsh,Lipid panel,CMp needed per pt message for continued coverage Assessment & Plan (06/17/2023 10:26 AM EST): Patient's (Body mass index is 34.23 kg/m .) indicates that they are obese (BMI >30) with health conditions that include obstructive sleep apnea, hypertension, diabetes mellitus, dyslipidemias, and osteoarthritis . Weight is improving with treatment. BMI is above average; BMI management plan is completed. We discussed low calorie, low carb based diet program, portion control, increasing exercise, pharmacologic options including Mounjaro, and an blu-based approach such as MyFitMydeo Pal or Lose It. --This is a follow up visit and he is up around 6lbs --Be mindful to cut carbs. Restart food journaling. Looked at body comp analysis and adjusted calorie goals and macro goals accordingly. Again looking to stay at or below calorie and carbohydrate goal and looking to stay at or above protein and fiber goals --Switch from wegovy to Mounjaro. Staff message sent to start PA for Mounjaro --A1C today Assessment & Plan (05/10/2023 2:10 PM EDT): Patient's (Body mass index is 33.53 kg/m .) indicates that they are obese (BMI >30) with health conditions that include obstructive sleep apnea, hypertension, diabetes mellitus, dyslipidemias, GERD, and osteoarthritis . Weight is improving with treatment. BMI is above average; BMI management plan is completed. We discussed low calorie, low carb based diet program, portion control, increasing exercise, pharmacologic options including Wegovy, and an blu-based approach such as MyFitMydeo Pal or Lose It. --This is a follow up visit and he is down around 5lbs --Continue Wegovy. --He continue to focus on decreasing carbs --Continue effort of increasing weight training, Assessment & Plan (04/08/2023 10:42 AM EDT): Patient's (Body mass index is 34.29 kg/m .) indicates that they are obese (BMI >30) with health conditions that include obstructive sleep apnea, hypertension, dyslipidemias, GERD, and osteoarthritis . Weight is improving with treatment. BMI is above average; BMI management plan is completed. We discussed low calorie, low carb based diet program, portion control, increasing exercise, pharmacologic options including wegovy, and an blu-based approach such as MyFitMydeo Pal or Lose It. --This is a follow-up visit and patient is down around 6 pounds since last being seen approximately a month ago. He is down a total of 35.8 pounds since originally starting with the start weight of 278.2. --Continue Wegovy 2.4, refill sent in. --He has been needing to adjust his long and short-term insulin and plans to discuss this further at endocrinology appointment this coming month. --If he continues to have dizzy spells try to take the blood pressure reading at those times. Also continue to monitor where his blood glucose levels are. Try to do blood pressure readings daily and follow-up with primary care provider. -- He continues to try to improve eating habits but working to focus in particular on having a high-protein breakfast. Continue to stay away from more processed carbohydrates including flour and processed sugars. Assessment & Plan (03/11/2023 11:37 AM EDT): Patient's (Body mass index is 35.17 kg/m .) indicates that they are morbidly/severely obese (BMI > 40 or > 35 with obesity - related health condition) with health conditions that include obstructive sleep apnea, hypertension, diabetes mellitus, dyslipidemias, GERD, and osteoarthritis . Weight is improving with treatment. BMI is above average; BMI management plan is completed. We discussed low calorie, low carb based diet program, portion control, increasing exercise, pharmacologic options including Wegovy, and an blu-based approach such as RedCap Pal or Lose It. --This is a follow up visit and he is down around 5lbs -- Currently describing a side effect of constipation. Currently is not taking any regular stool softeners. Colace 250 mg advised and prescription sent in. Encouraged him to take this as a preventative even when he is not severely constipated. If still having constipation with this we can discuss further medications at next office visit. --He did describe lower than normal blood glucose levels. Discussed following up with endocrinology to potentially do a medication adjustment. He is aware of again plan if he has severe low blood sugar. --Increase Wegovy from 1.7 to 2.4. --His #1 goal over this past month was to start a food journal which is an excellent job and did bring in for review. Keep up this great effort with a continued goal over the next month to continue daily journaling. Again bring in for a brief review. --He has reached his first initial 10% weight loss goal going below his goal of 251. His current weight is 248.6. Next goal is set to 231. Assessment & Plan (02/08/2023 11:46 AM EDT): Patient's (Body mass index is 35.96 kg/m .) indicates that they are morbidly/severely obese (BMI > 40 or > 35 with obesity - related health condition) with health conditions that include obstructive sleep apnea, hypertension, diabetes mellitus, and osteoarthritis . Weight is improving with treatment. BMI is above average; BMI management plan is completed. We discussed low calorie, low carb based diet program, portion control, increasing exercise, pharmacologic options including Wegovy, and an blu-based approach such as RedCap Pal or Lose It. --This is a follow up visit and he is up around a half of pound --He has reached the highest dose of Saxenda, discontinue and start Wegovy 1.7mg. He was previously on wegovy lower doses and tolerated well. --Restart journaling. Bring into next office visit. --A1C next visit. --Goal to get mindful movement in at min 2x week. --Gaol for 1.5/week weight loss --Described some lightheadedness without low glucose level. Blood pressure reading was within normal limits today but advised that lightheadedness can be a sign of low blood pressure. He does have a cuff at his house to start monitoring that at various times of the day and especially if he is lightheaded and has to cough around. It is possible with his weight loss that he is needing a reduction or discontinuation of blood pressure but he should talk to his prescribing provider in regards to this. Assessment & Plan (01/05/2023 2:52 PM EDT): Patient's (Body mass index is 35.85 kg/m .) indicates that they are obese (BMI >30) with health conditions that include obstructive sleep apnea, diabetes mellitus, GERD, osteoarthritis, and fatty liver . Weight is improving with treatment. BMI is above average; BMI management plan is completed. We discussed low calorie, low carb based diet program, portion control, increasing exercise, pharmacologic options including Saxenda, and an blu-based approach such as RedCap Pal or Lose It. --This is a follow-up visit and patient is down close to 18 pounds since last being seen approximately a month ago. --His #1 goal was to start to food journal which she continues to do and only missed a couple days this past month. Continues to be his #1 priority. When analyzing his calories we did note that he was at or below calorie and carbs most days. Advised that it is okay to go up to calorie goal if hunger continues. --He was able to complete Wegovy 0.25 mg for 4 weeks unable to apple picker the 0.5 mg of Wegovy due to a national shortage. Discussed alternative options and mutually agreed to switch to Saxenda. His last shot of Wegovy was Wednesday. Advised to start Saxenda at 1.2 mg starting next Wednesday. Discussed that potential side effects and complications are similar to Wegovy as previously discussed in detail at last office visit. Patient states understanding. Assessment & Plan (12/08/2022 10:07 AM EDT): Patient's (Body mass index is 38.36 kg/m .) indicates that they are obese (BMI >30) with health conditions that include obstructive sleep apnea, hypertension, diabetes mellitus, dyslipidemias, GERD and osteoarthritis . Weight is improving with lifestyle modifications. BMI is above average; BMI management plan is completed. We discussed low calorie, low carb based diet program, portion control, increasing exercise, pharmacologic options including Wegovy and an blu-based approach such as RedCap Pal or Lose It. -- This is a follow-up visit the initial 1 and he is down around 7 pounds since last being seen approximately 2 weeks ago. -- Is #1 goal was to start food journaling which she has done an excellent job and has journaled every day and did bring in for review. He is staying within his protein goal most days of the week. He is also staying at or below carb and calorie goals most days. Keep up this great effort this journaling will continue to be his #1 priority. Advised that were not always looking for perfection on it but just being in the habit of writing down the foods that were having. Asked him to bring in his food journal again next month for review. Continue to focus on having lean proteins and at minimum 3 months starchy vegetables a day. Try to not have long periods of time without a protein-based snack or going for long periods without eating -- Patient is a diabetic with a history of pancreatitis. We discussed this in detail. In times of pancreatitis his triglyceride levels were extreme which was likely the cause. He has also had his gallbladder removed which also could be a potential cause. We discussed the association with pancreatitis and the GLP-1's and the potential for increased risk of pancreatitis. Discussed when pancreatitis was from from a likely cause such as elevated triglycerides this medication is sometimes used. Patient states he understands the ricks and feels comfortable with the treatment plan. -- Sample of Wegovy provided in office today with injection instruction provided and next dose sent to pharmacy of his choice. Sample number [id number]; expiration 04/10/2023. -- Patient currently not weighing himself and advised this would be a good habit to do first thing in the morning unclothed around the same time of the day just to keep track of where his weight is doing. -- Continue to monitor glucose he does have a Dexcom. He uses a fast acting insulin as well as a basal dose. He is using less fast acting insulin when he is keeping his carbohydrates low in his diet. Encouraged him not to go for long periods of time without having a protein-based snack as the one episode of low blood sugar was a time that he skipped lunch completely. Labs reveiwed: --A1C is elevated consistent with diagnosis of diabetes --Vitamin D levels is deficient. A high-dose vitamin D prescription has been called into your pharmacy. This is to be taken 1 tablet WEEKLY for 8 weeks. Start daily multi vitamin now. --Thyroid level is within normal limits Assessment & Plan (12/01/2022 11:25 AM EDT): Patient's (Body mass index is 39.35 kg/m .) indicates that they are obese (BMI >30) with health conditions that include obstructive sleep apnea, hypertension, diabetes mellitus, dyslipidemias, GERD and osteoarthritis . Weight is newly identified. BMI is above average; BMI management plan is completed. We discussed low calorie, low carb based diet program, portion control, increasing exercise and an blu-based approach such as RedCap Pal or Lose It. --This is an initial visit and patient was referred over by endocrinology. -- Body comp analysis was reviewed in office today and his calorie and macro count was set up based on this information. Patient advised that his #1 goal is to start journaling his foods. Macro goal set to carb 40% or less and protein 30% or higher. -- Patient is uncertain if he is interested in medication at this point. We did discuss the GLP-1's and the increased risk of pancreatitis with this. He has as history of elevated triglycerides and has had his gallbladder removed. May consider use as research has indicated no increased risk of GLP-1 related to known causes of pancreatitis. Will need to discuss furhter if pancreatitis is triggered by alcohol use. -- He does have a past medical history of high blood pressure, hyperlipidemia, diabetes, and recurrent pancreatitis. He currently is taking both long-term and short-term insulin. Encouraged him to reduce carbohydrates whenever possible. -- Fasting labs completed today. Resolved Problems Problem Noted Date Diagnosed Date Resolved Date Controlled type 2 diabetes estelle arce with retinopathy, with long-term current use of insulin 09/02/2023 05/10/2025 Assessment & Plan (12/07/2024 2:16 PM EDT): -Diabetes is currently reasonably well-controlled -Complications include known diabetic retinopathy -Continue Mounjaro 15 mg weekly, Tresiba 70-80 units daily -Continue NovoLog 18 units with larger meals, encouraged him to take it prior to eating and be more consistent with taking this dose -Recommend increasing physical activity and improve diet, particularly with evening eating -Continue metformin at 1000 mg twice daily -Continue Dexcom G6 CGM -Continue lisinopril; blood pressure today 115/67 DM Health Maintenance: Ophtho: done 08/2023, prior history of retinopathy that was stable Monofilament / Foot exam: Completed today Lipids/Statin: taking a statin with last FLP showing LDL 89 and 08/03/2024 ISABEL: Negative done 08/03/2024 TSH: 1.380 done 08/03/2024 aspirin: taking Assessment & Plan (08/03/2024 1:28 PM EST): -Diabetes is currently reasonably well-controlled -Complications include known elevated urine microalbumin and diabetic retinopathy -Patient is prescribed Mounjaro 15 mg weekly from weight loss clinic, he does have a prior history of pancreatitis but has done relatively well on this and would like for me to take over the prescription, he is aware of the risk of recurrent pancreatitis with this medication -Continue Tresiba 80 units daily, recommend reducing the dose to 72 units if he starts having more overnight lows -Continue NovoLog 15 units with larger meals, encouraged him to take it prior to eating and be more consistent with taking this dose -Recommend improved diet particularly in the evening -Continue metformin at 1000 mg twice daily -Continue Dexcom G6 CGM -Continue lisinopril; blood pressure today 134/86 DM Health Maintenance: Ophtho: done 08/2023, prior history of retinopathy that was stable Monofilament / Foot exam: Completed 04/13/2024 Lipids/Statin: taking a statin with last FLP showing LDL 84 done 09/02/2023 ISABEL:Cr 108.7 done 07/29/2023 TSH: 1.450 done 09/02/2023 aspirin: taking Assessment & Plan (04/13/2024 8:11 AM EDT): -Diabetes is currently reasonably well-controlled -Complications include known elevated urine microalbumin and diabetic retinopathy -Patient is prescribed Mounjaro 15 mg weekly from weight loss clinic, he does have a prior history of pancreatitis but has done relatively well on this medication thus far, he is aware of the risk of recurrent pancreatitis with this medication -Continue Tresiba 80 units daily, recommend reducing the dose to 72 units if he starts having more overnight lows -Continue NovoLog 15 units with larger meals, encouraged him to take it prior to eating and be more consistent with taking this dose -Recommend improved diet particularly in the evening -Continue metformin at 1000 mg twice daily -Continue Dexcom G6 CGM -Continue lisinopril; blood pressure today 118/62 DM Health Maintenance: Ophtho: done 08/2023, prior history of retinopathy that was stable Monofilament / Foot exam: Completed today Lipids/Statin: Continue statin with last FLP showing LDL 84 done 09/02/2023 ISABEL:Cr 108.7 done 07/29/2023, repeat today TSH: 1.450 done 09/02/2023 aspirin: taking Assessment & Plan (02/15/2024 11:38 AM EDT): Diabetes is stable. Continue current treatment regimen. 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 04/10/2021 Encounters Date Type Department Care Team Description 05/10/2025 9:00 AM EDT Office Visit [facility] [address] [place] [address] Aj Breaux MD Type 2 diabetes mellitus with hyperglycemia, with long-term current use of insulin (Primary Dx); Primary hypertension; Mixed hyperlipidemia 05/10/2025 Documentation [facility] [address] [place] [address] Aj Breaux MD 05/10/2025 Travel from Last 3 Months Immunizations Immunization Administration Dates Next Due Hep A / Hep B 05/25/2018,03/16/2018 Tdap 03/16/2018 Family History Medical History Relation Name Comments Diabetes Brother Augusto Sleep apnea Brother Augusto Diabetes Father Varinder kelly Early Father Varinder kelly Heart attack Father Varinder kelly Heart disease Father Varinder kelly Hypertension Father Varinder kelly Obesity Father Varinder kelly Sleep apnea Father Varinder kelly Stroke Father Varinder kelly Cancer Maternal Grandfather Ashley krause L tabatha cancer Sleep apnea Mother Diabetes Paternal Grandfather Tacho kelly Heart disease Paternal Grandfather Tacho kelly Hypertension Paternal Grandfather Tacho kelly Diabetes Paternal Grandmother Helen Relation Name Status Comments Brother Augusto Father Varinder kelly GUILLANI-BA RRE SYNDROME Maternal Grandfather Ashley krause Mother Alive Paternal Grandfather Tacho kelly Paternal Grandmother Helen Social History Tobacco Use Types Packs/Day Years Used Date Smoking Tobacco: Never Passive Smoke Exposure: Never Smokeless Tobacco: Current Chew Tobacco Cessation:Ready to Q uit: Not Asked; Counseling Given: Not Answered Alcohol Use Standard Drinks/Week Comments Not Currently [...] Orientation Straight 01/12/2025 11 :37 AM EDT Last Filed Vital Signs Vital Sign Reading Time Taken Comments Blood Pressure 122/70 05/10/2025 8:37 AM EDT Pulse 82 05/10/2025 8:37 AM EDT Temperature 37 C (98.6 F) 09/18/2020 11:13 AM EST Respiratory Rate 22 05/11/2024 9:10 AM EDT Oxygen Saturation 97% 05/10/2025 8:37 AM EDT Inhaled Oxygen Concentration - - Weight 124 kg (272 lb 6.4 oz) 05/10/2025 8:37 AM EDT Height 177.8 cm (5' 10 ) 05/10/2025 8:37 AM EDT Body Mass Index 39.09 05/10/2025 8:37 AM EDT Plan of Treatment Upcoming Encounters Date Type Department Care Team (Late st Contact Info) Description 07/26/2025 9:00 AM EST Office Visit [facility] [address] [place] [id number] Dunia Rojas, ACCOUNTS PAYABLE PAYROLL COORDINATOR [address] [place] [address] [place] [address] 09/21/2025 10:30 AM EDT Office Visit [facility] [address] [place] [id number] Aj Breaux MD [address] [place] [address] Health Maintenance Due Date Last Done Comments Pneumococcal Vaccine 0-49 (1 of 2 - PCV) 1998 Hepatitis B (3 of 3 - Hep B Twinrix 3-dose series) 10/23/2018 05/25/2018, 03/16/2018 ANNUAL PHYSICAL 05/03/2020 HEPATITIS C SCREENING 05/03/2020 COLOGUARD 2024 COLON CANCER SCREENING 5 YEA R SIGMOIDOSCOPY 2024 COLONOSCOPY 2024 COLORECTAL CANCER SCREENING 2024 CT COLONOGRAPHY 2024 FECAL OCCULT BLOOD TEST 2024 FIT Testing (1 year) 2024 DIABETIC EYE EXAM 08/27/2024 08/27/2023 (Eduard victoria-Reported (Performed Externally)) INFLUENZA VACCINE 02/09/2025 LIPID PANEL 08/03/2025 08/03/2024, 08/13, 04/15/2023, Additional history exists URINE MICROALBUMIN-CREATININ E RATIO (uACR) 08/04/2025 08/04/2024, 07/29/2023, 04/15/2023, Additional history exists HEMOGLOBIN A1C 11/08/2025 05/10/2025, 11/10, 08/03/2024, Additional history exists DIABETIC FOOT EXAM 05/10/2026 05/10/2025, 0 12/07/2024, 04/15/2023, Additional history exists TDAP/TD VACCINES (2 - Td or Tdap) 03/16/2028 018 Procedures Procedure Name Priority Date/Time Associated Diagnosis Comments POCT GLYCOSYLATED HEMOGLOBIN (HGB A1C) Routine 05/10/2025 8:52 AM EDT Type 2 diabetes mellitus with hyperglycemia, with long-term current use of insulin POCT GLUCOSE, BLD (NON STRIP) Routine 05/10/2025 8:51 AM EDT Type 2 diabetes mellitus with hyperglycemia, with long-term current use of insulin LIPID PANEL Routine 08/03/2024 1:24 PM EST Mixed hyperlipidemia MICROALBUMIN / CREATININE URINE RATIO Routine 07/29/2023 8:16 AM EST Type 2 diabetes mellitus with hyperglycemia, with long-term current use of insulin from Last 3 Months or Most Recently Relevant to Health Maintenance Results * (ABNORMAL) POC Glycosylated Hemoglobin (Hb A1C) (05/10/2025 8:52 AM EDT) Hemoglobin A1C 7.1(A) 4.5 - 5.7 % [facility] Lot Number [id number] [facility] Expiration Date 12/08/26 [facility] Blood 05/10/2025 8:52 AM EDT us Aj Breaux MD POINT OF CARE TEST ORDERABL ES Final Result [facility]
[address] [place] [address], * (ABNORMAL) POC Glucose, Blood (05/10/2025 8:51 AM EDT) Pathologist [facility] Glucose 144(A) 70 - 130 mg/dL Lot Number [id number] Expiration Date 09/29/25 Blood 05/10/2025 8:51 AM EDT us Aj Breaux MD POINT OF CARE TEST ORDERABL ES Final Result * (ABNORMAL) Lipid Panel (08/03/2024 1:24 PM EST) Pathologist [facility] Total Cholesterol 154 0 - 200 mg/dL 08/04/2024 12:03 AM [facility] Triglycerides 186(H) 0 - 150 mg/dL 08/04/2024 12:03 AM [facility] HDL Cholesterol 33(L) 40 - 60 mg/dL 08/04/2024 12:03 AM [facility] LDL Cholesterol 89 0 - 100 mg/dL 08/04/2024 12:03 AM [facility] VLDL Cholesterol 32 5 - 40 mg/dL 08/04/2024 12:03 AM [facility] LDL/HDL Ratio 2.54 08/04/2024 12:03 AM [facility] Blood Structure of left upper limb / Unknown Venipuncture / Unknown 08/03/2024 1:24 PM EST 08/03/2024 1:25 PM EST Narrative [facility] - 08/04/2024 12:03 AM EST Cholesterol Reference Ranges (U.S. Department of Health and Human Services ATP III Classifications) Desirable <200 mg/dL Borderline High 200-239 mg/dL High Risk >240 mg/dL Triglyceride Reference Ranges (U.S. Department of Health and Human Services ATP III Classifications) Normal <150 mg/dL Borderline High 150-199 mg/dL High 200-499 mg/dL Very High >500 mg/dL HDL Reference Ranges (U.S. Department of Health and Human Services ATP III Classifications) Low <40 mg/dl (major risk factor for CHD) High >60 mg/dl ('negative' risk factor for CHD) LDL Reference Ranges (U.S. Department of Health and Human Services ATP III Classifications) Optimal <100 mg/dL Near Optimal 100-129 mg/dL Borderline High 130-159 mg/dL High 160-189 mg/dL Very High >189 mg/dL LDL is calculated using the NIH LDL-C calculation. Aj Breaux MD LAB BLOOD ORDERABLES Final Result [facility]
[address] [place] [address], * (ABNORMAL) Microalbumin / Creatinine Urine Ratio - Urine, Clean Catch (07/29/2023 8:16 AM EST) Microalbumin/C reatinine Ratio 108.7(H) 0.0 - 29.0 mg/g 07/29/2023 2:41 PM EST [facility] Creatinine, Urine 154.5 mg/dL 07/29/2023 2:41 PM EST [facility] Microalbumin, Urine 16.8 mg/dL 07/29/2023 2:41 PM EST [facility] Urine Urine specimen obtained by clean catch procedure / Unknown Collection / Unknown 07/29/2023 8:16 AM EST 07/29/2023 11:07 AM EST Aj Breaux MD URINE ORDERABLES Final Resu lt [facility]
[address] [place] [address], [place] [phone] from Last 3 Months or Most Recently Relevant to Health Maintenance Insurance [employer] Care Teams Radar Technician Relationship Specialty Start Date End Date Zhane Douglas [address] [place] [address] PCP - General Nurse Practitioner 04/13/24
--- OUTSIDE RECORDS SUMMARY | 2025-06-10 15:42 | XMS_ITS | Clinical Summary ---
Author Organization [facility] Address [address] [place] [address] Phone Care Team Providers Care Wrapper Caser Name Role Phone Lei ESTRADA, Brown Unavailable [phone] JOSE ESTRADA (E), NEGRITO Fernandez Unavailable [phone] Reason for Visit and Chief Complaint The Chief Complaint is: left shoulder pain Problems Includes: Problems addressed during this encounter and other active Problems Current Visit Onset Date Resolved Date Provider Conditio n Status Joint Pain Shoulder Right 12/28/2022 Marciano Bai PA-C Active Last Documented On 3 1:24PM ; [facility], [facility] Lower Back Pain 05/08/2019 Brown Zuniga ctive Last Documented On 9 12:51PM ; [facility], [facility] Past Visits Onset Date Resolved Date Provider Condition Status Soft Tissue Pain Foot Left 08/16/2015 Javier Giron DPM Active Last Documented On 6 11:35AM ; [facility], [facility] Plan of Treatment Instructions to patient Lose weight Last Documented On 3 2:20PM ; [facility], [facility] Assessments Includes: Assessments from this encounter Findings 42-year-old male patient comes in today with left shoulder pain is not sure how he injured the shoulder but it has been bothering her for about 4-5 weeks now x- rays were taken today which shows no acute abnormality or any type of evidence of chronic issues. He has pain that radiates down his left arm that gets worse with lifting and doing straining activities. He feels best when he has the arm over his head that takes away some of the pain. - Last Documented On 01/01/2023 9:57AM ; [facility], [facility] The patient's medications, medication allergies, Past Medical and Surgical History, pertinent Family History, Social History and ten point Review of Systems was reviewed by me with the patient per the registration sheet dated today. It was then signed today and scanned into the electronic record. - Last Documented On 01/01/2023 9:57AM ; [facility], [facility] CONSTITUTIONAL: Well developed, well groomed, well nourished patient in no acute distress who appears stated age, height and weight. - Last Documented On 01/01/2023 9:57AM ; [facility], [facility] PSYCHIATRIC: The patient is alert and oriented to person, place, date and situation. Mood and affect are normal for current situation. - Last Documented On 01/01/2023 9:57AM ; [facility] NEUROLOGICAL: Sensation normal bilateral upper and lower extremities. - Last Documented On 01/01/2023 9:57AM ; [facility] LYMPHATIC: No pitting edema noted in the lower extremities. - Last Documented On 01/01/2023 9:57AM ; [facility] SKIN: No lesions noted on upper or lower extremities. Skin is dry, warm and with normal turgor. - Last Documented On 01/01/2023 9:57AM ; [facility] VASCULAR: No swelling in upper or lower extremities other than described below in extremity exam. Radial pulses normal in both upper extremities. - Last Documented On 01/01/2023 9:57AM ; [facility] GAIT AND STATION: Normal gait without assistive devices. Station normal. - Last Documented On 01/01/2023 9:57AM ; [facility] LEFT SHOULDER: No atrophy. No tenderness to palpation. No crepitation. Active Range of Motion: Abduction 160 degrees, Forward flexion 180 degrees, External rotation with arm at side degrees, Internal rotation to level of . Passive Range of Motion: not limited. Stability: no anterior, no posterior, no inferior laxity. Strength: Forward flexion 5/5, Internal rotation 5/5, External rotation 5/5. Negative Impingement sign. Negative Cross Arm test. Negative Traore's test. No pain with Speeds test. Negative drop arm test. - Last Documented On 01/01/2023 9:57AM ; [facility], [facility] RIGHT SHOULDER: No atrophy. positive tenderness to palpation. No crepitation. Active Range of Motion: Abduction 160 degrees, Forward flexion 180 degrees, External rotation with arm at side degrees, Internal rotation to level of . Passive Range of Motion: not limited. Stability: no anterior, no posterior, no inferior laxity. Strength: Forward flexion 5/5, Internal rotation 5/5, External rotation 5/5. Negative Impingement sign. Negative Cross Arm test. Negative Traore's test. Negative Speeds test. Negative drop arm test. - Last Documented On 01/01/2023 9:57AM ; [facility], [facility] Cervical Spine: No tenderness to palpation. No pain with flexion, extension, lateral rotation, or lateral bending of the cervical spine. positive Spurling sign. - Last Documented On 01/01/2023 9:57AM ; [facility], [facility] Assessment and plan - Last Documented On 01/01/2023 9:57AM ; [facility] left shoulder pain - Last Documented On 01/01/2023 9:57AM ; [facility] Cervical spine radiculopathy down the left arm - Last Documented On 01/01/2023 9:57AM ; [facility], [facility] Patient took the injection of the left shoulder very well after sterile prep. We will start off with physical therapy as well if the patient returns and and the injection did not help and I am going to refer him on to spine for cervical neck abnormalities. For physical therapy we will introduce cervical spine traction - Last Documented On 01/01/2023 9:57AM ; [facility], [facility] After sterile prep with alcohol, using sterile technique and anterior-lateral approach, 8 cc of marcaine & 40 mg of Kenalog was injected intra-articularly to the left shoulder. Hemostasis was obtained and the injection site was dressed. Patient tolerated the procedure without issues. Will ice for 10-15 minutes once or twice later today. - Last Documented On 01/01/2023 9:57AM ; [facility], [facility] Instructions Includes: Instructions from this encounter Instructions to patient Lose weight Last Documented On 2:20PM ; [facility], [facility] Medical Equipment - Implanted Devices Includes: Current Devices No Medical Equipment Recorded Medications Includes: Medications discussed during this encounter and other current Medications Current Medications (continue as prescribed) NovoLOG FlexPen 100 UNIT/ML Subcutaneous Solutio n Pen-injector 12/19/2022 Provider: Diagnosis: Last Documented On 3 1:25PM By Jose Carlos Melendez ; [facility], [facility] BD Pen Needle Toña 2nd Gen 32G X 4 MM Miscellaneous Provider: Diagnosis: Last Documented On 3 1:25PM By Jose Carlos Melendez ; [facility], [facility] Ondansetron HCl 8 MG Oral Tablet 12/08/2022 Provider : Diagnosis: Last Documented On 3 1:25PM By Jose Carlos Melendez ; [facility], [facility] Vitamin D (Ergocalciferol) 1.25 MG (05701 UT) Oral Cap lady 11/29/2022 Provider: Diagnosis: Last Documented On 3 1:25PM By Jose Carlos Melendez ; [facility], [facility] Dexcom G6 Transmitter Miscellaneous 11/05/2022 Provi eunice: Diagnosis: Last Documented On 3 1:25PM By Jose Carlos Melendez ; [facility], [facility] ZyrTEC Allergy 10 MG Oral Tablet 10/24/2020 Provider : Diagnosis: Last Documented On 1 8:48AM By Fabi Morelos ; [facility], [facility] Tricor 145 MG Oral Tablet 10/24/2020 Provider: Diagnosis: Last Documented On 1 8:44AM By Fabi Morelos ; [facility], [facility] Past Medications on file Atorvastatin Calcium 20 MG O ral Tablet 10/24/2020 - 01/22/2021 Provider: VICTORIANO HERNÁNDEZ MD Diagnosis: Last Documented On 1 8:49AM By Fabi Morelos ; [facility] Lisinopril 40 MG Oral Tablet 10/24/2020 - 01/22/2021 Sanjana ricks: VICTORIANO HERNÁNDEZ MD Diagnosis: Last Documented On 1 8:49AM By Fabi Morelos ; [facility] metFORMIN HCl ER (OSM) 1000 MG Oral Tablet Extended Release 24 Hour 10/24/2020 - 01/22/2021 Provider: VICTORIANO HERNÁNDEZ MD Diagnosis: Last Documented On 1 8:49AM By Fabi Morelos ; [facility] Tresiba 100 UNIT/ML Subcutan eous Solution 10/24/2020 - 01/22/2021 Provider: VICTORIANO HERNÁNDEZ MD Diagnosis: Last Documented On 1 8:49AM By Fabi Morelos ; [facility] Vascepa 1 GM Oral Capsule 10/24/2020 - 01/22/2021 Prov ider: Diagnosis: Last Documented On 1 8:50AM By Fabi Morelos ; [facility], [facility] NovoLOG 100 UNIT/ML Subcutan eous Solution 10/24/2020 - 01/22/2021 Provider: VICTORIANO HERNÁNDEZ MD Diagnosis: Last Documented On 1 8:48AM By Fabi Morelos ; [facility], [facility] Cyclobenzaprine HCl 10 MG Or al Tablet 05/08/2019 - 05/23/2019 Provider: Brown Odom MD Diagnosis: twice a day-one po bid prn Last Documented On 9 1:39PM By Carolina Smith ; [facility], [facility] Neurontin 300 MG Capsule 08/16/2015 - 09/15/2015 Provi eunice: Javier Giron DPM Diagnosis: 1 every bedtime be Last Documented On 6 12:39PM By Laura Alves ; [facility], [facility] Medications Administered Includes: Administered Medications from this encounter No Administered Medications Recorded Vital Signs Includes: Vital Signs from this encounter Vital Name 12/28/2022 02:18P Height (in) 71 Weight (lb) 260 Body Mass Index 36.3 Body Surface Area 2.4 Note: snb Last Documented: On 12/28/2022 2:18PM ; [facility], [facility] Results Includes: Results discussed during this encounter [...] from 1-10: 5 - No previous treatment. Social History Description Last Updated Caffeine use 1x a day ~ 03/26/2023 Last Documented On 3 1:25PM ; [facility], [facility] Tobacco non-user 12/28/2022 Last Documented On 3 9:57AM ; [facility], [facility] No recent change in diet 12/28/2022 Last Documented On 3 9:57AM ; [facility], [facility] Not a current smoker. 12/28/2022 Last Documented On 3 9:57AM ; [facility] Not using alcohol 12/28/2022 Last Documented On 3 9:57AM ; [facility], [facility] Not using drugs 12/28/2022 Last Documented On 3 9:57AM ; [facility], [facility] Non-smoker 11/25/2020 Last Documented On 3 1:25PM ; [facility] Smoking status : Current everyday smoker smokeless/dip 05/08/2019 Last Documented On 3 1:25PM ; [facility], [facility] Current smoker dip ~ 05/08/2019 Last Documented On 3 1:25PM ; [facility] Not exercising regularly 08/16/2015 Last Documented On 3 1:25PM ; [facility] Procedures and Surgical History Includes: Procedures from this encounter Procedures Code Diagnosis Performing Provider Service L ocation Service Date use of tobacco assessment performed 1000F Last Documented On 3 2:20PM ; [facility] Surgical History Last Updated History of total knee arthroplasty 2 kne e sx ~ 03/26/2023 Last Documented On 3 1:25PM ; [facility] Medical History Includes: Medical History addressed during this encounter Description Last Updated History of Heartburn / Acid Reflux 12/28 Last Documented On 3 9:57AM ; [facility], [facility] History of History of Blood Clots 2022 Last Documented On 3 9:57AM ; [facility] History of Hypertension 12/28/2022 Last Documented On 3 9:57AM ; [facility] History of Sleep Apnea 12/28/2022 Last Documented On 3 9:57AM ; [facility] Use of CPAP 12/28/2022 Last Documented On 3 9:57AM ; [facility] Heartburn / Acid Reflux 11/25/2020 Last Documented On 3 1:25PM ; [facility] History of Blood Clots 11/25/2020 Last Documented On 3 1:25PM ; [facility] Hypertension 11/25/2020 Last Documented On 3 1:25PM ; [facility] Sleep Apnea 11/25/2020 Last Documented On 3 1:25PM ; [facility] Use of CPAP 11/25/2020 Last Documented On 3 1:25PM ; [facility] acid reflux ~ 05/08/2019 Last Documented On 3 1:25PM ; [facility] History of diabetes mellitus 05/08/2019 Last Documented On 3 1:25PM ; [facility] A recent injection 05/08/2019 Last Documented On 3 1:25PM ; [facility] Family History Includes: Family History addressed during this encounter Description Last Updated Family history of diabetes mellitus fath er ~grand parents ~ 03/26/2023 Last Documented On 3 1:25PM ; [facility] Family history of heart disease father ~ 03/26/2023 Last Documented On 3 1:25PM ; [facility] Paternal history of diabetes mellitus Last Documented On 3 9:57AM ; [facility] Paternal history of diabetes mellitus fr aternal 12/28/2022 Last Documented On 3 1:25PM ; [facility] Paternal history of family history of he art disease 12/28/2022 Last Documented On 3 9:57AM ; [facility] Paternal history of family history of he art disease 12/28/2022 Last Documented On 3 1:25PM ; [facility] Paternal history of thromboembolic disea se 12/28/2022 Last Documented On 3 9:57AM ; [facility] Paternal history of thromboembolic disea se 12/28/2022 Last Documented On 3 1:25PM ; [facility] stroke/seizures -grandparents ~ ~ 2018 Last Documented On 3 1:25PM ; [facility] Family history of hypertension 9 Last Documented On 3 1:25PM ; [facility] Family history of thromboembolic disease 05/08/2019 Last Documented On 3 1:25PM ; [facility] Review of Systems Includes: Review of [...] Active Last Documented On 5 10:53AM ; [facility] Encounters Encounter Provider Location Date Check-In Time Check-Out Time Diagnosis Non Physician Specified Marciano Bai PA-C [facility] 12/29/19 1:15PM 2:06PM Insurance Includes: Active Insurance Policies Plan Name Member ID Group # Subscriber Relationship Effect janneth Dates 1 - [facility] [id number] David Kelly Self 07/12/2018 - Unknown Clinical Notes Includes: Clinical Notes from this encounter * Progress note Date Encounter Last Documented by 12/28/2022 Non Physician Specified Last doc umented on 01/01/2023; 9:57 AM, Marciano Bai PA-C; [facility] Active Problems & Conditions - [...] from 1-10: 5 - No previous treatment. Current Medication - BD Pen Needle Toña [...] refills - Vitamin D (Ergocalciferol) 1.25 MG (36618 UT) Oral Capsule 56 days, 0 refills - ZyrTEC Allergy 10 MG Oral Tablet take as directed 0 days, 0 refills Past Medical/Surgical History Reported: Use of CPAP. Use of CPAP. Medications: A recent injection. Diagnoses: History of Blood Clots. History of Blood Clots. Sleep Apnea. Sleep Apnea. Heartburn / Acid Reflux. Heartburn / Acid Reflux. Hypertension. Hypertension. Diabetes mellitus Acid reflux . Surgical: [...] mellitus father grand parents Paternal: Heart disease Heart disease Thromboembolic disease Thromboembolic disease Diabetes mellitus Diabetes mellitus fraternal Review Of Systems Systemic: No symptoms, not [...] allergic reaction. Physical Findings - Vitals taken 12/28/2022 02:18 pm snb Height 71 in Weight 260 lbs Body Mass Index 36.3 kg/m2 Body Surface Area 2.4 m2 Standard Measurements: - Patient was overweight. Tests 4 views of the left shoulder were ordered and reviewed by me today. They show no evidence of fractures or dislocation. There is no significant osteoarthritic change within the glenohumeral joint or the a.c. joint. There is no evidence of destructive pathologic lesions. There is no high riding humeral head. Visualized lung alicea are clear. Assessment 42-year-old male patient comes in today with left shoulder pain is not sure how he injured the shoulder but it has been bothering her for about 4-5 weeks now x- rays were taken today which shows no acute abnormality or any type of evidence of chronic issues. He has pain that radiates down his left arm that gets worse with lifting and doing straining activities. He feels best when he has the arm over his head that takes away some of the pain. The patient's medications, medication allergies, Past Medical and Surgical History, pertinent Family History, Social History and ten point Review of Systems was reviewed by me with the patient per the registration sheet dated today. It was then signed today and scanned into the electronic record. CONSTITUTIONAL: Well developed, well groomed, well nourished patient in no acute distress who appears stated age, height and weight. PSYCHIATRIC: The patient is alert and oriented to person, place, date and situation. Mood and affect are normal for current situation. NEUROLOGICAL: Sensation normal bilateral upper and lower extremities. LYMPHATIC: No pitting edema noted in the lower extremities. SKIN: No lesions noted on upper or lower extremities. Skin is dry, warm and with normal turgor. VASCULAR: No swelling in upper or lower extremities other than described below in extremity exam. Radial pulses normal in both upper extremities. GAIT AND STATION: Normal gait without assistive devices. Station normal. LEFT SHOULDER: No atrophy. No tenderness to palpation. No crepitation. Active Range of Motion: Abduction 160 degrees, Forward flexion 180 degrees, External rotation with arm at side degrees, Internal rotation to level of . Passive Range of Motion: not limited. Stability: no anterior, no posterior, no inferior laxity. Strength: Forward flexion 5/5, Internal rotation 5/5, External rotation 5/5. Negative Impingement sign. Negative Cross Arm test. Negative Traore's test. No pain with Speeds test. Negative drop arm test. RIGHT SHOULDER: No atrophy. positive tenderness to palpation. No crepitation. Active Range of Motion: Abduction 160 degrees, Forward flexion 180 degrees, External rotation with arm at side degrees, Internal rotation to level of . Passive Range of Motion: not limited. Stability: no anterior, no posterior, no inferior laxity. Strength: Forward flexion 5/5, Internal rotation 5/5, External rotation 5/5. Negative Impingement sign. Negative Cross Arm test. Negative Traore's test. Negative Speeds test. Negative drop arm test. Cervical Spine: No tenderness to palpation. No pain with flexion, extension, lateral rotation, or lateral bending of the cervical spine. positive Spurling sign. Assessment and plan left shoulder pain Cervical spine radiculopathy down the left arm Patient took the injection of the left shoulder very well after sterile prep. We will start off with physical therapy as well if the patient returns and and the injection did not help and I am going to refer him on to spine for cervical neck abnormalities. For physical therapy we will introduce cervical spine traction After sterile prep with alcohol, using sterile technique and anterior-lateral approach, 8 cc of marcaine & 40 mg of Kenalog was injected intra-articularly to the left shoulder. Hemostasis was obtained and the injection site was dressed. Patient tolerated the procedure without issues. Will ice for 10-15 minutes once or twice later today. Counseling/Education - Lose weight Practice Management Use of tobacco assessment performed. Care Team - NEGRITO GARCIA MD (E)
--- OUTSIDE RECORDS SUMMARY | 2025-06-10 15:42 | XMS_ITS | Data Portability ---
Author Organization [facility] [employer] [facility] Address [address] [place] [address] Assessment Encounter Date Assessment Date Assessment LastModified by Organization Details LastModified Time 02/16/2025 02/16/2025 Patient presented for medication refill. Patient tolerating medication well at current dose without adverse effects. Refilled as below. Discussed plan with patient, who expressed understanding . Follow up as noted below. [email or web address] [id number] Not available 02/16/2025 18:23:38 Plan of Treatment Reminders Order Date Submit Date Provider Last Modified By Organization Details Last Modified Time Details Appointments None recorded. Lab HbA1c (hemoglobin A1c), blood [address], [address], 12:14:13 CBC w/ auto diff 2024 025 [facility], [address] [place] [address], [address], 5 11:08:29 CMP, serum or plasma 2024 025 [facility], [address] [place] [address], [address], 5 11:08:29 TSH + free T4, serum 2024 025 [facility], [address] [place] [address], [address], 5 11:08:28 lipid panel, serum 2024 025 [facility]), [address] [place] [address], [address], 5 11:08:30 borrelia burgdorferi IgG + IgM + total panel, IA, serum 2024 025 [facility]), [address] [place] [address], [address], 5 11:08:31 vitamin D, 25-hydroxy, total, serum 2024 025 [facility], [address] [place] [address], [address], 5 11:08:30 cobalamin and folate panel, serum 2024 025 [facility]), [address] [place] [address], [address], 5 11:08:30 urinalysis, dipstick 2024 025 [email or web address] [facility], [address] [place] [address], [address], 5 16:19:50 HbA1c (hemoglobin A1c), blood 2024 025 [email or web address] [facility], [address] [place] [address], [address], 5 18:26:47 lipid panel, serum 2024 025 [facility]), [address] [place] [address], [address], 5 18:09:11 CMP, serum or plasma 2024 025 [facility]), [address] [place] [address], [address], 5 18:09:10 CBC w/ auto diff 2024 025 [facility]), [address] [place], [address], 5 18:09:09 TSH + free T4, serum 2024 025 [facility]), [address] [place] [address], [address], 5 18:09:08 vitamin D, 25-hydroxy, total, serum 2024 025 [facility]), [address] [place] [address], [address], 5 18:09:12 HbA1c (hemoglobin A1c), blood [address], [address] [place] [address], [address], 18:09:26 Referral None recorded. Procedures None recorded. Surgeries None recorded. Imaging None recorded. Medication Orders fluconazole 150 mg tablet 2024 [facility], [address] [place] [address], [address], 09:56:30 Jardiance 25 mg tablet 2024 [facility], [address] [place] [address], [address], 09:56:33 lisinopril 20 mg tablet 2024 025 [facility], [address] [place] [address], 24[address], 09:56:33 doxycycline hyclate 100 mg capsule 11/2024 [facility], [address] [place] [address], [address], 09:56:31 atorvastati n 40 mg tablet 2024 [facility], [address] [place] [address], [address], 09:56:32 icosapent ethyl 1 gram capsule 2024 [facility], [address] [place] [address], [address], 13:18:11 omeprazole 40 mg capsule,del ayed release 2024 [facility], [address] [place] [address], [address], 09:56:31 Lantus Solostar U-100 Insulin 100 unit/mL (3 mL) subcutaneou s pen 2024 [facility], [address] [place] [address], [address], 5 10:24:47 metformin ER 500 mg tablet,exte nded release 24 hr 2024 [facility], [address] [place] [address], [address], 09:56:31 Ozempic 1 mg/dose (4 mg/3 mL) subcutaneou s pen injector 2024 [facility], [address] [place] [address], [address], 13:13:08 betamethaso ne, augmented 0.05 % topical ointment 2024 [facility], [address] [place] [address], [address], 5 13:08:06 ketorolac 60 mg/2 mL intramuscul ar solution 2024 025 [email or web address] Not available 15:35:19 diclofenac sodium 50 mg tablet,kae yed release 2024 025 [facility], [address] [place] [address], 8[address], 05:01:01 cyclobenzap rine 10 mg tablet 2024 025 [facility], [address] [place] [address], [address], 17:34:50 atorvastati n 40 mg tablet 2024 025 [facility], [address] [place] [address], 134[address], 13:53:54 icosapent ethyl 1 gram capsule 2024 025 [facility], [address] [place] [address], 160[address], 16:49:58 Jardiance 25 mg tablet 2024 025 [facility], [address] [place] [address], 35[address], 5 13:53:55 omeprazole 40 mg capsule,del ayed release 2024 025 [facility], [address] [place] [address], 3[address], 5 13:53:55 lisinopril 20 mg tablet 2024 025 [facility], [address] [place] [address], 800[address], 13:53:55 Lantus U-100 Insulin 100 unit/mL subcutaneou s solution 2024 [facility], [address] [place] [address], 219[address], 13:53:56 metformin ER 500 mg tablet,exte nded release 24 hr 2024 [facility], [address] [place] [address], [address], 14:59:18 Ozempic 1 mg/dose (4 mg/3 mL) subcutaneou s pen injector 2024 [facility], [address] [place] [address], 7[address], 10:24:46 Patient TargetsNo targets recorded. Patient InstructionsNo instructions recorded. Reason for Referral None Reported. Results Created Date Observation Date Name Description Value Unit Range Abnormal Flag Note LastModifiedBy Organization Detail LastModifiedTime 11/18/1911/17/2024 HbA1c (hemo globi n A1c), blood HbA1c 12.2 Not Available [address], [address], 11/17/2024 15:40:03 11/19/1911/19/2024 TSH+F REE T4 TSH 1.100 uIU/m L 0.450- 4.500 normal Not Available [facility] ([facility]) [address] [place], [address], 11/20/2024 18:09:08 11/19/1911/19/2024 TSH+F REE T4 T4,free(dire ct) 1.58 NG/dL 0.82-1 .77 normal Not Available [facility] ([facility]) [address] [place], [address], 11/20/2024 18:09:08 11/19/1911/19/2024 CBC WITH DIFFE RENTI AL/PL ATELE T WBC 10.7 x10e3 /uL 3.4-10 .8 normal Not Available [facility] ([facility]) [address] [facility], [place], [address], 11/20/2024 18:09:09 11/19/1911/19/2024 CBC WITH DIFFE RENTI AL/PL ATELE T RBC 5.31 x10e6 /uL 4.14-5 .80 normal Not Available [facility] ([facility]) [address] [facility], [place], [address], 11/20/2024 18:09:09 11/19/1911/19/2024 CBC WITH DIFFE RENTI AL/PL ATELE T hemoglobin 16.3 g/dL 13.0-1 7.7 normal Not Available [facility] ([facility]) [address] [facility], [place], [address], 11/20/2024 18:09:09 11/19/1911/19/2024 CBC WITH DIFFE RENTI AL/PL ATELE T hematocrit 48.0 % 37.5-5 1.0 normal Not Available [facility] ([facility]) [address] [place], [address], 11/20/2024 18:09:09 11/19/1911/19/2024 CBC WITH DIFFE RENTI AL/PL ATELE T MCV 90 fL 79-97 normal Not Available [facility] ([facility]) [address] [facility], [place], [address], 11/20/2024 18:09:09 11/19/1911/19/2024 CBC WITH DIFFE RENTI AL/PL ATELE T MCH 30.7 pg 26.6-3 3.0 normal Not Available [facility] ([facility]) [address] [facility], [place], [address], 11/20/2024 18:09:09 11/19/1911/19/2024 CBC WITH DIFFE RENTI AL/PL ATELE T MCHC 34.0 g/dL 31.5-3 5.7 normal Not Available [facility] ([facility]) [address] [facility], [place], [address], 11/20/2024 18:09:09 11/19/1911/19/2024 CBC WITH DIFFE RENTI AL/PL ATELE T RDW 13.2 % 11.6-1 5.4 Not Available [facility] ([facility]) [address] [facility], [place], [address], 11/20/2024 18:09:09 11/19/1911/19/2024 CBC WITH DIFFE RENTI AL/PL ATELE T platelets 268 x10e3 /uL 150-45 0 normal Not Available [facility] ([facility]) [address] [facility], [place], [address], 11/20/2024 18:09:09 11/19/1911/19/2024 CBC WITH DIFFE RENTI AL/PL ATELE T neutrophils 70 % not estab. normal Not Available [facility] ([facility]) [address] [facility], [place], [address], 11/20/2024 18:09:09 11/19/1911/19/2024 CBC WITH DIFFE RENTI AL/PL ATELE T lymphs 22 % not estab. normal Not Available [facility] ([facility]) [address] [facility], [place], [address], 11/20/2024 18:09:09 11/19/1911/19/2024 CBC WITH DIFFE RENTI AL/PL ATELE T monocytes 5 % not estab. normal Not Available [facility] ([facility]) [address] [place], [address], 11/20/2024 18:09:09 11/19/19 25 11/19/2024 CBC WITH DIFFE RENTI AL/PL ATELE T eos 2 % not estab. normal Not Available [facility] ([facility]) [address] [facility], [place], [address], 11/20/2024 18:09:09 11/19/19 25 11/19/2024 CBC WITH DIFFE RENTI AL/PL ATELE T basos 1 % not estab. normal Not Available [facility] ([facility]) [address] [place], [address], 11/20/2024 18:09:09 11/19/19 25 11/19/2024 CBC WITH DIFFE RENTI AL/PL ATELE T immature cells RESIDENT CARE AID Not Available [facility]) [address] [place], [address], 11/20/2024 18:09:09 11/19/19 25 11/19/2024 CBC WITH DIFFE RENTI AL/PL ATELE T neutrophils (absolute) 7.5 x10e3 /uL 1.4-7. 0 above high normal Not Available [facility] ([facility]) [address] [place], [address], 11/20/2024 18:09:09 11/19/19 25 11/19/2024 CBC WITH DIFFE RENTI AL/PL ATELE T lymphs (absolute) 2.4 x10e3 /uL 0.7-3. 1 normal Not Available [facility] ([facility]) [address] [place], [address], 11/20/2024 18:09:09 11/19/19 25 11/19/2024 CBC WITH DIFFE RENTI AL/PL ATELE T monocytes(ab solute) 0.5 x10e3 /uL 0.1-0. 9 normal Not Available [facility] ([facility]) [address] [place], [address], 11/20/2024 18:09:09 11/19/19 25 11/19/2024 CBC WITH DIFFE RENTI AL/PL ATELE T eos (absolute) 0.2 x10e3 /uL 0.0-0. 4 normal Not Available [facility] ([facility]) [address] [facility], [place], [address], 11/20/2024 18:09:09 11/19/1911/19/2024 CBC WITH DIFFE RENTI AL/PL ATELE T baso (absolute) 0.1 x10e3 /uL 0.0-0. 2 normal Not Available [facility] ([facility]) [address] [facility], [place], [address], 11/20/2024 18:09:09 11/19/1911/19/2024 CBC WITH DIFFE RENTI AL/PL ATELE T immature granulocytes 0 % not estab. Not Available [facility] ([facility]) [address] [facility], [place], [address], 11/20/2024 18:09:09 11/19/1911/19/2024 CBC WITH DIFFE RENTI AL/PL ATELE T immature grans (abs) 0.0 x10e3 /uL 0.0-0. 1 Not Available [facility] ([facility]) [address] [facility], [place], [address], 11/20/2024 18:09:09 11/19/1911/19/2024 CBC WITH DIFFE RENTI AL/PL ATELE T NRBC RESIDENT CARE AID Not Available [facility] ([facility]) [address] [facility], [place], [address], 11/20/2024 18:09:09 11/19/1911/19/2024 CBC WITH DIFFE RENTI AL/PL ATELE T hematology comments: RESIDENT CARE AID Not Available [facility]) [address] [facility], [place], [address], 11/20/2024 18:09:09 11/19/19 25 11/19/2024 COMP. METAB OLIC PANEL (14) glucose 350 mg/dL 70-99 above high normal Not Available [facility] ([facility]) [address] [place], [address], 11/20/2024 18:09:10 11/19/19 25 11/19/2024 COMP. METAB OLIC PANEL (14) BUN 16 mg/dL 6-24 normal Not Available [facility] ([facility]) [address] [place], [address], 11/20/2024 18:09:10 11/19/19 25 11/19/2024 COMP. METAB OLIC PANEL (14) creatinine 0.92 mg/dL 0.76-1 .27 normal Not Available [facility] ([facility]) [address] [place], [address], 11/20/2024 18:09:10 11/19/19 25 11/19/2024 COMP. METAB OLIC PANEL (14) eGFR 105 mL/mi n/1.7 3 >59 normal Not Available [facility] ([facility]) [address] [place], [address], 11/20/2024 18:09:10 11/19/19 25 11/19/2024 COMP. METAB OLIC PANEL (14) BUN/creatini ne ratio 17 9-20 normal Not Available [facility] ([facility]) [address] [place], [address], 11/20/2024 18:09:10 11/19/19 25 11/19/2024 COMP. METAB OLIC PANEL (14) sodium 128 mmol/ L 134-14 4 below low normal Not Available [facility] ([facility]) [address] [place], [address], 11/20/2024 18:09:10 11/19/19 25 11/19/2024 COMP. METAB OLIC PANEL (14) potassium 4.3 mmol/ L 3.5-5. 2 normal Not Available [facility] ([facility]) [address] [place], [address], 11/20/2024 18:09:10 11/19/19 25 11/19/2024 COMP. METAB OLIC PANEL (14) chloride 94 mmol/ L 96-106 below low normal Not Available [facility] ([facility]) [address] [place], [address], 11/20/2024 18:09:10 11/19/19 25 11/19/2024 COMP. METAB OLIC PANEL (14) carbon dioxide, total 16 mmol/ L 20-29 below low normal Not Available [facility] ([facility]) [address] [place], [address], 11/20/2024 18:09:10 11/19/19 25 11/19/2024 COMP. METAB OLIC PANEL (14) calcium 8.9 mg/dL 8.7-10 .2 normal Not Available [facility] ([facility]) [address] [place], [address], 11/20/2024 18:09:10 11/19/19 25 11/19/2024 COMP. METAB OLIC PANEL (14) protein, total 6.9 g/dL 6.0-8. 5 normal Not Available [facility] ([facility]) [address] [place], [address], 11/20/2024 18:09:10 11/19/19 25 11/19/2024 COMP. METAB OLIC PANEL (14) albumin 3.9 g/dL 4.1-5. 1 below low normal Speci men recei viridiana lipem ic. Value may be decre ased by lipem ia. Clini claude corre latio n indic ated. Not Available [facility] ([facility]) [address] [place], [address], 11/20/2024 18:09:10 11/19/19 25 11/19/2024 COMP. METAB OLIC PANEL (14) globulin, total 3.0 g/dL 1.5-4. 5 Not Available [facility] ([facility]) [address] [facility] [place] [place], [address], 11/20/2024 18:09:10 11/19/19 25 11/19/2024 COMP. METAB OLIC PANEL (14) bilirubin, total 0.4 mg/dL 0.0-1. 2 normal Not Available [facility] ([facility]) [address] [facility] [place] [place], [address], 11/20/2024 18:09:10 11/19/19 25 11/19/2024 COMP. METAB OLIC PANEL (14) alkaline phosphatase 127 IU/L 44-121 above high normal Not Available [facility] ([facility]) [address] [facility] [place], [address], 11/20/2024 18:09:10 11/19/19 25 11/19/2024 COMP. METAB OLIC PANEL (14) AST (SGOT) 21 IU/L 0-40 normal Not Available [facility] ([facility]) [address] [facility] [place] [place], [address], 11/20/2024 18:09:10 11/19/19 25 11/19/2024 COMP. METAB OLIC PANEL (14) ALT (SGPT) 25 IU/L 0-44 normal Not Available [facility] ([facility]) [address] [facility] [place] [place], [address], 11/20/2024 18:09:10 11/19/19 25 11/19/2024 LIPID PANEL cholesterol, total 460 mg/dL 100-19 9 above high normal Not Available [facility] ([facility]) [address] [facility] [place], [address], 11/20/2024 18:09:11 11/19/19 25 11/19/2024 LIPID PANEL triglyceride s 3511 mg/dL 0-149 alert high Resul ts confi rmed on dilut ion. Not Available [facility] ([facility]) [address] [place], [address], 11/20/2024 18:09:11 11/19/19 25 11/19/2024 LIPID PANEL HDL cholesterol 14 mg/dL >39 below low normal Not Available [facility] ([facility]) [address] [place], [address], 11/20/2024 18:09:11 11/19/19 25 11/19/2024 LIPID PANEL VLDL cholesterol claude Commen t mg/dL 5-40 abnormal The calcu latio n for the VLDL justa stero l is not valid when trigl yceri de level is >800 mg/dL . Not Available [facility] ([facility]) [address] [facility], [place], [address], 11/20/2024 18:09:11 11/19/19 25 11/19/2024 LIPID PANEL LDL chol calc ([facility]) Commen t mg/dL 0-99 abnormal Trigl yceri de resul t indic ated is too high for an accur ate LDL justa stero l estim ation . Not Available [facility] ([facility]) [address] [place], [address], 11/20/2024 18:09:11 11/19/19 25 11/19/2024 LIPID PANEL LDL calc comment: Commen t In the absen ce of the LDL-c value , if the Total Justa stero l (TC) is >260 mg/dL for those <16 years old or >290 for those >/=16 years old, consi eunice evalu ating for Famil ial Hyper justa stero lemia (FH) if clini cain indic ated. If the TC is below these limit s, the proba bilit y of FH canno t be deter mined . Not Available [facility] ([facility]) [address] [place], [address], 11/20/2024 18:09:11 11/19/19 25 11/20/2024 VITAM IN D, 25-HY DROXY vitamin D, 25-hydroxy COMMEN T NG/mL Test not perfo rmed. Speci men is gross ly lipem ic. Vitam in D defic iency has been defin ed by the Insti tute of Medic ine and an Endoc rine Socie ty pract ice guide line as a level of serum 25-OH vitam in D less than 20 ng/mL (1,2) . The Endoc rine Socie ty went on to furth er defin e vitam in D insuf ficie ncy as a level betwe en 21 and 29 ng/mL (2). 1. IOM (Inst itute of Medic ine). 2010. Dieta ry refer ence intak es for calci um and D. Katy ogden [place]: The [facility] . 2. Haley sauceda [place], Jade jimenez [place], Reshma off-F errar i MOLINA, et al. Evalu ation , treat ment, and preve ntion of vitam in D defic iency : an Endoc rine Socie ty clini claude pract ice guide line. JCEM. 2010; 96(7) :1911 -30. Not Available [facility] ([facility]) [address] [facility], [place], [address], 11/20/2024 18:09:12 11/19/19 25 11/20/2024 SPECI MEN STATU S REPOR T specimen status report COMMEN T Test not perfo rmed. Speci men is gross ly lipem ic. TEST: 01297 0 Vitam in D, 25-Hy droxy Not Available [facility] ([facility]) [address] [facility], [place], [address], 11/20/2024 18:09:13 02/17/20 25 02/16/2025 HbA1c (hemo globi n A1c), blood HbA1c 12.9 Not Available [address], [address], 02/16/2025 15:50:25 04/06/2004/06/2025 urina lysis , dipst ick Leukocytes Negati ve Not Available [address], [address], 04/06/2025 16:04:45 04/06/2004/06/2025 urina lysis , dipst ick Nitrite negati ve Not Available [address], [address], 04/06/2025 16:04:45 04/06/2004/06/2025 urina lysis , dipst ick Urobilinogen .2 Not Available [address], [address], 04/06/2025 16:04:45 04/06/2004/06/2025 urina lysis , dipst ick Protein Negati ve Not Available [address], [address], 04/06/2025 16:04:45 04/06/2004/06/2025 urina lysis , dipst ick pH 6.0 Not Available [address], [address], 04/06/2025 16:04:45 04/06/2004/06/2025 urina lysis , dipst ick Blood Negati ve Not Available [address], [address], 04/06/2025 16:04:45 04/06/2004/06/2025 urina lysis , dipst ick Specific [place] 1.010 Not Available [address], [address], 04/06/2025 16:04:45 04/06/20 25 04/06/2025 urina lysis , dipst ick Ketone Negati ve Not Available [address], [address], 04/06/2025 16:04:45 04/06/2004/06/2025 urina lysis , dipst ick Bilirubin Negati ve Not Available [address], [address], 04/06/2025 16:04:45 04/06/20 25 04/06/2025 urina lysis , dipst ick Glucose 1000 Not Available [address], [address], 04/06/2025 16:04:45 04/06/2004/06/2025 urina lysis , dipst ick Appearance Clear Not Available [address], [address], 04/06/2025 16:04:45 04/06/2004/06/2025 urina lysis , dipst ick Color Yellow Not Available [address], [address], 04/06/2025 16:04:45 05/18/20 25 05/19/2025 TSH+F REE T4 TSH 2.110 uIU/m L 0.450- 4.500 normal Not Available [facility] ([facility]) [address] [facility], [place], [address], 05/19/2025 11:08:28 05/18/20 25 05/19/2025 TSH+F REE T4 T4,free(dire ct) 1.48 NG/dL 0.82-1 .77 normal Not Available [facility] ([facility]) [address] [facility], [place], [address], 05/19/2025 11:08:28 05/18/20 25 05/19/2025 CBC WITH DIFFE RENTI AL/PL ATELE T WBC 11.4 x10e3 /uL 3.4-10 .8 above high normal Not Available [facility] ([facility]) [address] [facility], [place], [address], 05/19/2025 11:08:29 05/18/20 25 05/19/2025 CBC WITH DIFFE RENTI AL/PL ATELE T RBC 5.40 x10e6 /uL 4.14-5 .80 normal Not Available [facility] ([facility]) [address] [facility], [place], [address], 05/19/2025 11:08:29 05/18/20 25 05/19/2025 CBC WITH DIFFE RENTI AL/PL ATELE T hemoglobin 15.6 g/dL 13.0-1 7.7 normal Not Available [facility] ([facility]) [address] [facility], [place], [address], 05/19/2025 11:08:29 05/18/20 25 05/19/2025 CBC WITH DIFFE RENTI AL/PL ATELE T hematocrit 49.0 % 37.5-5 1.0 normal Not Available [facility] ([facility]) [address] [place], [address], 05/19/2025 11:08:29 05/18/20 25 05/19/2025 CBC WITH DIFFE RENTI AL/PL ATELE T MCV 91 fL 79-97 normal Not Available [facility] ([facility]) [address] [facility], [place], [address], 05/19/2025 11:08:29 05/18/20 25 05/19/2025 CBC WITH DIFFE RENTI AL/PL ATELE T MCH 28.9 pg 26.6-3 3.0 normal Not Available [facility] ([facility]) [address] [facility], [place], [address], 05/19/2025 11:08:29 05/18/20 25 05/19/2025 CBC WITH DIFFE RENTI AL/PL ATELE T MCHC 31.8 g/dL 31.5-3 5.7 normal Not Available [facility] ([facility]) [address] [facility], [place], [address], 05/19/2025 11:08:29 05/18/20 25 05/19/2025 CBC WITH DIFFE RENTI AL/PL ATELE T RDW 13.1 % 11.6-1 5.4 Not Available [facility] ([facility]) [address] [facility], [place], [address], 05/19/2025 11:08:29 05/18/20 25 05/19/2025 CBC WITH DIFFE RENTI AL/PL ATELE T platelets 223 x10e3 /uL 150-45 0 normal Not Available [facility] ([facility]) [address] [facility], [place], [address], 05/19/2025 11:08:29 05/18/20 25 05/19/2025 CBC WITH DIFFE RENTI AL/PL ATELE T neutrophils 74 % not estab. normal Not Available [facility] ([facility]) [address] [facility], [place], [address], 05/19/2025 11:08:29 05/18/20 25 05/19/2025 CBC WITH DIFFE RENTI AL/PL ATELE T lymphs 18 % not estab. normal Not Available [facility] ([facility]) [address] [facility], [place], [address], 05/19/2025 11:08:29 05/18/20 25 05/19/2025 CBC WITH DIFFE RENTI AL/PL ATELE T monocytes 6 % not estab. normal Not Available [facility] ([facility]) [address] [facility], [place], [address], 05/19/2025 11:08:29 05/18/20 25 05/19/2025 CBC WITH DIFFE RENTI AL/PL ATELE T eos 1 % not estab. normal Not Available [facility] ([facility]) [address] [facility], [place], [address], 05/19/2025 11:08:29 05/18/20 25 05/19/2025 CBC WITH DIFFE RENTI AL/PL ATELE T basos 0 % not estab. normal Not Available [facility] ([facility]) [address] [facility], [place], [address], 05/19/2025 11:08:29 05/18/20 25 05/19/2025 CBC WITH DIFFE RENTI AL/PL ATELE T immature cells RESIDENT CARE AID Not Available [facility] ([facility]) [address] [place], [address], 05/19/2025 11:08:29 05/18/20 25 05/19/2025 CBC WITH DIFFE RENTI AL/PL ATELE T neutrophils (absolute) 8.5 x10e3 /uL 1.4-7. 0 above high normal Not Available [facility] ([facility]) [address] [place], [address], 05/19/2025 11:08:29 05/18/20 25 05/19/2025 CBC WITH DIFFE RENTI AL/PL ATELE T lymphs (absolute) 2.0 x10e3 /uL 0.7-3. 1 normal Not Available [facility] ([facility]) [address] [place], [address], 05/19/2025 11:08:29 05/18/20 25 05/19/2025 CBC WITH DIFFE RENTI AL/PL ATELE T monocytes(ab solute) 0.7 x10e3 /uL 0.1-0. 9 normal Not Available [facility] ([facility]) [address] [facility], [place], [address], 05/19/2025 11:08:29 05/18/20 25 05/19/2025 CBC WITH DIFFE RENTI AL/PL ATELE T eos (absolute) 0.1 x10e3 /uL 0.0-0. 4 normal Not Available [facility] ([facility]) [address] [facility], [place], [address], 05/19/2025 11:08:29 05/18/20 25 05/19/2025 CBC WITH DIFFE RENTI AL/PL ATELE T baso (absolute) 0.1 x10e3 /uL 0.0-0. 2 normal Not Available [facility] ([facility]) [address] [facility], [place], [address], 05/19/2025 11:08:29 05/18/20 25 05/19/2025 CBC WITH DIFFE RENTI AL/PL ATELE T immature granulocytes 1 % not estab. Not Available [facility] ([facility]) [address] [facility], [place], [address], 05/19/2025 11:08:29 05/18/20 25 05/19/2025 CBC WITH DIFFE RENTI AL/PL ATELE T immature grans (abs) 0.1 x10e3 /uL 0.0-0. 1 Not Available [facility] ([facility]) [address] [facility], [place], [address], 05/19/2025 11:08:29 05/18/20 25 05/19/2025 CBC WITH DIFFE RENTI AL/PL ATELE T NRBC RESIDENT CARE AID Not Available [facility] ([facility]) [address] [facility], [place], [address], 05/19/2025 11:08:29 05/18/20 25 05/19/2025 CBC WITH DIFFE RENTI AL/PL ATELE T hematology comments: RESIDENT CARE AID Not Available [facility] ([facility]) [address] [facility] [place], [address], 05/19/2025 11:08:29 05/18/20 25 05/19/2025 COMP. METAB OLIC PANEL (14) glucose 136 mg/dL 70-99 above high normal Not Available [facility] ([facility]) [address] [facility] [place], [address], 05/19/2025 11:08:29 05/18/20 25 05/19/2025 COMP. METAB OLIC PANEL (14) BUN 12 mg/dL 6-24 normal Not Available [facility] ([facility]) [address] [facility] [place], [address], 05/19/2025 11:08:29 05/18/20 25 05/19/2025 COMP. METAB OLIC PANEL (14) creatinine 0.66 mg/dL 0.76-1 .27 below low normal Not Available [facility] ([facility]) [address] [facility] [place], [address], 05/19/2025 11:08:29 05/18/20 25 05/19/2025 COMP. METAB OLIC PANEL (14) eGFR 117 mL/mi n/1.7 3 >59 normal Not Available [facility] ([facility]) [address] [facility] [place], [address], 05/19/2025 11:08:29 05/18/20 25 05/19/2025 COMP. METAB OLIC PANEL (14) BUN/creatini ne ratio 18 9-20 normal Not Available [facility] ([facility]) [address] [facility] [place], [address], 05/19/2025 11:08:29 05/18/20 25 05/19/2025 COMP. METAB OLIC PANEL (14) sodium 140 mmol/ L 134-14 4 normal Not Available [facility] ([facility]) [address] [facility] [place], [address], 05/19/2025 11:08:29 05/18/20 25 05/19/2025 COMP. METAB OLIC PANEL (14) potassium 4.6 mmol/ L 3.5-5. 2 normal Not Available [facility] ([facility]) [address] [facility] [place], [address], 05/19/2025 11:08:29 05/18/20 25 05/19/2025 COMP. METAB OLIC PANEL (14) chloride 101 mmol/ L 96-106 normal Not Available [facility] ([facility]) [address] [facility] [place], [address], 05/19/2025 11:08:29 05/18/20 25 05/19/2025 COMP. METAB OLIC PANEL (14) carbon dioxide, total 20 mmol/ L 20-29 normal Not Available [facility] ([facility]) [address] [facility] [place], [address], 05/19/2025 11:08:29 05/18/20 25 05/19/2025 COMP. METAB OLIC PANEL (14) calcium 9.7 mg/dL 8.7-10 .2 normal Not Available [facility] ([facility]) [address] [facility] [place], [address], 05/19/2025 11:08:29 05/18/20 25 05/19/2025 COMP. METAB OLIC PANEL (14) protein, total 7.2 g/dL 6.0-8. 5 normal Not Available [facility] ([facility]) [address] [facility] [place], [address], 05/19/2025 11:08:29 05/18/20 25 05/19/2025 COMP. METAB OLIC PANEL (14) albumin 4.5 g/dL 4.1-5. 1 normal Not Available [facility] ([facility]) [address] [facility] [place], [address], 05/19/2025 11:08:29 05/18/20 25 05/19/2025 COMP. METAB OLIC PANEL (14) globulin, total 2.7 g/dL 1.5-4. 5 Not Available [facility] ([facility]) [address] [facility] [place], [address], 05/19/2025 11:08:29 05/18/20 25 05/19/2025 COMP. METAB OLIC PANEL (14) bilirubin, total 1.0 mg/dL 0.0-1. 2 normal Not Available [facility] ([facility]) [address] [facility] [place], [address], 05/19/2025 11:08:29 05/18/20 25 05/19/2025 COMP. METAB OLIC PANEL (14) alkaline phosphatase 102 IU/L 47-123 normal Not Available [facility] ([facility]) [address] [facility] [place], [address], 05/19/2025 11:08:29 05/18/20 25 05/19/2025 COMP. METAB OLIC PANEL (14) AST (SGOT) 24 IU/L 0-40 normal Not Available [facility] ([facility]) [address] [facility] [place], [address], 05/19/2025 11:08:29 05/18/20 25 05/19/2025 COMP. METAB OLIC PANEL (14) ALT (SGPT) 25 IU/L 0-44 normal Not Available [facility] ([facility]) [address] [place], [address], 05/19/2025 11:08:29 05/18/20 25 05/19/2025 LIPID PANEL cholesterol, total 138 mg/dL 100-19 9 normal Not Available [facility] ([facility]) [address] [facility] [place], [address], 05/19/2025 11:08:30 05/18/20 25 05/19/2025 LIPID PANEL triglyceride s 204 mg/dL 0-149 above high normal Not Available [facility] ([facility]) [address] [facility], [place], [address], 05/19/2025 11:08:30 05/18/20 25 05/19/2025 LIPID PANEL HDL cholesterol 40 mg/dL >39 normal Not Available [facility] ([facility]) [address] [facility] [place], [address], 05/19/2025 11:08:30 05/18/20 25 05/19/2025 LIPID PANEL VLDL cholesterol claude 34 mg/dL 5-40 Not Available [facility] ([facility]) [address] [facility], [place], [address], 05/19/2025 11:08:30 05/18/20 25 05/19/2025 LIPID PANEL LDL chol calc ([facility]) 64 mg/dL 0-99 Not Available [facility] ([facility]) [address] [facility], [place], [address], 05/19/2025 11:08:30 05/18/20 25 05/19/2025 LIPID PANEL LDL calc comment: RESIDENT CARE AID Not Available [facility] ([facility]) [address] [facility], [place], [address], 05/19/2025 11:08:30 05/18/20 25 05/19/2025 VITAM IN B12 AND FOLAT E vitamin B12 257 pg/mL 232-12 45 normal Not Available [facility] ([facility]) [address] [facility], [place], [address], 05/19/2025 11:08:30 05/18/20 25 05/19/2025 VITAM IN B12 AND FOLAT E folate (folic acid), serum 14.2 NG/mL >3.0 normal A serum folat e mervat ntrat ion of less than 3.1 ng/mL is consi dered to repre sent clini claude defic iency . Not Available [facility] ([facility]) [address] [place], [address], 05/19/2025 11:08:30 05/18/20 25 05/19/2025 VITAM IN D, 25-HY DROXY vitamin D, 25-hydroxy 29.5 NG/mL 30.0-1 00.0 below low normal Vitam in D defic iency has been defin ed by the Insti tute of Medic ine and an Endoc rine Socie ty pract ice guide line as a level of serum 25-OH vitam in D less than 20 ng/mL (1,2) . The Endoc rine Socie ty went on to furth er defin e vitam in D insuf ficie ncy as a level betwe en 21 and 29 ng/mL (2). 1. IOM (Inst itute of Medic ine). 2010. Dieta ry refer ence intak es for calci um and D. Katy ogden [place]: [facility] . 2. Haley sauceda MF, Jade jimenez [place], Reshma off-F errar i MOLINA, et al. Evalu ation , treat ment, and preve ntion of vitam in D defic iency : an Endoc rine Socie ty clini claude pract ice guide line. JCEM. 2010; 96(7) :1911 -30. Not Available [facility] ([facility]) [address] [facility], [place], [address], 05/19/2025 11:08:30 05/18/20 25 05/19/2025 LYME DISEA SE SEROL OGY W/REF POOJA lyme total antibody rafael Equivo claude negati ve Evide nce of Lyme antib odies ; confi rmati on indic ated. See Lyme IgG and Lyme IgM resul ts (refl ex testi ng), and Lyme inter preta tion for final inter preta tion of the Lyme serol ogy refle x algor ithm. Not Available [facility] ([facility]) [address] [facility], [place], [address], 05/19/2025 11:08:31 05/18/20 25 05/19/2025 LYME DISEA SE SEROL OGY W/REF POOJA lyme IgG rafael Negati ve negati ve Not Available [facility] ([facility]) [address] [facility], [place], [address], 05/19/2025 11:08:31 05/18/20 25 05/19/2025 LYME DISEA SE SEROL OGY W/REF POOJA lyme IgM rafael Negati ve negati ve Not Available [facility] ([facility]) [address] [facility], [place], [address], 05/19/2025 11:08:31 05/18/20 25 05/19/2025 LYME DISEA SE SEROL OGY W/REF POOJA lyme interpretati on Lyme Abs Unconf irmed No labor atory evide nce of infec tion with B. burgd orfer i (Lyme disea se). Negat janneth resul ts may occur in patie nts recen tly infec julio (less than or equal to 14 days) with B. burgd orfer i. If recen t infec tion is suspe cted, repea t testi ng on a new sampl e colle cted in 7 to 14 days is recom emperatriz d. Not Available [facility] ([facility]) [address] [facility], [place], [address], 05/19/2025 11:08:31 05/18/20 25 05/18/2025 HbA1c (hemo globi n A1c), blood HbA1c 8.3 Not Available [address], [address], 05/18/2025 11:45:02 Result Notes None recorded. Problems Name Problem SNOMED Code Status Onset Date Resolution Date Notes Provider Name and Address Organization Details Recorded Time Type 2 diabetes mellitus without complicatio n 257582628 Active 2021 LITTLE Nicolas [employer]. 2 10:33:28 Hyperlipide sherlyn 42862157 Active 2021 LITTLE Nicolas [employer]. 2 10:33:34 Hyperglycem ia due to type 2 diabetes mellitus 2474462276334 09 Active 2024 [employer]. 5 15:39:59 Acute low back pain 095749052 Active 2024 Santy Watts, DIRECTOR [employer] [address] [place], [address], [employer]. 5 16:04:38 Pruritic rash 77385521 Active 2024 [employer]. 5 17:08:19 Diabetes mellitus 17537250 Active 2024 [employer] 5 11:44:58 Problem Notes None recorded. Procedures Surgical History Date Name Laterality Status Provider Name and Address Organization Details Recorded Time amputation of toe completed Venita Johnston [employer]. 07/16/2023 14:24:58 Imaging Results None recorded. Procedure Notes None recorded. Medical Equipment None Reported. Allergies Allergen ID Allergen Name Allergen Category Reaction Reaction Severity Criticality Documentation Date Start Date Code Code System Note Provider Name and Address Organization Details Recorded Time 11202 Product containin g penicilli n (product) medicatio n rash Not available Not available 04/13/2023 06825 8001 SNOMED Zhane Douglas, DIRECTOR [employer] [address] [place], [address], [employer]. 3 17:15:32 Medications Name Sig Start Date [...] Available Not Available Not Available Dexcom G6 Hr Business Partner Consultant Use as directed . active Not Available Not Available No t Available Dexcom G6 Transmitt er device Use as directed and change every 90 days active Not Available Not Available No t Available FreeStyle Stuart 2 Sensor kit USE DIRECTED active Not Available Not Available No t Available FreeStyle Stuart 2 [place] USE DIRECTED active Not Available Not Available [...] 2nd Gen Pen Needle 32 gauge x 32 Use as directed twice daliy with lantus active Not Available Not Available No t Available Vitals Date Recorded Body height Body mass index (BMI) Body weight Heart rate Oxygen saturation Systolic And Diastolic Provider Name and Address Organization Details Last Updated DateTime 5 167.64 cm 35 kg/m2 78889.5 4 g 96 /min 95 % 134/86 mm[Hg] [facility] 5 15:38:48 Date Recorded Body height Body mass index (BMI) Body weight Heart rate Oxygen saturation Systolic And Diastolic Provider Name and Address Organization Details Last Updated DateTime 5 167.64 cm 35 kg/m2 85315.5 4 g 103 /min 95 % 132/79 mm[Hg] Venita Johnston [employer]. 5 17:00:13 Date Recorded Body height Body mass index (BMI) Body weight Oxygen saturation Heart rate Body temperature Systolic And Diastolic Systolic And Diastolic Provider Name and Address Organization Details Last Updated DateTime 5 167.64 cm 34.9 kg/m2 71242.9 5 g 98 % 92 /min 97.8 [degF] 143/78 mm[Hg] 130/75 mm[Hg] Venita Johnston [employer] 5 15:51:07 Date Recorded Body height Body mass index (BMI) Body weight Heart rate Oxygen saturation Systolic And Diastolic Provider Name and Address Organization Details Last Updated DateTime 5 167.64 cm 35.2 kg/m2 73028.1 4 g 90 /min 98 % 132/83 mm[Hg] Venita Johnston [employer] 5 15:43:05 Date Recorded Body height Body mass index (BMI) Body weight Heart rate Oxygen saturation Systolic And Diastolic Provider Name and Address Organization Details Last Updated DateTime 5 167.64 cm 35 kg/m2 71345.5 4 g 89 /min 97 % 136/88 mm[Hg] Venita Johnston [employer]. 5 11:42:57 Social History Question Answer Notes LastModified by Organizat ion Details LastModified Time Tobacco Smoking Status Never Smoker Jerica Elenajad ford [employer]. 04/20/2022 13:25:37 Do You Have An Advance Directive? No [email or web address] Information n ot available 05/09/2022 Is Your Home Air Conditioned? Yes Information not available 11/05/2022 Do You Wear A Helmet When Biking? No Information not available 11/05/2022 Are You Blind Or Do You Have Difficulty Seeing? No [email or web address] Information n ot available 05/09/2022 What Is Your Level Of Caffeine Consumption? Occasional Information not available 11/05/2022 Are You A Caregiver? No Information not available 11/05/2022 In The 14 Days Before Symptom Onset, Have You Had Close Contact With A Laboratory-confirm ed COVID-19 While That Case Was Ill? No [email or web address] Information n ot available 05/09/2022 In The 14 Days Before Symptom Onset, Have You Had Close Contact With A Person Who Is Under Investigation For COVID-19 While That Person Was Ill? No Information not available 05/09/2022 Have You Been To An Area Known To Be High Risk For COVID-19? No [email or web address] Information not available 05/09/2022 Are You Deaf Or Do You Have Serious Difficulty Hearing? No [email or web address] Information not available 05/09/2022 What Type Of Diet Are You Following? DIABETIC [email or web address] Information n ot available 05/09/2022 Have There Been Any Changes To Your Family Or Social Situation? No Information no t available 11/05/2022 Are There Any Guns Present In Your Home? No Information not available 11/05/2022 Which Of Your Hands Is Dominant? Right Information n ot available 11/05/2022 Do You Have A Medical Power Of Brimming Machine Operator? No [email or web address] Information not available 05/09/2022 What Was The Date Of Your Most Recent Tobacco Screening? 05/18/2025 [email or web address] Information not available 05/18/2025 Do You Have Any Pets? No Information not available 11/05/2022 What Is Your Relationship Status? [email or web address] Information not available 05/09/2022 Do You Use [...] 11/05/2022 Have You Recently Traveled Abroad? No [email or web address] Information not available 05/09/2022 Do You Have Difficulty Walking Or Climbing Stairs? No [email or web address] Information not available 05/09/2022 Are You Currently In School? No [email or web address] Information not available 05/09/2022 Do You Have Any Dietary Restrictions? No Information not available 11/05/2022 Sex: Unknown Functional Status Question Answer Note LastModified by Organizat ion Details LastModified Time Do you use any illicit or recreational drugs? No Information not available 11/05/2022 Do you or have you ever used any other forms of tobacco or nicotine? No Information not available 11/05/2022 What is your level of alcohol consumption? None [email or web address] Information not available 04/20/2022 Are you currently employed? Yes [email or web address] Information not available 05/09/2022 Do you have transportation difficulties? No [email or web address] Information not available 05/09/2022 Are you able to walk independently without assistance or assistive devices? YESWOREST [email or web address] Information not available 05/09/2022 Do you have difficulty doing errands alone? No [email or web address] Information not available 05/09/2022 Are you able to care for yourself independently? Yes [email or web address] Information not available 05/09/2022 Do you have difficulty dressing, bathing, grooming, or toileting? No [email or web address] Information not available 05/09/2022 Mental Status Question Answer Note LastModified by Organizat ion Details LastModified Time Do you feel stressed (tense, restless, nervous, or anxious, or unable to sleep at night)? [id number] Information not available 11/05/2022 Do you have difficulty concentrating, remembering or making decisions? No [email or web address] Information no t available 05/09/2022 Family History Relationship Description Onset Age of this Age Resolved Age Notes LastModified by Organization Details LastModified Time Father Diabetes mellitus Not available 05/09 10:33:56 Medical History Condition Response Hospitalizations N ADD/ADHD N Diabetes Y Emergency room visit since last appointm ent. N Hypertension Y High Cholesterol Y Immunizations Vaccine Type Date Status Note Provider Nam e and Address Organization Details Recorded Time Tdap 01/02/2016 completed NILTON ford, [employer] 12/31/2022 09:31:35 Hep B, adult 01/02/2016 completed NILTONRENE SMITH null, [employer] 12/31/2022 09:31:35 Hep B, adult 02/17/2016 completed NILTON SMITH null, [employer] 12/31/2022 09:31:35 Hep B, adult 05/04/2019 completed NILTONRENE SMITH null, [employer] 12/31/2022 09:31:35 Hep A-Hep B 01/19/2019 completed NILTONRENE ford, [employer] 12/31/2022 09:31:35 Tdap 12/25/2022 completed Not Available [facility] 05/18/2025 11:24:10 Tdap 04/09/2025 completed Not Available [facility] 05/18/[facility]25 11:24:10 Past Encounters Encounter ID Performer Location Encounter Start Date Encounter Closed Date Diagnosis/Indication Diagnosis SNOMED-CT Code Diagnosis ICD10 Code Diagnosis IMO Codes Diagnosis Note [id number] [place] [address] 04/20/2022 13:12:38 04/20/2022 17:58:05 Gastroesophageal reflux disease 933339122 K21.9 Continue taking Omeprazole 60 minutes prior to meal. Nausea and vomiting 1693 1999 R11.2 Body mass index 30+ - obesity 845038925 Z68.33 Healthy lifestyle discussed. [id number] Zhane Douglas, [place] [address] 05/09/2022 10:28:45 05/09/2022 11:05:07 Gastroesophageal reflux disease without esophagitis 524378487 K21.9 Body mass index 30+ - obesity 301834109 Z68.34 [id number] Zhane Douglas [place] [address] 09/10/2022 16:36:09 09/10/2022 17:36:27 Acute sinusitis 97659741 J01.90 Lower resp iratory tract infection 84502482 J22 Cough 83538450 R05.9 Hearing loss 87988120 H9 1.90 Body mass index 30+ - obesity 157159041 Z68.34 [id number] Zhane Douglas [place] [address] 0 11/05/2022 16:42:21 11/05/2022 17:32:54 Type 2 diabetes mellitus without complication 084789740 E11.9 Hyperlipidemia 65286082 E78.5 Essential hypertension 31194603 I10 Gastroesop hageal reflux disease without esophagitis 107794121 K21.9 Body mass index 30+ - obesity 203033766 Z68.34 [id number] Zhane Douglas [place] [address] 0 01/04/2023 16:37:00 01/04/2023 17:32:14 Uncontrolled type 2 diabetes mellitus 206315333 E11.65 Noncomplia nce with medication regimen 142255420 Z91.750 [id number] Zhane Douglas [place] [address] 0 04/13/2023 16:32:33 04/13/2023 17:21:42 Type 2 diabetes mellitus without complication 757988587 E11.9 Cellulitis 015005806 L03 .90 Hyperlipidemia 40657547 E78.5 Essential hypertension 64415635 I10 Gastroesop hageal reflux disease without esophagitis 207566179 K21.9 Uncontroll ed type 2 diabetes mellitus 952089217 E11.65 Ulcer of toe 962214213 L 97.509 Body mass index 30+ - obesity 238132026 Z68.34 [id number] Zhane Douglas [place] [address] 0 06/17/2023 11:16:07 06/17/2023 13:37:58 Type 2 diabetes mellitus without complication 866044986 E11.9 Amputated toe 063861321 Z89.429 Body mass index 30+ - obesity 165056553 Z68.34 [id number] Zhane Douglas [place] [address] 0 07/16/2023 14:02:44 07/16/2023 15:01:25 Hyperlipidemia 75223727 E78.5 Uncontroll ed type 2 diabetes mellitus 648950850 E11.65 Type 2 griffin betes mellitus without complication 661873869 E11.9 Essential hypertension 84016328 I10 Gastroesop hageal reflux disease without esophagitis 011373732 K21.9 Nodule of lung 071865705 R91.1 Sialoadenitis 42082298 K 11.20 Body mass index 30+ - obesity 571035194 Z68.34 [id number] Zhane Douglas [place] [address] 0 09/23/2023 15:21:34 09/23/2023 16:31:47 Cough 09865176 R05.9 Influenza caused by Influenza B virus 90213208 J10.1 Body mass index 30+ - obesity 651568766 Z68.34 [id number] Zhane Douglas [place] [address] 0 10/28/2023 16:33:13 10/28/2023 17:23:09 Type 2 diabetes mellitus without complication 970400752 E11.9 Hyperlipidemia 35861176 E78.5 Uncontroll ed type 2 diabetes mellitus 455458071 E11.65 Essential hypertension 92061116 I10 Gastroesop hageal reflux disease without esophagitis 137857459 K21.9 Neck pain 01568734 M54.2 Thoracic back pain 27151 8004 M54.6 Body mass index 30+ - obesity 997411157 Z68.34 [id number] Zhane Douglas [place] [address] 0 02/03/2024 16:43:11 02/03/2024 17:18:23 Fatigue 92968717 R53.83 Hyperlipidemia 09261189 E78.5 Type 2 griffin betes mellitus without complication 118466855 E11.9 Uncontroll ed type 2 diabetes mellitus 692894131 E11.65 Essential hypertension 02607076 I10 Gastroesop hageal reflux disease without esophagitis 934105222 K21.9 Body mass index 30+ - obesity 998872791 Z68.34 [id number] [place] [address] 05/22/2024 10:41:16 05/22/2024 11:31:40 Type 2 diabetes mellitus without complication 708657062 E11.9 Body mass index 30+ - obesity 936216257 Z68.34 Snoring 24807431 R06.83 Hyperlipidemia 52391518 E78.5 Uncontroll ed type 2 diabetes mellitus 860635386 E11.65 Essential hypertension 71545760 I10 Gastroesop hageal reflux disease without esophagitis 639858027 K21.9 [id number] [place] [address] 08/22/2024 14:12:25 08/22/2024 14:41:48 Hyperlipidemia 30278458 E78.5 Type 2 griffin betes mellitus without complication 390235854 E11.9 Uncontroll ed type 2 diabetes mellitus 664677543 E11.65 Essential hypertension 46394311 I10 Gastroesop hageal reflux disease without esophagitis 721302232 K21.9 Body mass index 30+ - obesity 779487437 Z68.34 [id number] [place] [address] 11/17/2024 15:10:52 11/17/2024 16:04:35 Hyperglycemia due to type 2 diabetes mellitus 7830027277 98457 E11.65 Z79.4 25110349 Fatigue 50810450 R53.83 1632402 Mixed hyperlipidemia 267 252375 E78.2 01110 Vitamin D deficiency 347 09928 E55.9 95146 Hyperlipidemia 72558532 E78.5 Type 2 griffin betes mellitus without complication 075467027 E11.9 Uncontroll ed type 2 diabetes mellitus 690132509 E11.65 Essential hypertension 07851919 I10 Gastroesop hageal reflux disease without esophagitis 666096961 K21.9 Body mass index 30+ - obesity 205586924 Z68.35 604836 [id number] [place] [address] 02/16/2025 16:43:17 02/16/2025 17:41:19 Type 2 diabetes mellitus without complication 909014984 E11.9 Hyperlipidemia 27392725 E78.5 Noncomplia nce with treatment 3566158 Z91.199 944783 Body mass index 30+ - obesity 859119177 Z68.35 794321 [id number] [place] [address] 04/06/2025 15:43:29 04/09/2025 10:43:03 Acute low back pain 766544048 M54.50 [id number] Augusto Kelly presents with severe lower back [...] of rest periods during prolonged work hours [id number] [place] [address] 05/01/2025 15:25:10 05/02/2025 13:53:39 Pruritic rash 53526097 L28.2 501225 measuremen ts L 36mm X W 27 mm. see images in scanned documents. Cleaned with hibiclens and 4X4, deric a belkofski around with marker, patient to RTC in 2 wks. Insect bit e of lower limb 268795086 S80.862A W57.XXXA 5368996428 Body mass index 30+ - obesity 152302645 Z68.35 [id number] Zhane Misael [address] [address] 05/18/2025 11:22:44 05/18/2025 14:40:56 Diabetes mellitus 60366228 E11.9 65375 Fatigue 47315825 R53.83 6354743 Mixed hyperlipidemia 267 858346 E78.2 79613 Vitamin D deficiency 347 60991 E55.9 18568 Cobalamin deficiency 190 598223 E53.8 80921 Infected insect bite 262 790572 W57.XXXA 85556720 Dermal mycosis 47496126 B36.9 620456 Hyperlipidemia 25245277 E78.5 Type 2 griffin betes mellitus without complication 150894630 E11.9 Uncontroll ed type 2 diabetes mellitus 560345516 E11.65 Essential hypertension [id number] I10 Gastroesop hageal reflux disease without esophagitis 433933317 K21.9 Body mass index 30+ - obesity 547302269 Z68.35 [id number] Health Concerns Section Related Observation LastModified by Organization Detai ls LastModified Time None Recorded Concern Status LastModified by Organization Details LastModified Time None Recorded Advance Directives Directive N: Payers Insurance Date Sequence Insurance Name Policy Number Policy Aguilar Covered Member ID Aguilar Member ID Guarantor Name 01/26/2023 SLIDING FEE SCHEDULE - DISCOUNT Augusto Isle 05/10/2023 SLIDING FEE SCHEDULE - DISCOUNT Augusto Isle 05/21/2025 1 [place] [id number] 1 Augusto Kelly [id number] Augusto Isle 05/18/2025 SLIDING FEE SCHEDULE - DISCOUNT Augusto Isle 07/16/2023 1 *SELF PAY* Na than Isle 02/03/2024 1 [employer] (PPO) Augusto Kelly [id number] Augusto Isle 04/20/2022 1 *SELF PAY* Na than Isle Notes Date Note Type Note Provider Name and Address Organization Details Recorded Time 5 text/html pt here today for medication refills. pt states hes doing well on current medication regime and has no new complaints today. A1C 12.2, 7.2 at last visit. pt states that he has been really tired for working around 50 hours per week and has been trying to remodel his house and has to get up at 0400 and he hasnt has his meds in around 3 weeks. pt admits that he does not follow a diabetic diet and he eats what he wants. i have had a conversation mult times with pt about diabetic diet, meds and exercise. pt voiced understanding. states that he will take his meds. Zhane Douglas APRN [address] [place], [address], [employer]. 11/17/2024 16:11:58 5 text/html HyperlipidemiaReported by Patient pt here today for DM f/u. pt states that hes doing well on current medication regime and has no new complaints today. pt states that he doesnt need refills today because he has plenty left, however should be out of meds today. pt admits that he may have skipped a few . states if he is running behind in the am he wont take them (he ahs to be at work at 0600). and alot of the time he doesnt take the night time meds because there is alot going on . pt A1C 12.9, 12.2 at last visit. pt states that he does not follow a diabetic diet or exercise. states that he normally doesnt eat breakfast, eats fast food for lunch and whatever he wants for dinner. i, again, tried to educate pt on the potential consequences of uncontrolled DM such as NM, renal failure, and . pt voiced understanding and again, seemed unconcerned. talked with pt about repatha injection. states that he hasnt been taking his cholesterol med and that he would take it before starting the injection. Zhane Douglas APRN [address] [place], [address], [employer] 02/16/2025 18:24:37 5 text/html ROS as noted in the HPI [...] including no ibuprofen, Tylenol, ice, or heat applications.Regarding his diabetes management, he reports he has been taking his medication and his blood sugars have been running low. He acknowledges being a little off his medication regimen during the busy work weekend but returned to proper adherence immediately afterward. Santy Watts APRN [address] [facility] [place], [address], [facility] [employer] 04/08/2025 17:56:27 5 text/html pt here today with c/o possible ring worm to LLE for around 1 week. pt states that on 04/09 he went to podiatry and was seen because he cut his foot. he had MRSA and was given an abx. according to podiatry note abx and tetanus was given at pcp however pt did not come here to be treated. left foot wound almost healed. pt states that around wed of last week this new placed popped up and has not went away. there is around a half dollar size red belkofski to lateral LLE. 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 as if there is drainage. pt thought it could be ring worm and was applying OTC antifungal cream. states that it was helping with the itching but has not gotten bigger. pt states that it popped up that size. it does not appear to be fungal, it appears to be a possible insect bite. had santy come in and take a look at the area as well and agrees that is not fungal and is probable insect bite. i will order steroid cream. educated pt on new med. pt voiced understanding. advised pt to return for worsening symptoms. will recheck area at next appt. Zhane Douglas APRN [address] [place], [address], [employer], [employer]. 05/01/2025 17:24:00 5 text/html pt here today for medication refills. pt states hes doing well on current medication regime. states that he has been taking medication as prescribed. A1C 8.2, down from 12.9 at last visit. pt still has the red area on LLE that he had at last visit. the redness hasnt gotten any bigger/worse but it hasnt gotten alot better. the area looks dry and crusty now. states that it is itchy and he has been wearing boots to work and it does rub on there. the center is still slightly raised and pt states that he has been trying to squeeze on it but nothing is coming out. i am going to order abx and antifungal. im not sure what the area is exactly. i will order labwork today. if this doesnt help will send to derm. pt voiced understanding. Zhane Douglas APRN [address] [place], [address], [employer], [employer]. 05/18/2025 14:12:22
--- OUTSIDE RECORDS SUMMARY | 2025-06-10 15:42 | XMS_ITS | Continuity of Care Document ---
Author Organization [facility] Address [address] [place] [address] Assessment No assessment recorded. Plan of Treatment Reminders Order Date Submit Date Provider Last Modified By Organization Details Last Modified Time Details Appointments None recorded. Lab None recorded. Referral None recorded. Procedures None recorded. Surgeries None recorded. Imaging None recorded. Medication Orders betamethas one, augmented 0.05 % topical ointment 2024 025 [facility], [address] [place] [address], [address], 13:08:06 Patient TargetsNo targets recorded. Patient InstructionsNo instructions recorded. Reason for Referral None Reported. Results Created Date Observation Date Name Description Value Unit Range Abnormal Flag Note LastModifiedBy Organization Detail LastModifiedTime 04/06/2004/06/2025 urina lysis , dipst ick Leukocytes Negati ve Not Available [address], [address], 04/06/2025 16:04:45 04/06/2004/06/2025 urina lysis , dipst ick Nitrite negati ve Not Available [address], [address], 04/06/2025 16:04:45 04/06/2004/06/2025 urina lysis , dipst ick Urobilinogen .2 Not Available [address], [address], 04/06/2025 16:04:45 04/06/2004/06/2025 urina lysis , dipst ick Protein Negati ve Not Available [address], [address], 04/06/2025 16:04:45 04/06/2004/06/2025 urina lysis , dipst ick pH 6.0 Not Available [address], [address], 04/06/2025 16:04:45 04/06/2004/06/2025 urina lysis , dipst ick Blood Negati ve Not Available [address], [address], 04/06/2025 16:04:45 04/06/2004/06/2025 urina lysis , dipst ick Specific [place] 1.010 Not Available [address], [address], 04/06/2025 16:04:45 04/06/2004/06/2025 urina lysis , dipst ick Ketone Negati ve Not Available [address], [address], 04/06/2025 16:04:45 04/06/2004/06/2025 urina lysis , dipst ick Bilirubin Negati ve Not Available [address], [address], 04/06/2025 16:04:45 04/06/2004/06/2025 urina lysis , dipst ick Glucose 1000 Not Available [address], [address], 04/06/2025 16:04:45 04/06/2004/06/2025 urina lysis , dipst ick Appearance Clear Not Available [address], [address], 04/06/2025 16:04:45 04/06/2004/06/2025 urina lysis , dipst ick Color Yellow Not Available [address], [address], 04/06/2025 16:04:45 Result Notes None recorded. Problems Name Problem SNOMED Code Status Onset Date Resolution Date Notes Provider Name and Address Organization Details Recorded Time Type 2 diabetes mellitus without complicatio n 435793299 Active 2021 RANDY ford [employer] 2 10:33:28 Hyperlipide sherlyn 64906523 Active 2021 RANDY ford [employer] 2 10:33:34 Hyperglycem ia due to type 2 diabetes mellitus 3861293888741 09 Active 2024 Venita ford [employer] 15:39:59 Acute low back pain 994529510 Active 2024 Santy Watts APRN [address] [place], [address], [facility] [employer] 5 16:04:38 Pruritic rash 86650109 Active 2024 Venita ford [employer] 17:08:19 Diabetes mellitus 45376195 Active 2024 Venita ford [employer] 11:44:58 Problem Notes None recorded. Procedures Surgical History Date Name Laterality Status Provider Name and Address Organization Details Recorded Time amputation of toe completed Venita Johnston [employer] 07/16/2023 14:24:58 Imaging Results None recorded. Procedure Notes None recorded. Medical Equipment None Reported. Allergies Allergen ID Allergen Name Allergen Category Reaction Reaction Severity Criticality Documentation Date Start Date Code Code System Note Provider Name and Address Organization Details Recorded Time 48766 Product containin g penicilli n (product) medicatio n rash Not available Not available 04/13/2023 17463 8001 SNOMED Zhane Douglas, AGRICULTURAL EDUCATION PROFESSOR [address] [place], [address], [employer] 3 17:15:32 Medications Name Sig Start Date [...] Available Not Available Not Available Dexcom G6 Digital Media Buyer Use as directed . active Not Available Not Available No t Available Dexcom G6 Transmitt er device Use as directed and change every 90 days active Not Available Not Available No t Available FreeStyle Stuart 2 Sensor kit USE DIRECTED active Not Available Not Available No t Available Free[employer] Stuart 2 Marion USE DIRECTED active Not Available Not Available [...] and Address Organization Details Last Updated DateTime 167.64 cm 35.2 kg/m2 21403.1 4 g 90 /min 98 % 132/83 mm[Hg] Venita Johnston [employer] 15:43:05 Social History Question Answer Notes LastModified by Organizat ion Details LastModified Time Tobacco Smoking Status Never Smoker Jerica ford [employer] 04/20/2022 13:25:37 Do You Have An Advance Directive? No [email or web address] Information n ot available 05/09/2022 Is Your Home Air Conditioned? Yes Information not available 11/05/2022 Do You Wear A Helmet When Biking? No Information not available 11/05/2022 Are You Blind Or Do You Have Difficulty Seeing? No [email or web address] Information n ot available 05/09/2022 What Is Your Level Of Caffeine Consumption? Occasional Information not available 11/05/2022 Are You A Caregiver? No Information not available 11/05/2022 In The 14 Days Before Symptom Onset, Have You Had Close Contact With A Laboratory-confirm ed COVID-19 While That Case Was Ill? No [email or web address] Information n ot available 05/09/2022 In The 14 Days Before Symptom Onset, Have You Had Close Contact With A Person Who Is Under Investigation For COVID-19 While That Person Was Ill? No Information not available 05/09/2022 Have You Been To An Area Known To Be High Risk For COVID-19? No [email or web address] Information not available 05/09/2022 Are You Deaf Or Do You Have Serious Difficulty Hearing? No [email or web address] Information not available 05/09/2022 What Type Of Diet Are You Following? DIABETIC [email or web address] Information n ot available 05/09/2022 Have There Been Any Changes To Your Family Or Social Situation? No Information no t available 11/05/2022 Are There Any Guns Present In Your Home? No Information not available 11/05/2022 Which Of Your Hands Is Dominant? Right Information n ot available 11/05/2022 Do You Have A Medical Power Of System Engineer? No [email or web address] Information not available 05/09/2022 What Was The Date Of Your Most Recent Tobacco Screening? 05/18/2025 [email or web address] Information not available 05/18/2025 Do You Have Any Pets? No Information not available 11/05/2022 What Is Your Relationship Status? [email or web address] Information not available 05/09/2022 Do You Use [...] 11/05/2022 Have You Recently Traveled Abroad? No [email or web address] Information not available 05/09/2022 Do You Have Difficulty Walking Or Climbing Stairs? No [email or web address] Information not available 05/09/2022 Are You Currently In School? No [email or web address] Information not available 05/09/2022 Do You Have [...] is your level of alcohol consumption? None [email or web address] Information not available 04/20/2022 Are you currently employed? Yes [email or web address] Information not available 05/09/2022 Do you have transportation difficulties? No [email or web address] Information not available 05/09/2022 Are you able to walk independently without assistance or assistive devices? YESWOREST [email or web address] Information not available 05/09/2022 Do you have difficulty doing errands alone? No [email or web address] Information not available 05/09/2022 Are you able to care for yourself independently? Yes Information not available 05/09/2022 Do you have difficulty dressing, bathing, grooming, or toileting? No [email or web address] Information not available 05/09/2022 Mental Status Question Answer Note LastModified by Organizat ion Details LastModified Time Do you feel stressed (tense, restless, nervous, or anxious, or unable to sleep at night)? [id number] Information not available 11/05/2022 Do you have difficulty concentrating, remembering or making decisions? No [email or web address] Information no t available 05/09/2022 Family History Relationship Description Onset Age of this Age Resolved Age Notes LastModified by Organization Details LastModified Time Father Diabetes mellitus [email or web address] Not available 05/09 10:33:56 Medical History Condition Response Hospitalizations N ADD/ADHD N Diabetes Y Emergency room visit since last appointm ent. N Hypertension Y High Cholesterol Y Immunizations Vaccine Type Date Status Note Provider Franck la and Address Organization Details Recorded Time Tdap 01/02/2016 completed NILTON ford, [facility] [employer] [facility]. 12/31/2022 09:31:35 Hep B, adult 01/02/2016 completed NILTON ford, [employer] 12/31/2022 09:31:35 Hep B, adult 02/17/2016 completed NILTON ford, [employer] 12/31/2022 09:31:35 Hep B, adult 05/04/2019 completed NILTON ford, [employer] 12/31/2022 09:31:35 Hep A-Hep B 01/19/2019 completed NILTON ford, [employer] 12/31/2022 09:31:35 Tdap 12/25/2022 completed [facility] 05/18/2025 11:24:10 Tdap 04/09/2025 completed Not Available [facility] 05/18/2025 11:24:10 Past Encounters Encounter ID Performer Location Encounter Start Date Encounter Closed Date Diagnosis/Indication Diagnosis SNOMED-CT Code Diagnosis ICD10 Code Diagnosis IMO Codes Diagnosis Note [id number] [place] [address] 04/06/2025 15:43:29 04/09/2025 10:43:03 Acute low back pain 591545566 M54.50 [id number] Augusto Kelly presents with severe lower back [...] of rest periods during prolonged work hours [id number] [place] [address] 05/01/2025 15:25:10 05/02/2025 13:53:39 Pruritic rash 08643419 L28.2 719733 measuremen ts L 36mm X W 27 mm. see images in scanned documents. Cleaned with hibiclens and 4X4, deric a [place] around with marker, patient to RTC in 2 wks. Insect bit e of lower limb 055020022 S80.862A W57.XXXA 3103570017 Body mass index 30+ - obesity 898081212 Z68.35 775552 Health Concerns Section Related Observation LastModified by Organization Detai ls LastModified Time None Recorded Concern Status LastModified by Organization Details LastModified Time None Recorded Payers Encounter Date Sequence Insurance Name Policy Number Policy Aguilar Covered Member ID Aguilar Member ID Guarantor Name 05/01/2025 1 [place] [id number] 1 Augusto Kelly [id number] Augusto Kelly Notes Date Note Type Note Provider Name and Address Organization Details Recorded Time 05/01/2025 text/html pt here today with c/o possible [...] is around a half dollar size red [place] to lateral LLE. with rinkman red in the middle and is slightly [...] at next appt. Zhane Douglas APRN [address] [facility], [place], [address], [place] [facility] [employer] 05/01/2025 17:24:00
--- OUTSIDE RECORDS SUMMARY | 2025-06-10 15:42 | XMS_ITS | Continuity of Care Document ---
Author Organization MD - [employer] [place] [facility] Address [address] [place] [id number] Assessment No assessment recorded. Plan of Treatment Reminders Order Date Submit Date Provider Last Modified By Organization Details Last Modified Time Details Appointments None recorded. Lab HbA1c (hemoglobin A1c), blood 2024 025 [email or web address] [facility], [place], [facility], [address] [place] [address], [place], [address], 12:14:13 CBC w/ auto diff 2024 025 [place] [facility] [address] [place] [address], [address], 11:08:29 CMP, serum or plasma 2024 025 [place] [facility] [address] [place] [address], [address], 5 11:08:29 TSH + free T4, serum 2024 025 [email or web address] [facility]), [address] [place] [address], [address], 5 11:08:28 lipid panel, serum 2024 025 [place] [facility] [address] [place] [address], [address], 5 11:08:30 borrelia burgdorferi IgG + IgM + total panel, IA, serum 20[address] [facility]), [address] [place] [address], [address], 11:08:31 vitamin D, 25-hydroxy, total, serum [address] [facility]), [address] [place] [address], [address], 11:08:30 cobalamin and folate panel, serum [address] [facility]), [address] [place] [address], [address], 11:08:30 Referral None recorded. Procedures None recorded. Surgeries None recorded. Imaging None recorded. Medication Orders fluconazole 150 mg tablet 2024 [facility], [address] [place] [address], [address], 09:56:30 Jardiance 25 mg tablet 2024 [facility], [address] [place] [address], [address], 09:56:33 lisinopril 20 mg tablet 2024 [facility], [address] [place] [address], [address], 09:56:33 doxycycline hyclate 100 mg capsule 2024 [facility], [address] [place] [address], [address], 09:56:31 atorvastati n 40 mg tablet 2024 [facility], [address] [place] [address], [address], 09:56:32 icosapent ethyl 1 gram capsule 2024 [facility], [address] [place] [address], [address], 13:18:11 omeprazole 40 mg capsule,del ayed release 2024 [facility], [address] [place] [address], [address], 09:56:31 Lantus Solostar U-100 Insulin 100 unit/mL (3 mL) subcutaneou s pen 2024 [facility], [address] [place] [address], [address], 10:24:47 metformin ER 500 mg tablet,exte nded release 24 hr 2024 [facility], [address] [place] [address], [address], 09:56:31 Ozempic 1 mg/dose (4 mg/3 mL) subcutaneou s pen injector 2024 [facility], [address] [place] [address], [address], 13:13:08 Patient TargetsNo targets recorded. Patient InstructionsNo instructions recorded. Reason for Referral None Reported. Results Created Date Observation Date Name Description Value Unit Range Abnormal Flag Note LastModifiedBy Organization Detail LastModifiedTime 05/18/20 25 05/19/2025 TSH+F REE T4 TSH 2.110 uIU/m L 0.450- 4.500 normal Not Available [facility] ([facility]) [address] [facility], [place], [address], 05/19/2025 11:08:28 11/07/20 25 05/19/2025 TSH+F REE T4 T4,free(dire ct) 1.48 NG/dL 0.82-1 .77 normal Not Available [facility] ([facility]) [address] [place], [address], 05/19/2025 11:08:28 05/18/20 25 05/19/2025 CBC WITH DIFFE RENTI AL/PL ATELE T WBC 11.4 x10e3 /uL 3.4-10 .8 above high normal Not Available [facility] ([facility]) [address] [place], [address], 05/19/2025 11:08:29 05/18/20 25 05/19/2025 CBC WITH DIFFE RENTI AL/PL ATELE T RBC 5.40 x10e6 /uL 4.14-5 .80 normal Not Available [facility] ([facility]) [address] [facility], [place], [address], 05/19/2025 11:08:29 05/18/20 25 05/19/2025 CBC WITH DIFFE RENTI AL/PL ATELE T hemoglobin 15.6 g/dL 13.0-1 7.7 normal Not Available [facility] ([facility]) [address] [place], [address], 05/19/2025 11:08:29 05/18/20 25 05/19/2025 CBC WITH DIFFE RENTI AL/PL ATELE T hematocrit 49.0 % 37.5-5 1.0 normal Not Available [facility] ([facility]) [address] [place], [address], 05/19/2025 11:08:29 05/18/20 25 05/19/2025 CBC WITH DIFFE RENTI AL/PL ATELE T MCV 91 fL 79-97 normal Not Available [facility] ([facility]) [address] [place], [address], 05/19/2025 11:08:29 05/18/20 25 05/19/2025 CBC WITH DIFFE RENTI AL/PL ATELE T MCH 28.9 pg 26.6-3 3.0 normal Not Available [facility] ([facility]) [address] [facility], [place], [address], 05/19/2025 11:08:29 05/18/20 25 05/19/2025 CBC WITH DIFFE RENTI AL/PL ATELE T MCHC 31.8 g/dL 31.5-3 5.7 normal Not Available [facility] ([facility]) [address] [facility], [place], [address], 05/19/2025 11:08:29 05/18/20 25 05/19/2025 CBC WITH DIFFE RENTI AL/PL ATELE T RDW 13.1 % 11.6-1 5.4 Not Available [facility] ([facility]) [address] [facility], [place], [address], 05/19/2025 11:08:29 05/18/20 25 05/19/2025 CBC WITH DIFFE RENTI AL/PL ATELE T platelets 223 x10e3 /uL 150-45 0 normal Not Available [facility] ([facility]) [address] [facility], [place], [address], 05/19/2025 11:08:29 05/18/20 25 05/19/2025 CBC WITH DIFFE RENTI AL/PL ATELE T neutrophils 74 % not estab. normal Not Available [facility] ([facility]) [address] [facility], [place], [address], 05/19/2025 11:08:29 05/18/20 25 05/19/2025 CBC WITH DIFFE RENTI AL/PL ATELE T lymphs 18 % not estab. normal Not Available [facility] ([facility]) [address] [place], [address], 05/19/2025 11:08:29 11/07/20 25 05/19/2025 CBC WITH DIFFE RENTI AL/PL ATELE T monocytes 6 % not estab. normal Not Available [facility] ([facility]) [address] [facility], [place], [address], 05/19/2025 11:08:29 05/18/20 25 05/19/2025 CBC WITH DIFFE RENTI AL/PL ATELE T eos 1 % not estab. normal Not Available [facility] ([facility]) [address] [facility], [place], [address], 05/19/2025 11:08:29 05/18/20 25 05/19/2025 CBC WITH DIFFE RENTI AL/PL ATELE T basos 0 % not estab. normal Not Available [facility] ([facility]) [address] [facility], [place], [address], 05/19/2025 11:08:29 05/18/20 25 05/19/2025 CBC WITH DIFFE RENTI AL/PL ATELE T immature cells PUSHER RUNNER Not Available [facility] ([facility]) [address] [facility], [place], [address], 05/19/2025 11:08:29 05/18/20 25 05/19/2025 CBC WITH DIFFE RENTI AL/PL ATELE T neutrophils (absolute) 8.5 x10e3 /uL 1.4-7. 0 above high normal Not Available [facility] ([facility]) [address] [facility], [place], [address], 05/19/2025 11:08:29 05/18/20 25 05/19/2025 CBC WITH DIFFE RENTI AL/PL ATELE T lymphs (absolute) 2.0 x10e3 /uL 0.7-3. 1 normal Not Available [facility] ([facility]) [address] [facility], [place], [address], 05/19/2025 11:08:29 05/18/20 25 05/19/2025 CBC WITH DIFFE RENTI AL/PL ATELE T monocytes(ab solute) 0.7 x10e3 /uL 0.1-0. 9 normal Not Available [facility] ([facility]) [address] [facility], [place], [address], 05/19/2025 11:08:29 05/18/20 25 05/19/2025 CBC WITH DIFFE RENTI AL/PL ATELE T eos (absolute) 0.1 x10e3 /uL 0.0-0. 4 normal Not Available [facility] ([facility]) [address] [facility], [place], [address], 05/19/2025 11:08:29 05/18/20 25 05/19/2025 CBC WITH DIFFE RENTI AL/PL ATELE T baso (absolute) 0.1 x10e3 /uL 0.0-0. 2 normal Not Available [facility] ([facility]) [address] [facility], [place], [address], 05/19/2025 11:08:29 05/18/20 25 05/19/2025 CBC WITH DIFFE RENTI AL/PL ATELE T immature granulocytes 1 % not estab. Not Available [facility] ([facility]) [address] [facility], [place], [address], 05/19/2025 11:08:29 05/18/20 25 05/19/2025 CBC WITH DIFFE RENTI AL/PL ATELE T immature grans (abs) 0.1 x10e3 /uL 0.0-0. 1 Not Available [facility] ([facility]) [address] [facility], [place], [address], 05/19/2025 11:08:29 05/18/20 25 05/19/2025 CBC WITH DIFFE RENTI AL/PL ATELE T NRBC PUSHER RUNNER Not Available [facility] ([facility]) [address] [facility], [place], [address], 05/19/2025 11:08:29 05/18/20 25 05/19/2025 CBC WITH DIFFE RENPAVEL AL/PL ATELE T hematology comments: PUSHER RUNNER Not Available [facility] ([facility]) [address] [facility], [place], [address], 05/19/2025 11:08:29 05/18/20 25 05/19/2025 COMP. METAB OLIC PANEL (14) glucose 136 mg/dL 70-99 above high normal Not Available [facility] ([facility]) [address] [facility], [place], [address], 05/19/2025 11:08:29 05/18/20 25 05/19/2025 COMP. METAB OLIC PANEL (14) BUN 12 mg/dL 6-24 normal Not Available [facility] ([facility]) [address] [facility], [place], [address], 05/19/2025 11:08:29 05/18/20 25 05/19/2025 COMP. METAB OLIC PANEL (14) creatinine 0.66 mg/dL 0.76-1 .27 below low normal Not Available [facility] ([facility]) [address] [facility], [place], [address], 05/19/2025 11:08:29 05/18/20 25 05/19/2025 COMP. METAB OLIC PANEL (14) eGFR 117 mL/mi n/1.7 3 >59 normal Not Available [facility] ([facility]) [address] [facility], [place], [address], 05/19/2025 11:08:29 05/18/20 25 05/19/2025 COMP. METAB OLIC PANEL (14) BUN/creatini ne ratio 18 9-20 normal Not Available [facility] ([facility]) [address] [facility], [place], [address], 05/19/2025 11:08:29 05/18/20 25 05/19/2025 COMP. METAB OLIC PANEL (14) sodium 140 mmol/ L 134-14 4 normal Not Available [facility] ([facility]) [address] [facility] [place], [address], 05/19/2025 11:08:29 05/18/20 25 05/19/2025 COMP. METAB OLIC PANEL (14) potassium 4.6 mmol/ L 3.5-5. 2 normal Not Available [facility] ([facility]) [address] [facility] [place], [address], 05/19/2025 11:08:29 05/18/20 25 05/19/2025 COMP. METAB OLIC PANEL (14) chloride 101 mmol/ L 96-106 normal Not Available [facility] ([facility]) [address] [facility] [place], [address], 05/19/2025 11:08:29 05/18/20 25 05/19/2025 COMP. METAB OLIC PANEL (14) carbon dioxide, total 20 mmol/ L 20-29 normal Not Available [facility] ([facility]) [address] [facility] [place], [address], 05/19/2025 11:08:29 05/18/20 25 05/19/2025 COMP. METAB OLIC PANEL (14) calcium 9.7 mg/dL 8.7-10 .2 normal Not Available [facility] ([facility]) [address] [facility] [place], [address], 05/19/2025 11:08:29 05/18/20 25 05/19/2025 COMP. METAB OLIC PANEL (14) protein, total 7.2 g/dL 6.0-8. 5 normal Not Available [facility] ([facility]) [address] [facility] [place], [address], 05/19/2025 11:08:29 05/18/20 25 05/19/2025 COMP. METAB OLIC PANEL (14) albumin 4.5 g/dL 4.1-5. 1 normal Not Available [facility] ([facility]) [address] [place], [address], 05/19/2025 11:08:29 05/18/20 25 05/19/2025 COMP. METAB OLIC PANEL (14) globulin, total 2.7 g/dL 1.5-4. 5 Not Available [facility] ([facility]) [address] [place], [address], 05/19/2025 11:08:29 05/18/20 25 05/19/2025 COMP. METAB OLIC PANEL (14) bilirubin, total 1.0 mg/dL 0.0-1. 2 normal Not Available [facility] ([facility]) [address] [place], [address], 05/19/2025 11:08:29 05/18/20 25 05/19/2025 COMP. METAB OLIC PANEL (14) alkaline phosphatase 102 IU/L 47-123 normal Not Available [facility]) [address] [place], [address], 05/19/2025 11:08:29 05/18/20 25 05/19/2025 COMP. METAB OLIC PANEL (14) AST (SGOT) 24 IU/L 0-40 normal Not Available [facility] ([facility]) [address] [place], [address], 05/19/2025 11:08:29 05/18/20 25 05/19/2025 COMP. METAB OLIC PANEL (14) ALT (SGPT) 25 IU/L 0-44 normal Not Available [facility] ([facility]) [address] [place], [address], 05/19/2025 11:08:29 05/18/20 25 05/19/2025 LIPID PANEL cholesterol, total 138 mg/dL 100-19 9 normal Not Available [facility] ([facility]) [address] [place], [address], 05/19/2025 11:08:30 05/18/20 25 05/19/2025 LIPID PANEL triglyceride s 204 mg/dL 0-149 above high normal Not Available [facility] ([facility]) [address] [facility] [place], [address], 05/19/2025 11:08:30 05/18/20 25 05/19/2025 LIPID PANEL HDL cholesterol 40 mg/dL >39 normal Not Available [facility]) [address] [place], [address], 05/19/2025 11:08:30 05/18/20 25 05/19/2025 LIPID PANEL VLDL cholesterol claude 34 mg/dL 5-40 Not Available [facility] ([facility]) [address] [place], [address], 05/19/2025 11:08:30 05/18/20 25 05/19/2025 LIPID PANEL LDL chol calc ([facility]) 64 mg/dL 0-99 Not Available [facility]) [address] [facility], [place], [address], 05/19/2025 11:08:30 05/18/20 25 05/19/2025 LIPID PANEL LDL calc comment: PUSHER RUNNER Not Available [facility] ([facility]) [address] [place], [address], 05/19/2025 11:08:30 05/18/20 25 05/19/2025 VITAM IN B12 AND FOLAT E vitamin B12 257 pg/mL 232-12 45 normal Not Available [facility] ([facility]) [address] [place], [address], 05/19/2025 11:08:30 05/18/20 25 05/19/2025 VITAM IN B12 AND FOLAT E folate (folic acid), serum 14.2 NG/mL >3.0 normal A serum folat e mervat ntrat ion of less than 3.1 ng/mL is consi dered to repre sent clini claude defic iency . Not Available [facility] ([facility]) [address] [facility], [place], [address], 05/19/2025 11:08:30 05/18/20 25 05/19/2025 VITAM IN [...] 1. IOM (Inst itute of Medic ine). 2009. Nabeel ry refer ence carline es for calci um and D. Katy ogden [place]: The Natio nal [facility] Press . 2. Haley sauceda [place], Jade jimenez [place], Reshma off-F errar i MOLINA, et al. Evalu ation , treat ment, and preve ntion of vitam in D defic iency : an Endoc rine Socie ty clini claude pract ice guide line. JCEM. 2010; 96(7) :1911 -30. Not Available [facility] ([facility]) [address] [facility], [place], [address], 05/19/2025 11:08:30 05/18/20 25 05/19/2025 LYME DISEA [...] refle x algor ithm. Not Available [facility] ([facility]) [address] [facility], [place], [address], 05/19/2025 11:08:31 05/18/20 25 05/19/2025 LYME DISEA SE SEROL OGY W/REF POOJA lyme IgG rafael Negati ve negati ve Not Available [facility] ([facility]) [address] [facility], [place], [address], 05/19/2025 11:08:31 05/18/20 25 05/19/2025 LYME DISEA SE SEROL OGY W/REF POOJA lyme IgM rafael Negati ve negati ve Not Available [facility] ([facility]) [address] [facility], [place], [address], 05/19/2025 11:08:31 05/18/20 25 05/19/2025 LYME DISEA [...] is recom emperatriz d. Not Available [facility] ([facility]) [address] [facility], [place], [address], 05/19/2025 11:08:31 05/18/20 25 05/18/2025 HbA1c (hemo globi n A1c), blood HbA1c 8.3 Not Available [facility] - [address], [place], [address], 05/18/2025 11:45:02 Result Notes None recorded. Problems Name Problem SNOMED Code Status Onset Date Resolution Date Notes Provider Name and Address Organization Details Recorded Time Type 2 diabetes mellitus without complicatio n 586835109 Active 2021 RANDY ford MD - [employer] 2 10:33:28 Hyperlipide sherlyn 18282213 Active 2021 RANDY ford, [email or web address] 2 10:33:34 Hyperglycem ia due to type 2 diabetes mellitus 8324994698231 09 Active 2024 Venita ford, [employer] 5 15:39:59 Acute low back pain 144001968 Active 2024 Hallie Stefanie, [employer] [address] [place], [address], [email or web address] 5 16:04:38 Pruritic rash 07234938 Active 2024 Venita ford, [employer] 5 17:08:19 Diabetes mellitus 29797768 Active 2024 Venita fordAbigail Stewart. 5 11:44:58 Problem Notes None recorded. Procedures Surgical History Date Name Laterality Status Provider Name and Address Organization Details Recorded Time amputation of toe completed Venita Johnston [email or web address] 07/16/2023 14:24:58 Imaging Results None recorded. Procedure Notes None recorded. Medical Equipment None Reported. Allergies Allergen ID Allergen Name Allergen Category Reaction Reaction Severity Criticality Documentation Date Start Date Code Code System Note Provider Name and Address Organization Details Recorded Time 20730 Product containin g penicilli n (product) medicatio n rash Not available Not available 04/13/2023 49448 8001 SNOMED Zhane Douglas, [employer] [address] [place], [address], [email or web address] 3 17:15:32 Medications Name Sig Start Date [...] Ultra-Fin e 1 mL 31 gauge x 11/24 Use as directed twice daily with lantus [...] Available Not Available Not Available Dexcom G6 Trust Clerk Use as directed . active Not Available Not Available No t Available Dexcom G6 Transmitt er device Use as directed and change every 90 days active Not Available Not Available No t Available FreeStyle Stuart 2 Sensor kit USE DIRECTED active Not Available Not Available No t Available FreeStyle Stuart 2 [place] USE DIRECTED active Not Available Not Available [...] Updated DateTime 5 167.64 cm 35 kg/m2 48811.5 4 g 89 /min 97 % 136/88 mm[Hg] Venita Johnston MD - [employer]. 5 11:42:57 Social History Question Answer Notes LastModified by Organizat ion Details LastModified Time Tobacco Smoking Status Never Smoker Jerica ford, [facility] [employer], [facility]. 04/20/2022 13:25:37 Do You Have An Advance Directive? No [email or web address] Information n ot available 05/09/2022 Is Your Home Air Conditioned? Yes Information not available 11/05/2022 Do You Wear A Helmet When Biking? No Information not available 11/05/2022 Are You Blind Or Do You Have Difficulty Seeing? No Information n ot available 05/09/2022 What Is Your Level Of Caffeine Consumption? Occasional Information not available 11/05/2022 Are You A Caregiver? No Information not available 11/05/2022 In The 14 Days Before Symptom Onset, Have You Had Close Contact With A Laboratory-confirm ed COVID-19 While That Case Was Ill? No [email or web address] Information n ot available 05/09/2022 In The 14 Days Before Symptom Onset, Have You Had Close Contact With A Person Who Is Under Investigation For COVID-19 While That Person Was Ill? No [email or web address] Information not available 05/09/2022 Have You Been To An Area Known To Be High Risk For COVID-19? No [email or web address] Information not available 05/09/2022 Are You Deaf Or Do You Have Serious Difficulty Hearing? No [email or web address] Information not available 05/09/2022 What Type Of Diet Are You Following? DIABETIC [email or web address] Information n ot available 05/09/2022 Have There Been Any Changes To Your Family Or Social Situation? No Information no t available 11/05/2022 Are There Any Guns Present In Your Home? No Information not available 11/05/2022 Which Of Your Hands Is Dominant? Right Information n ot available 11/05/2022 Do You Have A Medical Power Of Label Rewinder? No [email or web address] Information not available 05/09/2022 What Was The Date Of Your Most Recent Tobacco Screening? 05/18/2025 [email or web address] Information not available 05/18/2025 Do You Have Any Pets? No Information not available 11/05/2022 What Is Your Relationship Status? [email or web address] Information not available 05/09/2022 Do You Use [...] 11/05/2022 Have You Recently Traveled Abroad? No [email or web address] Information not available 05/09/2022 Do You Have Difficulty Walking Or Climbing Stairs? No Information not available 05/09/2022 Are You Currently In School? No [email or web address] Information not available 05/09/2022 Do You Have [...] is your level of alcohol consumption? None Information not available 04/20/2022 Are you currently employed? Yes [email or web address] Information not available 05/09/2022 Do you have transportation difficulties? No [email or web address] Information not available 05/09/2022 Are you able to walk independently without assistance or assistive devices? [employer] [email or web address] Information not available 05/09/2022 Do you have difficulty doing errands alone? No [email or web address] Information not available 05/09/2022 Are you able to care for yourself independently? Yes Information not available 05/09/2022 Do you have difficulty dressing, bathing, grooming, or toileting? No [email or web address] Information not available 05/09/2022 Mental Status Question Answer Note LastModified by Organizat ion Details LastModified Time Do you feel stressed (tense, restless, nervous, or anxious, or unable to sleep at night)? [id number] Information not available 11/05/2022 Do you have difficulty concentrating, remembering or making decisions? No [email or web address] Information no t available 05/09/2022 Family History Relationship Description Onset Age of this Age Resolved Age Notes LastModified by Organization Details LastModified Time Father Diabetes mellitus [email or web address] Not available 05/09 10:33:56 Medical History Condition Response Hospitalizations N ADD/ADHD N Diabetes Y Emergency room visit since last appointm ent. N Hypertension Y High Cholesterol Y Immunizations Vaccine Type Date Status Note Provider Nam e and Address Organization Details Recorded Time Tdap 01/02/2016 completed NILTON ford, [employer] 12/31/2022 09:31:35 Hep B, adult 01/02/2016 completed NILTON ford, [employer] 12/31/2022 09:31:35 Hep B, adult 02/17/2016 completed NILTON ford, [employer] 12/31/2022 09:31:35 Hep B, adult 05/04/2019 completed NILTON ford, [employer] 12/31/2022 09:31:35 Hep A-Hep B 01/19/2019 completed NILTON ford, [employer] 12/31/2022 09:31:35 Tdap 12/25/2022 completed [facility] Available [facility] 05/18/[facility]25 11:24:10 Tdap 04/09/2025 completed Not Available Count includes the [facility] 05/18/2025 11:24:10 Past Encounters Encounter ID Performer Location Encounter Start Date Encounter Closed Date Diagnosis/Indication Diagnosis SNOMED-CT Code Diagnosis ICD10 Code Diagnosis IMO Codes Diagnosis Note [id number] Zhaen Douglas [address] [place] [address] 05/01/2025 15:25:10 05/02/2025 13:53:39 Pruritic rash 44453219 L28.2 677159 measuremen ts L 36mm X W 27 mm. see images in scanned documents. Cleaned with hibiclens and 4X4, deric a [place] around with marker, patient to RTC in 2 wks. 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 969359 Hyperlipidemia 94126222 E78.5 Type 2 griffin betes mellitus without complication 077299211 E11.9 Uncontroll ed type 2 diabetes mellitus 418574512 E11.65 Essential hypertension 92916915 I10 Gastroesop hageal reflux disease without esophagitis 644333720 K21.9 Body mass index 30+ - obesity [id number] Z68.35 [id number] Health Concerns Section Related Observation LastModified by Organization Detai ls LastModified Time None Recorded Concern Status LastModified by Organization Details LastModified Time None Recorded Payers Encounter Date Sequence Insurance Name Policy Number Policy Aguilar Covered Member ID Aguilar Member ID Guarantor Name 05/18/2025 1 [place] [id number] 1 Augusto Kelly [id number] Augusto Kelly Notes Date Note Type Note Provider Name and Address Organization Details Recorded Time 05/18/2025 text/html pt here today for medication refills. [...] pt voiced understanding. Zhane Douglas APRN [address] [facility], [place], [address], [facility] [employer] 05/18/2025 14:12:22
[2025-06-10 15:44] LABS: Bilirubin,Urine Negative (Negative); Color,Urine YELLOW (Yellow); Glucose,Urine (UA) Negative (Negative); Ketones,Urine Negative (Negative); Leukocyte Esterase,Urine Negative (Negative); PH,Urine 6.0 (5.0-8.5); Protein,Urine Negative (Negative); Specific Gravity, Urine 1.025 (1.005-1.030); Urobilinogen,Urine 0.2 EU/dl (0.2)
[2025-06-10 15:57] LABS: Bacteria,Urine Trace /lpf; RBC,Urine Occasional #/hpf (0-3); WBC,Urine Occasional #/hpf (0-3)
--- NOTE | 2025-06-10 15:59 | CT_ITS ---
PROCEDURE INFORMATION: Exam: CT Abdomen And Pelvis With Contrast Exam date and time: 06/10/2025 4:37 PM Age: 45 years old Clinical indication: Abdominal pain; Flank; Right; Additional info: Right flank pain TECHNIQUE: Imaging protocol: Computed tomography of the abdomen and pelvis with contrast. Radiation optimization: All CT scans at this facility use at least one of these dose optimization techniques: automated exposure control; mA and/or kV adjustment per patient size (includes targeted exams where dose is matched to clinical indication); or iterative reconstruction. Contrast material: ISOVUE; Contrast volume: 75 ml; Contrast route: IV; COMPARISON: CT ABDOMEN PELVIS WO CON 12/08/2021 1:18 PM FINDINGS: Pleural spaces: There are no pleural effusions. There is a 5.1 mm nodule in the lingula seen on series 3 image 10. There is an adjacent smaller 4 mm nodule in the same region. There is a 3 mm subpleural nodule in the right middle lobe seen on series 3, image 8. There is a 5 mm subpleural nodule in the right lower lobe seen on series 3, image 3. Heart: The visualized portions of the heart are unremarkable. There is a small pericardial fluid collection present. Liver: There is diffuse decrease in hepatic/liver parenchymal density consistent with fatty infiltration. There is mild enlargement of the liver. The liver measures 20.2 cm in CC dimension. Gallbladder and biliary ducts: The gallbladder is contracted/decompressed. Pancreas: The pancreas is normal. Spleen: The spleen demonstrates punctate calcifications, consistent with remote granulomatous organism exposure. Adrenal glands: The adrenal glands are normal. Kidneys and ureters: Normal. No hydronephrosis. Stomach and bowel: The stomach is normal. The duodenum is unremarkable. Lack of gastrointestinal contrast limits evaluation of bowel. There is mildly distal retained fecal material. The colon is otherwise within range of normal. The unopacified loops of small bowel are within range of normal. Appendix: A normal appendix is identified. Intraperitoneal space: No evidence of intraperitoneal free air. There is no evidence of free intraperitoneal or pelvic fluid. Vasculature: There is no evidence of an aortic aneurysm. There are a few benign phleboliths in the pelvis. Lymph nodes: No enlarged lymph nodes. Urinary bladder: The bladder is normal. Reproductive: The prostate and seminal vesicles are normal. Bones/joints: There is no evidence of acute fracture. The thoracolumbar spine demonstrates mild degenerative changes at multiple levels. There are bilateral pars interarticularis defects at the L5 level. There is mild stable loss in anterior vertebral body height involving T8 through T10. There are mild degenerative changes of the sacroiliac joints. Soft tissues: There is minor diastasis of the rectus abdominus musculature. IMPRESSION: 1. Mild hepatomegaly and fatty hepatic infiltration. 2. Mild retained fecal material in the distal colon. 3. A few small nonspecific nodules within the visualized lung bases. For patients at low risk (minimal or absent history of smoking and of other known risk factors), no routine follow-up is indicated. For patients at high risk (history of smoking or of other known risk factors), consider optional CT Chest at 12 months. (Reference: Rin) References: Haroonhoshabbir H, et al. Guidelines for Management of Incidental Pulmonary Nodules Detected on CT Images: From the Fleischner Society 2017. Radiology. 2017;284(1):228-243.
--- NOTE | 2025-06-10 16:02 | ED_ITS ---
<Statement entered by Hermelinda Heck DO - 06/10/25 20:03> I was consulted by the CAROLINA, and we discussed the complexity of problems being addressed. I approve the treatment and management plan for this patient's care in the emergency department, thus performing a substantial portion of the medical decision making. Hermelinda Heck DO Discharge Plan Disposition Patient Disposition: Home, Self-Care Prescriptions Prescriptions: New methocarbamol 1,000 mg tablet 1,000 mg PO Q8H 3 Days Qty: 9 0RF No Action metformin 1,000 mg tablet 1,000 mg PO BID Patient Comments: TAKE 1 TABLET BY MOUTH TWICE DAILY icosapent ethyl [Vascepa] 1 gram capsule 2 g PO BID Patient Comments: TAKE 2 CAPSULES BY MOUTH TWICE DAILY fenofibrate micronized 134 mg Capsule 134 mg PO DAILY 30 Days Qty: 30 0RF lisinopril 40 MG tablet 20 mg PO DAILY 30 Days Qty: 0 0RF insulin degludec 200 UNIT/ML insulin pen 100 unit SQ HS 30 Days Qty: 0 0RF Patient Comments: INJECT 120 UNITS SUBCUTANEOUSLY INTO THE APPROPRIATE AREA DIRECTRED DAILY. ondansetron 4 mg tablet,disintegrating 4 mg PO Q8H PRN (Reason: nausea and vomiting) Qty: 20 0RF oxycodone 5 mg tablet 5 mg PO QID PRN (Reason: pain) 3 Days Qty: 12 0RF insulin aspart U-100 100 UNIT/ML insulin pen 20 - 30 unit SQ AC aspirin 81 MG tablet,delayed release (DR/EC) 81 mg PO DAILY atorvastatin 20 MG tablet 20 mg PO HS Referrals Follow up/Referrals: Provider,Referral, MD [Primary Care Provider, Medical] - See instructions Activity Restrictions/Add. Instructions Additional Instructions/Restrictions: Increase fluids and rest. Please do not take any ibuprofen. Please follow-up with your PCP Wednesday or Wednesday for follow-up on labs. If any worsening signs or symptoms occur please return to the ED. Clinical Impressions Clinical Impression: Strain of lumbar region, Acute kidney injury Instructions Patient Instructions: DI for Low Back Pain, Acute Kidney Injury, DI for Back Strain or Sprain Print Language Print Language: Syrian Discharge ED Provider: Hermelinda Heck General Adult [facility] General Chief complaint: Back Pain/Injury Stated complaint: lower back on the right side Time Seen by Provider: 06/10/25 15:40 Mode of Arrival: Ambulatory Source of Information: Patient Description of Symptoms (Recalled from ER Triage Doc. by RN): jasvir presents for right sided flank pain that started last wednesday. patient states it intermittenly wraps around his side. he has had some nausea with it. no other urinary issues noted. History of Present Illness HPI narrative: 45-year-old male presents to the ED for complaint of right sided flank pain that started last Wednesday. He says it wraps around from his back to his side. He does have some distended and tender abdomen. No nausea or vomiting. No fevers or chills. He says its like a constant ache but it is sharp at times. He does have history of old back fractures. Patient does have history of diabetes, hypertriglyceridemia, hyperlipidemia, hypertension, and acute pancreatitis. Related Data Home Medications ?Medication ?Instructions ?Recorded ?Confirmed insulin aspart U-100 100 unit/mL 20 - 30 unit SQ AC Di abetes 09/06/17 05/01/22 (3 mL) subcutaneous pen aspirin 81 mg tablet,delayed 81 mg PO DAILY HEART HEAL TH 12/09/21 05/01/22 release atorvastatin 20 mg tablet 20 mg PO HS Cholesterol 06/11/3005/01/22 icosapent ethyl 1 gram capsule 2 g PO BID Cholesterol 05/01/22 05/01/22 (Vascepa) metformin 1,000 mg tablet 1,000 mg PO BID Diabetes 05/01/22 Previous Rx's ?Medication ?Instructions ?Recorded fenofibrate micronized 134 mg 134 mg PO DAILY 30 days #30 caps 05/04/22 capsule insulin degludec 200 unit/mL (3 100 unit (0.5 mL) SQ H S Diabetes 05/04/22 mL) subcutaneous pen 30 days #0 mL lisinopril 40 mg tablet 20 mg (1/2 x 40 mg) PO DAILY 05/04/22 Hypertension 30 days #0 tabs ondansetron 4 mg disintegrating 4 mg PO Q8H PRN nausea and 05/04/22 tablet vomiting #20 tabs oxycodone 5 mg tablet 5 mg PO QID PRN pain 3 days #12 05/04/22 tabs methocarbamol 1,000 mg tablet 1,000 mg PO Q8H 72 hours #9 tabs 06/10/25 Allergies Allergy/AdvReac Type Severity Reaction Status Date / Time Penicillins (PENICILLINS) Allergy Unknown Verified 03/06/22 09:31 [facility] Disclaimer: The information contained in this section may have been updated after the patient was seen, as this information can be updated by other users. 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 [employer] current occupational exposures/hazards: No caffeine: Yes Have you lived/traveled outside US in past 30 days?: No Contact w/someone who lives/traveled outside US past 30 days?: No Exposure to someone with infectious disease in past 14 days?: No Do you have a fever (greater than 100.4 F or 38 C)?: No Have you tested positive for COVID-19?: No Exposed to someone with COVID-19 in past 14 days?: No Do you have a sore throat?: No Do you have a cough?: No Do you have any weakness?: No Do you have any diarrhea?: No Are you experiencing any unusual bleeding?: No Do you have any muscle aches/pain?: No Do you have any abdominal pain?: No Are you experiencing loss of taste or smell?: No Other Medical History Have you received the Flu Vaccine for this season: No Have you received the Pneumonia Vaccine: No ROS Obtained: Yes Systems reviewed as appropriate & no additional complaints except as documented Constitutional Constitutional: Reports as per HPI Physical Exam General General appearance: alert and in no apparent distress Head Head exam: normocephalic Eye Eye exam: Present PERRL and EOMI ENT ENT exam: Present normal oropharynx and mucous membranes moist Neck Neck exam: Present full ROM and trachea midline Respiratory Respiratory exam: Present normal lung sounds bilaterally Cardiovascular Cardiovascular exam: Present regular rate, normal rhythm, normal heart sounds, +S1 and +S2 Abdominal Exam Abdominal exam: Present soft, distention, tenderness and normal bowel sounds Abdominal tenderness: Present diffuse Extremities Exam Extremities exam: Present normal inspection, full ROM and normal capillary refill Back Exam Back exam: Present CVA tenderness (R) Neurological Exam Neurological exam: Present alert and oriented X3 Skin Skin exam: Present warm and dry Medical Decision Making Medical Records Screening: Per USPSTF and CDC recommendations, given the prevalence of disease in our region, it is our hospital?s policy to screen for HIV and viral Hepatitis for all patients aged 18 and over and those with ongoing risk factors. Jaunito Inquiry Pt receiving controlled substance: No Juanito was queried for this patient: No Vital Signs: 06/10/25 15:29 06/10/25 15:48 06/10/25 16:00 Temperature 98.6 F Temperature Source Oral Pulse Rate 61 71 Pulse Rate [Right Radial] 74 Respiratory Rate 20 Blood Pressure 140/70 147/86 H Blood Pressure [Right Arm] 151/69 H Blood Pressure Mean [Right Arm] 96 Blood Pressure Source [Right Arm] Automatic Cuff Blood Pressure Position [Right Arm] Sitting 02 Sat by Pulse Oximetry 100 98 100 Oxygen Delivery Method Room Air Room Air Room Air 06/10/25 16:42 06/10/25 16:45 06/10/25 17:00 Temperature Temperature Source Pulse Rate 80 57 L 63 Pulse Rate [Right Radial] Respiratory Rate Blood Pressure 141/81 H 129/74 137/81 Blood Pressure [Right Arm] Blood Pressure Mean [Right Arm] Blood Pressure Source [Right Arm] Blood Pressure Position [Right Arm] 02 Sat by Pulse Oximetry 99 99 98 Oxygen Delivery Method Room Air Room Air Room Air 06/10/25 17:15 06/10/25 17:30 06/10/25 17:46 Temperature Temperature Source Pulse Rate 64 64 55 L Pulse Rate [Right Radial] Respiratory Rate Blood Pressure 134/79 114/57 L 123/50 L Blood Pressure [Right Arm] Blood Pressure Mean [Right Arm] Blood Pressure Source [Right Arm] Blood Pressure Position [Right Arm] 02 Sat by Pulse Oximetry 97 100 97 Oxygen Delivery Method Room Air Room Air Room Air 06/10/25 18:00 06/10/25 18:16 06/10/25 18:30 Temperature Temperature Source Pulse Rate 56 L 59 L 57 L Pulse Rate [Right Radial] Respiratory Rate Blood Pressure 116/48 L 129/64 121/62 Blood Pressure [Right Arm] Blood Pressure Mean [Right Arm] Blood Pressure Source [Right Arm] Blood Pressure Position [Right Arm] 02 Sat by Pulse Oximetry 99 98 99 Oxygen Delivery Method Room Air Room Air Room Air 06/10/25 18:45 Temperature Temperature Source Pulse Rate 52 L Pulse Rate [Right Radial] Respiratory Rate Blood Pressure 127/59 L Blood Pressure [Right Arm] Blood Pressure Mean [Right Arm] Blood Pressure Source [Right Arm] Blood Pressure Position [Right Arm] 02 Sat by Pulse Oximetry 96 Oxygen Delivery Method Room Air Lab Data Lab Results 06/10/25 15:38: Urine Color Yellow, Urine Appearance Clear, Urine pH 6.0, Ur Specific [place] 1.025, Urine Protein Negative, Urine Glucose (UA) Negative, Urine Ketones Negative, Urine Blood Negative, Urine Nitrate Negative, Urine Bilirubin Negative, Urine Urobilinogen 0.2, Ur Leukocyte Esterase Negative, Urine RBC Occasional, Urine WBC Occasional, Ur Squamous Epith Cells None, Urine Bacteria Trace 06/10/25 15:45: WBC 11.4 H, RBC 4.59 L, Hgb 13.8 L, Hct 40.7 L, MCV 88.7, MCH 30.1, MCHC 33.9, RDW 12.4, Plt Count 281, MPV 9.9, Neut % (Auto) 72.5, Lymph % (Auto) 18.0, [place] % (Auto) 6.0, Eos % (Auto) 2.4, Baso % (Auto) 0.7, Neut # (Auto) 8.3 H, Lymph # (Auto) 2.1, [place] # (Auto) 0.7, Eos # (Auto) 0.3, Baso # (Auto) 0.1, Sodium 144, Potassium 4.2, Chloride 108 H, Carbon Dioxide 24, Anion Gap 16.2 H, BUN 12, Creatinine 1.40 H, Estimated Creat Clear 110, Estimated GFR 55 L, Est GFR ( Amer) 66, Glucose 116 H, Calcium 9.3, Magnesium 1.6, Total Bilirubin 0.3, AST 46, ALT 50, Alkaline Phosphatase 42, Troponin I < 0.01, Total Protein 7.5, Albumin 4.5, Globulin 3.0, Albumin/Globulin Ratio 1.5, Lipase 141 06/10/25 15:45 06/10/25 15:45 Orders (Tests/Meds): ED MEDICATIONS Discontinued Medications Generic Name Dose Route Start Last Admin Trade Name Fiorella PRN Reason Stop Dose Admin Acetaminophen 1,000 mg 06/10/25 15:59 06/10/25 16:14 Acetaminophen 1,000mg/100ml Vial IV 06/10/25 16:00 1,000 mg ONCE ONE Administration Sodium Chloride 1,000 mls @ 999 mls/hr 06/10/25 15:59 06/10/25 18:13 Sod Chlor 0.9% 1000ml Bag IV 06/10/25 16:59 Infused .Q1H1M ONE Infusion Sodium Chloride 1,000 mls @ 999 mls/hr 06/10/25 18:14 06/10/25 19:20 Sod Chlor 0.9% 1000ml Bag IV 06/10/25 19:14 Infused .Q1H1M ONE Infusion Iopamidol 75 ml 06/10/25 16:44 06/10/25 16:44 Iopamidol-370 (76%);100ml Bottle IV 06/10/25 16:45 75 ml ONCE ONE Administration Ketorolac Tromethamine 30 mg 06/10/25 15:59 06/10/25 16:14 Ketorolac 30mg/Ml Vial IV 06/10/25 16:00 30 mg ONCE ONE Administration Ondansetron HCl 4 mg 06/10/25 15:59 06/10/25 16:14 Ondansetron 4mg/2ml Vial IV 06/10/25 16:00 4 mg ONCE ONE Administration Orphenadrine Citrate 30 mg 06/10/25 18:14 06/10/25 18:29 Orphenadrine Citrate 60mg/2ml Vial IV 06/10/25 18:15 30 mg ONCE ONE Administration Sodium Chloride 10 ml 06/10/25 16:44 06/10/25 16:44 Sodium Chloride 0.9% 10ml Syr (Rad Only) IV 06/10/25 16:45 10 ml ONCE ONE Administration ORDERS Category Date Time Status CT abdomen pelvis w con Stat Cat Scan 06/10/25 15:59 Completed CBC [Complete Blood Count Auto Diff] Stat Lab 06/10/25 15:45 Completed Comprehensive Metabolic Panel Stat Lab 06/10/25 15:45 Completed Lipase Stat Lab 06/10/25 15:45 Completed Magnesium Stat Lab 06/10/25 15:45 Completed Trop I [Troponin I] Stat Lab 06/10/25 15:45 Completed UA [Urinalysis and Microscopic] Stat Lab 06/10/25 15:38 Completed Medical Decision Narrative: patient is a 45-year-old male presenting to the emergency department for evaluation of complaint of right flank pain and right low back pain. Patient is hemodynamically stable and nontoxic-appearing upon arrival, afebrile. Differential diagnosis includes right kidney stone, back pain, among others. Workup will be conducted with hematologic labs, specific imaging. Initial inventions include crystalloid bolus, analgesics, antibiotics, etc. Initial workup reviewed by me hematologic labs are remarkable for slightly elevated white count at 11.4, electrolytes within nonactionable. Creatinine was 1.4 which is elevated for patient but he has been taking a lot of ibuprofen, 3 a day since 2 weeks ago. Patient's troponin was less than 0.01, liver function was normal. Patient got 2 L of fluids here and I am encouraging him to follow- up with his PCP early this week to have a repeat of his kidney function completed. Patient safe for discharge home Critical Care Critical Care Time Critical Care Time: No
[2025-06-10 16:12] LABS: Hematocrit 40.7 % (42.0-52.0); Hemoglobin 13.8 g/dL (14.1-18.0); Immature Granulocytes % 0.4 %; Mean Corpuscular HGB Conc 33.9 g/dL (31.8-35.4); Mean Corpuscular Hemoglobin 30.1 pg (27.0-31.2); Mean Corpuscular Volume 88.7 fl (80-94); Nucleated Red Blood Cells % 0 %; Platelet Count 281 K/mm3 (142-424); Red Blood Count 4.59 M/mm3 (4.60-6.20); Red Cell Distribution Width-SD 40.4 fL; White Blood Count 11.4 K/mm3 (4.8-10.8)
--- NOTE | 2025-06-10 16:13 | ECG_ITS ---
APPROVED REPORT Exam: Resting ECG HR:68 bpm ECG Measurements Heart Rate 68 AXES NC 178 P 50 QRSd 100 QRS -26 QT 362 T 34 QTc 379 Conclusion SINUS RHYTHM BORDERLINE LEFT AXIS DEVIATION [QRS AXIS < -20] LOW QRS VOLTAGE IN PRECORDIAL LEADS [QRS DEFLECTION < 1.0 mV IN CHEST LEADS] BORDERLINE ECG UNCONFIRMED REPORT Electronically signed by : ALCIDES WHITT, 06/10/2025 23:01:39
[2025-06-10] MEDS: 0.9 % SODIUM CHLORIDE 1000ML 1,000 ML 999 ML IV ×2 (16:14→18:28)
[2025-06-10] MEDS: ACETAMINOPHEN 1,000MG/100ML VIAL 1000 MG IV (16:14)
[2025-06-10] MEDS: KETOROLAC 30MG/ML VIAL 30 MG IV (16:14)
[2025-06-10] MEDS: ONDANSETRON 4MG/2ML VIAL 4 MG IV (16:14)
[2025-06-10 16:19] LABS: Albumin Level 4.5 g/dl (3.5-5.0); Chloride 108 mmol/L (98-107)
[2025-06-10 16:20] LABS: Potassium 4.2 mmoL/L (3.5-5.1); Sodium 144 mmol/L (136-145)
[2025-06-10 16:22] LABS: Alanine Aminotransferase 50 U/L (12-78); Aspartate Amino Transferase 46 U/L (17-59); Blood Urea Nitrogen 12 mg/dl (9-20); Creatinine Clearance Estimated 110 mL/min (50-200); Creatinine,Serum 1.40 mg/dl (0.66-1.25); Estimated Glomerular Filt Rate 55 ml/min (>60); GFR (African American) 66 ML/MIN (>60)
[2025-06-10 16:23] LABS: Albumin/Globulin Ratio 1.5 (1.1-1.8); Alkaline Phosphatase 42 U/L (38-126); Anion Gap 16.2 mEq/L (5-15); Bilirubin,Total 0.3 mg/dl (0.2-1.3); Calcium 9.3 mg/dl (8.4-10.2); Carbon Dioxide 24 mmol/L (22.0-30.0); Globulin 3.0 g/dL (1.3-3.2); Glucose 116 mg/dl (74-100); Lipase 141 U/L (23-300); Magnesium 1.6 mg/dl (1.6-2.3); Total Protein,Serum 7.5 g/dl (6.3-8.2)
[2025-06-10 16:40] LABS: Troponin I < 0.01 ng/ml (0.00-0.034)
[2025-06-10] MEDS: SODIUM CHLORIDE 0.9% 10ML SYR (RAD ONLY) 10 ML IV (16:44)
[2025-06-10] MEDS: IOPAMIDOL-370 (76%);100ML BOTTLE 75 ML IV (16:44)
[2025-06-10] MEDS: ORPHENADRINE CITRATE 60MG/2ML VIAL 30 MG IV (18:29)
--- NOTE | 2025-06-11 14:55 | PC.NURSE ---
[facility] pharmacy called about the pts methocarbamol.
== END 2025-06-10 19:34 | disposition home or self-care (01) ==
PROVIDERS: Nurse Practitioner; Emergency Provider Student in an Organized Health Care Education/Training Program
DX: S39.012A Strain of muscle, fascia and tendon of lower back, initial encounter (principal); N17.9 Acute kidney failure, unspecified; E11.9 Type 2 diabetes mellitus without complications; I10 Essential (primary) hypertension; Z87.19 Personal history of other diseases of the digestive system; E78.5 Hyperlipidemia, unspecified; E78.1 Pure hyperglyceridemia; Z79.84 Long term (current) use of oral hypoglycemic drugs; Z79.82 Long term (current) use of aspirin; Z79.4 Long term (current) use of insulin; Z79.899 Other long term (current) drug therapy; Z88.0 Allergy status to penicillin; X58.XXXA Exposure to other specified factors, initial encounter
CPT/HCPCS: 74177; 80053; 81001; 83690; 83735; 84484; 85025; 93005; 96361; 96374; 96375; 99285; J0131; J1885; J2360; J2405; J7030; Q9967